=== PATIENT | female | born 1965 | race Caucasian/White ===

== ENCOUNTER 2020-03-22 13:58 | Outpatient (REF) | payer MEDICARE, MEDICAID, SELFPAY ==
--- NOTE | 2020-03-22 14:05 | XR_ITS ---
EXAMINATION: XR KNEE, LEFT CLINICAL INFORMATION: Pain COMPARISON: Left knee x-rays 10/12/2014 TECHNIQUE: Four views of the left knee. FINDINGS: No fracture or dislocation. No suprapatellar joint effusion. Mild to moderately decreased medial joint space height. Prominent patellar osteophytes. Small osteophytes of the medial and lateral compartments. IMPRESSION: Moderate degenerative changes of the knee, particularly in the medial compartment.
== END 2020-03-22 13:59 | disposition home or self-care (01) ==
LOC: HO.HMGCX 13:58
PROVIDERS: PCP Internal Medicine; Visit Provider Nurse Practitioner Family
DX: M25.562 Pain in left knee (principal)
CPT/HCPCS: 73564

== ENCOUNTER 2020-04-03 13:45 | Outpatient (REF) | payer MEDICARE, MEDICAID, SELFPAY | END 2020-04-03 13:46 | disposition home or self-care (01) | LOC: HO.LAB 13:45 | PROVIDERS: PCP Internal Medicine; Referring Provider Internal Medicine; Visit Provider Obstetrics & Gynecology | DX: R30.0 Dysuria (principal); M25.469 Effusion, unspecified knee; M25.562 Pain in left knee | CPT/HCPCS: 87086; 99213 ==

== ENCOUNTER 2020-04-14 09:06 | Outpatient (REF) | payer MEDICARE, MEDICAID, SELFPAY ==
[2020-04-14 16:29] LABS: CT PCR NOT DETECTED (Not Detect.); NG PCR NOT DETECTED (Not Detect.)
[2020-04-17 09:40] LABS: BV Int Neg Control Negative (Negative); BV Int Pos Control Positive (Positive)
== END 2020-04-14 09:07 | disposition home or self-care (01) ==
LOC: HO.LAB 09:06
PROVIDERS: PCP Internal Medicine; Referring Provider Internal Medicine; Visit Provider Obstetrics & Gynecology
DX: Z11.3 Encounter for screening for infections with a predominantly sexual mode of transmission (principal); N89.8 Other specified noninflammatory disorders of vagina
CPT/HCPCS: 87480; 87491; 87510; 87591; 87660; 99212

== ENCOUNTER 2020-04-27 08:30 | Outpatient (REF) | payer MEDICARE, MEDICAID, SELFPAY ==
[2020-04-27 12:45] LABS: Anion Gap 14 (12-20); Blood Urea Nitrogen 14 mg/dL (9-16); Calcium 9.3 mg/dL (8.4-10.2); Carbon Dioxide 28 mmol/L (22-29); Chloride 104 mmol/L (96-108); Cholesterol 174 mg/dL; Estimated Glomerular Filt Rate > 60; Glucose Fasting 97 mg/dL (60-99); HDL Cholesterol 54 mg/dL; LDL Cholesterol Calculated 91 mg/dl; Potassium 4.8 mmol/l (3.3-5.1); Sodium 141 mmol/L (135-145); Triglycerides 147 mg/dL
== END 2020-04-27 08:31 | disposition home or self-care (01) ==
LOC: HO.HMGCLDS 08:30
PROVIDERS: Internal Medicine; Visit Provider Obstetrics & Gynecology
DX: Z20.828 Contact with and (suspected) exposure to other viral communicable diseases (principal); E78.9 Disorder of lipoprotein metabolism, unspecified; F41.1 Generalized anxiety disorder; B00.9 Herpesviral infection, unspecified; M25.562 Pain in left knee; Z91.09 Other allergy status, other than to drugs and biological substances
CPT/HCPCS: 80048; 80061; C9803; U0003

== ENCOUNTER → 2020-08-04 09:04 | Outpatient (BNVA) | payer MEDICARE, MEDICAID, SELFPAY | PROVIDERS: PCP Internal Medicine; Referring Provider Internal Medicine; Visit Provider Nurse Practitioner | DX: Z13.89 Encounter for screening for other disorder (principal) | CPT/HCPCS: Q3014 ==

== ENCOUNTER 2020-10-17 13:17 | Outpatient (REF) | payer MEDICARE, MEDICAID, SELFPAY | END 2020-10-17 13:18 | disposition home or self-care (01) | LOC: HO.LAB 13:17 | PROVIDERS: Visit Provider Nurse Practitioner Family | DX: N39.0 Urinary tract infection, site not specified (principal) | CPT/HCPCS: 87086 ==

== ENCOUNTER 2020-10-25 07:47 | Outpatient (REF) | payer MEDICARE, MEDICAID, SELFPAY ==
--- NOTE | ~2020-10-25 | XR_ITS ---
EXAMINATION: XR CHEST CLINICAL INFORMATION: Shortness of breath COMPARISON: Previous chest x-ray most recent June 2017 TECHNIQUE: 2 views of the chest were obtained. FINDINGS: The cardiac and mediastinal contours are normal. The lungs are clear. There is no pleural effusion or pneumothorax. There are degenerative changes of the spine. XR/XR chest 2V IMPRESSION: No evidence for acute disease in the chest.
[2020-10-25 11:13] LABS: MANUAL DIFF FLAG NO
[2020-10-25 11:46] LABS: Basophils Percent Auto 0.7 % (0-2); Eosinophils Absolute Auto 0.1 X10*3/uL (0.0-0.4); Eosinophils Percent Auto 1.1 % (0-4); Hematocrit 40.8 % (37-47); Hemoglobin 12.8 g/dl (12.0-16.0); Imm Gran Abs Auto 0.01 X10*3/uL (0.00-0.03); Imm Gran Pct Auto 0.2 % (0.0-0.4); Lymphocytes Absolute Auto 2.2 X10*3/uL (1.2-4.9); Lymphocytes Percent Auto 39.2 % (20-40); Mean Corpuscular HGB Conc 31.4 g/dl (31.0-35.0); Mean Corpuscular Hemoglobin 28.5 pg (27.0-33.0); Mean Corpuscular Volume 90.9 fL (80-98); Mean Platelet Volume 10.2 fL (9.4-12.3); Monocytes Absolute Auto 0.5 X10*3/uL (0.1-1.2); Monocytes Percent Auto 8.5 % (2-11); Neutrophils Absolute Auto 2.8 X10*3/uL (2.0-8.3); Neutrophils Percent Auto 50.3 % (45-73); Platelet Count 278 X10*3/uL (160-400); Red Blood Count 4.49 X10*6/uL (4.20-5.50); Red Cell Distribution Width 13.4 % (11.0-16.0); White Blood Count 5.5 X10*3/uL (4.8-10.8)
[2020-10-25 12:28] LABS: Alanine Aminotransferase 19 U/L (0-31); Alkaline Phosphatase 81 U/L (39-117); Anion Gap 12 (12-20); Aspartate Amino Transferase 19 U/L (5-31); Bilirubin Total 0.6 mg/dL (0.0-1.0); Blood Urea Nitrogen 12 mg/dL (9-16); Calcium 9.2 mg/dL (8.4-10.2); Carbon Dioxide 25 mmol/L (22-29); Chloride 107 mmol/L (96-108); Cholesterol 219 mg/dL; Estimated Glomerular Filt Rate > 60; Glucose Fasting 91 mg/dL (60-99); HDL Cholesterol 46 mg/dL; LDL Cholesterol Calculated 134 mg/dl; Potassium 4.3 mmol/L (3.3-5.1); Sodium 140 mmol/L (135-145); Total Protein 6.7 g/dL (6.5-8.0); Triglycerides 198 mg/dL
== END 2020-10-25 07:48 | disposition home or self-care (01) ==
LOC: HO.HMGCLDS 07:47
PROVIDERS: PCP Internal Medicine; Visit Provider Internal Medicine
DX: R06.02 Shortness of breath (principal); E78.9 Disorder of lipoprotein metabolism, unspecified; F41.1 Generalized anxiety disorder; R53.83 Other fatigue; Z91.09 Other allergy status, other than to drugs and biological substances
CPT/HCPCS: 36415; 71046; 80053; 80061; 85025

== ENCOUNTER 2020-11-29 10:02 | Outpatient (REF) | payer MEDICARE, MEDICAID, SELFPAY | END 2020-11-29 10:03 | disposition home or self-care (01) | LOC: HO.LAB 10:02 | PROVIDERS: Visit Provider Nurse Practitioner Family | DX: Z13.89 Encounter for screening for other disorder (principal) ==

== ENCOUNTER 2020-11-29 10:19 | Outpatient (REF) | payer MEDICARE, MEDICAID, SELFPAY ==
[2020-11-29 11:24] LABS: MANUAL DIFF FLAG NO
[2020-11-29 11:40] LABS: Basophils Absolute Auto 0.1 X10*3/uL (0.0-0.2); Basophils Percent Auto 0.6 % (0-2); Eosinophils Absolute Auto 0.1 X10*3/uL (0.0-0.4); Eosinophils Percent Auto 0.9 % (0-4); Hematocrit 43.1 % (37-47); Hemoglobin 13.7 g/dl (12.0-16.0); Imm Gran Abs Auto 0.03 X10*3/uL (0.00-0.03); Imm Gran Pct Auto 0.3 % (0.0-0.4); Lymphocytes Absolute Auto 2.2 X10*3/uL (1.2-4.9); Lymphocytes Percent Auto 24.3 % (20-40); Mean Corpuscular HGB Conc 31.8 g/dl (31.0-35.0); Mean Corpuscular Hemoglobin 28.8 pg (27.0-33.0); Mean Corpuscular Volume 90.7 fL (80-98); Mean Platelet Volume 10.4 fL (9.4-12.3); Monocytes Absolute Auto 0.8 X10*3/uL (0.1-1.2); Monocytes Percent Auto 8.6 % (2-11); Neutrophils Absolute Auto 5.8 X10*3/uL (2.0-8.3); Neutrophils Percent Auto 65.3 % (45-73); Platelet Count 294 X10*3/uL (160-400); Red Blood Count 4.75 X10*6/uL (4.20-5.50); Red Cell Distribution Width 13.7 % (11.0-16.0); White Blood Count 8.9 X10*3/uL (4.8-10.8)
[2020-11-29 11:59] LABS: Alanine Aminotransferase 13 U/L (0-31); Albumin Level 4.3 g/dL (3.5-5.0); Alkaline Phosphatase 73 U/L (39-117); Anion Gap 16 (12-20); Aspartate Amino Transferase 17 U/L (5-31); Bilirubin Total 0.7 mg/dL (0.0-1.0); Blood Urea Nitrogen 14 mg/dL (9-16); Calcium 9.5 mg/dL (8.4-10.2); Carbon Dioxide 23 mmol/L (22-29); Chloride 107 mmol/L (96-108); Estimated Glomerular Filt Rate > 60; Glucose Random 95 mg/dL (60-115); Potassium 4.7 mmol/L (3.3-5.1); Sodium 141 mmol/L (135-145)
[2020-11-29 12:04] LABS: TSH reflex Free T4 1.01 uIU/mL (0.32-4.0)
[2020-11-30 10:01] LABS: BV Int Neg Control Negative (Negative); BV Int Pos Control Positive (Positive)
== END 2020-11-29 10:20 | disposition home or self-care (01) ==
LOC: HO.HMGCLDS 10:19
PROVIDERS: Nurse Practitioner Family; PCP Internal Medicine; Visit Provider Internal Medicine
DX: R14.0 Abdominal distension (gaseous) (principal); J39.2 Other diseases of pharynx
CPT/HCPCS: 36415; 80053; 84443; 85025; 87086; 87480; 87510; 87660

== ENCOUNTER → 2020-12-22 14:05 | Outpatient (BNVA) | payer MEDICARE, MEDICAID, SELFPAY | PROVIDERS: PCP Internal Medicine; Visit Provider Nurse Practitioner | DX: K31.84 Gastroparesis (principal); K59.01 Slow transit constipation | CPT/HCPCS: Q3014 ==

== ENCOUNTER → 2021-01-23 09:29 | Outpatient (BNVA) | payer MEDICARE, MEDICAID, SELFPAY | PROVIDERS: PCP Internal Medicine; Visit Provider Nurse Practitioner | DX: Z13.89 Encounter for screening for other disorder (principal) | CPT/HCPCS: Q3014 ==

== ENCOUNTER 2021-01-24 10:40 | Outpatient (REF) | payer MEDICARE, MEDICAID, SELFPAY ==
--- NOTE | ~2021-01-24 | XR_ITS ---
EXAMINATION: XR SHOULDER, RIGHT CLINICAL INFORMATION: Pain. COMPARISON: Right shoulder radiographs dated 12/26/2014; chest radiograph dated 10/26/2013. TECHNIQUE: AP external rotation, Grashey, scapular Y, and axillary views of the right shoulder. FINDINGS: Bony alignment and mineralization are normal. The glenohumeral joint is intact. There is mild peripheral osteophyte formation of the glenoid, most pronounced inferior. The acromioclavicular and coracoclavicular intervals are normal. There is mild osteoarthritic change of the acromioclavicular joint. There is a small distal acromial undersurface osteophyte. There is coarse calcifications of the rotator cuff insertion. No fracture or dislocation is seen. No foreign body or soft tissue gas is seen. A tiny benign, calcified right upper lobe granuloma is stable from chest radiographs dated 11/03/2013. XR/XR shoulder RT min 2V IMPRESSION: 1. There is mild to moderate osteoarthritic change of the right glenohumeral joint, and mild osteoarthritic change is seen of the right acromioclavicular joint. 2. No fracture or dislocation is seen. 3. There is coarse calcific tendinitis of the right rotator cuff insertion.
== END 2021-01-24 10:41 | disposition home or self-care (01) ==
LOC: HO.HMGCX 10:40
PROVIDERS: PCP Internal Medicine; Visit Provider Internal Medicine Rheumatology
DX: M25.511 Pain in right shoulder (principal)
CPT/HCPCS: 73030

== ENCOUNTER → 2021-02-07 11:36 | Outpatient (BNVA) | payer MEDICARE, MEDICAID, SELFPAY | PROVIDERS: PCP Internal Medicine; Visit Provider Advanced Practice Midwife | DX: Z13.89 Encounter for screening for other disorder (principal) | CPT/HCPCS: Q3014 ==

== ENCOUNTER 2021-02-18 06:47 | Emergency (ER) | payer MEDICARE, MEDICAID, SELFPAY ==
[2021-02-18 06:59] VITALS: BP 151/84; PULSE 78; RESP 16; TEMP 36.8; O2SAT 98; BMI 42.5
--- NOTE | 2021-02-18 07:14 | ED.GENADULT ---
HPI - General Adult General Chief complaint: Abdominal Pain Stated complaint: UTI Time Seen by Provider: 02/18/21 07:04 Source: patient Mode of arrival: ambulatory Limitations: no limitations History of Present Illness HPI narrative: Patient comes emergency room complaining of bilateral flank pain and nausea. Patient states that she also has dysuria, hematuria. Prior to arrival she took 1 dose of azo for discomfort relief but it is not helping. Patient states she has history of pyelonephritis, recurrent UTIs, patient known to have cystocele with prolapse and is in the scheduling process for surgery. Patient denies fever chills. Patient states her symptoms starting this morning approximately 3-4 hours ago. Related Data Home Medications Medication Instructions Recorded Confirmed metoclopramide HCl 5 mg tablet 5 mg PO QIDACHS 01/23/21 valacyclovir 500 mg tablet 500 mg PO DAILY 02/07/21 Previous Rx's Medication Instructions Recorded miscellaneous medical supply 1 ea MISCELLANEOUS DAILY #1 ea 03/23/20 linaclotide 145 mcg capsule 145 mcg PO QAM #30 cap 11/13/20 (Linzess) pantoprazole 40 mg tablet,delayed 40 mg PO DAILY 90 Days #90 tab 11/22/20 release alprazolam 0.25 mg tablet 0.25 mg PO BID PRN 30 Days #60 tab 12/12/20 rosuvastatin 10 mg tablet 10 mg PO DAILY #90 tab 12/12/20 simethicone 180 mg capsule 180 mg PO QID 30 Days #120 cap 12/22/20 levofloxacin 500 mg tablet 500 mg PO DAILY #9 tab 02/18/21 phenazopyridine 100 mg tablet 100 mg PO TID #6 tab 02/18/21 Allergies Allergy/AdvReac Type Severity Reaction Status Date / Time gabapentin [GABAPENTIN] Allergy Severe SEVERE GI Verified 02/07/21 11:38 ISSUES Iodinated Contrast Media Allergy Severe SWELLING Verified 02/07/21 11:38 [IV DYE, IODINE CONTAINING] Sulfa (Sulfonamide Allergy Severe ANAPHYLAXIS, Verified 02/07/21 11:38 Antibiotics) swelling [SULFA (SULFONAMIDE ANTIBIOTICS)] nabumetone Allergy Unknown Abdominal Verified 02/07/21 11:38 Pain pregabalin Allergy Unknown unknown Verified 02/07/21 11:38 venlafaxine Allergy Unknown unknown Verified 02/07/21 11:38 meloxicam AdvReac Unknown abdominal Verified 02/07/21 11:38 pain all meat Allergy Unknown unknown Uncoded 01/23/21 09:30 Environmental Allergy Unknown unknown Uncoded 01/23/21 09:30 Review of Systems Review of Systems: Constitutional : No Weight loss, No Fever, No Chills, No Night Sweats, No Fatigue, No Malaise ENT/Mouth : No Hearing loss, No Ear Pain, No Nasal Congestion, No Sinus Pain, No Hoarseness, No sore throat, No Rhinorrhea, No Swallowing Difficulty Eyes: No Eye Pain, No Swelling, No Redness, No Foreign Body, No Discharge, No Vision Changes Cardiovascular : No Chest Pain, No SOB, No Dyspnea on Exertion, No Orthopnea, No Edema, No Palpitations Respiratory : No Cough, No Sputum, No Wheezing, No Smoke Exposure, No Dyspnea Gastrointestinal : No Nausea, No Vomiting, No Diarrhea, No Constipation, No abdominal Pain, No Hematochezia, No Melena Genitourinary : Complaining of dysuria, urinary frequency and hematuria, Known to have cystocele with prolapse causing frequent urination and urgency, being of bilateral Flank Pain Musculoskeletal : No joint pain, No Myalgias, No Joint Swelling Skin : No Skin Lesions, No rash Neuro : No Weakness, No Numbness, No Paresthesias, No Loss of Consciousness, No Dizziness, No Headache Psych : No Anxiety/Panic, No Depression, No SI/HI/AH/VH, No Social Issues, Heme/Lymph: No Bruising, No Bleeding,No Lymphadenopathy Endocrine : No Polyuria, No Polydipsia, No Temperature Intolerance PMFSH Past Medical History Medical History Acute arthritis Anxiety, generalized Constipation by delayed colonic transit Environmental allergies Fibromyalgia Herpes Lipid disorder Tendonitis Umbilical hernia Surgical History H/O hand surgery History of cholecystectomy History of esophagogastroduodenoscopy (EGD) History of meniscectomy of left knee (~01/12/14) Hx of colonoscopy Family History Family History Mother Cervical cancer Bladder cancer Father Cancer Sister No problems noted. Social History Social History (Reviewed 02/07/21 @ 14:49 by DAHIANA Alvarenga Alcohol intake: never Patient Tobacco Use Status: Never used Tobacco Use of substances other than those prescribed or required for medical reasons: No Advance Directives: No Sexual orientation: Straight/Heterosexual Gender identity: Female Physical Exam Vital Signs: Vital Signs: Last Vital Signs Temp 98.2 F 02/18/21 06:59 Pulse 76 02/18/21 09:31 Resp 16 02/18/21 09:31 BP 132/76 02/18/21 09:31 Pulse Ox 100 02/18/21 09:31 Body Mass Index 42.5 Const: Other: Appearance: Alert. Oriented X3. No acute distress. Eyes: Pupils equal, round and reactive to light. ENT: Pharynx normal. Neck: Normal inspection. Neck supple. No lymph nodes noted. No crepitus CVS: Normal heart rate and rhythm. Pulses normal. Normal S1 and S2 Respiratory: No respiratory distress. Breath sounds normal. No Wheezing. No rales Abdomen: Soft and nontender. No rigidity. No distention. Skin: Skin warm and dry. Normal skin color. Normal skin turgor. Extremities: No lower extremity edema. No lower extremity edema. No Lacerations. No Rash Neuro: Oriented X 3. No motor deficit. No sensory deficit. Moving all extermities. No slurred speech. Course Course Course Narrative: I discussed the labs with the patient, white blood cell count and lactic acid within normal limits, sepsis is not suspected. However, due to patient's clinical picture, she does have pyelonephritis. Patient was given 1 dose of levofloxacin here in the emergency room. Reviewing the patient's allergies, she is allergic to sulfas Medical Decision Making Lab Data Result diagrams: 02/18/21 07:32 02/18/21 07:26 Labs: Lab Results 02/18/21 02/18/21 02/18/21 Range/Units 07:26 07:27 07:27 WBC (4.8-10.8) X10*3/uL RBC (4.20-5.50) X10*6/uL Hgb (12.0-16.0) g/dl Hct (37-47) % MCV (80-98) fL MCH (27.0-33.0) pg MCHC (31.0-35.0) g/dl RDW (11.0-16.0) % Plt Count (160-400) X10*3/uL MPV (9.4-12.3) fL Immature Gran % (Auto) (0.0-0.4) % Neut % (Auto) (45-73) % Lymph % (Auto) (20-40) % [place] % (Auto) (2-11) % Eos % (Auto) (0-4) % Baso % (Auto) (0-2) % Lymph # (Auto) (1.2-4.9) X10*3/uL [place] # (Auto) (0.1-1.2) X10*3/uL Eos # (Auto) (0.0-0.4) X10*3/uL Baso # (Auto) (0.0-0.2) X10*3/uL Abs Immat Gran (auto) (0.00-0.03) X10*3/uL Absolute Neuts (auto) (2.0-8.3) X10*3/uL Absolute Nucleated RBC (0.0-0.012) X10*3/uL Nucleated RBC % (auto) (0.0-0.2) /100WBC Sodium 138 (135-145) mmol/L Potassium 4.2 (3.3-5.1) mmol/L Chloride 106 (96-108) mmol/L Carbon Dioxide 25 (22-29) mmol/L Anion Gap 11 L (12-20) BUN 15 (9-16) mg/dL Creatinine 0.79 (0.5-1.4) mg/dL Estim Creat Clear Calc 86.2 Estimated GFR > 60 Random Glucose 107 (60-115) mg/dL Lactic Acid (0.5-2.0) mmol/L Calcium 9.8 (8.4-10.2) mg/dL Total Bilirubin 0.9 (0.0-1.0) mg/dL Direct Bilirubin 0.3 (0.0-0.5) mg/dL AST 17 (5-31) U/L ALT 19 (0-31) U/L Alkaline Phosphatase 83 (39-117) U/L Total Protein 7.0 (6.5-8.0) g/dL Albumin 4.3 (3.5-5.0) g/dL Urine Color ORANGE Urine Appearance CLEAR Urine pH 6.0 (5.0-8.0) Ur Specific [place] <= 1.005 (1.005-1.025) Urine Protein 1+ H (NEG-TRACE) MG/DL Urine Glucose (UA) 100 H (NEG) MG/DL Urine Ketones NEG (NEG) MG/DL Urine Blood 2+ H (NEG) Urine Nitrite POS H (NEG) Ur Leukocyte Esterase 3+ H (NEG) Urine RBC 0-2 (0) /HPF Urine WBC 15-29 H (0-4) /HPF Ur Squamous Epith Cells 1+ /LPF Ur Renal Epithelial Cell 1+ /LPF Urine Bacteria 1+ /LPF Urine Test NEGATIVE (NEGATIVE) 02/18/21 02/18/21 Range/Units 07:32 07:32 WBC 8.0 (4.8-10.8) X10*3/uL RBC 4.48 (4.20-5.50) X10*6/uL Hgb 13.5 (12.0-16.0) g/dl Hct 40.6 (37-47) % MCV 90.6 (80-98) fL MCH 30.1 (27.0-33.0) pg MCHC 33.3 (31.0-35.0) g/dl RDW 13.2 (11.0-16.0) % Plt Count 262 (160-400) X10*3/uL MPV 9.5 (9.4-12.3) fL Immature Gran % (Auto) 0.3 (0.0-0.4) % Neut % (Auto) 63.2 (45-73) % Lymph % (Auto) 26.6 (20-40) % [place] % (Auto) 8.7 (2-11) % Eos % (Auto) 0.6 (0-4) % Baso % (Auto) 0.6 (0-2) % Lymph # (Auto) 2.1 (1.2-4.9) X10*3/uL [place] # (Auto) 0.7 (0.1-1.2) X10*3/uL Eos # (Auto) 0.1 (0.0-0.4) X10*3/uL Baso # (Auto) 0.1 (0.0-0.2) X10*3/uL Abs Immat Gran (auto) 0.02 (0.00-0.03) X10*3/uL Absolute Neuts (auto) 5.0 (2.0-8.3) X10*3/uL Absolute Nucleated RBC 0.000 (0.0-0.012) X10*3/uL Nucleated RBC % (auto) 0.0 (0.0-0.2) /100WBC Sodium (135-145) mmol/L Potassium (3.3-5.1) mmol/L Chloride (96-108) mmol/L Carbon Dioxide (22-29) mmol/L Anion Gap (12-20) BUN (9-16) mg/dL Creatinine (0.5-1.4) mg/dL Estim Creat Clear Calc Estimated GFR Random Glucose (60-115) mg/dL Lactic Acid 0.8 (0.5-2.0) mmol/L Calcium (8.4-10.2) mg/dL Total Bilirubin (0.0-1.0) mg/dL Direct Bilirubin (0.0-0.5) mg/dL AST (5-31) U/L ALT (0-31) U/L Alkaline Phosphatase (39-117) U/L Total Protein (6.5-8.0) g/dL Albumin (3.5-5.0) g/dL Urine Color Urine Appearance Urine pH (5.0-8.0) Ur Specific [place] (1.005-1.025) Urine Protein (NEG-TRACE) MG/DL Urine Glucose (UA) (NEG) MG/DL Urine Ketones (NEG) MG/DL Urine Blood (NEG) Urine Nitrite (NEG) Ur Leukocyte Esterase (NEG) Urine RBC (0) /HPF Urine WBC (0-4) /HPF Ur Squamous Epith Cells /LPF Ur Renal Epithelial Cell /LPF Urine Bacteria /LPF Urine Test (NEGATIVE) Discharge Plan Discharge Clinical Impression: Pyelonephritis Patient Disposition: Home, Self-Care Instructions: Kidney Infection (ED) Additional Instructions: Please follow-up with your primary care physician tomorrow. If you have any worsening or new symptoms, please return to the emergency room or call 911 Prescriptions: New levofloxacin 500 mg tablet 500 mg PO DAILY Qty: 9 RF: 0 phenazopyridine 100 mg tablet 100 mg PO TID Qty: 6 RF: 0 No Action linaclotide [Linzess] 145 mcg capsule 145 mcg PO QAM Qty: 30 RF: 6 pantoprazole 40 mg tablet,delayed release (DR/EC) 40 mg PO DAILY 90 Days Qty: 90 RF: 1 alprazolam 0.25 mg tablet 0.25 mg PO BID PRN (Reason: anxiety) 30 Days Qty: 60 RF: 2 rosuvastatin 10 mg tablet 10 mg PO DAILY Qty: 90 RF: 0 miscellaneous medical supply Misc 1 ea miscellaneous DAILY Qty: 1 RF: 0 simethicone 180 mg capsule 180 mg PO QID 30 Days Qty: 120 RF: 3 metoclopramide HCl 5 mg tablet 5 mg PO QIDACHS RF: 0 valacyclovir 500 mg tablet 500 mg PO DAILY RF: 0
[2021-02-18] MEDS: ondansetron HCL 4 MG/2 ML VIAL IVPUSH (07:36)
[2021-02-18] MEDS: 0.9 % Sodium Chloride 1,000 ML 999 ML IVCONT (07:36)
[2021-02-18 07:38] LABS: MANUAL DIFF FLAG NO
[2021-02-18 07:40] LABS: Basophils Absolute Auto 0.1 X10*3/uL (0.0-0.2); Basophils Percent Auto 0.6 % (0-2); Eosinophils Absolute Auto 0.1 X10*3/uL (0.0-0.4); Eosinophils Percent Auto 0.6 % (0-4); Hematocrit 40.6 % (37-47); Hemoglobin 13.5 g/dl (12.0-16.0); Imm Gran Abs Auto 0.02 X10*3/uL (0.00-0.03); Imm Gran Pct Auto 0.3 % (0.0-0.4); Lymphocytes Absolute Auto 2.1 X10*3/uL (1.2-4.9); Lymphocytes Percent Auto 26.6 % (20-40); Mean Corpuscular HGB Conc 33.3 g/dl (31.0-35.0); Mean Corpuscular Hemoglobin 30.1 pg (27.0-33.0); Mean Corpuscular Volume 90.6 fL (80-98); Mean Platelet Volume 9.5 fL (9.4-12.3); Monocytes Absolute Auto 0.7 X10*3/uL (0.1-1.2); Monocytes Percent Auto 8.7 % (2-11); Neutrophils Percent Auto 63.2 % (45-73); Platelet Count 262 X10*3/uL (160-400); Red Blood Count 4.48 X10*6/uL (4.20-5.50); Red Cell Distribution Width 13.2 % (11.0-16.0)
[2021-02-18 07:40] LABS: Appearance Urine CLEAR; Glucose Urine UA 100 MG/DL (NEG); Leukocyte Esterase Urine 3+ (NEG); Nitrite Urine POS (NEG); Specific Gravity - Urine <= 1.005 (1.005-1.025); UACC Culture Trigger YES; Urine Blood 2+ (NEG); Urine Ketones NEG (NEG); Urine Protein 1+ MG/DL (NEG-TRACE)
[2021-02-18 07:42] LABS: Urine Pregnancy NEGATIVE (NEGATIVE)
[2021-02-18 07:43] LABS: UPreg QC Valid YES
[2021-02-18 07:46] LABS: Color Urine ORANGE
[2021-02-18 07:49] LABS: Lactic Acid 0.8 mmol/L (0.5-2.0)
[2021-02-18 07:50] LABS: Alanine Aminotransferase 19 U/L (0-31); Albumin Level 4.3 g/dL (3.5-5.0); Alkaline Phosphatase 83 U/L (39-117); Anion Gap 11 (12-20); Aspartate Amino Transferase 17 U/L (5-31); Bilirubin Direct 0.3 mg/dL (0.0-0.5); Bilirubin Total 0.9 mg/dL (0.0-1.0); Blood Urea Nitrogen 15 mg/dL (9-16); Calcium 9.8 mg/dL (8.4-10.2); Carbon Dioxide 25 mmol/L (22-29); Chloride 106 mmol/L (96-108); Creatinine Clr Calc Pharmacy 86.2; Estimated Glomerular Filt Rate > 60; Glucose Random 107 mg/dL (60-115); Potassium 4.2 mmol/L (3.3-5.1); Sodium 138 mmol/L (135-145)
[2021-02-18] MEDS: Ketorolac Tromethamine 15 MG/ML VIAL 30 MG IVPUSH (07:55)
[2021-02-18 08:14] LABS: Bacteria Urine 1+ /LPF; RBC Urine 0-2 /HPF (0); Renal Epithelial Cells Urine 1+ /LPF; Squamous Epithelial Cell Urine 1+ /LPF
[2021-02-18 09:31] VITALS: BP 132/76; PULSE 76; RESP 16; O2SAT 100
--- NOTE | 2021-02-18 09:31 | PC.NURSE ---
Pt states pain 9/10, but noted resting with eyes closed. vitals stable. awaiting dispo
[2021-02-18] MEDS: levoFLOXacin 500 MG TABLET PO (10:31)
== END 2021-02-18 10:36 | disposition home or self-care (01) ==
PROVIDERS: Emergency Provider Emergency Medicine; PCP Internal Medicine
DX: N12 Tubulo-interstitial nephritis, not specified as acute or chronic (principal); R10.9 Unspecified abdominal pain; Z79.899 Other long term (current) drug therapy
CPT/HCPCS: 36415; 80048; 80076; 81001; 81025; 83605; 85025; 87040; 87086; 87088; 87186; 96365; 96375; 99284; J1885; J2405

== ENCOUNTER → 2021-03-16 09:02 | Outpatient (BNVA) | payer MEDICARE, MEDICAID, SELFPAY | PROVIDERS: PCP Internal Medicine; Visit Provider Nurse Practitioner | DX: K21.9 Gastro-esophageal reflux disease without esophagitis (principal); K31.84 Gastroparesis; K59.04 Chronic idiopathic constipation; R10.13 Epigastric pain | CPT/HCPCS: Q3014 ==

== ENCOUNTER 2021-07-19 11:16 | Day surgery (SDC) | payer MEDICARE, MEDICAID, SELFPAY ==
--- NOTE | 2021-07-19 11:41 | MHC.SHP ---
Pre-Procedural Eval Section A Date of Service: 07/19/21 Section B Chief Complaint: reflux Relevant Family History (Specify if Yes): No Relevant Social History: None Present Medications: see Short Stay Collaborative assessment Medical History: Significant History (Acute arthritis Anxiety, generalized Environmental allergies Fibromyalgia Herpes Lipid disorder Tendonitis Umbilical hernia) History of Previous Operations: Relevant previous surgery/procedure and date(s) (H/O hand surgery History of cholecystectomy History of esophagogastroduodenoscopy (EGD) History of meniscectomy of left knee (~01/12/14) Hx of colonoscopy) Allergies: Allergies Allergy/AdvReac Type Severity Reaction Status Date / Time gabapentin [GABAPENTIN] Allergy Severe SEVERE GI Verified 03/16/21 09:03 ISSUES Iodinated Contrast Media Allergy Severe SWELLING Verified 03/16/21 09:03 [IV DYE, IODINE CONTAINING] Sulfa (Sulfonamide Allergy Severe ANAPHYLAXIS, Verified 03/16/21 09:03 Antibiotics) swelling [SULFA (SULFONAMIDE ANTIBIOTICS)] lidocaine Allergy Mild Welts Verified 03/16/21 09:03 nabumetone Allergy Unknown Abdominal Verified 03/16/21 09:03 Pain pregabalin Allergy Unknown unknown Verified 03/16/21 09:03 venlafaxine Allergy Unknown unknown Verified 03/16/21 09:03 meloxicam AdvReac Unknown abdominal Verified 03/16/21 09:03 pain all meat Allergy Unknown unknown Uncoded 03/16/21 09:03 Environmental Allergy Unknown unknown Uncoded 03/16/21 09:03 Review of Systems Sugical H&P ROS: Negative: Constitution, Cardiovascular, Respiratory, Neurological, Psychiatric, Hem-Onc, Allergic/Immunologic, Gastrointestinal, Genitourinary, Musculoskeletal, Integumentary, Endocrine and Eyes/Ears/Nose/Throat Exam Surgical H&P Exam: Normal: HEENT, Normal: Heart, Normal: Lungs, Normal: Extremities, Normal: Abdomen, Normal: Skin and Normal: Neurological Plan Diagnosis/Plan: Unchanged I have reviewed the history and physical and performed a pertinent physical examination on my patient. No changes have occurred unless specified.
[2021-07-19 11:57] VITALS: BMI 42.9
[2021-07-19 12:12] VITALS: BP 141/83; PULSE 75; RESP 17; TEMP 36.3; O2SAT 96
--- NOTE | 2021-07-19 13:36 | P.BOP_ITS ---
Brief Operative Note Date of Service: 07/19/21 Pre-op diagnosis: GERD Post-op diagnosis: same Procedure: see op note Surgeon: Shahana Blunt MD Anesthesia: MAC Was an Security And Compliance Project Manager used for this Procedure?: No Estimated blood loss (mL): 0 Condition: stable Disposition: PACU
--- NOTE | 2021-07-19 13:36 | W.PM.OPN ---
Operative Note Operative Note Date of Service: 07/19/21 Narrative: Procedure Description: EGD FLEXIBLE TRANSORAL UPPER GASTROINTESTINAL ENDOSCOPY UPPER ENDOSCOPY Consent: Indications for the procedure and potential complications of bleeding, perforation, reaction to medications and missed diagnosis were discussed with the patient and informed consent was obtained. Instrument: Olympus GIF H 190 J mid size upper endoscope Monitoring: Vital signs and clinical assessment, continuous EKG monitoring, Pulse oximetry, Carbon Dioxide monitoring and blood pressure monitoring were done throughout the procedure. Procedure: The patient was placed in the left lateral decubitis position and pre-procedure medications were administered and a bite block was placed. The endoscope was inserted into the mouth and advanced under direct vision to the third part of duodenum. A careful inspection was made as the upper endoscope was withdrawn including a retroflexed examination of the proximal stomach; Findings and interventions are described below. Findings: Larynx:normal Esophagus: GE junction at 38 cm, diaphragm hiatus at 40 cm, 2 cm sliding hiatal hernia, with possible short segment barretts esophagus Stomach: streaky gastric erythema with few erosions in antrum. Biopsies were obtained. Grade 2 flap valve on retroflexed examination of the cardia. Duodenum: Normal bulb and descending duodenum, bx taken Intervention: Biopsies as noted above Impression/Findings: erosive gastritis hiatal hernia possible barretts PLAN: Reflux precautions review timing of PPI, consider changing formulation if ongoing sx or increase the dose if sx still persist then gastric emptying study
[2021-07-19 13:40] VITALS: BP 120/76; PULSE 73; RESP 16; TEMP 36.6; O2SAT 98
[2021-07-19 13:55] VITALS: BP 118/76; PULSE 73; RESP 18; O2SAT 97
[2021-07-19 14:10] VITALS: BP 136/85; PULSE 75; RESP 18; O2SAT 98
== END 2021-07-19 14:51 | disposition home or self-care (01) ==
PROVIDERS: PCP Internal Medicine; Visit Provider Internal Medicine Gastroenterology
PROC: 0DJ08ZZ Inspection of Upper Intestinal Tract, Via Natural or Artificial Opening Endoscopic (ICD-10-PCS; CPT 43235; principal; 2021-07-19 12:40)
DX: K21.9 Gastro-esophageal reflux disease without esophagitis (principal); K29.50 Unspecified chronic gastritis without bleeding; K44.9 Diaphragmatic hernia without obstruction or gangrene; M79.7 Fibromyalgia; E75.6 Lipid storage disorder, unspecified; Z79.899 Other long term (current) drug therapy; Z88.2 Allergy status to sulfonamides; Z88.8 Allergy status to other drugs, medicaments and biological substances; Z91.041 Radiographic dye allergy status
CPT/HCPCS: 43239; 88305; 88342

== ENCOUNTER 2021-09-19 09:13 | Outpatient (REF) | payer MEDICARE, MEDICAID, SELFPAY ==
[2021-09-19 11:11] LABS: MANUAL DIFF FLAG NO
[2021-09-19 11:34] LABS: Basophils Absolute Auto 0.1 X10*3/uL (0.0-0.2); Eosinophils Absolute Auto 0.1 X10*3/uL (0.0-0.4); Eosinophils Percent Auto 1.4 % (0-4); Hematocrit 41.1 % (37.0-47.0); Hemoglobin 13.4 g/dl (12.0-16.0); Imm Gran Abs Auto 0.01 X10*3/uL (0.00-0.03); Imm Gran Pct Auto 0.2 % (0.0-0.4); Lymphocytes Absolute Auto 1.9 X10*3/uL (1.2-4.9); Mean Corpuscular HGB Conc 32.6 g/dl (31.0-35.0); Mean Corpuscular Hemoglobin 29.6 pg (27.0-33.0); Mean Corpuscular Volume 90.7 fL (80.0-98.0); Mean Platelet Volume 10.6 fL (9.4-12.3); Monocytes Absolute Auto 0.6 X10*3/uL (0.1-1.2); Monocytes Percent Auto 10.3 % (2-11); Neutrophils Absolute Auto 3.1 x10*3/uL (2.0-8.3); Neutrophils Percent Auto 54.1 % (45-73); Platelet Count 301 X10*3/uL (160-400); Red Blood Count 4.53 X10*6/uL (4.20-5.50); Red Cell Distribution Width 12.8 % (11.0-16.0); White Blood Count 5.7 X10*3/uL (4.8-10.8)
[2021-09-19 11:45] LABS: Alanine Aminotransferase 27 U/L (0-31); Albumin Level 4.2 g/dL (3.5-5.0); Alkaline Phosphatase 84 U/L (39-117); Anion Gap 14 (12-20); Aspartate Amino Transferase 27 U/L (5-31); Bilirubin Total 0.7 mg/dL (0.0-1.0); Blood Urea Nitrogen 8 mg/dL (9-16); Calcium 9.8 mg/dL (8.4-10.2); Carbon Dioxide 24 mmol/L (22-29); Chloride 107 mmol/L (96-108); Cholesterol 199 mg/dL; Estimated Glomerular Filt Rate > 60; Glucose Fasting 116 mg/dL (60-99); HDL Cholesterol 39 mg/dL; LDL Cholesterol Calculated 114 mg/dl; Potassium 4.3 mmol/L (3.3-5.1); Sodium 141 mmol/L (135-145); Triglycerides 231 mg/dL
[2021-09-19 11:55] LABS: TSH reflex Free T4 1.29 uIU/mL (0.32-4.0)
[2021-09-19 12:09] LABS: Vitamin B12 < 146 pg/mL (200-900)
[2021-09-24 05:46] LABS: Vitamin D 25-OH, D2 <4 ng/mL; Vitamin D 25-OH, D3 30 ng/mL; Vitamin D 25-OH, Total 30 ng/mL (30-100)
== END 2021-09-19 09:14 | disposition home or self-care (01) ==
LOC: HO.HMGCLDS 09:13
PROVIDERS: PCP Internal Medicine; Visit Provider Internal Medicine
DX: E66.01 Morbid (severe) obesity due to excess calories (principal); E78.9 Disorder of lipoprotein metabolism, unspecified; F41.1 Generalized anxiety disorder; M19.90 Unspecified osteoarthritis, unspecified site; R03.0 Elevated blood-pressure reading, without diagnosis of hypertension; R53.83 Other fatigue; Z91.09 Other allergy status, other than to drugs and biological substances
CPT/HCPCS: 36415; 80053; 80061; 82306; 82607; 84443; 85025

== ENCOUNTER → 2021-10-12 07:57 | Outpatient (REF) | payer MEDICARE, MEDICAID, SELFPAY ==
--- NOTE | ~2021-10-12 | NM_ITS ---
EXAMINATION: RADIONUCLIDE SOLID FOOD GASTRIC EMPTYING 4-HOUR STUDY CLINICAL INFORMATION: Epigastric pain, history of chronic GERD. COMPARISON: The previous gastric emptying study dated 05/18/2013 is available for comparison. TECHNIQUE: A standard meal consisting of 4 oz of Egg Beaters brand tagged with 1 mCi Tc-99m Sulfur Colloid, 8 oz water and 2 slices of toast with jelly was administered orally to the patient. Images were obtained using a dual head gamma camera in the anterior and posterior projections over of the stomach immediately post ingestion and at hourly intervals up to 3 hours post ingestion. Images were not obtained at 4 hours due to the minimal retention at 3 hours. The anterior and posterior counts at each time interval were averaged using the geometric mean and expressed as percentage of the immediate post ingestion counts. FINDINGS: There is good visualization of activity in the stomach immediately post ingestion. As the study progresses, there is good clearance of activity from the stomach and visualization of progressively increasing small bowel activity. By the end of the study, there is almost no retention noted in the stomach. Retention in the stomach at each time interval was: 1 hour 99% (normal 37%-90%) 2 hours 38% (normal 30%-60%) 3 hours 7% 4 hours (Not Obtained) (normal 0%-10%) Compared to the previous study dated 05/18/2013, gastric emptying is more complete at 4 hours on the current study than previously. On the previous study retention in the stomach were: 1 hour 54%, 2 hours, 25%, 3 hours 15%, 4 hours 12%. NM/NM gastric emptying study IMPRESSION: Normal solid food gastric emptying study.
== END ==
LOC: HO.NUCMED 07:57
PROVIDERS: PCP Internal Medicine; Visit Provider Internal Medicine Gastroenterology
DX: R10.13 Epigastric pain (principal); R14.0 Abdominal distension (gaseous); K21.9 Gastro-esophageal reflux disease without esophagitis
CPT/HCPCS: 78264; A9541

== ENCOUNTER → 2022-01-15 10:42 | Outpatient (BNVA) | payer MEDICARE, MEDICAID, SELFPAY | PROVIDERS: PCP Internal Medicine; Visit Provider Nurse Practitioner | DX: K59.04 Chronic idiopathic constipation (principal); K31.84 Gastroparesis; R10.13 Epigastric pain; Z98.890 Other specified postprocedural states | CPT/HCPCS: 99212 ==

== ENCOUNTER 2022-04-22 08:32 | Outpatient (REF) | payer MEDICARE, MEDICAID, SELFPAY | END 2022-04-22 08:33 | disposition home or self-care (01) | LOC: HO.HOSX 08:32 | PROVIDERS: Visit Provider Physician Assistant | DX: Z13.89 Encounter for screening for other disorder (principal) ==

== ENCOUNTER 2022-04-24 12:19 | Outpatient (REF) | payer MEDICARE, MEDICAID, SELFPAY ==
[2022-04-24 14:10] LABS: MANUAL DIFF FLAG NO
[2022-04-24 14:14] LABS: Basophils Absolute Auto 0.1 X10*3/uL (0.0-0.2); Eosinophils Absolute Auto 0.1 X10*3/uL (0.0-0.4); Eosinophils Percent Auto 1.2 % (0-4); Hematocrit 38.6 % (37.0-47.0); Hemoglobin 12.6 g/dl (12.0-16.0); Imm Gran Abs Auto 0.02 X10*3/uL (0.00-0.03); Imm Gran Pct Auto 0.3 % (0.0-0.4); Lymphocytes Absolute Auto 2.6 X10*3/uL (1.2-4.9); Lymphocytes Percent Auto 32.9 % (20-40); Mean Corpuscular HGB Conc 32.6 g/dl (31.0-35.0); Mean Corpuscular Hemoglobin 29.9 pg (27.0-33.0); Mean Corpuscular Volume 91.5 fL (80.0-98.0); Mean Platelet Volume 10.6 fL (9.4-12.3); Monocytes Absolute Auto 0.7 X10*3/uL (0.1-1.2); Monocytes Percent Auto 9.1 % (2-11); Neutrophils Absolute Auto 4.3 x10*3/uL (2.0-8.3); Neutrophils Percent Auto 55.5 % (45-73); Platelet Count 322 X10*3/uL (160-400); Red Blood Count 4.22 X10*6/uL (4.20-5.50); Red Cell Distribution Width 12.6 % (11.0-16.0); White Blood Count 7.8 X10*3/uL (4.8-10.8)
[2022-04-24 14:40] LABS: Alanine Aminotransferase 16 U/L (0-31); Albumin Level 4.5 g/dL (3.5-5.0); Alkaline Phosphatase 99 U/L (39-117); Anion Gap 15 (12-20); Aspartate Amino Transferase 20 U/L (5-31); Bilirubin Total 0.3 mg/dL (0.0-1.0); Blood Urea Nitrogen 11 mg/dL (9-16); Calcium 9.6 mg/dL (8.4-10.2); Carbon Dioxide 24 mmol/L (22-29); Chloride 105 mmol/L (96-108); Estimated Glomerular Filt Rate > 60; Glucose Random 91 mg/dL (60-115); Potassium 4.3 mmol/L (3.3-5.1); Sodium 140 mmol/L (135-145); Total Protein 7.3 g/dL (6.5-8.0)
[2022-04-24 14:46] LABS: TSH reflex Free T4 2.69 uIU/mL (0.32-4.0)
[2022-04-24 14:53] LABS: Vitamin B12 437 pg/mL (200-900)
[2022-04-26 01:26] LABS: LDL Cholesterol Direct 133 mg/dL (<100)
[2022-04-29 16:27] LABS: Vitamin D 25-OH, D2 <4 ng/mL; Vitamin D 25-OH, D3 49 ng/mL; Vitamin D 25-OH, Total 49 ng/mL (30-100)
== END 2022-04-24 12:20 | disposition home or self-care (01) ==
LOC: HO.HMGCLDS 12:19
PROVIDERS: PCP Internal Medicine; Visit Provider Internal Medicine
DX: Z01.818 Encounter for other preprocedural examination (principal); E53.8 Deficiency of other specified B group vitamins; E66.01 Morbid (severe) obesity due to excess calories; E78.9 Disorder of lipoprotein metabolism, unspecified; F41.1 Generalized anxiety disorder; H26.9 Unspecified cataract; I10 Essential (primary) hypertension; R73.01 Impaired fasting glucose
CPT/HCPCS: 36415; 80053; 82306; 82607; 83721; 84443; 85025

== ENCOUNTER 2022-09-11 10:26 | Outpatient (REF) | payer OTHER, MEDICAID, SELFPAY ==
[2022-09-11 11:20] LABS: MANUAL DIFF FLAG NO
[2022-09-11 11:41] LABS: Basophils Absolute Auto 0.1 X10*3/uL (0.0-0.2); Basophils Percent Auto 0.9 % (0-2); Eosinophils Absolute Auto 0.1 X10*3/uL (0.0-0.4); Eosinophils Percent Auto 1.4 % (0-4); Hematocrit 39.1 % (37.0-47.0); Hemoglobin 12.5 g/dl (12.0-16.0); Imm Gran Abs Auto 0.03 X10*3/uL (0.00-0.03); Imm Gran Pct Auto 0.5 % (0.0-0.4); Lymphocytes Percent Auto 29.9 % (20-40); Mean Corpuscular Hemoglobin 28.8 pg (27.0-33.0); Mean Corpuscular Volume 90.1 fL (80.0-98.0); Mean Platelet Volume 10.7 fL (9.4-12.3); Monocytes Absolute Auto 0.6 X10*3/uL (0.1-1.2); Monocytes Percent Auto 9.3 % (2-11); Neutrophils Absolute Auto 3.8 x10*3/uL (2.0-8.3); Platelet Count 301 X10*3/uL (160-400); Red Blood Count 4.34 X10*6/uL (4.20-5.50); Red Cell Distribution Width 13.1 % (11.0-16.0); White Blood Count 6.6 X10*3/uL (4.8-10.8)
[2022-09-11 12:39] LABS: Alanine Aminotransferase 22 U/L (0-31); Albumin Level 4.1 g/dL (3.5-5.0); Alkaline Phosphatase 94 U/L (39-117); Anion Gap 14 (12-20); Aspartate Amino Transferase 27 U/L (5-31); Blood Urea Nitrogen 9 mg/dL (9-16); Calcium 9.6 mg/dL (8.4-10.2); Carbon Dioxide 26 mmol/L (22-29); Chloride 107 mmol/L (96-108); Cholesterol 179 mg/dL; Estimated Glomerular Filt Rate > 60; Glucose Fasting 132 mg/dL (60-99); HDL Cholesterol 37 mg/dL; LDL Cholesterol Calculated 105 mg/dl; Sodium 142 mmol/L (135-145); TSH reflex Free T4 0.76 uIU/mL (0.32-4.0); Total Protein 6.7 g/dL (6.5-8.0); Triglycerides 189 mg/dL
== END 2022-09-11 10:27 | disposition home or self-care (01) ==
LOC: HO.HMGCLDS 10:26
PROVIDERS: PCP Internal Medicine; Visit Provider Internal Medicine
DX: F41.1 Generalized anxiety disorder (principal); I10 Essential (primary) hypertension; Z91.09 Other allergy status, other than to drugs and biological substances
CPT/HCPCS: 36415; 80053; 80061; 84443; 85025

== ENCOUNTER 2022-09-12 11:01 | Emergency (ER) | payer OTHER, MEDICAID, SELFPAY ==
[2022-09-12 11:16] VITALS: BP 156/85; PULSE 90; RESP 20; TEMP 36.7; O2SAT 97; BMI 37.2
--- NOTE | 2022-09-12 11:17 | ED_ITS ---
HPI - Female Genitourinary General Stated complaint: uti Related Data Home Medications Medication Instructions Recorded Confirmed albuterol sulfate 90 mcg/actuation 0 mcg inhalation 01/15/22 07/05/22 aerosol inhaler estradiol 0.01% (0.1 mg/gram) g vaginal 02/28/22 07/05/22 vaginal cream fluorometholone 0.1 % eye 1 drp ophthalmic (eye) TID 02/28/22 07/05/22 drops,suspension Previous Rx's Medication Instructions Recorded miscellaneous medical supply 1 ea miscellaneous DAILY knee pain 03/23/20 #1 ea pantoprazole 40 mg tablet,delayed 40 mg PO DAILY #90 tabs 03/12/22 release cyanocobalamin (vitamin B-12) 1,000 mcg PO DAILY 90 days #90 tabs 05/17/22 1,000 mcg tablet linaclotide 72 mcg capsule 72 mcg PO QAM 30 days #30 caps 07/01/22 (Linzess) alprazolam 0.25 mg tablet 0.25 mg PO BID anxiety 30 days #60 07/05/22 tabs rosuvastatin 10 mg tablet 10 mg PO DAILY #90 tabs 07/22/22 valacyclovir 500 mg tablet 500 mg PO DAILY 90 days #90 tabs 07/29/22 Allergies Allergy/AdvReac Type Severity Reaction Status Date / Time gabapentin [GABAPENTIN] Allergy Severe SEVERE GI Verified 07/05/22 11:55 ISSUES Iodinated Contrast Media Allergy Severe SWELLING Verified 07/05/22 11:55 [IV DYE, IODINE CONTAINING] Sulfa (Sulfonamide Allergy Severe ANAPHYLAXIS, Verified 07/05/22 11:55 Antibiotics) swelling [SULFA (SULFONAMIDE ANTIBIOTICS)] lidocaine Allergy Mild Welts Verified 07/05/22 11:55 nabumetone Allergy Unknown Abdominal Verified 07/05/22 11:55 Pain pregabalin Allergy Unknown unknown Verified 07/05/22 11:55 venlafaxine Allergy Unknown unknown Verified 07/05/22 11:55 meloxicam AdvReac Unknown abdominal Verified 07/05/22 11:55 pain all meat Allergy Unknown unknown Uncoded 02/28/22 09:52 Environmental Allergy Unknown unknown Uncoded 02/28/22 09:52 [facility] Past Medical History Medical History Acute arthritis Anxiety, generalized Environmental allergies Fibromyalgia Herpes Lipid disorder Tendonitis Umbilical hernia Surgical History H/O hand surgery History of cholecystectomy History of esophagogastroduodenoscopy (EGD) History of meniscectomy of left knee (~01/12/14) Hx of colonoscopy Hx of hernia repair Family History Family History Mother Cervical cancer Bladder cancer Father Cancer Sister No problems noted. Other Mental health disorder Substance use disorder Social History Social History Housing: Apartment Alcohol intake: never Patient Tobacco Use Status: Never used Tobacco e-Cigarette/Vaping Use: Never Used service: No Current occupational status: unemployed and disabled Sexual orientation: Straight/Heterosexual Gender identity: Female Cognitive needs: No Hearing needs: No Vision needs: No Course Course Course Narrative: RME - 57 yo female with history of UTIs & pyelo in the past presenting with worsening UTI symptoms for the last 5 days. Taking Azo with no relief. Nauseated with chills but no vomiting or abdominal pain. +dysuria, urgency and frequency. Had normal labs done yesterday. VSS in triage. Plan: UA and abx Discharge Plan Discharge Prescriptions: No Action pantoprazole 40 mg tablet,delayed release (DR/EC) 40 mg PO DAILY Qty: 90 1RF cyanocobalamin (vitamin B-12) 1,000 mcg tablet 1,000 mcg PO DAILY 90 Days Qty: 90 0RF Linzess 72 mcg capsule 72 mcg PO QAM 30 Days Qty: 30 3RF rosuvastatin 10 mg tablet 10 mg PO DAILY Qty: 90 0RF valacyclovir 500 mg tablet 500 mg PO DAILY 90 Days Qty: 90 0RF estradiol 0.01 % (0.1 mg/gram) cream vaginal fluorometholone 0.1 % drops,suspension 1 drp ophthalmic (eye) TID miscellaneous medical supply Misc 1 ea miscellaneous DAILY Qty: 1 0RF alprazolam 0.25 mg tablet 0.25 mg PO BID 30 Days Qty: 60 3RF albuterol sulfate 90 mcg/actuation HFA aerosol inhaler 0 mcg inhalation
--- OUTSIDE RECORDS SUMMARY | 2022-09-12 12:06 | XMS_ITS | Continuity of Care Document ---
Author Name Unknown Organization [facility] Address Unknown Care Team Providers Care Mini Baccarat Dealer Name Role Phone Rylan LEVY, Asma Primary Care Physician Encounter [facility] Date(s): 04/07/21 - 08/05/21 [facility] Attending Physician: Not on Staff, Attending MD Referring Physician: Lauren Jiménez Allergies, Adverse Reactions, Alerts Substance Reaction Severity Status sulfonamides Swelling of throat Active Contrast Dye Swelling of body structure A ctive Medications Alprazolam By Mouth, Refills 0, Maintenance, 11/16/18 8:33:13 EDT Start Date: 11/16/18 Status: Ordered antibioc antibioc, Refills 0, Maintenance, 02/28/21 13:34:00 EDT, Supply Start Date: 02/28/21 Status: Ordered Estrace Vaginal Cream 0.1 mg/g See Instructions, 1 gram Vaginally 2x per week at bedtime, # 42.5 Gm, 3 Refills, Maintenance, 03/01/21 11:12:00 EDT, [facility]/pharmacy #[id number], Partial fill upon patient request if the prescription is for aschedule II opioid drug., 156, cm, 02/28/21 13:31:0... Start Date: 03/01/21 Status: Ordered Linzess By Mouth, Daily, 0 Refills, Maintenance, 11/16/18 8:33:02 EDT Start Date: 11/16/18 Status: Ordered Montelukast By Mouth, Daily, 0 Refills, Maintenance, 11/16/18 8:46:33 EDT Start Date: 11/16/18 Status: Ordered Naproxen By Mouth, 0 Refills, Maintenance, 11/16/18 8:33:23 EDT Start Date: 11/16/18 Status: Ordered oxybutynin 10 mg/24 hr oral tablet, extended release 1 tablet = 10 mg, By Mouth, Daily, # 30 tablet, 5 Refills, Maintenance, 11/16/18 8:49:22 EDT, ER Tablet Start Date: 11/16/18 Status: Ordered pantoprazole 40 mg oral delayed release tablet 1 tablet = 40 mg, By Mouth, Daily, 0 Refills, Maintenance, 11/16/18 8:32:53 EDT Start Date: 11/16/18 Status: Ordered prednisoLONE (OP) By Mouth, Daily, 0 Refills, Maintenance, 2 Start Date: 11/16/18 Status: Ordered Sumatriptan Once, 0 Refills, Maintenance, 11/16/18 8:33:47 EDT Start Date: 11/16/18 Status: Ordered valacyclovir 1 gm oral tablet 1 tablet = 1 Gm, By Mouth, 2 times a day, 0 Refills, Maintenance, 11/16/18 8:32:40 EDT Start Date: 11/16/18 Status: Ordered Problem List Condition Effective Dates Status Health Status Inform ant Anxiety with depression(Confirmed) Active Asthma(Confirmed) Active Former smoker(Confirmed) Active Fibromyalgia(Confirmed) Active GERD (gastroesophageal reflu x disease)(Confirmed) Active Asymptomatic microscopic hematuria(Confirmed) Active Mixed incontinence(Confirmed) Active Oral herpes(Confirmed) Active Urinary urgency(Confirmed) Active Social History Social History Type Response Smoking Status Former smoker; Other : quit in 80s; entered on: 01/30/15 Sex
--- OUTSIDE RECORDS SUMMARY | 2022-09-12 12:06 | XMS_ITS | Continuity of Care Document ---
Author Name Unknown Organization [facility] Address Unknown Care Team Providers Care Senior Software Development Engineer Name Role Phone Rylan LEVY, Asma Primary Care Physician Encounter [facility] R [id number] Date(s): 07/06/21 - 08/05/21 [facility] Attending Physician: Chris Diaz Admitting Physician: Chris Diaz Referring Physician: Chris Diaz Allergies, Adverse Reactions, Alerts Substance Reaction Severity [...] Gm, 3 Refills, Maintenance, 03/01/21 11:12:00 EDT, [facility]/pharmacy #[id number], Partial fill upon patient [...]
--- OUTSIDE RECORDS SUMMARY | 2022-09-12 12:06 | XMS_ITS | Continuity of Care Document ---
Author Name [facility] Address [address], [address] [place] [address]- Care Team Providers Care Fish Seiner Name Role Phone Rylan LEVY, Asma Primary Care Physician [phone] Encounter [facility] Date(s): 04/27/20 - 05/27/20 [facility] [address] [place] [address]- Attending Physician: Chris Diaz Admitting Physician: Chris Diaz Referring Physician: Chris Diaz Allergies, Adverse Reactions, Alerts Substance Reaction Severity Status sulfonamides Swelling of throat Active Contrast Dye Swelling of body structure A ctive Medications Alprazolam By Mouth, Refills 0, Maintenance, 11/16/18 8:33:13 EDT Start Date: 11/16/18 Status: Ordered Linzess By Mouth, Daily, 0 [...]
--- OUTSIDE RECORDS SUMMARY | 2022-09-12 12:06 | XMS_ITS | Continuity of Care Document ---
Author Name Unknown Organization [facility] Address [address], [address] [place] [address]- Care Team Providers Care Directional Driller Name Role Phone Rylan LEVY, Lyndon Primary Care Physician Encounter [facility] Date(s): 02/28/21 - 05/10/21 [facility] [address], [address] [place] [address]- Attending Physician: Tresa Eason MD Admitting Physician: Tresa Eason MD Referring Physician: Lyndon Fagan MD Allergies, Adverse Reactions, Alerts Substance Reaction Severity [...] Gm, 3 Refills, Maintenance, 03/01/21 11:12:00 EDT, [facility]/pharmacy #[id number], Partial fill upon patient request if the [...]
--- OUTSIDE RECORDS SUMMARY | 2022-09-12 12:06 | XMS_ITS | Continuity of Care Document ---
Author Name Unknown Organization [facility] Address [address], [address] [place] [address]- Care Team Providers Care Globe Changer Name Role Phone Rylan LEVY, Lyndon Primary Care Physician Encounter [facility] [place] Date(s): 04/14/20 - 05/27/20 [facility] [address] [place] [address]- Attending Physician: Tresa Eason MD Admitting Physician: [...]
--- OUTSIDE RECORDS SUMMARY | 2022-09-12 12:06 | XMS_ITS | Continuity of Care Document ---
Author Name Unknown Organization [facility] Address [address], [address] [place] [address]- Care Team Providers Care Fast Food Team Member Name Role Phone Rylan LEVY, Asma Primary Care Physician [phone] Encounter [facility] [place] [facility] Date(s): 04/10/21 - 05/10/21 [facility] [address] [place] [address]- Attending Physician: Chris Diaz Admitting Physician: Chris Diaz Referring Physician: AdmtrChris Allergies, Adverse Reactions, Alerts Substance Reaction Severity [...] Gm, 3 Refills, Maintenance, 03/01/21 11:12:00 EDT, [facility]/pharmacy #[id number], Partial fill upon patient request if the [...]
[2022-09-12 12:42] LABS: Appearance Urine Clear; Color Urine Dark Yellow; Glucose Urine UA Negative (Negative); Leukocyte Esterase Urine Large (3+) (Negative); Nitrite Urine Positive (Negative); Specific Gravity - Urine <= 1.005 (1.005-1.025); UMIC TRIGGER UACC YES; Urine Blood Small (1+) (Negative); Urine Ketones Negative (Negative); Urine Protein Negative (Neg-Trace)
--- NOTE | 2022-09-12 12:43 | ED_ITS ---
HPI - General Adult General Chief complaint: Urogenital-Female Stated complaint: uti Time Seen by Provider: 09/12/22 12:38 Source: patient Limitations: no limitations History of Present Illness HPI narrative: 57-year-old female who presents with concerns for UTI at this time symptoms have been ongoing for about 3 days. Patient has had similar episodes in the past and at 1 time she was admitted to the hospital for pyelonephritis. Patient was recently in [place] when the symptoms started. Patient tried some setr-ixo-gshxozi medication with minimal to no relief. Symptoms are wkot-fo-zwduefsk some slight nausea and vomiting. Patient states nausea vomiting a better at this time. Patient had some slight back discomfort but that is also improved. No fever chills or shortness of breath at this time Related Data Home Medications Medication Instructions Recorded Confirmed albuterol sulfate 90 mcg/actuation 0 mcg inhalation 01/15/22 07/05/22 aerosol inhaler estradiol 0.01% (0.1 mg/gram) g vaginal 02/28/22 07/05/22 vaginal cream fluorometholone 0.1 % eye 1 drp ophthalmic (eye) TID 02/28/22 07/05/22 drops,suspension Previous Rx's Medication Instructions Recorded miscellaneous medical supply 1 ea miscellaneous DAILY knee pain 03/23/20 #1 ea pantoprazole 40 mg tablet,delayed 40 mg PO DAILY #90 tabs 03/12/22 release cyanocobalamin (vitamin B-12) 1,000 mcg PO DAILY 90 days #90 tabs 05/17/22 1,000 mcg tablet linaclotide 72 mcg capsule 72 mcg PO QAM 30 days #30 caps 07/01/22 (Linzess) alprazolam 0.25 mg tablet 0.25 mg PO BID anxiety 30 days #60 07/05/22 tabs rosuvastatin 10 mg tablet 10 mg PO DAILY #90 tabs 07/22/22 valacyclovir 500 mg tablet 500 mg PO DAILY 90 days #90 tabs 07/29/22 cephalexin 500 mg capsule 500 mg PO Q6H #28 caps 09/12/22 ondansetron HCl 4 mg tablet 4 mg PO TID PRN nausea and 09/12/22 vomiting #10 tabs phenazopyridine 100 mg tablet 100 mg PO TID PRN pain #9 tabs 09/12/22 (Pyridium) Allergies Allergy/AdvReac Type Severity Reaction Status Date / Time gabapentin [GABAPENTIN] Allergy Severe SEVERE GI Verified 07/05/22 11:55 ISSUES Iodinated Contrast Media Allergy Severe SWELLING Verified 07/05/22 11:55 [IV DYE, IODINE CONTAINING] Sulfa (Sulfonamide Allergy Severe ANAPHYLAXIS, Verified 07/05/22 11:55 Antibiotics) swelling [SULFA (SULFONAMIDE ANTIBIOTICS)] lidocaine Allergy Mild Welts Verified 07/05/22 11:55 nabumetone Allergy Unknown Abdominal Verified 07/05/22 11:55 Pain pregabalin Allergy Unknown unknown Verified 07/05/22 11:55 venlafaxine Allergy Unknown unknown Verified 07/05/22 11:55 meloxicam AdvReac Unknown abdominal Verified 07/05/22 11:55 pain all meat Allergy Unknown unknown Uncoded 02/28/22 09:52 Environmental Allergy Unknown unknown Uncoded 02/28/22 09:52 Review of Systems Constitutional: Constitutional: Denies body ache(s), Denies chills, Reports fatigue, Denies fever(s) and Reports malaise ENT: Denies sore throat Cardiovascular: Cardiovascular: Denies chest pain and Denies dyspnea Respiratory: Respiratory: Denies dyspnea Gastrointestinal: Gastrointestinal: Reports nausea and Reports vomiting Genitourinary: Genitourinary: Reports flank pain and Reports urinary urgency Comments: painful urination Musculoskeletal: Musculoskeletal: Reports back pain and Reports myalgias Endocrine: Endocrine: Reports fatigue PMFSH Past Medical History Medical History Acute arthritis Anxiety, generalized Environmental allergies Fibromyalgia Herpes Lipid disorder Tendonitis Umbilical hernia Surgical History H/O hand surgery History of cholecystectomy History of esophagogastroduodenoscopy (EGD) History of meniscectomy of left knee (~01/12/14) Hx of colonoscopy Hx of hernia repair Family History Family History Mother Cervical cancer Bladder cancer Father Cancer Sister No problems noted. Other Mental health disorder Substance use disorder Social History Social History Housing: Apartment Alcohol intake: never Patient Tobacco Use Status: Never used Tobacco e-Cigarette/Vaping Use: Never Used Advance Directives: No service: No Current occupational status: unemployed and disabled Sexual orientation: Straight/Heterosexual Gender identity: Female Cognitive needs: No Hearing needs: No Vision needs: No Physical Exam ED Vital Signs: Vital Signs - 24 hr 09/12/22 11:16 Temperature 98.1 F Pulse Rate 90 Respiratory Rate 20 Blood Pressure 156/85 H Pulse Oximetry 97 Oxygen Delivery Method Room Air BMI result Body Mass Index 37.2 vital signs have been reviewed as normal and appeared to be correct. Blood pressure normal. Heart rate normal. Respiration rate normal. Temperature normal. Oxygen saturation normal. Appearance: Alert. Oriented X3. No acute distress. Head: Normal external exam. Normocephalic. Atraumatic. No Danielle signs noted. No raccoon eyes noted Eyes: PERRLA. EOMI. Conjunctiva and sclera normal. Eyelids normal. ENT: oropharynx is clear mucosa is moist Neck: Soft full range of motion, no JVD CVS: Heart regular rate and rhythm no murmurs and rubs Respiratory: Breath sounds are clear to auscultation bilaterally. No accessory muscle use noted. Abdomen: Soft nontender no rebound or guarding positive bowel sounds Back: minimal CVA tenderness full range of motion of the back Skin: Skin warm and dry. Normal skin color. Normal skin turgor. No rashes/lesions/lacerations noted. Extremities: No lower extremity edema. Extremities exhibit normal range of motion. Extremities nontender. Neuro: Oriented X 3. No motor deficit. No sensory deficit. Course Course Course Narrative: UTI Early pyelonephritis Cystitis UA is pending at this time patient is a otherwise well-nourished 57-year-old female with history UTIs in the past. Patient is nontoxic in appearance and af ebrile not tachycardic. Will plan to treat UTI pending UA results. 13:19 UA is consistent with a UTI question early pyelonephritis will discharge patient home on Keflex Zofran and peridium. Last culture was sensitive to a penicillin patient is allergic to Bactrim Medical Decision Making Lab Data Labs: Lab Results 09/12/22 Range/Units 12:12 Urine Color Dark Yellow Urine Appearance Clear Urine pH 6.0 (5.0-9.0) Ur Specific [place] <= 1.005 (1.005-1.025) Urine Protein Negative (Neg-Trace) mg/dL Urine Glucose (UA) Negative (Negative) mg/dL Urine Ketones Negative (Negative) mg/dL Urine Blood Small (1+) H (Negative) Urine Nitrite Positive H (Negative) Ur Leukocyte Esterase Large (3+) H (Negative) Urine RBC 0-2 (0-2) /HPF Urine WBC 21-50 H (0-5) /HPF Ur Squamous Epith Cells 0-2 (0-2) /HPF Urine Bacteria None Seen (None Seen) Hyaline Casts 0-2 (0-2) /LPF Discharge Plan Discharge Clinical Impression: UTI (urinary tract infection) Patient Disposition: Home, Self-Care Instructions: Urinary Tract Infection in Women (DC) Additional Instructions: Increase fluids rest she UA is consistent with a urinary tract infection at the antibiotics we put you on sensitive they will call you to change his antibiotics. Zofran for nausea peridium for discomfort Prescriptions: New cephalexin 500 mg capsule 500 mg PO Q6H Qty: 28 0RF ondansetron HCl 4 mg tablet 4 mg PO TID PRN (Reason: nausea and vomiting) Qty: 10 0RF phenazopyridine [Pyridium] 100 mg tablet 100 mg PO TID PRN (Reason: pain) Qty: 9 0RF No Action pantoprazole 40 mg tablet,delayed release (DR/EC) 40 mg PO DAILY Qty: 90 1RF cyanocobalamin (vitamin B-12) 1,000 mcg tablet 1,000 mcg PO DAILY 90 Days Qty: 90 0RF Linzess 72 mcg capsule 72 mcg PO QAM 30 Days Qty: 30 3RF rosuvastatin 10 mg tablet 10 mg PO DAILY Qty: 90 0RF valacyclovir 500 mg tablet 500 mg PO DAILY 90 Days Qty: 90 0RF estradiol 0.01 % (0.1 mg/gram) cream vaginal fluorometholone 0.1 % drops,suspension 1 drp ophthalmic (eye) TID miscellaneous medical supply Misc 1 ea miscellaneous DAILY Qty: 1 0RF alprazolam 0.25 mg tablet 0.25 mg PO BID 30 Days Qty: 60 3RF albuterol sulfate 90 mcg/actuation HFA aerosol inhaler 0 mcg inhalation
[2022-09-12 13:03] LABS: Bacteria Urine None Seen (None Seen); Hyaline Casts Urine 0-2 /LPF (0-2); Squamous Epithelial Cell Urine 0-2 /HPF (0-2); UACC Culture Trigger YES; WBC Urine 21-50 /HPF (0-5)
[2022-09-12 13:05] LABS: RBC Urine 0-2 /HPF (0-2)
[2022-09-12 14:10] VITALS: RESP 18
== END 2022-09-12 14:15 | disposition home or self-care (01) ==
PROVIDERS: Physician Assistant; Emergency Provider Emergency Medicine; PCP Internal Medicine
DX: N39.0 Urinary tract infection, site not specified (principal); Z79.899 Other long term (current) drug therapy
CPT/HCPCS: 81001; 87086; 99283; 99284

== ENCOUNTER 2022-10-07 08:09 | Outpatient (REF) | payer OTHER, SELFPAY ==
[2022-10-07 12:46] LABS: Estimated Average Glucose 126 mg/dL
[2022-10-07 13:02] LABS: Anion Gap 13 (12-20); Blood Urea Nitrogen 10 mg/dL (9-16); Calcium 9.6 mg/dL (8.4-10.2); Carbon Dioxide 27 mmol/L (22-29); Chloride 108 mmol/L (96-108); Estimated Glomerular Filt Rate > 60; Glucose Random 114 mg/dL (60-115); Potassium 4.3 mmol/L (3.3-5.1); Sodium 144 mmol/L (135-145)
== END 2022-10-07 08:10 | disposition home or self-care (01) ==
LOC: HO.HMGCLDS 08:09
PROVIDERS: PCP Internal Medicine; Visit Provider Internal Medicine
DX: R73.01 Impaired fasting glucose (principal)
CPT/HCPCS: 36415; 80048; 83036

== ENCOUNTER 2022-11-05 12:28 | Outpatient (REF) | payer OTHER, SELFPAY | END 2022-11-05 12:29 | disposition home or self-care (01) | LOC: HO.LAB 12:28 | PROVIDERS: Visit Provider Nurse Practitioner Family | DX: N39.0 Urinary tract infection, site not specified (principal) | CPT/HCPCS: 87086 ==

== ENCOUNTER 2022-12-31 09:36 | Outpatient (AMB) | payer MEDICARE, MEDICAID, SELFPAY ==
--- NOTE | 2022-12-31 09:38 | MHC.PC.OV ---
Vital Signs 12/31/22 09:39 Height 5 ft 3 in Weight 228 lb 2 oz BMI 40.4 BP 142/98 H Blood Pressure Location Lt brachial Position Sitting Pulse 91 Pulse Source Pulse Oximeter Pulse Oximetry (%) 96 Oxygen Delivery Method Room Air Intake Visit Reasons: 3m follow up Allergies gabapentin [GABAPENTIN] Allergy (Severe, Verified 12/31/22 09:39) SEVERE GI ISSUES Iodinated Contrast Media [IV DYE, IODINE CONTAINING] Allergy (Severe, Verified 12/31/22 09:39) SWELLING Sulfa (Sulfonamide Antibiotics) [SULFA (SULFONAMIDE ANTIBIOTICS)] Allergy (Severe, Verified 12/31/22 09:39) ANAPHYLAXIS, swelling lidocaine Allergy (Mild, Verified 12/31/22 09:39) Welts nabumetone Allergy (Unknown, Verified 12/31/22 09:39) Abdominal Pain pregabalin Allergy (Unknown, Verified 12/31/22 09:39) unknown venlafaxine Allergy (Unknown, Verified 12/31/22 09:39) unknown meloxicam Adverse Reaction (Unknown, Verified 12/31/22 09:39) abdominal pain all meat Allergy (Unknown, Uncoded 02/28/22 09:52) unknown Environmental Allergy (Unknown, Uncoded 02/28/22 09:52) unknown Medication List - Last Reconciled 12/31/22 by Lyndon Fagan MD albuterol sulfate 90 mcg/actuation 0 mcg inhalation alprazolam 0.25 mg (1/2 x 0.5 mg) PO BID 30 days cyanocobalamin (vitamin B-12) 1,000 mcg PO DAILY 90 days fluorometholone 0.1% 1 drp ophthalmic (eye) TID linaclotide (Linzess) 72 mcg PO QAM 30 days ondansetron HCl 4 mg PO TID PRN pantoprazole 40 mg PO DAILY rosuvastatin 10 mg PO DAILY valacyclovir 500 mg PO DAILY 90 days Tobacco use date assessed: 12/31/22 Dental Screening Dental Screen Date: 12/31/22 Did you have a dental visit in the last 12 months?: No Did you have a dental problem in the last 6 months where you did not have access to dental care?: No Was dental information given to patient?: No HPI 3m follow up HPI Details Patient is a 57-year-old female this is her regular follow-up appointment Continued to complain of shortness of breath I did place referral for her to see web operations specialist December of last year but I do not see any consultations I did order pulmonary function test September of this year that was not done either I have updated the pulmonary consultation referral and also given a number to patient to call in book her own appointment Sleep apnea: she use Cpap machine but has not seen any sleep specialist in a while Patient is diabetic with controlled hemoglobin A1c on diet last time check was October this year it was 6.0 Anxiety patient is on alprazolam 0.25 mg b.i.d., patient is complying with the treatment plan no signs of abuse.? Medication filled for next 3 months.? Hypertension : she is now taking atenolol 25 mg? and is tolerating it, she had labs done recently Allergies are stable patient is taking her allergy medicines Patient was on pantoprazole for chronic GERD , no longer taking as it was causing anxiety Lipid disorder:? Continue rosuvastatin 10 mg daily.? And diet-controlled BMI is 40.4 patient is morbidly obese need to lose weight, for now I think she should observe 1800 calories which she is not She says that because of her knees she is not able to exercise and get short of breath with is activity. Herpes: Valacyclovir 500 mg as needed. B12 deficiency I have ordered intrinsic factor for the patient as her sister is getting B12 injections Follow-up 3 months ? Labs to be done before next visit in 3 months PFSH Medical History Acute arthritis Anxiety, generalized Environmental allergies Fibromyalgia Herpes Lipid disorder Tendonitis Umbilical hernia Surgical History H/O hand surgery History of cholecystectomy History of esophagogastroduodenoscopy (EGD) History of meniscectomy of left knee (~01/12/14) Hx of colonoscopy Hx of hernia repair Family History Mother Cervical cancer Bladder cancer Father Cancer Sister No problems noted. Other Mental health disorder Substance use disorder Social History Housing: Apartment Alcohol intake: never Patient Tobacco Use Status: Never used Tobacco e-Cigarette/Vaping Use: Never Used service: No Current occupational status: unemployed and disabled Sexual orientation: Straight/Heterosexual Gender identity: Female Cognitive needs: No Hearing needs: No Vision needs: No Questionnaire AUDIT C Alcohol Use Questionnaire (AUDIT-C) 1. How often do you have a drink containing alcohol?: Never 3. How often do you have six or more drinks on one occasion?: Never Total Score: 0 Score Reviewed/Action Taken: Yes ARIANNA-7 AMB Questionnaire ARIANNA-7 Date ARIANNA - 7 assessed: 01/04/22 Source: Developed by Drs. Kenneth Preston, Aruna Alcantar, Babak Rebolledo and colleagues, with an educational morris from [employer]. Review of Systems Const Denies chills and Denies fever(s) ENT Denies epistaxis and Denies nasal discharge Card Denies chest pain Resp Denies chest congestion, Denies cough and Denies hemoptysis GI Denies diarrhea and Denies nausea Skin/Breast Denies rash Neuro Reports no additional complaints Psych Reports no additional complaints Endo Reports no additional complaints Physical exam (Primary Care) Vital Signs: Last Vital Signs Pulse 91 12/31/22 09:39 BP 142/98 H 12/31/22 09:39 Pulse Ox 96 12/31/22 09:39 Oxygen Delivery Method Room Air 12/31/22 09:39 BMI result Body Mass Index 40.4 Tobacco/Smoking Status: Tobacco use Status Tobacco use date assessed 12/31/22 12/31/22 09:41 Patient Tobacco Use Status Never used Tobacco 12/31/22 09:41 e-Cigarette/Vaping Use Never Used 12/31/22 09:41 Const General: cooperative, comfortable and no acute distress Orientation/consciousness: patient oriented x3 HENMT Head: Yes normocephalic Eyes General: appearance normal, both eyes and all related structures Neck Neck: Yes supple Resp Effort & Inspection: normal respiratory effort, no cough and no stridor Cardio Rhythm: regular rhythm Heart sounds: S1 normal heart sound present and S2 normal heart sound present Skin General skin exam: turgor normal Neuro General: patient oriented x3, tone normal and moves all extremities Assessment and Plan Assessment & Plan (1) Anxiety, generalized: Code(s): F41.1 - Generalized anxiety disorder (2) Lipid disorder: Code(s): E78.9 - Disorder of lipoprotein metabolism, unspecified (3) Environmental allergies: Code(s): Z91.09 - Other allergy status, other than to drugs and biological substances (4) Hypertension, essential: Code(s): I10 - Essential (primary) hypertension (5) B12 deficiency: Code(s): E53.8 - Deficiency of other specified B group vitamins (6) Morbid obesity due to excess calories: Code(s): E66.01 - Morbid (severe) obesity due to excess calories (7) Pain syndrome, chronic: Code(s): G89.4 - Chronic pain syndrome (8) Diet-controlled diabetes mellitus: Code(s): E11.9 - Type 2 diabetes mellitus without complications (9) Fatigue: Code(s): R53.83 - Other fatigue (10) Cramps of left lower extremity: Code(s): R25.2 - Cramp and spasm (11) Arthrosis: Code(s): M19.90 - Unspecified osteoarthritis, unspecified site Plan Patient is a 57-year-old female this is her regular follow-up appointment Continued to complain of shortness of breath I did place referral for her to see web operations specialist December of last year but I do not see any consultations I did order pulmonary function test September of this year that was not done either I have updated the pulmonary consultation referral and also given a number to patient to call in book her own appointment Sleep apnea: she use Cpap machine but has not seen any sleep specialist in a while Patient is diabetic with controlled hemoglobin A1c on diet last time check was October of this year it was 6.0 Anxiety patient is on alprazolam 0.25 mg b.i.d., patient is complying with the treatment plan no signs of abuse.? Medication filled for next 3 months.? Hypertension : she is now taking atenolol 25 mg? and is tolerating it, she had labs done recently Allergies are stable patient is taking her allergy medicines Patient was on pantoprazole for chronic GERD , no longer taking as it was causing anxiety Lipid disorder:? Continue rosuvastatin 10 mg daily.? And diet-controlled BMI is 40.4 patient is morbidly obese need to lose weight, for now I think she should observe 1800 calories which she is not She says that because of her knees she is not able to exercise and get short of breath with is activity. Herpes: Valacyclovir 500 mg as needed. B12 deficiency I have ordered intrinsic factor for the patient as her sister is getting B12 injections Follow-up 3 months ? Labs to be done before next visit in 3 months Orders: Orders Vitamin B12 Today E11.9 - Type 2 diabetes mellitus without complications, E53.8 - Deficiency of other specified B group vitamins, E66.01 - Morbid (severe) obesity due to excess calories, E78.9 - Disorder of lipoprotein metabolism, unspecified, F41.1 - Generalized anxiety disorder, G89.4 - Chronic pain syndrome, I10 - Essential (primary) hypertension, Z91.09 - Other allergy status, other than to drugs and biological substances Comprehensive [place]. Panel Fast Today E11.9 - Type 2 diabetes mellitus without complications, E53.8 - Deficiency of other specified B group vitamins, E66.01 - Morbid (severe) obesity due to excess calories, E78.9 - Disorder of lipoprotein metabolism, unspecified, F41.1 - Generalized anxiety disorder, G89.4 - Chronic pain syndrome, I10 - Essential (primary) hypertension, Z91.09 - Other allergy status, other than to drugs and biological substances Hemoglobin A1c Today E11.9 - Type 2 diabetes mellitus without complications, E53.8 - Deficiency of other specified B group vitamins, E66.01 - Morbid (severe) obesity due to excess calories, E78.9 - Disorder of lipoprotein metabolism, unspecified, F41.1 - Generalized anxiety disorder, G89.4 - Chronic pain syndrome, I10 - Essential (primary) hypertension, Z91.09 - Other allergy status, other than to drugs and biological substances Lipid Panel Today E11.9 - Type 2 diabetes mellitus without complications, E53.8 - Deficiency of other specified B group vitamins, E66.01 - Morbid (severe) obesity due to excess calories, E78.9 - Disorder of lipoprotein metabolism, unspecified, F41.1 - Generalized anxiety disorder, G89.4 - Chronic pain syndrome, I10 - Essential (primary) hypertension, Z91.09 - Other allergy status, other than to drugs and biological substances TSH reflex Free T4 Today E11.9 - Type 2 diabetes mellitus without complications, E53.8 - Deficiency of other specified B group vitamins, E66.01 - Morbid (severe) obesity due to excess calories, E78.9 - Disorder of lipoprotein metabolism, unspecified, F41.1 - Generalized anxiety disorder, G89.4 - Chronic pain syndrome, I10 - Essential (primary) hypertension, Z91.09 - Other allergy status, other than to drugs and biological substances Vitamin D 25-OH (D2 and D3) Today E11.9 - Type 2 diabetes mellitus without complications, E53.8 - Deficiency of other specified B group vitamins, E66.01 - Morbid (severe) obesity due to excess calories, E78.9 - Disorder of lipoprotein metabolism, unspecified, F41.1 - Generalized anxiety disorder, G89.4 - Chronic pain syndrome, I10 - Essential (primary) hypertension, Z91.09 - Other allergy status, other than to drugs and biological substances Complete Blood Count Auto Diff Today E11.9 - Type 2 diabetes mellitus without complications, E53.8 - Deficiency of other specified B group vitamins, E66.01 - Morbid (severe) obesity due to excess calories, E78.9 - Disorder of lipoprotein metabolism, unspecified, F41.1 - Generalized anxiety disorder, G89.4 - Chronic pain syndrome, I10 - Essential (primary) hypertension, Z91.09 - Other allergy status, other than to drugs and biological substances Magnesium Today R25.2 - Cramp and spasm, R53.83 - Other fatigue CRP High Sensitivity Today M19.90 - Unspecified osteoarthritis, unspecified site, R25.2 - Cramp and spasm, R53.83 - Other fatigue Intrinsic Factor Antibodies Today E53.8 - Deficiency of other specified B group vitamins Medications: Refilled alprazolam 0.25 mg (1/2 x 0.5 mg) PO BID 30 tabs 2RF 30 days Discontinued cephalexin Discontinued Reason: Doctor's Order 500 mg PO Q6H 28 caps 0RF phenazopyridine (Pyridium) Discontinued Reason: Doctor's Order 100 mg PO TID PRN 9 tabs 0RF pain ciprofloxacin HCl Discontinued Reason: Doctor's Order 250 mg PO BID 5 days 10 tabs 0RF N39.0 - Urinary tract infection, site not specified fluconazole may repeat second dose 72 hrs after first dose if symptoms persist Discontinued Reason: Doctor's Order 150 mg PO Q3D 2 tabs 0RF N39.0 - Urinary tract infection, site not specified Coding Level of Care Code Est Pt Level 4 (12077) Diagnoses Anxiety, generalized F41.1 Lipid disorder E78.9 Environmental allergies Z91.09 Hypertension, essential I10 B12 deficiency E53.8 Morbid obesity due to excess calories E66.01 Pain syndrome, chronic G89.4 Diet-controlled diabetes mellitus E11.9 Fatigue R53.83 Cramps of left lower extremity R25.2 Arthrosis M19.90
[2022-12-31 09:39] VITALS: BP 142/98; PULSE 91; O2SAT 96; BMI 40.4
== END 2022-12-31 10:46 | disposition home or self-care (01) ==
PROVIDERS: Visit Provider Internal Medicine
DX: I10 Essential (primary) hypertension (principal); E66.01 Morbid (severe) obesity due to excess calories; E11.9 Type 2 diabetes mellitus without complications; Z68.41 Body mass index [BMI] 40.0-44.9, adult; Z91.09 Other allergy status, other than to drugs and biological substances; F41.1 Generalized anxiety disorder; E78.9 Disorder of lipoprotein metabolism, unspecified; E53.8 Deficiency of other specified B group vitamins; G89.4 Chronic pain syndrome; R53.83 Other fatigue; R25.2 Cramp and spasm; M19.90 Unspecified osteoarthritis, unspecified site
CPT/HCPCS: 99214

== ENCOUNTER 2023-01-15 07:12 | Emergency (ER) | payer MEDICARE, MEDICAID, SELFPAY ==
[2023-01-15 07:20] VITALS: BP 138/83; PULSE 93; RESP 18; TEMP 36.7; O2SAT 95; BMI 39.0
--- NOTE | 2023-01-15 08:32 | ED.GENADULT ---
HPI - General Adult General Chief complaint: General Medical Stated complaint: Back pain Time Seen by Provider: 01/15/23 07:43 Source: patient Mode of arrival: ambulatory History of Present Illness HPI narrative: 57-year-old female who reports frequent UTIs and 1 month of back discomfort that is bilateral paraspinal not associated with bowel or bladder discomfort as she does intermittently have issues with burning sensation on urination. Patient denies fevers, chills, nausea, vomiting, abdominal discomfort or decrease in appetite. She does report a history of kidney infections and denies any cough or sore throat. Related Data Home Medications Medication Instructions Recorded Confirmed albuterol sulfate 90 mcg/actuation 0 mcg inhalation 01/15/22 12/31/22 aerosol inhaler fluorometholone 0.1 % eye 1 drp ophthalmic (eye) TID 02/28/22 12/31/22 drops,suspension Previous Rx's Medication Instructions Recorded linaclotide 72 mcg capsule 72 mcg PO QAM 30 days #30 caps 07/01/22 (Linzess) ondansetron HCl 4 mg tablet 4 mg PO TID PRN nausea and 09/12/22 vomiting #10 tabs pantoprazole 40 mg tablet,delayed 40 mg PO DAILY #90 tabs 09/12/22 release cyanocobalamin (vitamin B-12) 1,000 mcg PO DAILY 90 days #90 tabs 10/02/22 1,000 mcg tablet rosuvastatin 10 mg tablet 10 mg PO DAILY #90 tabs 10/16/22 valacyclovir 500 mg tablet 500 mg PO DAILY 90 days #90 tabs 10/16/22 alprazolam 0.5 mg tablet 0.25 mg PO BID 30 days #30 tabs 12/31/22 cyclobenzaprine 5 mg tablet 5 mg PO BEDTIME PRN muscle spasm 01/15/23 #4 tabs Allergies Allergy/AdvReac Type Severity Reaction Status Date / Time gabapentin [GABAPENTIN] Allergy Severe SEVERE GI Verified 12/31/22 09:39 ISSUES Iodinated Contrast Media Allergy Severe SWELLING Verified 12/31/22 09:39 [IV DYE, IODINE CONTAINING] Sulfa (Sulfonamide Allergy Severe ANAPHYLAXIS, Verified 12/31/22 09:39 Antibiotics) swelling [SULFA (SULFONAMIDE ANTIBIOTICS)] lidocaine Allergy Mild Welts Verified 12/31/22 09:39 nabumetone Allergy Unknown Abdominal Verified 12/31/22 09:39 Pain pregabalin Allergy Unknown unknown Verified 12/31/22 09:39 venlafaxine Allergy Unknown unknown Verified 12/31/22 09:39 meloxicam AdvReac Unknown abdominal Verified 12/31/22 09:39 pain all meat Allergy Unknown unknown Uncoded 02/28/22 09:52 Environmental Allergy Unknown unknown Uncoded 02/28/22 09:52 Review of Systems Review of Systems: Pertinent positives and negatives as stated in HPI PMFSH Past Medical History Source: nursing notes reviewed Medical History Acute arthritis Anxiety, generalized Environmental allergies Fibromyalgia Herpes Lipid disorder Tendonitis Umbilical hernia Surgical History H/O hand surgery History of cholecystectomy History of esophagogastroduodenoscopy (EGD) History of meniscectomy of left knee (~01/12/14) Hx of colonoscopy Hx of hernia repair Family History Family History Mother Cervical cancer Bladder cancer Father Cancer Sister No problems noted. Other Mental health disorder Substance use disorder Social History Social History Housing: Apartment Alcohol intake: never Patient Tobacco Use Status: Never used Tobacco Smoked in Last 30 Days: No e-Cigarette/Vaping Use: Never Used Advance Directives: Yes Advance Directives Information Provided: No Advance Directives on File: No service: No Current occupational status: unemployed and disabled Sexual orientation: Straight/Heterosexual Gender identity: Female Cognitive needs: No Hearing needs: No Vision needs: No Physical Exam ED Vital Signs: Vital Signs - 24 hr 01/15/23 07:20 Temperature 98.1 F Pulse Rate 93 Respiratory Rate 18 Blood Pressure 138/83 Pulse Oximetry 95 Oxygen Delivery Method Room Air BMI result Body Mass Index 39.0 VITAL SIGNS: Reviewed. GENERAL: Well developed, well nourished, in no acute distress. HEAD: Normocephalic/atraumatic EYES: PERRLA, EOMI EARS: Ext canals without abnormality NOSE: Nares patent bilateral OROPHARYNX: no oral lesions noted, posterior pharynx clear NECK: Supple, no adenopathy LUNGS: Normal breath sounds. No adventitious sounds or accessory muscle use. SpO2<95> CARDIOVASCULAR: Regular rate and rhythm without noted murmurs ABDOMEN: Soft, non-tender, non-distended with bowel sounds. BACK: Bilateral paraspinal muscle discomfort on palpation without midline vertebral tenderness or step-offs. MUSCULOSKELETAL: No tenderness, deformities, or effusions noted on gross inspection. EXTREMITIES: No cyanosis, clubbing or edema. SKIN: Inspection of the skin reveals no rashes NEUROLOGIC: Alert and oriented x 4. Strength and sensation to light touch were grossly intact x 4. Medical Decision Making Medical Decision Making [facility] Narrative: 0835: 57-year-old female with history and clinical presentation most consistent with musculoskeletal, possible mild pyelonephritis, UTI, no concern for cauda equina or acute bony abnormalities. At no clinical suspicion for pneumonia or ACS. I reviewed all investigations and urinalysis is negative for acute infection or hematuria. Patient reports allergy to lidocaine as well as NSAID based products in so will receive 975 mg of Tylenol in a prescription for a short course of muscle relaxants as I feel strongly that this is musculoskeletal in nature she was also instructed to follow-up with her OBGYN as well as her primary care doctor for refills on other home medications. Differential Diagnosis Differential Diagnoses: The differential diagnosis associated with the presentation includes Please see the discussion above Admission/Observation Consideration of admission/observation: Escalation of care including admission/observation considered Please see the discussion above Lab Data [facility] Lab Attestation statement: I reviewed the patient's lab results. Please see the discussion above Labs: Lab Results 01/15/23 01/15/23 Range/Units 08:24 08:24 Urine Color Yellow Urine Appearance Clear Urine pH 5.5 (5.0-9.0) Ur Specific [place] 1.020 (1.005-1.025) Urine Protein Negative (Neg-Trace) mg/dL Urine Glucose (UA) Negative (Negative) mg/dL Urine Ketones Negative (Negative) mg/dL Urine Blood Negative (Negative) Urine Nitrite Negative (Negative) Ur Leukocyte Esterase Negative (Negative) Urine Test NEGATIVE (NEGATIVE) External Record Review External record reviewed: Outpatient record and Prior outpatient labs Discharge Plan Discharge Clinical Impression: Acute exacerbation of chronic low back pain, Muscle spasm, Musculoskeletal pain Patient Disposition: Home, Self-Care Instructions: Musculoskeletal Pain (ED), Muscle Spasm (ED), Back Pain (ED) Additional Instructions: Your workup today did not demonstrate any concerns for UTI, evidence to suggest pyelonephritis or blood in the urine. I highly suspect that this is musculoskeletal in nature, you are allergic to many forms of anti-inflammatories and instead are receiving Tylenol and I will send a short course of muscle relaxant to your pharmacy. 1. Resume all home medications as prescribed. 2. Recommend follow-up with your primary care doctor in the next 1-2 days. Also, recommend follow-up with your OBGYN. Return to the ER for any worsening symptoms. Prescriptions: New cyclobenzaprine 5 mg tablet 5 mg PO BEDTIME PRN (Reason: muscle spasm) Qty: 4 0RF No Action Linzess 72 mcg capsule 72 mcg PO QAM 30 Days Qty: 30 3RF pantoprazole 40 mg tablet,delayed release (DR/EC) 40 mg PO DAILY Qty: 90 1RF valacyclovir 500 mg tablet 500 mg PO DAILY 90 Days Qty: 90 0RF rosuvastatin 10 mg tablet 10 mg PO DAILY Qty: 90 0RF ondansetron HCl 4 mg tablet 4 mg PO TID PRN (Reason: nausea and vomiting) Qty: 10 0RF fluorometholone 0.1 % drops,suspension 1 drp ophthalmic (eye) TID cyanocobalamin (vitamin B-12) 1,000 mcg tablet 1,000 mcg PO DAILY 90 Days Qty: 90 0RF alprazolam 0.5 mg tablet 0.25 mg PO BID 30 Days Qty: 30 2RF albuterol sulfate 90 mcg/actuation HFA aerosol inhaler 0 mcg inhalation Referrals: Lyndon Fagan MD [Primary Care Provider] -
[2023-01-15 08:33] LABS: Appearance Urine Clear; Color Urine Yellow; Glucose Urine UA Negative (Negative); Leukocyte Esterase Urine Negative (Negative); Nitrite Urine Negative (Negative); PH 5.5 (5.0-9.0); Urine Blood Negative (Negative); Urine Ketones Negative (Negative); Urine Protein Negative (Neg-Trace)
[2023-01-15 08:36] LABS: UPreg QC Valid YES; Urine Pregnancy NEGATIVE (NEGATIVE)
== END 2023-01-15 09:06 | disposition home or self-care (01) ==
PROVIDERS: Emergency Provider Student in an Organized Health Care Education/Training Program; PCP Internal Medicine
DX: M54.50 Low back pain, unspecified (principal); M79.10 Myalgia, unspecified site; Z79.899 Other long term (current) drug therapy
CPT/HCPCS: 81003; 81025; 99283; 99284

== ENCOUNTER 2023-02-11 10:27 | Outpatient (AMB) | payer MEDICARE, MEDICAID, SELFPAY ==
[2023-02-11 10:32] VITALS: BP 127/82; PULSE 88; O2SAT 95; BMI 38.6
--- NOTE | 2023-02-11 10:32 | MHC.OFFVIS ---
Intake Vital Signs 02/11/23 10:32 Height 5 ft 4 in Weight 224 lb 13.944 oz BMI 38.6 BP 127/82 Blood Pressure Location Lt brachial Position Sitting Pulse 88 Pulse Source Doppler Pulse Oximetry (%) 95 Oxygen Delivery Method Room Air Intake Visit Reasons: Shortness of breath, Hx of Asthma Allergies gabapentin [GABAPENTIN] Allergy (Severe, Verified 12/31/22 09:39) SEVERE GI ISSUES Iodinated Contrast Media [IV DYE, IODINE CONTAINING] Allergy (Severe, Verified 12/31/22 09:39) SWELLING Sulfa (Sulfonamide Antibiotics) [SULFA (SULFONAMIDE ANTIBIOTICS)] Allergy (Severe, Verified 12/31/22 09:39) ANAPHYLAXIS, swelling lidocaine Allergy (Mild, Verified 12/31/22 09:39) Welts nabumetone Allergy (Unknown, Verified 12/31/22 09:39) Abdominal Pain pregabalin Allergy (Unknown, Verified 12/31/22 09:39) unknown venlafaxine Allergy (Unknown, Verified 12/31/22 09:39) unknown meloxicam Adverse Reaction (Unknown, Verified 12/31/22 09:39) abdominal pain all meat Allergy (Unknown, Uncoded 02/28/22 09:52) unknown Environmental Allergy (Unknown, Uncoded 02/28/22 09:52) unknown HPI Shortness of breath, Hx of Asthma HPI Details 57-year-old lady, remote minimal smoker in her 20s, with prior history of asthma in childhood, that abated in her teenager years and she only required to use albuterol MDI rarely in recent years referred for evaluation of dyspnea on exertion. Patient states that she gets significant dyspnea on exertion walking from 1 room of her house to another. She also complains of lower extremity edema and orthopnea. She denies wheezing on Flovent, or sputum production. Patient does have underlying environmental allergies. She has no pets. 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 She is not shoe above family history of lung disease. Patient is using CPAP machine that is managed by her primary care provider. [facility] Medical History Acute arthritis Anxiety, generalized Environmental allergies Fibromyalgia Herpes Lipid disorder Tendonitis Umbilical hernia Surgical History H/O hand surgery History of cholecystectomy History of esophagogastroduodenoscopy (EGD) History of meniscectomy of left knee (~01/12/14) Hx of colonoscopy Hx of hernia repair Family History Mother Cervical cancer Bladder cancer Father Cancer Sister No problems noted. Other Mental health disorder Substance use disorder Social History Housing: Apartment Alcohol intake: never Patient Tobacco Use Status: Never used Tobacco e-Cigarette/Vaping Use: Never Used service: No Current occupational status: unemployed and disabled Sexual orientation: Straight/Heterosexual Gender identity: Female Cognitive needs: No Hearing needs: No Vision needs: No Review of Systems Const Denies daytime sleepiness, Denies excessive sweating, Denies fatigue, Denies fever(s), Denies lethargy, Denies malaise, Denies night sweats, Denies snoring and Denies weight loss Eyes Denies blurry vision and Denies itchy eyes ENT Denies nasal congestion, Denies post nasal drip, Denies sinus pain, Denies sinus pressure and Denies other ( Thrush) Card Denies chest pain, Reports pedal edema, Denies dyspnea, Reports dyspnea on exertion, Reports orthopnea and Denies paroxysmal nocturnal dyspnea Resp Denies cough, Denies hemoptysis, Denies excessive phlegm production, Denies dyspnea, Reports dyspnea on exertion, Denies snoring and Denies wheezing GI Denies abdominal pain and Denies heartburn Musc Denies myalgias, Denies arthralgias and Denies joint swelling Skin/Breast Denies rash Neuro Denies memory loss and Denies seizure-like activity Psych Denies abnormal sleep pattern, Denies anxiety and Denies memory loss Endo Denies excessive sweating, Denies fatigue and Denies heat intolerance Jass/Lymph Denies easy bruising Aller/Immun Denies itchy eyes, Denies seasonal rhinorrhea and Denies wheezing Physical Exam Vital Signs: Last Vital Signs Pulse 88 02/11/23 10:32 BP 127/82 02/11/23 10:32 Pulse Ox 95 02/11/23 10:32 Oxygen Delivery Method Room Air 02/11/23 10:32 BMI result Body Mass Index 38.6 Const General: no acute distress and alert Nutritional Appearance: obese Orientation/consciousness: Other orientation findings ( oriented) HEENT Head: Yes atraumatic Eyes General: appearance normal, both eyes and all related structures Sclerae: sclerae normal EOM: EOMs intact bilaterally Neck Neck: Yes supple Lymphatic: no lymphadenopathy noted Resp Effort & Inspection: normal respiratory effort and no use of accessory muscles Auscultation: clear to auscultation bilaterally Cardio Rate: regular rate Rhythm: regular rhythm Heart sounds: no gallops, no murmurs and no rubs Skin General skin exam: other ( warm) Extrem General: No clubbing, No cyanosis and Yes edema (2+ bilateral) Assessment & Plan Assessment & Plan (1) Asthma: Code(s): J45.909 - Unspecified asthma, uncomplicated Plan: Underlying asthma of unclear severity. Will obtain full PFT. Will continue albuterol MDI. (2) Dyspnea on exertion: Code(s): R06.09 - Other forms of dyspnea Plan: Appears to have significant orthopnea and lower extremity edema component, likely secondary to underlying cardiac etiology. Will obtain 2D echocardiogram for further evaluation. Will start on empiric diuretic. Orders: Orders CA echo transthoracic complete Today R06.09 - Other forms of dyspnea PFT pulmonary function test Today J45.909 - Unspecified asthma, uncomplicated Medications: New furosemide 40 mg PO QAM 30 tabs 6RF 30 days R06.09 - Other forms of dyspnea Coding Level of Care Code New Pt Level 4 (53099) Diagnoses Asthma J45.909 Dyspnea on exertion R06.09
== END 2023-02-11 10:55 | disposition home or self-care (01) ==
PROVIDERS: PCP Internal Medicine; Visit Provider Internal Medicine Pulmonary Disease
DX: J45.909 Unspecified asthma, uncomplicated (principal); R06.09 Other forms of dyspnea
CPT/HCPCS: 99204

== ENCOUNTER → 2023-02-11 10:27 | Outpatient (BNVA) | payer MEDICARE, MEDICAID, SELFPAY | PROVIDERS: PCP Internal Medicine; Visit Provider Internal Medicine Pulmonary Disease | DX: J45.909 Unspecified asthma, uncomplicated (principal); R06.09 Other forms of dyspnea | CPT/HCPCS: 99202 ==

== ENCOUNTER 2023-02-21 08:08 | Outpatient (AMB) | payer MEDICARE, MEDICAID, SELFPAY ==
--- NOTE | 2023-02-21 08:34 | MHC.OFFWIV ---
Intake Vital Signs 02/21/23 08:35 Weight 224 lb BP 122/82 Blood Pressure Location Lt brachial Position Sitting Pulse 90 Pulse Source Pulse Oximeter Temp 98.2 F Temp Source Oral Pulse Oximetry (%) 97 Oxygen Delivery Method Room Air Intake Visit Reasons: EP Congestion, Headache (masked) Intake Note: Patient here for chest cold that has been present for about 9 days now. She states her chest sams when she coughs, headaches, ear pain. Patient Tobacco Use Status: Never used Tobacco Allergies gabapentin [GABAPENTIN] Allergy (Severe, Verified 02/21/23 08:36) SEVERE GI ISSUES Iodinated Contrast Media [IV DYE, IODINE CONTAINING] Allergy (Severe, Verified 02/21/23 08:36) SWELLING Sulfa (Sulfonamide Antibiotics) [SULFA (SULFONAMIDE ANTIBIOTICS)] Allergy (Severe, Verified 02/21/23 08:36) ANAPHYLAXIS, swelling lidocaine Allergy (Mild, Verified 02/21/23 08:36) Welts nabumetone Allergy (Unknown, Verified 02/21/23 08:36) Abdominal Pain pregabalin Allergy (Unknown, Verified 02/21/23 08:36) unknown venlafaxine Allergy (Unknown, Verified 02/21/23 08:36) unknown meloxicam Adverse Reaction (Unknown, Verified 02/21/23 08:36) abdominal pain all meat Allergy (Unknown, Uncoded 02/21/23 08:36) unknown Environmental Allergy (Unknown, Uncoded 02/21/23 08:36) unknown Do you need a note to return to daycare/school/sports/work: No HPI HPI Comments History of Present Illness Details This is a 57-year-old female with past medical history significant for asthma who presents to the office today for sick visit. Patient complaining of chest congestion, dry cough, myalgias, bilateral otalgia, and sinus pain/pressure x 9 days. She denies any fevers or chills. She denies any chest pain or shortness of breath. She has not had to utilize her albuterol inhaler. Patient reports positive sick contacts with her grandson and gloria. [facility] Medical History Acute arthritis Anxiety, generalized Environmental allergies Fibromyalgia Herpes Lipid disorder Tendonitis Umbilical hernia Surgical History H/O hand surgery History of cholecystectomy History of esophagogastroduodenoscopy (EGD) History of meniscectomy of left knee (~01/12/14) Hx of colonoscopy Hx of hernia repair Family History Mother Cervical cancer Bladder cancer Father Cancer Sister No problems noted. Other Mental health disorder Substance use disorder Social History Housing: Apartment Alcohol intake: never Patient Tobacco Use Status: Never used Tobacco e-Cigarette/Vaping Use: Never Used service: No Current occupational status: unemployed and disabled Sexual orientation: Straight/Heterosexual Gender identity: Female Cognitive needs: No Hearing needs: No Vision needs: No Review of Systems Const All systems reviewed & are unremarkable except as noted in HPI and below Reports no additional complaints Eyes Reports no additional complaints ENT Reports no additional complaints Card Reports no additional complaints Resp Reports no additional complaints GI Reports no additional complaints Reports no additional complaints Musc Reports no additional complaints Skin/Breast Reports system reviewed and no additional complaints, except as documented Neuro Reports no additional complaints Psych Reports no additional complaints Endo Reports no additional complaints Jass/Lymph Reports no additional complaints Aller/Immun Reports no additional complaints Physical Exam Vital Signs: Last Vital Signs Temp 98.2 F 02/21/23 08:35 Pulse 90 02/21/23 08:35 BP 122/82 02/21/23 08:35 Pulse Ox 97 02/21/23 08:35 Oxygen Delivery Method Room Air 02/21/23 08:35 Const General: cooperative, healthy appearing, no acute distress and well developed Orientation/consciousness: patient oriented x3 HEENT Head: Yes normal to inspection Ears: hearing grossly normal bilaterally General nose exam: Normal external nose present Face and sinus: Yes normal facial exam Mouth: Normal oral and palatal mucosa present Eyes General: appearance normal, both eyes and all related structures Pupils: Equal, round and reactive pupils present EOM: EOMs intact bilaterally Resp Effort & Inspection: normal respiratory effort and no respiratory distress Auscultation: clear to auscultation bilaterally Cardio Rate: regular rate Rhythm: regular rhythm Heart sounds: no gallops, no murmurs and no rubs Peripheral pulses: Peripheral pulses 2+ throughout GI Inspection: No distended Palpation (GI): Soft to palpation and nontender Auscultation: normal bowel sounds Skin General skin exam: no rashes or lesions noted Neuro General: patient oriented x3 Cranial nerves: Yes CN's II-XII intact bilaterally and Yes Equal, round and reactive pupils present Gait exam (Neuro): Normal gait present Motor exam (neuro): 5/5 motor strength present throughout Extrem General: Yes normal to inspection, Yes full ROM and Yes no clubbing, cyanosis or edema Psych Appearance: grossly normal Mental Status: mental status grossly normal Assessment & Plan Assessment & Plan (1) Asthmatic bronchitis: Code(s): J45.909 - Unspecified asthma, uncomplicated (2) URI (upper respiratory infection): Code(s): J06.9 - Acute upper respiratory infection, unspecified Plan This is a 57-year-old female with past medical history significant for asthma who presented to the office today complaining of chest congestion, dry cough, bilateral otalgia, and sinus pain/pressure. Patient presenting with signs and symptoms most consistent with acute respiratory tract infection causing asthmatic bronchitis. Patient was sent home on p.o. azithromycin 500 mg today followed by 250 mg daily x4 days as well as p.o. prednisone 40 mg daily x5 days. Recommended symptomatic management including rest, increased fluids, advil/tylenol for pain/fever, and over the counter throat lozenges/decongestants. I offered the patient a chest x-ray as well as testing for COVID/flu/RSV but patient declined at this time. Patient advised to follow up here or go to the emergency room for worsening/persistent symptoms. Patient verbalized understanding and is agreeable with the plan. Medications: New azithromycin For 250 mg dose pack: take 500 mg today (day 1), then 250 mg for 4 days (days 2-5) PO 6 tabs 0RF prednisone 40 mg (2 x 20 mg) PO DAILY 10 tabs 0RF Coding Level of Care Code Est Pt Level 3 (22425) Diagnoses Asthmatic bronchitis J45.909 URI (upper respiratory infection) J06.9
[2023-02-21 08:35] VITALS: BP 122/82; PULSE 90; TEMP 36.8; O2SAT 97
== END 2023-02-21 09:18 | disposition home or self-care (01) ==
PROVIDERS: PCP Internal Medicine; Visit Provider Physician Assistant Medical
DX: J45.909 Unspecified asthma, uncomplicated (principal); J06.9 Acute upper respiratory infection, unspecified
CPT/HCPCS: 99213

== ENCOUNTER 2023-03-05 09:46 | Outpatient (AMB) | payer MEDICARE, MEDICAID, SELFPAY ==
--- NOTE | 2023-03-05 10:19 | AM.OFFWIN_ITS ---
Intake Vital Signs 03/05/23 10:20 Height 5 ft 4 in Weight 227 lb 2 oz BMI 39.0 BP 130/78 Blood Pressure Location Rt brachial Position Sitting Pulse 95 Pulse Source Pulse Oximeter Temp 96.4 F L Temp Source Temporal Artery Scan Pulse Oximetry (%) 96 Oxygen Delivery Method Room Air Intake Visit Reasons: EST/upper resp issues ongoing 1 month Intake Note: Pt is here c/o upper respiratory problems for the past month. Patient Tobacco Use Status: Never used Tobacco Allergies gabapentin [GABAPENTIN] Allergy (Severe, Verified 02/21/23 08:36) SEVERE GI ISSUES Iodinated Contrast Media [IV DYE, IODINE CONTAINING] Allergy (Severe, Verified 02/21/23 08:36) SWELLING Sulfa (Sulfonamide Antibiotics) [SULFA (SULFONAMIDE ANTIBIOTICS)] Allergy (Severe, Verified 02/21/23 08:36) ANAPHYLAXIS, swelling lidocaine Allergy (Mild, Verified 02/21/23 08:36) Welts nabumetone Allergy (Unknown, Verified 02/21/23 08:36) Abdominal Pain pregabalin Allergy (Unknown, Verified 02/21/23 08:36) unknown venlafaxine Allergy (Unknown, Verified 02/21/23 08:36) unknown meloxicam Adverse Reaction (Unknown, Verified 02/21/23 08:36) abdominal pain all meat Allergy (Unknown, Uncoded 02/21/23 08:36) unknown Environmental Allergy (Unknown, Uncoded 02/21/23 08:36) unknown HPI HPI Comments History of Present Illness Details The patient presents to Urgent Care for evaluation ongoing cough and shortness of breath. She reports that she recently had a cold and this exacerbated her asthma. She was seen here last week and prescribed azithromycin and albuterol prednisone. She reported some mild improvement after initiation of the treatment but now feels ongoing shortness of breath and chest tightness with breathing. No fever chills. Dry cough. [facility] Medical History Acute arthritis Anxiety, generalized Environmental allergies Fibromyalgia Herpes Lipid disorder Tendonitis Umbilical hernia Surgical History H/O hand surgery History of cholecystectomy History of esophagogastroduodenoscopy (EGD) History of meniscectomy of left knee (~01/12/14) Hx of colonoscopy Hx of hernia repair Family History Mother Cervical cancer Bladder cancer Father Cancer Sister No problems noted. Other Mental health disorder Substance use disorder Social History Housing: Apartment Alcohol intake: never Patient Tobacco Use Status: Never used Tobacco e-Cigarette/Vaping Use: Never Used service: No Current occupational status: unemployed and disabled Sexual orientation: Straight/Heterosexual Gender identity: Female Cognitive needs: No Hearing needs: No Vision needs: No Review of Systems Card Denies rapid heart rate and Denies dyspnea on exertion Resp Denies dyspnea on exertion GI Denies dyspepsia and Denies heartburn Musc Denies arthralgias and Denies muscle cramps Neuro Denies focal weakness and Denies Other visual disturbances Physical Exam Vital Signs: Last Vital Signs Temp 96.4 F L 03/05/23 10:20 Pulse 95 03/05/23 10:20 BP 130/78 03/05/23 10:20 Pulse Ox 96 03/05/23 10:20 Oxygen Delivery Method Room Air 03/05/23 10:20 BMI result Body Mass Index 39.0 Const General: healthy appearing and no acute distress HEENT Mouth: Normal oral and palatal mucosa present Resp Effort & Inspection: normal respiratory effort and able to speak in complete sentences Auscultation: clear to auscultation bilaterally Cardio Rate: regular rate Rhythm: regular rhythm Assessment & Plan Assessment & Plan (1) Asthma: Code(s): J45.909 - Unspecified asthma, uncomplicated Plan Symptoms consistent with ongoing asthma exacerbation. She was treated with a course of prednisone and Zithromax last week and reports that she had some mild improvement but still has some tightness in her chest and shortness of breath. Will give another course of prednisone at this time. Recommend albuterol 2 puffs every 4-6 hours. She has enough this at home. Medications: New prednisone 40 mg (2 x 20 mg) PO DAILY 8 tabs 0RF Coding Level of Care Code Est Pt Level 3 (90517) Diagnoses Asthma J45.909
[2023-03-05 10:20] VITALS: BP 130/78; PULSE 95; TEMP 35.8; O2SAT 96; BMI 39.0
== END 2023-03-05 11:02 | disposition home or self-care (01) ==
PROVIDERS: PCP Internal Medicine; Visit Provider Emergency Medicine
DX: J45.909 Unspecified asthma, uncomplicated (principal)
CPT/HCPCS: 99213

== ENCOUNTER 2023-03-13 08:09 | Outpatient (AMB) | payer MEDICARE, MEDICAID, SELFPAY ==
--- NOTE | 2023-03-13 08:46 | MHC.PC.OV ---
Vital Signs 03/13/23 09:57 Height 5 ft 4 in Weight 227 lb BMI 39.0 Intake Visit Reasons: Medication Concerns~ Allergies gabapentin [GABAPENTIN] Allergy (Severe, Verified 03/13/23 08:46) SEVERE GI ISSUES Iodinated Contrast Media [IV DYE, IODINE CONTAINING] Allergy (Severe, Verified 03/13/23 08:46) SWELLING Sulfa (Sulfonamide Antibiotics) [SULFA (SULFONAMIDE ANTIBIOTICS)] Allergy (Severe, Verified 03/13/23 08:46) ANAPHYLAXIS, swelling lidocaine Allergy (Mild, Verified 03/13/23 08:46) Welts nabumetone Allergy (Unknown, Verified 03/13/23 08:46) Abdominal Pain pregabalin Allergy (Unknown, Verified 03/13/23 08:46) unknown venlafaxine Allergy (Unknown, Verified 03/13/23 08:46) unknown meloxicam Adverse Reaction (Unknown, Verified 03/13/23 08:46) abdominal pain all meat Allergy (Unknown, Uncoded 02/21/23 08:36) unknown Environmental Allergy (Unknown, Uncoded 02/21/23 08:36) unknown Medication List - Last Reconciled 03/13/23 by Lyndon Fagan MD albuterol sulfate 90 mcg/actuation 0 mcg inhalation alprazolam 0.25 mg (1/2 x 0.5 mg) PO BID 30 days cyanocobalamin (vitamin B-12) 1,000 mcg PO DAILY 90 days fluorometholone 0.1% 1 drp ophthalmic (eye) TID furosemide 40 mg PO QAM 30 days linaclotide (Linzess) 72 mcg PO QAM 30 days ondansetron HCl 4 mg PO TID PRN pantoprazole 40 mg PO DAILY rosuvastatin 10 mg PO DAILY valacyclovir 500 mg PO DAILY 90 days Tobacco use date assessed: 03/13/23 Dental Screening Dental Screen Date: 03/13/23 Did you have a dental visit in the last 12 months?: Yes Did you have a dental problem in the last 6 months where you did not have access to dental care?: No Was dental information given to patient?: Patient has dentist HPI Medication Concerns~ HPI Details Patient is 67-year-old female this is a telemedicine video conference Patient wanted to discuss her weight problem Her BMI is 39.0 patient has been struggling to lose weight but has not been able to succeed . Patient says that her brother is also obese and has been using Semaglutide, and he has been able to lose about 40 lb. Patient is aware of side effect of the medication, I reviewed the side effects again including thyroid complications and hypoglycemia Patient says that she is willing to take the risk I have sent the injections for the patient, once she picker feeder the injection she will book a nursing visit so we can teach her how to administer the injection to herself. Patient is aware that once she will start medication it is important that we see her periodically and monitor weight to see if the medication is working. [facility] Medical History Herpes Environmental allergies Anxiety, generalized Lipid disorder Umbilical hernia Fibromyalgia Acute arthritis Tendonitis Surgical History Hx of hernia repair History of esophagogastroduodenoscopy (EGD) Hx of colonoscopy History of meniscectomy of left knee (~01/12/14) History of cholecystectomy H/O hand surgery Family History Mother Cervical cancer Bladder cancer Father Cancer Sister No problems noted. Other Mental health disorder Substance use disorder Social History Housing: Apartment Alcohol intake: never Patient Tobacco Use Status: Never used Tobacco e-Cigarette/Vaping Use: Never Used service: No Current occupational status: unemployed and disabled Sexual orientation: Straight/Heterosexual Gender identity: Female Cognitive needs: No Hearing needs: No Vision needs: No Questionnaire AUDIT C Alcohol Use Questionnaire (AUDIT-C) 1. How often do you have a drink containing alcohol?: Never 3. How often do you have six or more drinks on one occasion?: Never Total Score: 0 Score Reviewed/Action Taken: Yes ARIANNA-7 AMB Questionnaire ARIANNA-7 Date ARIANNA - 7 assessed: 01/04/22 Source: Developed by Drs. Kenneth Preston, Aruna Alcantar, Babak Rebolledo and colleagues, with an educational morris from [employer]. Review of Systems Const Denies chills and Denies fever(s) ENT Denies epistaxis and Denies nasal discharge Card Denies chest pain Resp Denies hemoptysis GI Denies diarrhea and Denies nausea Skin/Breast Denies rash Neuro Reports no additional complaints Psych Reports no additional complaints Endo Reports no additional complaints Physical exam (Primary Care) Tobacco/Smoking Status: Tobacco use Status Tobacco use date assessed 03/13/23 03/13/23 08:49 Patient Tobacco Use Status Never used Tobacco 03/13/23 08:49 e-Cigarette/Vaping Use Never Used 03/13/23 08:49 Telehealth Telehealth Location of provider rendering services: practice address Location of patient: address on file Patient Identification confirmed using: Name, : Yes Telehealth method: video Patient verbally consented to treatment: Yes Patient verbally consented to billing insurance company: Yes Patient informed of any privacy concerns related to visit: Yes Minutes spent on Phone/Video with Pt.: 16 Assessment and Plan Assessment & Plan (1) Morbid obesity due to excess calories: Code(s): E66.01 - Morbid (severe) obesity due to excess calories Plan Patient is 67-year-old female this is a telemedicine video conference Patient wanted to discuss her weight problem Her BMI is 39.0 patient has been struggling to lose weight but has not been able to succeed . Patient says that her brother is also obese and has been using Semaglutide, and he has been able to lose about 40 lb. Patient is aware of side effect of the medication, I reviewed the side effects again including thyroid complications and hypoglycemia Patient says that she is willing to take the risk I have sent the injections for the patient, once she picker feeder the injection she will book a nursing visit so we can teach her how to administer the injection to herself. Patient is aware that once she will start medication it is important that we see her periodically and monitor weight to see if the medication is working. Medications: New semaglutide for 4 weeks 0.25 mg (0.368 mL) subcut QWEEK 30 days 2 mL 0RF Coding Level of Care Code Tele Est Pt Level 3 (74679) Diagnoses Morbid obesity due to excess calories E66.01
[2023-03-13 09:57] VITALS: BMI 39.0
== END 2023-03-13 12:30 | disposition home or self-care (01) ==
LOC: HO.HMGC 08:09
PROVIDERS: PCP Internal Medicine; Visit Provider Internal Medicine
DX: E66.01 Morbid (severe) obesity due to excess calories (principal); Z68.39 Body mass index [BMI] 39.0-39.9, adult
CPT/HCPCS: 99213

== ENCOUNTER 2023-03-21 09:16 | Outpatient (AMB) | payer MEDICARE, MEDICAID, SELFPAY ==
--- NOTE | 2023-03-21 09:13 | MHC.PC.OV ---
Intake Visit Reasons: Congestion & nasal drip / Dry Cough [phone] Allergies gabapentin [GABAPENTIN] Allergy (Severe, Verified 03/21/23 09:13) SEVERE GI ISSUES Iodinated Contrast Media [IV DYE, IODINE CONTAINING] Allergy (Severe, Verified 03/21/23 09:13) SWELLING Sulfa (Sulfonamide Antibiotics) [SULFA (SULFONAMIDE ANTIBIOTICS)] Allergy (Severe, Verified 03/21/23 09:13) ANAPHYLAXIS, swelling lidocaine Allergy (Mild, Verified 03/21/23 09:13) Welts nabumetone Allergy (Unknown, Verified 03/21/23 09:13) Abdominal Pain pregabalin Allergy (Unknown, Verified 03/21/23 09:13) unknown venlafaxine Allergy (Unknown, Verified 03/21/23 09:13) unknown meloxicam Adverse Reaction (Unknown, Verified 03/21/23 09:13) abdominal pain all meat Allergy (Unknown, Uncoded 02/21/23 08:36) unknown Environmental Allergy (Unknown, Uncoded 02/21/23 08:36) unknown Medication List - Last Reconciled 03/21/23 by Lyndon Fagan MD albuterol sulfate 90 mcg/actuation 0 mcg inhalation alprazolam 0.25 mg (1/2 x 0.5 mg) PO BID 30 days cyanocobalamin (vitamin B-12) 1,000 mcg PO DAILY 90 days fluorometholone 0.1% 1 drp ophthalmic (eye) TID furosemide 40 mg PO QAM 30 days linaclotide (Linzess) 72 mcg PO QAM 30 days ondansetron HCl 4 mg PO TID PRN pantoprazole 40 mg PO DAILY rosuvastatin 10 mg PO DAILY semaglutide 0.25 mg (0.368 mL) subcut QWEEK 30 days valacyclovir 500 mg PO DAILY 90 days Tobacco use date assessed: 03/21/23 Dental Screening Dental Screen Date: 03/21/23 Did you have a dental visit in the last 12 months?: Yes Did you have a dental problem in the last 6 months where you did not have access to dental care?: No Was dental information given to patient?: Patient has dentist HPI Congestion & nasal drip / Dry Cough [phone] HPI Details This is a telemedicine video conference Patient has been having postnasal drip radiated cough and not feeling well for the past 2 days She has started taking [id number] cold and cough medication every 4 hour which is helping. Patient says that she woke up in the morning and was feeling slight shortness of breath. She has albuterol inhaler but she is allergic to sulfa and reading that it is albuterol sulfate patient has stop taking it I have sent Pulmicort inhaler for the patient it does not have any albuterol in it but it will help her with inflammation in the airways I have also sent prednisone 10 mg she may start taking that 1 daily for 5 days if her shortness of breath got worse. Patient is already seeing software applications specialist Dr Parikh and have appointment coming up next month. There is no fever chills nausea vomiting diarrhea. She has not tested herself for COVID [facility] Medical History (Updated 03/21/23 @ 09:55 by Lyndon Fagan MD) Shortness of breath Herpes Environmental allergies Anxiety, generalized Lipid disorder Umbilical hernia Fibromyalgia Acute arthritis Tendonitis Surgical History Hx of hernia repair History of esophagogastroduodenoscopy (EGD) Hx of colonoscopy History of meniscectomy of left knee (~01/12/14) History of cholecystectomy H/O hand surgery Family History Mother Cervical cancer Bladder cancer Father Cancer Sister No problems noted. Other Mental health disorder Substance use disorder Social History Housing: Apartment Alcohol intake: never Patient Tobacco Use Status: Never used Tobacco e-Cigarette/Vaping Use: Never Used service: No Current occupational status: unemployed and disabled Sexual orientation: Straight/Heterosexual Gender identity: Female Cognitive needs: No Hearing needs: No Vision needs: No Questionnaire AUDIT C Alcohol Use Questionnaire (AUDIT-C) 1. How often do you have a drink containing alcohol?: Never 3. How often do you have six or more drinks on one occasion?: Never Total Score: 0 Score Reviewed/Action Taken: Yes ARIANNA-7 AMB Questionnaire ARIANNA-7 Date ARIANNA - 7 assessed: 01/04/22 Source: Developed by Drs. Kenneth Preston, Aruna Alcantar, Babak Rebolledo and colleagues, with an educational morris from [employer] Review of Systems Const Denies chills and Denies fever(s) ENT Denies epistaxis and Denies nasal discharge Card Denies chest pain Resp Denies hemoptysis GI Denies diarrhea and Denies nausea Skin/Breast Denies rash Neuro Reports no additional complaints Psych Reports no additional complaints Endo Reports no additional complaints Physical exam (Primary Care) Tobacco/Smoking Status: Tobacco use Status Tobacco use date assessed 03/21/23 03/21/23 09:15 Patient Tobacco Use Status Never used Tobacco 03/21/23 09:15 e-Cigarette/Vaping Use Never Used 03/21/23 09:15 Telehealth Telehealth Location of provider rendering services: practice address Location of patient: address on file Patient Identification confirmed using: Name, : Yes Telehealth method: video Patient verbally consented to treatment: Yes Patient verbally consented to billing insurance company: Yes Patient informed of any privacy concerns related to visit: Yes Minutes spent on Phone/Video with Pt.: 14 Assessment and Plan Assessment & Plan (1) Shortness of breath: Code(s): R06.02 - Shortness of breath (2) Cough: Code(s): R05.9 - Cough, unspecified Qualifiers: Cough type: acute Qualified Code(s): R05.1 - Acute cough (3) Postnasal drip: Code(s): R09.82 - Postnasal drip (4) Feeling sick: Code(s): R68.89 - Other general symptoms and signs Plan This is a telemedicine video conference Patient has been having postnasal drip radiated cough and not feeling well for the past 2 days She has started taking [id number] cold and cough medication every 4 hour which is helping. Patient says that she woke up in the morning and was feeling slight shortness of breath. She has albuterol inhaler but she is allergic to sulfa and reading that it is albuterol sulfate patient has stop taking it I have sent Pulmicort inhaler for the patient it does not have any albuterol in it but it will help her with inflammation in the airways I have also sent prednisone 10 mg she may start taking that 1 daily for 5 days if her shortness of breath got worse. Patient is already seeing software applications specialist Dr Parikh and have appointment coming up next month. There is no fever chills nausea vomiting diarrhea. She has not tested herself for COVID Medications: New prednisone 10 mg PO DAILY 5 tabs 0RF 5 days Pulmicort Flexhaler 180 mcg/actuation (budesonide) 2 inhalations inhalation QAM 1 ea 0RF NS Coding Level of Care Code Tele Est Pt Level 4 (85278) Diagnoses Shortness of breath R06.02 Acute cough R05.1 Cough type: acute Postnasal drip R09.82 Feeling sick R68.89
== END 2023-03-21 10:09 | disposition home or self-care (01) ==
LOC: HO.HMGC 09:16
PROVIDERS: PCP Internal Medicine; Visit Provider Internal Medicine
DX: R06.02 Shortness of breath (principal); R05.1 Acute cough; R09.82 Postnasal drip; R68.89 Other general symptoms and signs
CPT/HCPCS: 99442

== ENCOUNTER → 2023-03-31 09:27 | Outpatient (REF) | payer MEDICARE, MEDICAID, SELFPAY ==
--- NOTE | 2023-03-31 09:29 | CA_ITS ---
Transthoracic Echocardiogram Patient (Last, First, Middle): Evelina Edwards, Gender: Female Date of : 1965 Age: 57 Procedure Date: 03/31/2023 Procedure Type: Transthoracic Echocardiogram Location: OP Height: 154.94 cm Weight: 100.7 kg BSA: 1.97 m2 Heart Rate: bpm BP: 120 / 80 mmHg Truck Service Manager: ELIJAH Referring MD: Sagar Parikh MD Sole Leveler Machine: Koffi Stone MD Symptoms: R06.09 - Other forms of dyspnea Study Quality: Adequate w Contrast ECG Rhythm: Sinus Conclusions: - 1. Normal LV ejection fraction 55-60% with grade 1 diastolic dysfunction 2. Normal cardiac valvular Dopplers next 3. Normal RV systolic pressure Findings Procedure Information Contrast agent, definity, is being given per protocol without apparent complications. Left Ventricle Normal left ventricular size, thickness, and systolic function. The visually estimated ejection fraction is between 55-60%. Spectral Doppler is indicative of an impaired relaxation filling pattern. E/E prime ratio is <8, consistent with normal filling pressures. Evidence suggests grade I (mild) diastolic dysfunction. Right Ventricle Normal right ventricular cavity size and systolic function. Atria The left atrium is normal in size. Interatrial shunt cannot be excluded. The right atrium was not well visualized. Aortic Valve Normal aortic valve structure and function. There is no aortic valve stenosis. There is no aortic valve regurgitation. Mitral Valve Normal mitral valve structure and function. There is trace mitral valve regurgitation. There is no mitral valve stenosis. Pulmonic Valve The pulmonic valve was not well visualized. Tricuspid Valve Normal tricuspid valve structure. There is trace tricuspid valve regurgitation. The right ventricular systolic pressure is normal. The right ventricular systolic pressure is 24 mmHg. Normal right atrial pressure. There is no evidence of pulmonary hypertension. Great Vessels All visible segments of the aorta are normal in size. The pulmonary artery was not well visualized. Venous The inferior vena cava is normal in size and collapses greater than 50% with inspiration. Pericardium/Pleural There is no evidence of pericardial effusion. Prior Study Comparison no previous study in the last 5 years for comparison Measurements 2D Linear Measurements IVSd: 1.02 0.6-0.9/0.6-1.0 cm LVIDd: 4.04 3.9-5.3/4.2-5.9 cm LVIDd Index: 2.05 2.4-3.2/2.2-3.1 cm/m2 LVIDs: 2.39 2.0-3.6 cm LVPWd: 0.82 0.7-1.1 cm Ao Root: 3.10 2.1-3.5 cm LA Diam: 3.90 2.7-3.8/3.0-4.0 cm LAIDs Index: 1.98 1.5-2.3 cm/m2 LV Mass: 142.96 67-162/88-224 g LV Mass Index: 72.57 43-95/49-115 g/m2 LVOT Diam: 2.00 3.0+(-)1.3 cm 2D Systolic Function EF 4C: 59.00 >55% EF 2C: 53.60 >55% EF BiP: 56.90 >55% Mitral Valve MV Pk E: 0.52 MV PK A: 0.75 MV Decel Time: 276.00 E/A: 0.70 E'Lateral: 6.42 E'Medial: 4.35 E/E' Med: 11.90 E/E' Lat: 8.10 PHT: 81.00 MVA PHT: 2.72 Decel Placer: 1.88 Aortic Valve AoV Pk Dalton: 1.33 AoV Mn Dalton: 0.85 AoV VTI: 0.31 AoV Pk Grad: 7.00 Aov Mn Grad: 4.00 WILMA Cont.VTI: 1.75 LVOT LVOT Pk Dalton: 0.84 LVOT Mn Dalton: 0.50 LVOT VTI: 0.17 LVOT Pk Grad: 3.00 LVOT Mn Grad: 1.00 LVOT Diam: 2.00 LVOT Area: 3.14 Diastolic Function MV Pk E: 0.52 MV Pk A: 0.75 E/A: 0.70 E'Medial: 4.35 E/E' Med: 11.90 E' Laterial: 6.42 E/E' Lat: 8.10 Right Ventricle TAPSE (mm): 21.00 TVS' Dalton: 10.00 Tricuspid Valve TR Pk Dalton: 2.27 TR Pk Grad: 21.00 RA Press: 3.00 RVSP: 24.00 Great Vessels Aorta Ao Root-2D: 3.10 2.0-3.7 cm Ao Asc: 3.20 2.1-3.4 cm Pulmonary Valve PV Pk Dalton: 0.90 Peak PV Grad: 3.00 Updated in Other Vendor System with Status of Final Koffi Stone MD electronically signed on 04/01/2023 12:19:05 PM with status of Final
== END ==
LOC: HO.CARD 09:27
PROVIDERS: PCP Internal Medicine; Visit Provider Internal Medicine Pulmonary Disease
DX: R06.09 Other forms of dyspnea (principal)
CPT/HCPCS: 93306; Q9957

== ENCOUNTER → 2023-03-31 09:29 | Outpatient (BNV) | payer MEDICARE, MEDICAID, SELFPAY | PROVIDERS: PCP Internal Medicine; Visit Provider Internal Medicine Cardiovascular Disease | DX: R06.09 Other forms of dyspnea (principal) | CPT/HCPCS: 93306 ==

== ENCOUNTER 2023-04-04 07:35 | Outpatient (AMB) | payer MEDICARE, MEDICAID, SELFPAY ==
--- NOTE | 2023-04-04 07:49 | A.OFFPC_ITS ---
Intake Visit Reasons: 3 Month follow up Allergies gabapentin [GABAPENTIN] Allergy (Severe, Verified 03/21/23 09:13) SEVERE GI ISSUES Iodinated Contrast Media [IV DYE, IODINE CONTAINING] Allergy (Severe, Verified 03/21/23 09:13) SWELLING Sulfa (Sulfonamide Antibiotics) [SULFA (SULFONAMIDE ANTIBIOTICS)] Allergy (Severe, Verified 03/21/23 09:13) ANAPHYLAXIS, swelling lidocaine Allergy (Mild, Verified 03/21/23 09:13) Welts nabumetone Allergy (Unknown, Verified 03/21/23 09:13) Abdominal Pain pregabalin Allergy (Unknown, Verified 03/21/23 09:13) unknown venlafaxine Allergy (Unknown, Verified 03/21/23 09:13) unknown meloxicam Adverse Reaction (Unknown, Verified 03/21/23 09:13) abdominal pain all meat Allergy (Unknown, Uncoded 02/21/23 08:36) unknown Environmental Allergy (Unknown, Uncoded 02/21/23 08:36) unknown Medication List - Last Reconciled 04/04/23 by Lyndon Fagan MD albuterol sulfate 90 mcg/actuation 0 mcg inhalation alprazolam 0.25 mg (1/2 x 0.5 mg) PO BID 30 days cyanocobalamin (vitamin B-12) 1,000 mcg PO DAILY 90 days fluorometholone 0.1% 1 drp ophthalmic (eye) TID furosemide 40 mg PO QAM 30 days linaclotide (Linzess) 72 mcg PO QAM 30 days ondansetron HCl 4 mg PO TID PRN pantoprazole 40 mg PO DAILY prednisone 10 mg PO DAILY 5 days Pulmicort Flexhaler 180 mcg/actuation (budesonide) 2 inhalations inhalation QAM NS rosuvastatin 10 mg PO DAILY semaglutide 0.25 mg (0.368 mL) subcut QWEEK 30 days valacyclovir 500 mg PO DAILY 90 days Tobacco use date assessed: 03/21/23 HPI 3 Month follow up HPI Details Patient is a 57-year-old female this is a telemedicine video conference Patient is also due for her alprazolam that she takes for anxiety Patient is complying with the treatment plan no signs of abuse Refill sent for next 3 months Patient was started on Semaglutide for obesity, she is tolerating the injections It has been 3 weeks, patient started with 225 lb and she is not 219 lb. She is also requesting refill on valacyclovir that she takes for herpes p revention Her cough has improved with prednisone but still lingers on She had echocardiogram recently , I reviewed that with the patient Her ejection fraction is 60% and there is no valve abnormality. She has an appointment with Pulmonary Dr Parikh next month. As she continued to feel short of breath GERD: Patient is on pantoprazole 40 mg Follow-up 3 month in house to check weight [facility] Medical History (Updated 04/04/23 @ 08:00 by Lyndon Fagan MD) Shortness of breath Herpes Environmental allergies Anxiety, generalized Lipid disorder Umbilical hernia Fibromyalgia Acute arthritis Tendonitis Surgical History Hx of hernia repair History of esophagogastroduodenoscopy (EGD) Hx of colonoscopy History of meniscectomy of left knee (~01/12/14) History of cholecystectomy H/O hand surgery Family History Mother Cervical cancer Bladder cancer Father Cancer Sister No problems noted. Other Mental health disorder Substance use disorder Social History Housing: Apartment Alcohol intake: never Patient Tobacco Use Status: Never used Tobacco e-Cigarette/Vaping Use: Never Used service: No Current occupational status: unemployed and disabled Sexual orientation: Straight/Heterosexual Gender identity: Female Cognitive needs: No Hearing needs: No Vision needs: No Questionnaire ARIANNA-7 AMB Questionnaire ARIANNA-7 Date ARIANNA - 7 assessed: 01/04/22 Source: Developed by Drs. Kenneth Preston, Aruna Alcantar, Babak Rebolledo and colleagues, with an educational morris from [employer]. Review of Systems Const Denies chills and Denies fever(s) ENT Denies epistaxis and Denies nasal discharge Card Denies chest pain Resp Denies chest congestion and Denies hemoptysis GI Denies diarrhea and Denies nausea Skin/Breast Denies rash Neuro Reports no additional complaints Psych Reports no additional complaints Endo Reports no additional complaints Physical exam (Primary Care) Tobacco/Smoking Status: Tobacco use Status Tobacco use date assessed 03/21/23 04/04/23 07:49 Patient Tobacco Use Status Never used Tobacco 04/04/23 07:49 e-Cigarette/Vaping Use Never Used 04/04/23 07:49 Telehealth Telehealth Location of provider rendering services: practice address Location of patient: address on file Patient Identification confirmed using: Name, : Yes Telehealth method: video Patient verbally consented to treatment: Yes Patient verbally consented to billing insurance company: Yes Patient informed of any privacy concerns related to visit: Yes Assessment and Plan Assessment & Plan (1) Shortness of breath: Code(s): R06.02 - Shortness of breath (2) Cough: Code(s): R05.9 - Cough, unspecified Qualifiers: Cough type: acute Qualified Code(s): R05.1 - Acute cough (3) Diet-controlled diabetes mellitus: Code(s): E11.9 - Type 2 diabetes mellitus without complications (4) Morbid obesity due to excess calories: Code(s): E66.01 - Morbid (severe) obesity due to excess calories (5) Anxiety, generalized: Code(s): F41.1 - Generalized anxiety disorder (6) Environmental allergies: Code(s): Z91.09 - Other allergy status, other than to drugs and biological substances (7) GERD (gastroesophageal reflux disease): Code(s): K21.9 - Gastro-esophageal reflux disease without esophagitis Qualifiers: Esophagitis presence: without esophagitis Qualified Code(s): K21.9 - Gastro-esophageal reflux disease without esophagitis (8) Herpes: Code(s): B00.9 - Herpesviral infection, unspecified (9) Fibromyalgia: Code(s): M79.7 - Fibromyalgia Plan Patient is a 57-year-old female this is a telemedicine video conference Patient is also due for her alprazolam that she takes for anxiety Patient is complying with the treatment plan no signs of abuse Refill sent for next 3 months Patient was started on Semaglutide for obesity, she is tolerating the injections It has been 3 weeks, patient started with 225 lb and she is not 219 lb. She is also requesting refill on valacyclovir that she takes for herpes prevention Her cough has improved with prednisone but still lingers on She had echocardiogram recently , I reviewed that with the patient Her ejection fraction is 60% and there is no valve abnormality. She has an appointment with Pulmonary Dr Parikh next month. As she continued to feel short of breath GERD: Patient is on pantoprazole 40 mg Patient also is diabetic diet control She suffers from fibromyalgia as well and continued to have whole body aches and pains Follow-up 3 month in house to check weight Medications: Refilled valacyclovir 500 mg PO DAILY 90 tabs 0RF 90 days semaglutide for 4 weeks 0.25 mg (0.368 mL) subcut QWEEK 2 mL 3RF 30 days alprazolam 0.25 mg (1/2 x 0.5 mg) PO BID 30 tabs 2RF 30 days Coding Level of Care Code Tele Est Pt Level 4 (73921) Diagnoses Shortness of breath R06.02 Acute cough R05.1 Cough type: acute Diet-controlled diabetes mellitus E11.9 Morbid obesity due to excess calories E66.01 Anxiety, generalized F41.1 Environmental allergies Z91.09 Gastroesophageal reflux disease without esophagitis K21.9 Esophagitis presence: without esophagitis Herpes B00.9 Fibromyalgia M79.7 Comment 3 minute prep, 20 minute with patient, 7 minute charting coordination of care
== END 2023-04-04 09:17 | disposition home or self-care (01) ==
LOC: HO.HMGC 07:35
PROVIDERS: PCP Internal Medicine; Visit Provider Internal Medicine
DX: R06.02 Shortness of breath (principal); R05.1 Acute cough; E11.9 Type 2 diabetes mellitus without complications; E66.01 Morbid (severe) obesity due to excess calories; F41.1 Generalized anxiety disorder; Z91.09 Other allergy status, other than to drugs and biological substances; K21.9 Gastro-esophageal reflux disease without esophagitis; B00.9 Herpesviral infection, unspecified; M79.7 Fibromyalgia
CPT/HCPCS: 99214

== ENCOUNTER 2023-04-21 08:35 | Outpatient (REF) | payer MEDICARE, MEDICAID, SELFPAY ==
[2023-04-21 11:16] LABS: MANUAL DIFF FLAG NO
[2023-04-21 11:27] LABS: Basophils Absolute Auto 0.1 X10*3/uL (0.0-0.2); Basophils Percent Auto 1.1 % (0-2); Eosinophils Absolute Auto 0.1 X10*3/uL (0.0-0.4); Eosinophils Percent Auto 1.2 % (0-4); Hematocrit 43.2 % (37.0-47.0); Imm Gran Abs Auto 0.02 X10*3/uL (0.00-0.03); Imm Gran Pct Auto 0.3 % (0.0-0.4); Lymphocytes Absolute Auto 2.2 X10*3/uL (1.2-4.9); Lymphocytes Percent Auto 34.6 % (20-40); Mean Corpuscular HGB Conc 32.4 g/dl (31.0-35.0); Mean Corpuscular Hemoglobin 29.7 pg (27.0-33.0); Mean Corpuscular Volume 91.5 fL (80.0-98.0); Mean Platelet Volume 10.8 fL (9.4-12.3); Monocytes Absolute Auto 0.5 X10*3/uL (0.1-1.2); Monocytes Percent Auto 8.2 % (2-11); Neutrophils Absolute Auto 3.5 x10*3/uL (2.0-8.3); Neutrophils Percent Auto 54.6 % (45-73); Platelet Count 324 X10*3/uL (160-400); Red Blood Count 4.72 X10*6/uL (4.20-5.50); Red Cell Distribution Width 13.1 % (11.0-16.0); White Blood Count 6.5 X10*3/uL (4.8-10.8)
[2023-04-21 11:35] LABS: Estimated Average Glucose 126 mg/dL; Hemoglobin A1C 150.7509 umol/L
[2023-04-21 11:42] LABS: Alanine Aminotransferase 28 U/L (0-31); Albumin Level 4.3 g/dL (3.5-5.0); Alkaline Phosphatase 97 U/L (39-117); Anion Gap 14 (12-20); Aspartate Amino Transferase 30 U/L (5-31); Bilirubin Total 0.8 mg/dL (0.0-1.0); Blood Urea Nitrogen 8 mg/dL (9-16); Calcium 9.7 mg/dL (8.4-10.2); Carbon Dioxide 26 mmol/L (22-29); Chloride 106 mmol/L (96-108); Cholesterol 242 mg/dL (<200); Estimated Glomerular Filt Rate > 60; Glucose Fasting 94 mg/dL (60-99); HDL Cholesterol 35 mg/dL (>40); LDL Cholesterol Calculated 155 mg/dL (<100); Magnesium 2.1 mg/dL (1.6-2.6); Potassium 4.2 mmol/L (3.3-5.1); Sodium 142 mmol/L (135-145); Total Protein 7.6 g/dL (6.5-8.0); Triglycerides 264 mg/dL (<150)
[2023-04-21 11:58] LABS: Vitamin B12 308 pg/mL (200-900)
[2023-04-21 12:02] LABS: TSH reflex Free T4 0.98 uIU/mL (0.32-4.0)
[2023-04-22 16:37] LABS: CRP High Sensitivity >10.0 mg/L
[2023-04-24 15:24] LABS: Vitamin D 25-OH, D2 <4 ng/mL; Vitamin D 25-OH, D3 29 ng/mL; Vitamin D 25-OH, Total 29 ng/mL (30-100)
[2023-04-24 22:03] LABS: Intrinsic Factor Antibodies Negative (Negative)
== END 2023-04-21 08:36 | disposition home or self-care (01) ==
LOC: HO.HMGCLDS 08:35
PROVIDERS: PCP Internal Medicine; Visit Provider Internal Medicine
DX: R53.83 Other fatigue (principal); R25.2 Cramp and spasm; M19.90 Unspecified osteoarthritis, unspecified site; I10 Essential (primary) hypertension; E53.8 Deficiency of other specified B group vitamins; E66.01 Morbid (severe) obesity due to excess calories; G89.4 Chronic pain syndrome; E78.9 Disorder of lipoprotein metabolism, unspecified; F41.1 Generalized anxiety disorder; E11.9 Type 2 diabetes mellitus without complications; Z91.09 Other allergy status, other than to drugs and biological substances
CPT/HCPCS: 36415; 80053; 80061; 82306; 82607; 83036; 83735; 84443; 85025; 86141; 86340

== ENCOUNTER 2023-04-29 12:44 | Outpatient (AMB) | payer MEDICARE, MEDICAID, SELFPAY ==
--- NOTE | 2023-04-29 12:47 | A.OFFPC_ITS ---
Vital Signs 04/29/23 12:47 Height 5 ft 4 in Intake Visit Reasons: Discuss Ozempic side effects Allergies gabapentin [GABAPENTIN] Allergy (Severe, Verified 04/29/23 12:47) SEVERE GI ISSUES Iodinated Contrast Media [IV DYE, IODINE CONTAINING] Allergy (Severe, Verified 04/29/23 12:47) SWELLING Sulfa (Sulfonamide Antibiotics) [SULFA (SULFONAMIDE ANTIBIOTICS)] Allergy (Severe, Verified 04/29/23 12:47) ANAPHYLAXIS, swelling lidocaine Allergy (Mild, Verified 04/29/23 12:47) Welts nabumetone Allergy (Unknown, Verified 04/29/23 12:47) Abdominal Pain pregabalin Allergy (Unknown, Verified 04/29/23 12:47) unknown venlafaxine Allergy (Unknown, Verified 04/29/23 12:47) unknown meloxicam Adverse Reaction (Unknown, Verified 04/29/23 12:47) abdominal pain all meat Allergy (Unknown, Uncoded 02/21/23 08:36) unknown Environmental Allergy (Unknown, Uncoded 02/21/23 08:36) unknown Medication List - Last Reconciled 04/29/23 by Lyndon Fagan MD albuterol sulfate 90 mcg/actuation 0 mcg inhalation alprazolam 0.25 mg (1/2 x 0.5 mg) PO BID 30 days cyanocobalamin (vitamin B-12) 1,000 mcg PO DAILY 90 days fluorometholone 0.1% 1 drp ophthalmic (eye) TID furosemide 40 mg PO QAM 30 days linaclotide (Linzess) 72 mcg PO QAM ondansetron HCl 4 mg PO TID PRN pantoprazole 40 mg PO DAILY Pulmicort Flexhaler 180 mcg/actuation (budesonide) 2 inhalations inhalation QAM NS rosuvastatin 10 mg PO DAILY valacyclovir 500 mg PO DAILY 90 days Tobacco use date assessed: 04/29/23 Dental Screening Dental Screen Date: 04/29/23 Did you have a dental visit in the last 12 months?: Yes Did you have a dental problem in the last 6 months where you did not have access to dental care?: No Was dental information given to patient?: Patient has dentist HPI Discuss Ozempic side effects HPI Details Patient is 58-year-old female this is a telemedicine video conference Patient wanted to try Ozempic for weight loss but patient developed sever allergic reaction so stopped she complained of feeling tired we did labs that showed elevated CRP levels report explained to patient i ll be repeating labs again in 2 wks [facility] Medical History Shortness of breath Herpes Environmental allergies Anxiety, generalized Lipid disorder Umbilical hernia Fibromyalgia Acute arthritis Tendonitis Surgical History Hx of hernia repair History of esophagogastroduodenoscopy (EGD) Hx of colonoscopy History of meniscectomy of left knee (~01/12/14) History of cholecystectomy H/O hand surgery Family History Mother Cervical cancer Bladder cancer Father Cancer Sister No problems noted. Other Mental health disorder Substance use disorder Housing: Apartment Alcohol intake: never Patient Tobacco Use Status: Never used Tobacco e-Cigarette/Vaping Use: Never Used service: No Current occupational status: unemployed and disabled Sexual orientation: Straight/Heterosexual Gender identity: Female Cognitive needs: No Hearing needs: No Vision needs: No Questionnaire AUDIT C Alcohol Use Questionnaire (AUDIT-C) 1. How often do you have a drink containing alcohol?: Never 3. How often do you have six or more drinks on one occasion?: Never Total Score: 0 Score Reviewed/Action Taken: Yes ARIANNA-7 AMB Questionnaire ARIANNA-7 Date ARIANNA - 7 assessed: 01/04/22 Source: Developed by Drs. Kenneth Preston, Aruna Alcantar, Babak Rebolledo and colleagues, with an educational morris from [employer]. Review of Systems Const Denies chills and Denies fever(s) ENT Denies epistaxis and Denies nasal discharge Card Denies chest pain Resp Denies chest congestion, Denies cough and Denies hemoptysis GI Denies diarrhea and Denies nausea Skin/Breast Denies rash Neuro Reports no additional complaints Psych Reports no additional complaints Endo Reports no additional complaints Physical exam (Primary Care) Tobacco/Smoking Status: Tobacco use Status Tobacco use date assessed 04/29/23 04/29/23 12:49 Patient Tobacco Use Status Never used Tobacco 04/29/23 12:49 e-Cigarette/Vaping Use Never Used 04/29/23 12:49 Telehealth Telehealth Location of provider rendering services: practice address Location of patient: address on file Patient Identification confirmed using: Name, : Yes Telehealth method: video Patient verbally consented to treatment: Yes Patient verbally consented to billing insurance company: Yes Patient informed of any privacy concerns related to visit: Yes Minutes spent on Phone/Video with Pt.: 13 Results Reviewed Results Reviewed: Laboratory Tests 10/25/20 09/11/22 09/11/22 07:56 10:33 10:33 WBC 5.5 RBC 4.49 Hgb 12.8 Hct 40.8 Sodium 140 Potassium 4.3 Chloride 107 Carbon Dioxide 25 BUN 12 Creatinine 0.74 AST 19 ALT 19 Alkaline Phosphatase 81 Total Protein 6.7 C-React Prot High Sens Triglycerides Cholesterol 179 LDL Cholesterol, Calc 105 25-OH Vitamin D Total 09/11/22 04/21/23 04/21/23 10:33 08:40 08:40 WBC RBC Hgb Hct Sodium Potassium Chloride Carbon Dioxide BUN Creatinine AST ALT Alkaline Phosphatase Total Protein C-React Prot High Sens Triglycerides 189 Cholesterol 242 H LDL Cholesterol, Calc 155 H 25-OH Vitamin D Total 29 L 04/21/23 08:40 WBC RBC Hgb Hct Sodium Potassium Chloride Carbon Dioxide BUN Creatinine AST ALT Alkaline Phosphatase Total Protein C-React Prot High Sens >10.0 H Triglycerides 264 H Cholesterol LDL Cholesterol, Calc 25-OH Vitamin D Total Assessment and Plan Assessment & Plan (1) Elevated C-reactive protein (CRP): Code(s): R79.82 - Elevated C-reactive protein (CRP) Plan Patient is 58-year-old female this is a telemedicine video conference Patient wanted to try Ozempic for weight loss but patient developed sever allergic reaction so stopped she complained of feeling tired we did labs that showed elevated CRP levels report explained to patient i ll be repeating labs again in 2 wks Orders: Orders CRP High Sensitivity Today R79.82 - Elevated C-reactive protein (CRP) Erythrocyte Sedimentation Rate Today R79.82 - Elevated C-reactive protein (CRP) Coding Level of Care Code Tele Est Pt Level 3 (31429) Diagnoses Elevated C-reactive protein (CRP) R79.82
== END 2023-04-29 15:25 | disposition home or self-care (01) ==
LOC: HO.HMGC 12:45
PROVIDERS: PCP Internal Medicine; Visit Provider Internal Medicine
DX: R79.82 Elevated C-reactive protein (CRP) (principal)
CPT/HCPCS: 99213

== ENCOUNTER 2023-05-05 08:30 | Outpatient (AMB) | payer MEDICARE, MEDICAID, SELFPAY ==
[2023-05-05 09:33] VITALS: BP 132/76; PULSE 90; TEMP 36.6; O2SAT 96; BMI 39.0
--- NOTE | 2023-05-05 09:33 | MHC.OFFWIV ---
Intake Vital Signs 05/05/23 09:33 Height 5 ft 4 in Weight 227 lb BMI 39.0 BP 132/76 Blood Pressure Location Rt brachial Position Sitting Pulse 90 Pulse Source Pulse Oximeter Temp 97.8 F Temp Source Temporal Artery Scan Pulse Oximetry (%) 96 Intake Visit Reasons: EP ?UTI Intake Note: pt is here for c/o possible uti Patient Tobacco Use Status: Never used Tobacco Allergies gabapentin [GABAPENTIN] Allergy (Severe, Verified 05/05/23 09:58) SEVERE GI ISSUES Iodinated Contrast Media [IV DYE, IODINE CONTAINING] Allergy (Severe, Verified 05/05/23 09:58) SWELLING Sulfa (Sulfonamide Antibiotics) [SULFA (SULFONAMIDE ANTIBIOTICS)] Allergy (Severe, Verified 05/05/23 09:58) ANAPHYLAXIS, swelling lidocaine Allergy (Mild, Verified 05/05/23 09:58) Welts nabumetone Allergy (Unknown, Verified 05/05/23 09:58) Abdominal Pain pregabalin Allergy (Unknown, Verified 05/05/23 09:58) unknown venlafaxine Allergy (Unknown, Verified 05/05/23 09:58) unknown meloxicam Adverse Reaction (Unknown, Verified 05/05/23 09:58) abdominal pain all meat Allergy (Unknown, Uncoded 05/05/23 09:58) unknown Environmental Allergy (Unknown, Uncoded 05/05/23 09:58) unknown Do you need a note to return to daycare/school/sports/work: Yes HPI EP ?UTI HPI Details Patient presents for a sick visit. Reports symptoms of increased frequency of urination, burning on urination and discomfort in the suprapubic area. Symptoms started in the past few days. No fevers or chills. No nausea or vomiting. [facility] Medical History Shortness of breath Herpes Environmental allergies Anxiety, generalized Lipid disorder Umbilical hernia Fibromyalgia Acute arthritis Tendonitis Surgical History Hx of hernia repair History of esophagogastroduodenoscopy (EGD) Hx of colonoscopy History of meniscectomy of left knee (~01/12/14) History of cholecystectomy H/O hand surgery Family History Mother Cervical cancer Bladder cancer Father Cancer Sister No problems noted. Other Mental health disorder Substance use disorder Housing: Apartment Alcohol intake: never Patient Tobacco Use Status: Never used Tobacco e-Cigarette/Vaping Use: Never Used service: No Current occupational status: unemployed and disabled Sexual orientation: Straight/Heterosexual Gender identity: Female Cognitive needs: No Hearing needs: No Vision needs: No Physical Exam Vital Signs: Last Vital Signs Temp 97.8 F 05/05/23 09:33 Pulse 90 05/05/23 09:33 BP 132/76 05/05/23 09:33 Pulse Ox 96 05/05/23 09:33 BMI result Body Mass Index 39.0 Other: No CVA tenderness. No suprapubic tenderness. Assessment & Plan Assessment & Plan (1) UTI (urinary tract infection): Code(s): N39.0 - Urinary tract infection, site not specified Qualifiers: Urinary tract infection type: acute cystitis Hematuria presence: with hematuria Qualified Code(s): N30.01 - Acute cystitis with hematuria Plan: Take antibiotics and Pyridium as directed. Increase fluid intake. If symptoms of burning persist, new onset of fever or lower back pain, to follow-up at the clinic. Orders: Orders AMB Urinalysis Automated Today Z13.9 - Encounter for screening, unspecified Coding Level of Care Code Est Pt Level 3 (82790) Diagnoses Acute cystitis with hematuria N30.01 Urinary tract infection type: acute cystitis Hematuria presence: with hematuria
== END 2023-05-05 09:58 | disposition home or self-care (01) ==
PROVIDERS: PCP Internal Medicine; Visit Provider Internal Medicine
DX: N30.01 Acute cystitis with hematuria (principal)
CPT/HCPCS: 99213

== ENCOUNTER 2023-05-09 10:12 | Outpatient (AMB) | payer MEDICARE, MEDICAID, SELFPAY ==
[2023-05-09 10:14] VITALS: BP 148/82; PULSE 86; O2SAT 97; BMI 38.2
--- NOTE | 2023-05-09 10:14 | A.OFFVIS_ITS ---
Intake Vital Signs 05/09/23 10:14 Height 5 ft 4 in Weight 222 lb 10.67 oz BMI 38.2 BP 148/82 H Blood Pressure Location Lt brachial Position Sitting Pulse 86 Pulse Source Doppler Pulse Oximetry (%) 97 Oxygen Delivery Method Room Air Intake Visit Reasons: dyspnea Allergies gabapentin [GABAPENTIN] Allergy (Severe, Verified 05/09/23 10:20) SEVERE GI ISSUES Iodinated Contrast Media [IV DYE, IODINE CONTAINING] Allergy (Severe, Verified 05/09/23 10:20) SWELLING Sulfa (Sulfonamide Antibiotics) [SULFA (SULFONAMIDE ANTIBIOTICS)] Allergy (Severe, Verified 05/09/23 10:20) ANAPHYLAXIS, swelling lidocaine Allergy (Mild, Verified 05/09/23 10:20) Welts nabumetone Allergy (Unknown, Verified 05/09/23 10:20) Abdominal Pain pregabalin Allergy (Unknown, Verified 05/09/23 10:20) unknown venlafaxine Allergy (Unknown, Verified 05/09/23 10:20) unknown meloxicam Adverse Reaction (Unknown, Verified 05/09/23 10:20) abdominal pain all meat Allergy (Unknown, Uncoded 05/05/23 09:58) unknown Environmental Allergy (Unknown, Uncoded 05/05/23 09:58) unknown HPI dyspnea HPI Details 58-year-old lady, remote minimal smoker in her 20s, with prior history of asthma in childhood, that abated in her teenager years and she only required to use albuterol MDI rarely now followed for pulmonary component dyspnea and asthma. Patient states she recently been switched from albuterol MDI to Pulmicort by her primary care secondary to allergies sulfa moiety. She does not see any symptomatic improvement on Pulmicort. She did complete her 2D echocardiogram that shows underlying diastolic dysfunction. She is not interested in taking diuretic secondary to concern for possible side effects. She denies an acute exacerbation. [facility] Medical History Shortness of breath Herpes Environmental allergies Anxiety, generalized Lipid disorder Umbilical hernia Fibromyalgia Acute arthritis Tendonitis Surgical History Hx of hernia repair History of esophagogastroduodenoscopy (EGD) Hx of colonoscopy History of meniscectomy of left knee (~08/06/14) History of cholecystectomy H/O hand surgery Family History Mother Cervical cancer Bladder cancer Father Cancer Sister No problems noted. Other Mental health disorder Substance use disorder Social History Housing: Apartment Alcohol intake: never Patient Tobacco Use Status: Never used Tobacco e-Cigarette/Vaping Use: Never Used service: No Current occupational status: unemployed and disabled Sexual orientation: Straight/Heterosexual Gender identity: Female Cognitive needs: No Hearing needs: No Vision needs: No Review of Systems Const Denies daytime sleepiness, Denies excessive sweating, Denies fatigue, Denies fever(s), Denies lethargy, Denies malaise, Denies night sweats, Denies snoring and Denies weight loss Eyes Denies blurry vision and Denies itchy eyes ENT Denies nasal congestion, Denies post nasal drip, Denies sinus pain, Denies sinus pressure and Denies other ( Thrush) Card Denies chest pain, Reports pedal edema, Denies dyspnea, Reports dyspnea on exertion, Reports orthopnea and Denies paroxysmal nocturnal dyspnea Resp Denies cough, Denies hemoptysis, Denies excessive phlegm production, Denies dyspnea, Reports dyspnea on exertion, Denies snoring and Denies wheezing GI Denies abdominal pain and Denies heartburn Musc Denies myalgias, Denies arthralgias and Denies joint swelling Skin/Breast Denies rash Neuro Denies memory loss and Denies seizure-like activity Psych Denies abnormal sleep pattern, Denies anxiety and Denies memory loss Endo Denies excessive sweating, Denies fatigue and Denies heat intolerance Jass/Lymph Denies easy bruising Aller/Immun Denies itchy eyes, Denies seasonal rhinorrhea and Denies wheezing Physical Exam Vital Signs: Last Vital Signs Pulse 86 05/09/23 10:14 BP 148/82 H 05/09/23 10:14 Pulse Ox 97 05/09/23 10:14 Oxygen Delivery Method Room Air 05/09/23 10:14 BMI result Body Mass Index 38.2 Const General: no acute distress and alert Nutritional Appearance: obese Orientation/consciousness: Other orientation findings ( oriented) HEENT Head: Yes atraumatic Eyes General: appearance normal, both eyes and all related structures Sclerae: sclerae normal EOM: EOMs intact bilaterally Neck Neck: Yes supple Lymphatic: no lymphadenopathy noted Resp Effort & Inspection: normal respiratory effort and no use of accessory muscles Auscultation: clear to auscultation bilaterally Cardio Rate: regular rate Rhythm: regular rhythm Heart sounds: no gallops, no murmurs and no rubs Skin General skin exam: other ( warm) Extrem General: No clubbing, No cyanosis and Yes edema (2+ bilateral) Assessment & Plan Assessment & Plan (1) Dyspnea on exertion: Code(s): R06.09 - Other forms of dyspnea Plan: Appears to have significant cardiac component. 2D echo reviewed demonstrates diastolic dysfunction. Patient is not interested in diuretic therapy at this time. Continue to monitor clinically. (2) Asthma: Code(s): J45.909 - Unspecified asthma, uncomplicated Plan: Suboptimally controlled on Pulmicort. Will change to Breo. PFT is pending. Medications: New Breo Ellipta 200-25 mcg/dose (fluticasone furoate-vilanterol) 1 inh inhalation DAILY 30 days 1 ea 6RF NS Discontinued Pulmicort Flexhaler 180 mcg/actuation (budesonide) Discontinued Reason: Doctor's Order 2 inhalations inhalation QAM 1 ea 0RF NS Coding Level of Care Code Est Pt Level 4 (39546) Diagnoses Dyspnea on exertion R06.09 Asthma J45.909
== END 2023-05-09 11:31 | disposition home or self-care (01) ==
PROVIDERS: PCP Internal Medicine; Visit Provider Internal Medicine Pulmonary Disease
DX: R06.09 Other forms of dyspnea (principal); J45.909 Unspecified asthma, uncomplicated
CPT/HCPCS: 99214

== ENCOUNTER → 2023-05-09 10:12 | Outpatient (BNVA) | payer MEDICARE, MEDICAID, SELFPAY | PROVIDERS: PCP Internal Medicine; Visit Provider Internal Medicine Pulmonary Disease ==

== ENCOUNTER 2023-05-09 10:47 | Outpatient (REF) | payer MEDICARE, MEDICAID, SELFPAY ==
--- NOTE | 2023-05-09 11:46 | PFT_ITS ---
Indication: Dyspnea Spirometry [FEV1 to FVC 83%; FEV1 2.33 L which is 102% predicted; FVC 2.81 L which is 92% predicted; maximal voluntary ventilation 95% predicted] Lung Volumes [Total lung capacity 82% predicted; expiratory reserve volume 42% predicted] Diffusion Capacity [DLCO 80% predicted] Comparisons [None] Interpretation [No obstructive nor restrictive ventilatory defects identified based on her pre bronchodilator numbers. Bronchodilators were not used. Lung volumes are low normal with a decrease in the expiratory reserve volume likely from an elevated BMI. Diffusing capacity is within normal limits. If asthma is in the differential, a methacholine challenge may be helpful in assessing for hyperreactive airways. Clinical correlation warranted.] MTDD
== END 2023-05-09 10:48 | disposition home or self-care (01) ==
LOC: HO.RESP 10:47
PROVIDERS: PCP Internal Medicine; Visit Provider Internal Medicine Pulmonary Disease
DX: J45.909 Unspecified asthma, uncomplicated (principal); R06.02 Shortness of breath
CPT/HCPCS: 94010; 94727; 94729; 99212

== ENCOUNTER 2023-05-20 08:53 | Outpatient (REF) | payer MEDICARE, MEDICAID, SELFPAY ==
[2023-05-20 12:06] LABS: Erythrocyte Sedimentation Rate 33 MM/HR (0-20)
[2023-05-22 18:33] LABS: CRP High Sensitivity >10.0 mg/L
== END 2023-05-20 08:54 | disposition home or self-care (01) ==
LOC: HO.HMGCLDS 08:53
PROVIDERS: PCP Internal Medicine; Visit Provider Internal Medicine
DX: R79.82 Elevated C-reactive protein (CRP) (principal)
CPT/HCPCS: 36415; 85652; 86141

== ENCOUNTER 2023-05-29 08:36 | Outpatient (AMB) | payer MEDICARE, MEDICAID, SELFPAY ==
--- NOTE | 2023-05-29 09:07 | MHC.PC.OV ---
Vital Signs 05/29/23 09:08 Height 5 ft 4 in Intake Visit Reasons: Rash/ Results ~[phone] Allergies gabapentin [GABAPENTIN] Allergy (Severe, Verified 05/29/23 09:08) SEVERE GI ISSUES Iodinated Contrast Media [IV DYE, IODINE CONTAINING] Allergy (Severe, Verified 05/29/23 09:08) SWELLING Sulfa (Sulfonamide Antibiotics) [SULFA (SULFONAMIDE ANTIBIOTICS)] Allergy (Severe, Verified 05/29/23 09:08) ANAPHYLAXIS, swelling lidocaine Allergy (Mild, Verified 05/29/23 09:08) Welts nabumetone Allergy (Unknown, Verified 05/29/23 09:08) Abdominal Pain pregabalin Allergy (Unknown, Verified 05/29/23 09:08) unknown venlafaxine Allergy (Unknown, Verified 05/29/23 09:08) unknown meloxicam Adverse Reaction (Unknown, Verified 05/29/23 09:08) abdominal pain all meat Allergy (Unknown, Uncoded 05/05/23 09:58) unknown Environmental Allergy (Unknown, Uncoded 05/05/23 09:58) unknown Medication List - Last Reconciled 05/29/23 by Lyndon Fagan MD alprazolam 0.25 mg (1/2 x 0.5 mg) PO BID 30 days Breo Ellipta 200-25 mcg/dose (fluticasone furoate-vilanterol) 1 inh inhalation DAILY 30 days NS cyanocobalamin (vitamin B-12) 1,000 mcg PO DAILY 90 days fluconazole 150 mg PO Q3D 2 doses fluorometholone 0.1% 1 drp ophthalmic (eye) TID Grab bar grab bar for shower linaclotide (Linzess) 72 mcg PO QAM pantoprazole 40 mg PO DAILY rosuvastatin 10 mg PO DAILY Shower Chair shower chair with backrest valacyclovir 500 mg PO DAILY 90 days Tobacco use date assessed: 05/29/23 HPI Rash/ Results ~[phone] HPI Details Its a telemedicine visit Patient had labs done her CRP level is very high also sed rate is very high Patient continued to complain of pain in her body specially her joints she has seen molecular biology [facility], patient has gotten numerous cortisone injections in her knee as well as gel injection nothing has helped her. She is currently seeing personnel specialist at [facility] as well for shortness of breath and was prescribed Breo inhaler recently echocardiogram was ordered which showed normal heart function However due to elevated CRP level I have placed a referral for her to see a benefits officer for further evaluation. She also have a dermatology appointment coming up for the rash which is persisting however she tells me that it has improved. [facility] Medical History Shortness of breath Herpes Environmental allergies Anxiety, generalized Lipid disorder Umbilical hernia Fibromyalgia Acute arthritis Tendonitis Surgical History Hx of hernia repair History of esophagogastroduodenoscopy (EGD) Hx of colonoscopy History of meniscectomy of left knee (~01/12/14) History of cholecystectomy H/O hand surgery Family History Mother Cervical cancer Bladder cancer Father Cancer Sister No problems noted. Other Mental health disorder Substance use disorder Social History Housing: Apartment Alcohol intake: never Patient Tobacco Use Status: Never used Tobacco e-Cigarette/Vaping Use: Never Used service: No Current occupational status: unemployed and disabled Sexual orientation: Straight/Heterosexual Gender identity: Female Cognitive needs: No Hearing needs: No Vision needs: No Questionnaire ARIANNA-7 AMB Questionnaire ARIANNA-7 Date ARIANNA - 7 assessed: 01/04/22 Source: Developed by Drs. Kenneth Preston, Aruna Alcantar, Babak Rebolledo and colleagues, with an educational morris from [employer]. Review of Systems Const Denies chills and Denies fever(s) ENT Denies epistaxis and Denies nasal discharge Card Denies chest pain Resp Denies chest congestion and Denies hemoptysis GI Denies diarrhea and Denies nausea Neuro Reports no additional complaints Psych Reports no additional complaints Endo Reports no additional complaints Physical exam (Primary Care) Tobacco/Smoking Status: Tobacco use Status Tobacco use date assessed 05/29/23 05/29/23 09:09 Patient Tobacco Use Status Never used Tobacco 05/29/23 09:09 e-Cigarette/Vaping Use Never Used 05/29/23 09:09 Telehealth Telehealth Location of provider rendering services: practice address Location of patient: address on file Patient Identification confirmed using: Name, : Yes Telehealth method: voice only Patient verbally consented to treatment: Yes Patient verbally consented to billing insurance company: Yes Patient informed of any privacy concerns related to visit: Yes Assessment and Plan Assessment & Plan (1) Elevated C-reactive protein (CRP): Code(s): R79.82 - Elevated C-reactive protein (CRP) (2) Shortness of breath: Code(s): R06.02 - Shortness of breath (3) Arthrosis: Code(s): M19.90 - Unspecified osteoarthritis, unspecified site (4) Joint pain: Code(s): M25.50 - Pain in unspecified joint Qualifiers: Joint pain location: other joint Qualified Code(s): M25.59 - Pain in other specified joint (5) Pain syndrome, chronic: Code(s): G89.4 - Chronic pain syndrome (6) Difficulty walking up hill: Code(s): R26.2 - Difficulty in walking, not elsewhere classified Plan Its a telemedicine visit Patient had labs done her CRP level is very high also sed rate is very high Patient continued to complain of pain in her body specially her joints she has seen molecular biology professor [facility], patient has gotten numerous cortisone injections in her knee as well as gel injection nothing has helped her. She is currently seeing personnel specialist at [facility] as well for shortness of breath and was prescribed Breo inhaler recently echocardiogram was ordered which showed normal heart function However due to elevated CRP level I have placed a referral for her to see a benefits officer for further evaluation. She also have a dermatology appointment coming up for the rash which is persisting however she tells me that it has improved. Coding Level of Care Code Tele Est Pt Level 4 (42047) Diagnoses Elevated C-reactive protein (CRP) R79.82 Shortness of breath R06.02 Arthrosis M19.90 Pain in other joint M25.59 Joint pain location: other joint Pain syndrome, chronic G89.4 Difficulty walking up hill R26.2 Comment 5 prep, 18 with patient, 7 charting
== END 2023-05-29 11:28 | disposition home or self-care (01) ==
PROVIDERS: PCP Internal Medicine; Visit Provider Internal Medicine
DX: R79.82 Elevated C-reactive protein (CRP) (principal); R06.02 Shortness of breath; M19.90 Unspecified osteoarthritis, unspecified site; M25.59 Pain in other specified joint; G89.4 Chronic pain syndrome; R26.2 Difficulty in walking, not elsewhere classified
CPT/HCPCS: 99443

== ENCOUNTER 2023-06-20 09:36 | Outpatient (AMB) | payer MEDICARE, MEDICAID, SELFPAY ==
[2023-06-20 09:38] VITALS: BP 126/77; PULSE 92; O2SAT 96; BMI 37.6
--- NOTE | 2023-06-20 09:38 | MHC.OFFVIS ---
Intake Vital Signs 06/20/23 09:38 Height 5 ft 4 in Weight 219 lb 5.759 oz BMI 37.6 BP 126/77 Blood Pressure Location Rt brachial Position Sitting Pulse 92 Pulse Source Doppler Pulse Oximetry (%) 96 Oxygen Delivery Method Room Air Intake Visit Reasons: dyspnea Allergies gabapentin [GABAPENTIN] Allergy (Severe, Verified 06/20/23 09:42) SEVERE GI ISSUES Iodinated Contrast Media [IV DYE, IODINE CONTAINING] Allergy (Severe, Verified 06/20/23 09:42) SWELLING Sulfa (Sulfonamide Antibiotics) [SULFA (SULFONAMIDE ANTIBIOTICS)] Allergy (Severe, Verified 06/20/23 09:42) ANAPHYLAXIS, swelling lidocaine Allergy (Mild, Verified 06/20/23 09:42) Welts nabumetone Allergy (Unknown, Verified 06/20/23 09:42) Abdominal Pain pregabalin Allergy (Unknown, Verified 06/20/23 09:42) unknown venlafaxine Allergy (Unknown, Verified 06/20/23 09:42) unknown meloxicam Adverse Reaction (Unknown, Verified 06/20/23 09:42) abdominal pain all meat Allergy (Unknown, Uncoded 05/05/23 09:58) unknown Environmental Allergy (Unknown, Uncoded 05/05/23 09:58) unknown HPI dyspnea HPI Details 58-year-old lady, remote minimal smoker in her 20s, with prior history of asthma in childhood, that abated in her teenager years and she only required to use albuterol MDI rarely now followed for pulmonary component dyspnea and asthma. Patient states she recently been switched from albuterol MDI to Pulmicort by her primary care secondary to allergies sulfa moiety. She did complete her 2D echocardiogram that shows underlying diastolic dysfunction. She is not interested in taking diuretic secondary to concern for possible side effects. She denies an acute exacerbation. After the last office visit patient has been using Breo with good control of her symptoms. [facility] Medical History Shortness of breath Herpes Environmental allergies Anxiety, generalized Lipid disorder Umbilical hernia Fibromyalgia Acute arthritis Tendonitis Surgical History Hx of hernia repair History of esophagogastroduodenoscopy (EGD) Hx of colonoscopy History of meniscectomy of left knee (~01/12/14) History of cholecystectomy H/O hand surgery Family History Mother Cervical cancer Bladder cancer Father Cancer Sister No problems noted. Other Mental health disorder Substance use disorder Social History Housing: Apartment Alcohol intake: never Patient Tobacco Use Status: Never used Tobacco e-Cigarette/Vaping Use: Never Used service: No Current occupational status: unemployed and disabled Sexual orientation: Straight/Heterosexual Gender identity: Female Cognitive needs: No Hearing needs: No Vision needs: No Review of Systems Const Denies daytime sleepiness, Denies excessive sweating, Denies fatigue, Denies fever(s), Denies lethargy, Denies malaise, Denies night sweats, Denies snoring and Denies weight loss Eyes Denies blurry vision and Denies itchy eyes ENT Denies nasal congestion, Denies post nasal drip, Denies sinus pain, Denies sinus pressure and Denies other ( Thrush) Card Denies chest pain, Denies pedal edema, Denies dyspnea, Denies orthopnea and Denies paroxysmal nocturnal dyspnea Resp Denies cough, Denies hemoptysis, Denies excessive phlegm production, Denies dyspnea, Denies snoring and Denies wheezing GI Denies abdominal pain and Denies heartburn Musc Denies myalgias, Denies arthralgias and Denies joint swelling Skin/Breast Denies rash Neuro Denies memory loss and Denies seizure-like activity Psych Denies abnormal sleep pattern, Denies anxiety and Denies memory loss Endo Denies excessive sweating, Denies fatigue and Denies heat intolerance Jass/Lymph Denies easy bruising Aller/Immun Denies itchy eyes, Denies seasonal rhinorrhea and Denies wheezing Physical Exam Vital Signs: Last Vital Signs Pulse 92 06/20/23 09:38 BP 126/77 06/20/23 09:38 Pulse Ox 96 06/20/23 09:38 Oxygen Delivery Method Room Air 06/20/23 09:38 BMI result Body Mass Index 37.6 Const General: no acute distress and alert Nutritional Appearance: not obese Orientation/consciousness: Other orientation findings ( oriented) HEENT Head: Yes atraumatic Eyes General: appearance normal, both eyes and all related structures Sclerae: sclerae normal EOM: EOMs intact bilaterally Neck Neck: Yes supple Lymphatic: no lymphadenopathy noted Resp Effort & Inspection: normal respiratory effort and no use of accessory muscles Auscultation: clear to auscultation bilaterally Cardio Rate: regular rate Rhythm: regular rhythm Heart sounds: no gallops, no murmurs and no rubs Skin General skin exam: other ( warm) Extrem General: No clubbing, No cyanosis and No edema Assessment & Plan Assessment & Plan (1) Asthma: Code(s): J45.909 - Unspecified asthma, uncomplicated Plan: Well controlled on Breo. Continue current regimen. (2) Dyspnea on exertion: Code(s): R06.09 - Other forms of dyspnea Plan: Appears to have multifactorial etiology including underlying diastolic dysfunction and asthma. Asthma component is well controlled at this time. Patient is not interested in diuretic therapy for diastolic component. Coding Level of Care Code Est Pt Level 4 (63070) Diagnoses Asthma J45.909 Dyspnea on exertion R06.09
== END 2023-06-20 09:51 | disposition home or self-care (01) ==
PROVIDERS: PCP Internal Medicine; Visit Provider Internal Medicine Pulmonary Disease
DX: J45.909 Unspecified asthma, uncomplicated (principal); R06.09 Other forms of dyspnea
CPT/HCPCS: 99214

== ENCOUNTER → 2023-06-20 09:36 | Outpatient (BNVA) | payer MEDICARE, MEDICAID, SELFPAY | PROVIDERS: PCP Internal Medicine; Visit Provider Internal Medicine Pulmonary Disease | DX: J45.909 Unspecified asthma, uncomplicated (principal); R06.09 Other forms of dyspnea; Z79.899 Other long term (current) drug therapy | CPT/HCPCS: 99212 ==

== ENCOUNTER 2023-07-02 09:19 | Outpatient (AMB) | payer MEDICARE, MEDICAID, SELFPAY ==
[2023-07-02 09:25] VITALS: BP 156/100; PULSE 110; O2SAT 96; BMI 38.2
--- NOTE | 2023-07-02 09:25 | MHC.PC.OV ---
Vital Signs 07/02/23 09:25 07/02/23 11:47 Height 5 ft 4 in Weight 222 lb 6 oz BMI 38.2 BP 156/100 H 138/90 H Blood Pressure Location Rt brachial Position Sitting Pulse 110 H Pulse Source Pulse Oximeter Pulse Oximetry (%) 96 Oxygen Delivery Method Room Air Intake Visit Reasons: Annual PE Allergies gabapentin [GABAPENTIN] Allergy (Severe, Verified 07/02/23 09:27) SEVERE GI ISSUES Iodinated Contrast Media [IV DYE, IODINE CONTAINING] Allergy (Severe, Verified 07/02/23 09:27) SWELLING Sulfa (Sulfonamide Antibiotics) [SULFA (SULFONAMIDE ANTIBIOTICS)] Allergy (Severe, Verified 07/02/23 09:27) ANAPHYLAXIS, swelling lidocaine Allergy (Mild, Verified 07/02/23 09:27) Welts nabumetone Allergy (Unknown, Verified 07/02/23 09:27) Abdominal Pain pregabalin Allergy (Unknown, Verified 07/02/23 09:27) unknown venlafaxine Allergy (Unknown, Verified 07/02/23 09:27) unknown meloxicam Adverse Reaction (Unknown, Verified 07/02/23 09:27) abdominal pain all meat Allergy (Unknown, Uncoded 05/05/23 09:58) unknown Environmental Allergy (Unknown, Uncoded 05/05/23 09:58) unknown Medication List - Last Reconciled 07/02/23 by Lyndon Fagan MD Breo Ellipta 200-25 mcg/dose (fluticasone furoate-vilanterol) 1 inh inhalation DAILY 30 days NS Grab bar grab bar for shower linaclotide (Linzess) 72 mcg PO QAM pantoprazole 40 mg PO DAILY rosuvastatin 10 mg PO DAILY valacyclovir 500 mg PO DAILY 90 days Tobacco use date assessed: 07/02/23 Dental Screening Dental Screen Date: 07/02/23 Did you have a dental visit in the last 12 months?: Yes Did you have a dental problem in the last 6 months where you did not have access to dental care?: No Was dental information given to patient?: Patient has dentist HPI Annual PE HPI Details Patient is 58-year-old female came today for physical exam Patient has been having dysuria but it UA which shows signs of infection I will be sending antibiotic for her And we will send urine for culture Patient is due for mammogram She had colonoscopy [place] [address] Blunt Patient is also in need of OBGYN appointment Her LDL is elevated at 155, she is supposed to be on rosuvastatin 10 mg regularly which she is not taking regularly Patient says that the medication caused swelling in her body so she is taking it randomly She still do not have appointment with the Cardiology I have given her a number so she can call in book the appointment The reason for consultation is elevated CRP level above 10, palpitations and shortness of breath Her blood pressure was elevated when she came in, we checked it again after 15 minutes and it went down to 138 systolic and 90 diastolic Need refill on alprazolam which I have sent Follow-up 3 months [facility] Medical History Shortness of breath Herpes Environmental allergies Anxiety, generalized Lipid disorder Umbilical hernia Fibromyalgia Acute arthritis Tendonitis Surgical History Hx of hernia repair History of esophagogastroduodenoscopy (EGD) Hx of colonoscopy History of meniscectomy of left knee (~01/12/14) History of cholecystectomy H/O hand surgery Family History Mother Cervical cancer Bladder cancer Father Cancer Sister No problems noted. Other Mental health disorder Substance use disorder Social History Housing: Apartment Alcohol intake: never Patient Tobacco Use Status: Never used Tobacco e-Cigarette/Vaping Use: Never Used service: No Current occupational status: unemployed and disabled Sexual orientation: Straight/Heterosexual Gender identity: Female Cognitive needs: No Hearing needs: No Vision needs: No Questionnaire PHQ-9 Over the last 2 weeks, how often have you been bothered by any of the following problems? 1. Little interest or pleasure in doing things: not at all 2. Feeling down, depressed, or hopeless: not at all 3. Trouble falling or staying asleep, or sleeping too much: not at all 4. Feeling tired or having little energy: not at all 5. Poor appetite or overeating: not at all 6. Feeling bad about yourself - or that you are a failure or have let yourself or your family down: not at all 7. Trouble concentrating on things, such as reading the newspaper or watching television: not at all 8. Moving or speaking so slowly that other people could have noticed. Or the opposite - being so fidgety or restless that you have been moving around a lot more than usual: not at all 9. Thoughts that you would be better off or of hurting yourself in some way: not at all Total score: 0 Depression Screening Interpretation: Negative Depression Screening Done: Yes 60389 - PHQ-9 Billing: Yes Source: Developed by Drs. Kenneth Preston, Aruna Alcantar, Babak Rebolledo and colleagues, with an educational morris from [employer]. Thrive Questionnaire Date Thrive assessed: 07/02/23 I am a: Patient What is your living situation today?: I have a steady place to live Within the past 12 months, did the food you bought not last and you didn't have the money to get more?: Sometimes True Within the past 12 months, did you worry whether your food would run out before you got money to buy more?: Sometimes True Do you have trouble paying for medicines?: No Do you have trouble getting transportation to medical appointments?: No Do you have trouble paying your heating and electricity bill?: Yes Do you have trouble taking care of your child, family member or friend?: No Do you have trouble with day-to-day activities such as bathing, preparing meals, shopping, managing finances, etc.?: Yes Are you currently unemployed and looking for a job?: No Are you interested in more education?: No Please select the resources that you would like help with: None Currently or been in a relationship where the following occur: no concerns reported THRIVE Score: 3 AUDIT C Alcohol Use Questionnaire (AUDIT-C) 1. How often do you have a drink containing alcohol?: Never 3. How often do you have six or more drinks on one occasion?: Never Total Score: 0 Score Reviewed/Action Taken: Yes ARIANNA-7 AMB Questionnaire ARIANNA-7 Date ARIANNA - 7 assessed: 07/02/23 Feeling nervous, anxious, or on edge: 0 = Not at all Not being able to stop or control worryin = Not at all Worrying too much about different things: 1 = Several days Trouble relaxin = Not at all Being so restless that it is hard to sit still: 0 = Not at all Becoming easily annoyed or irritable: 0 = Not at all Feeling afraid as if something awful might happen: 0 = Not at all Total ARIANNA-7 score (0-4 normal; 5-9 mild; 10-14 moderate; 15-21 severe): 1 Source: Developed by Drs. Kenneth Preston, Aruna Alcantar, Babak Rebolledo and colleagues, with an educational morris from [employer]. ARIANNA-7 Assessment Billing ARIANNA-7 Assessment Tool: ARIANNA-7 Assessment 23470 Review of Systems Const Denies chills, Denies fever(s) and Denies headache(s) Eyes Denies blurry vision ENT Denies headache(s), Denies nasal discharge, Denies nasal obstruction, Denies odynophagia and Denies sinus pain Card Denies chest pain at rest and Denies chest pain with activity Resp Denies cough and Denies hemoptysis GI Denies odynophagia, Denies vomiting and Denies hematemesis Reports as per HPI Musc Denies abnormal gait Skin/Breast Reports as per HPI Neuro Denies Neuro-related abnormal movements, Denies Abnormal speech present, Denies abnormal gait and Denies headache(s) Psych Denies mood swings and Denies paranoia Endo Reports as per HPI Jass/Lymph Reports as per HPI Aller/Immun Reports as per HPI Physical exam (Primary Care) Vital Signs: Last Vital Signs Pulse 110 H 07/02/23 09:25 BP 156/100 H 07/02/23 09:25 Pulse Ox 96 07/02/23 09:25 Oxygen Delivery Method Room Air 07/02/23 09:25 BMI result Body Mass Index 38.2 Tobacco/Smoking Status: Tobacco use Status Tobacco use date assessed 07/02/23 07/02/23 09:36 Patient Tobacco Use Status Never used Tobacco 07/02/23 09:36 e-Cigarette/Vaping Use Never Used 07/02/23 09:36 PHQ-9: PHQ-9 Score PHQ-9: Total score 0 07/02/23 10:49 Depression Screening Interpretation: Negative Thrive Assessment: Date of Thrive Assessment Date Thrive assessed 07/02/23 07/02/23 10:49 Currently or been in a relationship where the following occur: no concerns reported Const General: cooperative, comfortable and no acute distress Orientation/consciousness: patient oriented x3 HENMT Head: Yes normocephalic and Yes atraumatic Eyes General: appearance normal, both eyes and all related structures Pupils: Equal, round and reactive pupils present EOM: EOMs intact bilaterally Neck Neck: Yes supple and No lymphadenopathy Thyroid: Thyroid normal Lymphatic: no lymphadenopathy noted Resp Effort & Inspection: normal respiratory effort and able to speak in complete sentences Auscultation: clear to auscultation bilaterally Cardio Heart sounds: S1 normal heart sound present and S2 normal heart sound present GI Palpation (GI): Soft to palpation and nontender Auscultation: normal bowel sounds General: Yes no CVA tenderness Back/Spine/Pelvis Back: no CVA tenderness Skin General skin exam: elasticity normal and turgor normal Neuro General: patient oriented x3 and gait normal Cranial nerves: Yes Equal, round and reactive pupils present Speech: No Abnormal speech present Coordination: tandem gait normal and Romberg test negative Extrem General: Yes normal exam except as noted and No edema Results AMB Urinalysis, Automated UA Leukoctes 15 Zac/uL Last Edit by Milad Dee CMA on 07/02/23 09:38 UA Nitrite Negative Last Edit by Milad Dee CMA on 07/02/23 09:38 UA Urobilinogen 0.2 mg/dL Last Edit by Milad Dee CMA on 07/02/23 09:38 UA Protein 30 mg/dL Last Edit by Milad Dee CMA on 07/02/23 09:38 UA pH 6.0 Last Edit by Milad Dee CMA on 07/02/23 09:38 UA Blood 10 Nikunj/uL Last Edit by Milad Dee CMA on 07/02/23 09:38 UA Specific [place] 1.025 Last Edit by Milad Dee CMA on 07/02/23 09:38 UA Ketone Positive Last Edit by Milad Dee CMA on 07/02/23 09:38 UA Bilirubin 2 mg/dL Last Edit by Milad Dee CMA on 07/02/23 09:38 UA Glucose 0 mg/dL Last Edit by Milad Dee CMA on 07/02/23 09:38 Results Reviewed Results Reviewed: Laboratory Last Values Urine pH (Auto) 6.0 07/02/23 09:37 Specific [place] (Auto) 1.025 07/02/23 09:37 Urine Protein (Auto) 30 mg/dL 07/02/23 09:37 Glucose (UA)(Auto) 0 mg/dL 07/02/23 09:37 Urine Ketones (Auto) Positive 07/02/23 09:37 Urine Blood (Auto) 10 Nikunj/uL 07/02/23 09:37 Urine Nitrite (Auto) Negative 07/02/23 09:37 Urine Bilirubin (Auto) 2 mg/dL 07/02/23 09:37 Urine Urobilinogen (Auto) 0.2 mg/dL 07/02/23 09:37 Leukocyte Esterase (Auto) 15 Zac/uL 07/02/23 09:37 Assessment and Plan Assessment & Plan (1) Encounter for general adult medical examination with abnormal findings: Code(s): Z00.01 - Encounter for general adult medical examination with abnormal findings (2) Dysuria: Code(s): R30.0 - Dysuria (3) Elevated C-reactive protein (CRP): Code(s): R79.82 - Elevated C-reactive protein (CRP) (4) Difficulty walking up hill: Code(s): R26.2 - Difficulty in walking, not elsewhere classified (5) Fibromyalgia: Code(s): M79.7 - Fibromyalgia (6) Herpes: Code(s): B00.9 - Herpesviral infection, unspecified (7) Dyspnea on exertion: Code(s): R06.09 - Other forms of dyspnea (8) Diet-controlled diabetes mellitus: Code(s): E11.9 - Type 2 diabetes mellitus without complications (9) Frequent UTI: Code(s): N39.0 - Urinary tract infection, site not specified (10) Osteoarthritis of knees, bilateral: Code(s): M17.0 - Bilateral primary osteoarthritis of knee Qualifiers: Osteoarthritis type: primary Qualified Code(s): M17.0 - Bilateral primary osteoarthritis of knee (11) Hypertension, essential: Code(s): I10 - Essential (primary) hypertension (12) Morbid obesity due to excess calories: Code(s): E66.01 - Morbid (severe) obesity due to excess calories (13) Chronic idiopathic constipation: Code(s): K59.04 - Chronic idiopathic constipation (14) Abdominal bloating: Code(s): R14.0 - Abdominal distension (gaseous) (15) GERD (gastroesophageal reflux disease): Code(s): K21.9 - Gastro-esophageal reflux disease without esophagitis Qualifiers: Esophagitis presence: without esophagitis Qualified Code(s): K21.9 - Gastro-esophageal reflux disease without esophagitis (16) Gastroparesis: Comment: GASTRIC EMPTYING STUDY Exam Date: 05/18/2013 IMPRESSION: Abnormal study. Mild retention of solid food is present in the stomach at 4 hours. Exam Date: 05/18/2013 Code(s): K31.84 - Gastroparesis (17) Environmental allergies: Code(s): Z91.09 - Other allergy status, other than to drugs and biological substances (18) Anxiety, generalized: Code(s): F41.1 - Generalized anxiety disorder (19) Lipid disorder: Code(s): E78.9 - Disorder of lipoprotein metabolism, unspecified Plan Patient is 58-year-old female came today for physical exam Patient has been having dysuria but it UA which shows signs of infection I will be sending antibiotic for her And we will send urine for culture Patient is due for mammogram She had colonoscopy in [address] Blunt Patient is also in need of OBGYN appointment Her LDL is elevated at 155, she is supposed to be on rosuvastatin 10 mg regularly which she is not taking regularly Patient says that the medication caused swelling in her body so she is taking it randomly She still do not have appointment with the Cardiology I have given her a number so she can call in book the appointment The reason for consultation is elevated CRP level above 10, palpitations and shortness of breath Her blood pressure was elevated when she came in, we checked it again after 15 minutes and it went down to 138 systolic and 90 diastolic Need refill on alprazolam which I have sent Follow-up 3 months Orders: Orders AMB Urinalysis Automated Today Z13.9 - Encounter for screening, unspecified MM tomosynthesis screening BI Today Z12.31 - Encounter for screening mammogram for malignant neoplasm of breast Hemoglobin A1c Today R73.01 - Impaired fasting glucose Urine Culture Today R30.0 - Dysuria Referrals [employer] Referral Z01.419 - Encounter for gynecological examination (general) (routine) without abnormal findings Medications: Changed From cephalexin 500 mg PO Q6H 28 caps 0RF To cephalexin 500 mg PO Q6H 12 caps 0RF 3 days Refilled alprazolam 0.25 mg (1/2 x 0.5 mg) PO BID 30 tabs 2RF 30 days Coding Level of Care Code Est Pt Prev Care 40-64y(67022) Diagnoses Encounter for general adult medical examination with abnormal findings Z00.01 Dysuria R30.0 Elevated C-reactive protein (CRP) R79.82 Difficulty walking up hill R26.2 Fibromyalgia M79.7 Herpes B00.9 Dyspnea on exertion R06.09 Diet-controlled diabetes mellitus E11.9 Frequent UTI N39.0 Primary osteoarthritis of both knees M17.0 Osteoarthritis type: primary Hypertension, essential I10 Morbid obesity due to excess calories E66.01 Chronic idiopathic constipation K59.04 Abdominal bloating R14.0 Gastroesophageal reflux disease without esophagitis K21.9 Esophagitis presence: without esophagitis Gastroparesis K31.84 Environmental allergies Z91.09 Anxiety, generalized F41.1 Lipid disorder E78.9 Additional Codes ARIANNA-7 Assessment Billing - ARIANNA-7 Assessment Tool: ARIANNA-7 Assessment [id number] ([id number])
[2023-07-02 11:47] VITALS: BP 138/90
== END 2023-07-02 16:14 | disposition home or self-care (01) ==
PROVIDERS: PCP Internal Medicine; Visit Provider Internal Medicine
DX: Z00.01 Encounter for general adult medical examination with abnormal findings (principal); E11.9 Type 2 diabetes mellitus without complications; E66.01 Morbid (severe) obesity due to excess calories; Z68.38 Body mass index [BMI] 38.0-38.9, adult; R30.0 Dysuria; R79.82 Elevated C-reactive protein (CRP); R26.2 Difficulty in walking, not elsewhere classified; M79.7 Fibromyalgia; B00.9 Herpesviral infection, unspecified; R06.09 Other forms of dyspnea; N39.0 Urinary tract infection, site not specified; M17.0 Bilateral primary osteoarthritis of knee
CPT/HCPCS: 81003; 99213; 99396

== ENCOUNTER 2023-07-02 16:35 | Outpatient (REF) | payer MEDICARE, MEDICAID, SELFPAY | END 2023-07-02 16:36 | disposition home or self-care (01) | LOC: HO.HMGCLNP 16:35 | PROVIDERS: Visit Provider Internal Medicine | DX: R30.0 Dysuria (principal); R73.01 Impaired fasting glucose | CPT/HCPCS: 87086 ==

== ENCOUNTER 2023-07-23 11:38 | Outpatient (AMB) | payer MEDICARE, MEDICAID, SELFPAY ==
[2023-07-23 12:36] VITALS: BP 142/88; PULSE 88; BMI 37.8
--- NOTE | 2023-07-23 12:36 | A.OFFVIS_ITS ---
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 Intake Note: NPV w/ EKG Field Health Officer Required: No Accompanied by: Self / Same As Patient Allergies gabapentin [GABAPENTIN] Allergy (Severe, Verified 07/23/23 12:37) SEVERE GI ISSUES Iodinated Contrast Media [IV DYE, IODINE CONTAINING] Allergy (Severe, Verified 07/23/23 12:37) SWELLING Sulfa (Sulfonamide Antibiotics) [SULFA (SULFONAMIDE ANTIBIOTICS)] Allergy (Severe, Verified 07/23/23 12:37) ANAPHYLAXIS, swelling lidocaine Allergy (Mild, Verified 07/23/23 12:37) Welts nabumetone Allergy (Unknown, Verified 07/23/23 12:37) Abdominal Pain pregabalin Allergy (Unknown, Verified 07/23/23 12:37) unknown venlafaxine Allergy (Unknown, Verified 07/23/23 12:37) unknown semaglutide [From Ozempic] Adverse Reaction (Intermediate, Verified 07/23/23 12:38) Rash meloxicam Adverse Reaction (Unknown, Verified 07/23/23 12:37) abdominal pain all meat Allergy (Unknown, Uncoded 07/23/23 12:37) unknown Environmental Allergy (Unknown, Uncoded 07/23/23 12:37) unknown Medication List - Last Reconciled 07/23/23 by Gilbert Salgado MD alprazolam 0.25 mg (1/2 x 0.5 mg) PO BID 30 days Breo Ellipta 200-25 mcg/dose (fluticasone furoate-vilanterol) 1 inh inhalation DAILY 30 days NS Grab bar grab bar for shower linaclotide (Linzess) 72 mcg PO QAM pantoprazole 40 mg PO DAILY rosuvastatin 10 mg PO DAILY valacyclovir 500 mg PO DAILY 90 days HPI HPI Comments History of Present Illness Details Evelina has been referred for evaluation high CRP. There is concern if this is cardiac or not. Patient herself does not have any known cardiac issues including coronary artery disease or myocardial infarction or cardiomyopathy or anything of cardiac nature. She states that few months back she started Ozempic and after that, developed a rash as well as generalized swelling and then it was stopped. Since then, those symptoms have improved significantly. Within limits of her activity, she does not have any anginal-type symptoms. Otherwise, because of the CRP she has been referred here. She does have numerous aches and pains all over the body. Unclear if she truly has a rheumatological illness or not. Otherwise, she states she had some shortness of breath in the past but then started inhalers and then those symptoms resolved completely. [facility] Medical History Shortness of breath Herpes Environmental allergies Anxiety, generalized Lipid disorder Umbilical hernia Fibromyalgia Acute arthritis Tendonitis Surgical History Hx of hernia repair History of esophagogastroduodenoscopy (EGD) Hx of colonoscopy History of meniscectomy of left knee (~01/12/14) History of cholecystectomy H/O hand surgery Family History Mother Cervical cancer Bladder cancer Father Cancer Sister No problems noted. Other Mental health disorder Substance use disorder Social History Housing: Apartment Alcohol intake: never Patient Tobacco Use Status: Never used Tobacco e-Cigarette/Vaping Use: Never Used service: No Current occupational status: unemployed and disabled Sexual orientation: Straight/Heterosexual Gender identity: Female Cognitive needs: No Hearing needs: No Vision needs: No Review of Systems Const Denies chills, Denies daytime sleepiness, Denies fatigue, Denies fever(s), Denies frequent falls, Denies night sweats, Denies snoring, Denies weakness, Denies weight gain and Denies weight loss Eyes Denies loss of vision ENT Denies dizziness and Denies hearing loss Card Reports chest pain, Denies chest pain with activity, Denies syncope, Reports rapid heart rate, Denies edema, Denies claudication, Denies leg edema, Denies lightheadedness, Reports dyspnea on exertion and Denies orthopnea Resp Denies cough, Denies excessive phlegm production, Reports dyspnea on exertion, Denies snoring and Denies wheezing GI Denies abdominal pain, Denies hematochezia, Denies change in bowel habits, Denies change in stool character, Denies heartburn, Denies nausea and Denies vomiting Denies hematuria, Denies urinary frequency and Denies dysuria Musc Denies arthralgias, Denies muscle weakness, Denies numbness and Denies tingling Skin/Breast Denies nail changes and Denies rash Neuro Denies Abnormal speech present, Denies dizziness, Denies syncope, Denies frequent falls, Denies loss of vision, Denies memory loss, Denies numbness, Denies tingling and Denies weakness Psych Denies depression and Denies memory loss Endo Denies fatigue Aller/Immun Denies wheezing Physical Exam Vital Signs: Last Vital Signs Pulse 88 07/23/23 12:36 BP 142/88 H 07/23/23 12:36 BMI result Body Mass Index 37.8 Const General: comfortable and no acute distress Orientation/consciousness: patient oriented x3 HEENT Other: Unremarkable Head: Yes normal to inspection Neck Neck: Yes normal visual inspection Chest Chest palpation & inspection: normal inspection of the chest Resp Auscultation: clear to auscultation bilaterally Cardio Palpation: normal PMI Heart sounds: S1 normal heart sound present, S2 normal heart sound present, no gallops, no murmurs and no rubs GI Palpation (GI): Soft to palpation Back/Spine/Pelvis Other: unremarkable Skin General skin exam: no rashes or lesions noted Neuro General: patient oriented x3 Speech: No Abnormal speech present Extrem General: Yes normal to inspection Psych Mental Status: mental status grossly normal Office Procedures EKG Details: EKG with sinus rhythm at 88/Min; no significant ST-T changes and otherwise unremarkable. [id number], Complete Assessment & Plan Assessment & Plan (1) Elevated C-reactive protein (CRP): Code(s): R79.82 - Elevated C-reactive protein (CRP) Plan: Her CRP is more than 10. ESR is also high. She has absolutely no cardiac symptoms like angina, but has numerous musculoskeletal pains. Hence suspect this is more likely rheumatological. We will refer her for the same. From the cardiac standpoint, may check calcium scoring CT scan. She agrees. In the recent echocardiogram, LVEF 55-60%. Mild diastolic dysfunction but otherwise unremarkable. (2) Morbid obesity due to excess calories: Code(s): E66.01 - Morbid (severe) obesity due to excess calories Plan: She is requesting bariatric referral. Orders: Referrals Rheumatology Referral M19.90 - Unspecified osteoarthritis, unspecified site Bariatric Surgery Referral E66.01 - Morbid (severe) obesity due to excess calories Coding Level of Care Code New Pt Level 3 (34801) Diagnoses Elevated C-reactive protein (CRP) R79.82 Morbid obesity due to excess calories E66.01 CPT Codes EKG - CPT: 68342-[id number], Complete ([id number])
== END 2023-07-23 13:01 | disposition home or self-care (01) ==
PROVIDERS: PCP Internal Medicine; Visit Provider Internal Medicine
DX: R79.82 Elevated C-reactive protein (CRP) (principal); E66.01 Morbid (severe) obesity due to excess calories
CPT/HCPCS: 93010; 99203

== ENCOUNTER → 2023-07-23 11:38 | Outpatient (BNVA) | payer MEDICARE, MEDICAID, SELFPAY | PROVIDERS: PCP Internal Medicine; Visit Provider Internal Medicine | DX: R79.82 Elevated C-reactive protein (CRP) (principal); E66.01 Morbid (severe) obesity due to excess calories; Z68.37 Body mass index [BMI] 37.0-37.9, adult | CPT/HCPCS: 93005; 99202 ==

== ENCOUNTER 2023-08-13 08:52 | Outpatient (AMB) | payer MEDICARE, MEDICAID, SELFPAY ==
--- NOTE | 2023-08-13 08:55 | MHC.OFFVIS ---
Intake Vital Signs 08/13/23 09:03 Height 5 ft 4 in Weight 218 lb 4.122 oz BMI 37.5 BP 149/97 H Blood Pressure Location Lt brachial Position Sitting Pulse 86 Intake Visit Reasons: Epigastric pain Intake Note: Patient in office today in follow up of epigastric pain. CC: Patient states she has a hard time going to the bathroom and a lot of gas, especially after eating. She also states feeling some lumps from her left flank. She states noticing the lumps about 3 years ago and they hurt, she also has noticed that she has more now. Furnace Combustion Tester Required: No Accompanied by: Self / Same As Patient Allergies gabapentin [GABAPENTIN] Allergy (Severe, Verified 08/13/23 09:04) SEVERE GI ISSUES Iodinated Contrast Media [IV DYE, IODINE CONTAINING] Allergy (Severe, Verified 08/13/23 09:04) SWELLING Sulfa (Sulfonamide Antibiotics) [SULFA (SULFONAMIDE ANTIBIOTICS)] Allergy (Severe, Verified 08/13/23 09:04) ANAPHYLAXIS, swelling Milk Containing Products (Dairy) Allergy (Intermediate, Verified 08/13/23 09:14) Rash lidocaine Allergy (Mild, Verified 08/13/23 09:04) Welts nabumetone Allergy (Unknown, Verified 08/13/23 09:04) Abdominal Pain pregabalin Allergy (Unknown, Verified 08/13/23 09:04) unknown venlafaxine Allergy (Unknown, Verified 08/13/23 09:04) unknown semaglutide [From Ozempic] Adverse Reaction (Intermediate, Verified 08/13/23 09:04) Rash meloxicam Adverse Reaction (Unknown, Verified 08/13/23 09:04) abdominal pain all meat Allergy (Unknown, Uncoded 07/23/23 12:37) unknown Environmental Allergy (Unknown, Uncoded 07/23/23 12:37) unknown HPI Epigastric pain HPI Details Assessment & Plan (1) Chronic idiopathic constipation: ?Code(s): K59.04 - Chronic idiopathic constipation ?Plan: She tolerated the procedure well. She is asking about having the HH taken out. I educate her why this is not done regularly. She says her sister had this.? I explained that this is only performed as a last resort because it only has about a 50% success rate.? Obviously, her epigastric pain is caused by acid splashing about of the esophagus as evidence by irritation visualized which thankfully did not show Savage's metaplasia on biopsy. I advise her that the biopsies are relatively benign; so this points more towards her gastroparesis. Will start a trial of reglan - educated on all of this and that her pain is r/t acid splashing and not the HH. The reglan will likely help her CIC as well. ROV 2 weeks. (had bad rxn to a blue and white capsule rx by ? radiologist - she will see if she can get the name. ) (2) Gastroparesis: ?Comment: GASTRIC EMPTYING STUDY? Exam Date: 05/18/2013 IMPRESSION: ? Abnormal study. Mild retention of solid food is present in the stomach at 4 hours. ? Exam Date: 05/18/2013 ?Code(s): K31.84 - Gastroparesis (3) Epigastric pain: ?Code(s): R10.13 - Epigastric pain ? ? ? Medications: New metoclopramide HCl (Reglan) 5 mg? PO QIDACHS 120 tabs 3RF K31.84 - Gastropar esis ? TODAY'S VISIT Patient has been lost to follow-up since 01/2022 Apparently she tried the Reglan but it made her head shaky. She stopped the medication. In the past she was on pantoprazole 40 mg once a day and Linzess 72 micro g. She is using OTC chewable with only moderate success, but mobilization is still an issue. When she was using the metoclopramide she found it worked wonderfully for mobilizing her gas! She was quite disappointed that she had to stop it. She is willing to try the Creon and we also discussed using IBD guard since she has had some success with peppermint in terms of mobilizing her gas. She also is complaining of painful lumps in her left flank. I feel that it feels like it is in the adipose tissues in may be painful lipomas so will get ultrasound and consider referring her to surgery depending on these results. She is also having trouble with chronic sinusitis that has been worse and we discuss utilizing Judi and an inhaled nasal steroid such as Flonase. Return office visit in 6 weeks to evaluate her response. [facility] Medical History Shortness of breath Herpes Environmental allergies Anxiety, generalized Lipid disorder Umbilical hernia Fibromyalgia Acute arthritis Tendonitis Surgical History Hx of hernia repair History of esophagogastroduodenoscopy (EGD) Hx of colonoscopy History of meniscectomy of left knee (~01/12/14) History of cholecystectomy H/O hand surgery Family History Mother Cervical cancer Bladder cancer Father Cancer Sister No problems noted. Other Mental health disorder Substance use disorder Social History Housing: Apartment Alcohol intake: never Patient Tobacco Use Status: Never used Tobacco e-Cigarette/Vaping Use: Never Used service: No Current occupational status: unemployed and disabled Sexual orientation: Straight/Heterosexual Gender identity: Female Cognitive needs: No Hearing needs: No Vision needs: No Review of Systems Const Denies fatigue, Denies fever(s), Denies night sweats, Denies poor appetite and Denies weight loss ENT Reports Normal hearing present, Denies dental pain, Denies dysphagia, Denies hearing loss, Denies mouth pain, Denies odynophagia, Denies throat swelling, Denies tongue swelling and Reports other (Dentition adequate) Card Reports no additional complaints Resp Reports no additional complaints GI Details: Denies abdominal pain, Denies melena, Reports bloating, Denies hematochezia, Reports constipation, Denies GI cramping, Denies dysphagia, Denies excessive flatus, Denies early satiety, Reports heartburn, Denies diarrhea, Denies nausea, Denies odynophagia, Denies vomiting and Denies hematemesis Skin/Breast Denies pruritus, Denies lesions, Denies rash and Denies jaundice Neuro Reports Normal hearing present and Denies Abnormal speech present Endo Denies fatigue Aller/Immun Denies throat swelling and Denies tongue swelling Physical Exam Vital Signs: Last Vital Signs Pulse 86 08/13/23 09:03 BP 149/97 H 08/13/23 09:03 BMI result Body Mass Index 37.5 Const General: cooperative, no acute distress, well developed and well groomed Nutritional Appearance: well nourished and obese Orientation/consciousness: oriented to person, oriented to place and oriented to time Limitations: No language barrier HEENT Head: Yes normocephalic and Yes atraumatic Eyes General: appearance normal, both eyes and all related structures Pupils: Equal, round and reactive pupils present Neck Neck: Yes normal visual inspection and Yes no lymphadenopathy Thyroid: Thyroid normal Resp Effort & Inspection: normal respiratory effort and able to speak in complete sentences Auscultation: clear to auscultation bilaterally Cardio Rate: regular rate Rhythm: regular rhythm Heart sounds: Normal, physiologic split S2 sound present Peripheral pulses: radial pulses present and posterior tibial pulses present GI Inspection: No distended, Yes Abdominal panniculus present and Yes obesity Palpation (GI): Soft to palpation, nontender, no guarding, not rigid and No hepatosplenomegaly present Percussion: Yes normal to percussion Auscultation: normal bowel sounds Rectal Exam - Female: deferred Skin General skin exam: no rashes or lesions noted, turgor normal, skin not dry, no jaundice, No spider nevi and no striae Rashes: no rashes Nails: normal Neuro General: oriented to person, oriented to place and oriented to time Cranial nerves: Yes Equal, round and reactive pupils present and Yes Normal hearing present Speech: No Abnormal speech present Extrem General: Yes normal to inspection, No clubbing, No cyanosis and No edema Psych Appearance: grossly normal and well kempt Mental Status: mental status grossly normal Speech and movement: Normal speech and movement present Affect: normal affect Attitude: cooperative Thought process: Normal thought process present and not confabulating Thought content: Normal thought content present Insight: Limited insight present (Psych) Judgement: Limited judgement present (Psych) Assessment & Plan Assessment & Plan (1) Chronic idiopathic constipation: Code(s): K59.04 - Chronic idiopathic constipation (2) Epigastric pain: Code(s): R10.13 - Epigastric pain (3) GERD (gastroesophageal reflux disease): Code(s): K21.9 - Gastro-esophageal reflux disease without esophagitis Qualifiers: Esophagitis presence: without esophagitis Qualified Code(s): K21.9 - Gastro-esophageal reflux disease without esophagitis (4) Gastroparesis: Comment: GASTRIC EMPTYING STUDY Exam Date: 05/18/2013 IMPRESSION: Abnormal study. Mild retention of solid food is present in the stomach at 4 hours. Exam Date: 05/18/2013 Code(s): K31.84 - Gastroparesis (5) Left flank mass: Comment: ? painful lipoma Code(s): R19.00 - Intra-abdominal and pelvic swelling, mass and lump, unspecified site (6) Abdominal bloating: Code(s): R14.0 - Abdominal distension (gaseous) Plan Patient has been lost to follow-up since 01/2022 Apparently she tried the Reglan but it made her head shaky. She stopped the medication. In the past she was on pantoprazole 40 mg once a day and Linzess 72 micro g. She is using OTC chewable with only moderate success, but mobilization is still an issue. When she was using the metoclopramide she found it worked wonderfully for mobilizing her gas! She was quite disappointed that she had to stop it. She is willing to try the Creon and we also discussed using IBD guard since she has had some success with peppermint in terms of mobilizing her gas. She also is complaining of painful lumps in her left flank. I feel that it feels like it is in the adipose tissues in may be painful lipomas so will get ultrasound and consider referring her to surgery depending on these results. She is also having trouble with chronic sinusitis that has been worse and we discuss utilizing Judi and an inhaled nasal steroid such as Flonase. Return office visit in 6 weeks to evaluate her response. Orders: Orders US abdomen limited Today R19.00 - Intra-abdominal and pelvic swelling, mass and lump, unspecified site Medications: New [id number] 36,000-114,000- 180,000 unit (Creon) administer with meals and/or snacks 1 cap PO QID 120 caps 6RF R14.0 - Abdominal distension (gaseous) simethicone (Gas Relief (simethicone)) 125 mg PO TID-QID 120 tabs 6RF abdominal distention R14.0 - Abdominal distension (gaseous) Refilled pantoprazole 40 mg PO DAILY 90 tabs 1RF linaclotide (Linzess) 72 mcg PO QAM 30 caps 6RF K59.04 - Chronic idiopathic constipation Coding Level of Care Code Est Pt Level 3 (73608) Diagnoses Chronic idiopathic constipation K59.04 Epigastric pain R10.13 Gastroesophageal reflux disease without esophagitis K21.9 Esophagitis presence: without esophagitis Gastroparesis K31.84 Left flank mass R19.00 Abdominal bloating R14.0
[2023-08-13 09:03] VITALS: BP 149/97; PULSE 86; BMI 37.5
== END 2023-08-13 09:58 | disposition home or self-care (01) ==
PROVIDERS: PCP Internal Medicine; Visit Provider Nurse Practitioner
DX: K59.04 Chronic idiopathic constipation (principal); K21.9 Gastro-esophageal reflux disease without esophagitis; K31.84 Gastroparesis; R19.00 Intra-abdominal and pelvic swelling, mass and lump, unspecified site
CPT/HCPCS: 99213

== ENCOUNTER → 2023-08-13 08:52 | Outpatient (BNVA) | payer MEDICARE, MEDICAID, SELFPAY | PROVIDERS: PCP Internal Medicine; Visit Provider Nurse Practitioner | DX: K59.04 Chronic idiopathic constipation (principal); K21.9 Gastro-esophageal reflux disease without esophagitis; K31.84 Gastroparesis; R10.13 Epigastric pain; R19.00 Intra-abdominal and pelvic swelling, mass and lump, unspecified site; R14.0 Abdominal distension (gaseous) | CPT/HCPCS: 99212 ==

== ENCOUNTER 2023-08-18 09:46 | Outpatient (AMB) | payer MEDICARE, MEDICAID, SELFPAY ==
--- NOTE | 2023-08-18 10:12 | MHC.OFFWIV ---
Intake Vital Signs 08/18/23 10:13 Weight 214 lb BP 130/80 Blood Pressure Location Rt brachial Position Sitting Pulse 89 Pulse Source Pulse Oximeter Pulse Oximetry (%) 96 Oxygen Delivery Method Room Air Intake Visit Reasons: EP ?Respiratory Infection (masked) Intake Note: Patient here for sinus pressure, coughing up thick green mucus, chest congestion and SOB that has been present for about 4 weeks. She also thinks she has a UTI. Patient Tobacco Use Status: Never used Tobacco Accompanied by: Self / Same As Patient Allergies gabapentin [GABAPENTIN] Allergy (Severe, Verified 08/18/23 10:47) SEVERE GI ISSUES Iodinated Contrast Media [IV DYE, IODINE CONTAINING] Allergy (Severe, Verified 08/18/23 10:47) SWELLING Sulfa (Sulfonamide Antibiotics) [SULFA (SULFONAMIDE ANTIBIOTICS)] Allergy (Severe, Verified 08/18/23 10:47) ANAPHYLAXIS, swelling Milk Containing Products (Dairy) Allergy (Intermediate, Verified 08/18/23 10:47) Rash lidocaine Allergy (Mild, Verified 08/18/23 10:47) Welts nabumetone Allergy (Unknown, Verified 08/18/23 10:47) Abdominal Pain pregabalin Allergy (Unknown, Verified 08/18/23 10:47) unknown venlafaxine Allergy (Unknown, Verified 08/18/23 10:47) unknown semaglutide [From Ozempic] Adverse Reaction (Intermediate, Verified 08/18/23 10:47) Rash meloxicam Adverse Reaction (Unknown, Verified 08/18/23 10:47) abdominal pain all meat Allergy (Unknown, Uncoded 08/18/23 10:47) unknown Environmental Allergy (Unknown, Uncoded 08/18/23 10:47) unknown Medication List - Last Reconciled 08/18/23 by Abdulkadir Hernandes MD alprazolam 0.25 mg (1/2 x 0.5 mg) PO BID 30 days Breo Ellipta 200-25 mcg/dose (fluticasone furoate-vilanterol) 1 inh inhalation DAILY 30 days NS Grab bar grab bar for shower linaclotide (Linzess) 72 mcg PO QAM [id number]-zuhvbgh 36,000-114,000- 180,000 unit (Creon) 1 cap PO QID pantoprazole 40 mg PO DAILY rosuvastatin 10 mg PO DAILY simethicone (Gas Relief (simethicone)) 125 mg PO TID-QID valacyclovir 500 mg PO DAILY 90 days Do you need a note to return to daycare/school/sports/work: No HPI EP ?Respiratory Infection (masked) HPI Details 58-year-old female presents to the office for a sick visit. Patient is reporting symptoms of cough and congestion for the past 1 month. Cough is now productive and green in color. Low-grade fever. Nonsmoker. [facility] Medical History Shortness of breath Herpes Environmental allergies Anxiety, generalized Lipid disorder Umbilical hernia Fibromyalgia Acute arthritis Tendonitis Surgical History Hx of hernia repair History of esophagogastroduodenoscopy (EGD) Hx of colonoscopy History of meniscectomy of left knee (~01/12/14) History of cholecystectomy H/O hand surgery Family History Mother Cervical cancer Bladder cancer Father Cancer Sister No problems noted. Other Mental health disorder Substance use disorder Social History Housing: Apartment Alcohol intake: never Patient Tobacco Use Status: Never used Tobacco e-Cigarette/Vaping Use: Never Used service: No Current occupational status: unemployed and disabled Sexual orientation: Straight/Heterosexual Gender identity: Female Cognitive needs: No Hearing needs: No Vision needs: No Physical Exam Vital Signs: Last Vital Signs Pulse 89 08/18/23 10:13 BP 130/80 08/18/23 10:13 Pulse Ox 96 08/18/23 10:13 Oxygen Delivery Method Room Air 08/18/23 10:13 Const General: cooperative and healthy appearing Nutritional Appearance: well nourished Orientation/consciousness: patient oriented x3 Limitations: no limitations HEENT Head: Yes normal to inspection Eyes General: appearance normal, both eyes and all related structures Neck Neck: Yes normal visual inspection Chest Chest palpation & inspection: normal palpation of entire chest wall Resp Effort & Inspection: normal respiratory effort Neuro General: patient oriented x3 Results AMB Urinalysis, Automated UA Leukoctes 0 Zac/uL Last Edit by Allen Jolley [facility] on 08/18/23 10:22 UA Nitrite Negative Last Edit by Allen Jolley [facility] on 08/18/23 10:22 UA Urobilinogen 0.2 mg/dL Last Edit by Allen Jolley, [facility] on 08/18/23 10:22 UA Protein 15 mg/dL Last Edit by Allen Jolley [facility] on 08/18/23 10:22 UA pH 6.0 Last Edit by Allen Jolley [facility] on 08/18/23 10:22 UA Blood 10 Nikunj/uL Last Edit by KadiMirtha Jolley [facility] on 08/18/23 10:22 UA Specific Ravenel 1.025 Last Edit by Allen Jolley [facility] on 08/18/23 10:22 UA Ketone Negative Last Edit by Allen Jolley [facility] on 08/18/23 10:22 UA Bilirubin 1 mg/dL Last Edit by Allen Jolley [facility] on 08/18/23 10:22 UA Glucose 0 mg/dL Last Edit by KadiMirtha Jolley [facility] on 08/18/23 10:22 Results Reviewed Results Reviewed: Laboratory Last Values Urine pH (Auto) 6.0 08/18/23 10:21 Specific Ravenel (Auto) 1.025 08/18/23 10:21 Urine Protein (Auto) 15 mg/dL 08/18/23 10:21 Glucose (UA)(Auto) 0 mg/dL 08/18/23 10:21 Urine Ketones (Auto) Negative 08/18/23 10:21 Urine Blood (Auto) 10 Nikunj/uL 08/18/23 10:21 Urine Nitrite (Auto) Negative 08/18/23 10:21 Urine Bilirubin (Auto) 1 mg/dL 08/18/23 10:21 Urine Urobilinogen (Auto) 0.2 mg/dL 08/18/23 10:21 Leukocyte Esterase (Auto) 0 Zac/uL 08/18/23 10:21 Assessment & Plan Assessment & Plan (1) Acute bronchitis: Code(s): J20.9 - Acute bronchitis, unspecified Plan: Chest x-ray images reviewed by me. Possible nodule on the right lobe. Will await official x-ray reading before informing the patient. Antibiotic, prednisone called in. If symptoms do not improve to follow-up here. Orders: Orders AMB Urinalysis Automated Today Z13.9 - Encounter for screening, unspecified XR chest 2V Today R05.9 - Cough, unspecified Coding Level of Care Code Est Pt Level 4 (21713) Diagnoses Acute bronchitis J20.9
[2023-08-18 10:13] VITALS: BP 130/80; PULSE 89; O2SAT 96
== END 2023-08-18 11:24 | disposition home or self-care (01) ==
PROVIDERS: PCP Internal Medicine; Visit Provider Internal Medicine
DX: J20.9 Acute bronchitis, unspecified (principal); Z13.9 Encounter for screening, unspecified
CPT/HCPCS: 81003; 99214

== ENCOUNTER 2023-08-18 10:48 | Outpatient (REF) | payer MEDICARE, MEDICAID, SELFPAY ==
--- NOTE | ~2023-08-18 | XR_ITS ---
EXAMINATION: XR CHEST CLINICAL INFORMATION: Cough COMPARISON: 10/25/2020 TECHNIQUE: 2 views of the chest were obtained. FINDINGS: Lungs are well-inflated and clear. Trachea is midline in position. No interstitial disease, consolidation or mass. No pleural effusion or pneumothorax. Cardiac silhouette and pulmonary vessels are normal in size. The mediastinum and lance have normal contour. Mild spondylosis of the thoracic spine. Cholecystectomy clips in the right upper quadrant. XR/XR chest 2V IMPRESSION: Lungs have a normal appearance. No acute cardiopulmonary abnormality.
== END 2023-08-18 10:49 | disposition home or self-care (01) ==
LOC: HO.HMGCX 10:48
PROVIDERS: PCP Internal Medicine; Visit Provider Internal Medicine
DX: R05.9 Cough, unspecified (principal)
CPT/HCPCS: 71046

== ENCOUNTER 2023-08-28 08:55 | Outpatient (REF) | payer MEDICARE, MEDICAID, SELFPAY ==
--- NOTE | ~2023-08-28 | US_ITS ---
EXAMINATION: US ABDOMEN LIMITED CLINICAL INFORMATION: Left flank lump, painful, question lipoma. COMPARISON: CT abdomen and pelvis 08/02/2019. TECHNIQUE: Real-time imaging of the left flank/lateral area of abdominal lumps. FINDINGS: Multiple nodules in the superficial soft tissues of the left flank corresponding to the palpable abnormalities demonstrating similar echogenicity compared to the adjacent fat and no discrete vascularity. Largest measures 2.2 x 0.7 x 3.4 cm. US/US abdomen limited IMPRESSION: Multiple soft tissue masses suggestive of lipomatous lesions, likely lipomas; although other lipomatous soft tissue tumors cannot be entirely excluded. Recommend continued follow-up according to clinical criteria with special attention if there is growth or persistent/increasing pain.
== END 2023-08-28 08:56 | disposition home or self-care (01) ==
LOC: HO.US 08:55
PROVIDERS: PCP Internal Medicine; Visit Provider Nurse Practitioner
DX: R19.00 Intra-abdominal and pelvic swelling, mass and lump, unspecified site (principal)
CPT/HCPCS: 76705

== ENCOUNTER 2023-09-18 10:06 | Outpatient (REF) | payer MEDICARE, MEDICAID, SELFPAY ==
[2023-09-18 16:05] LABS: MANUAL DIFF FLAG NO
[2023-09-18 16:07] LABS: Appearance Urine Cloudy; Color Urine Dark Yellow; Glucose Urine UA Negative (Negative); Leukocyte Esterase Urine Negative (Negative); Nitrite Urine Negative (Negative); PH 5.5 (5.0-9.0); Specific Gravity - Urine >= 1.030 (1.005-1.025); Urine Blood Negative (Negative); Urine Ketones Trace mg/dL (Negative); Urine Protein Negative (Neg-Trace)
[2023-09-18 16:17] LABS: Basophils Absolute Auto 0.1 X10*3/uL (0.0-0.2); Basophils Percent Auto 0.8 % (0-2); Eosinophils Absolute Auto 0.1 X10*3/uL (0.0-0.4); Hematocrit 38.7 % (37.0-47.0); Hemoglobin 12.7 g/dl (12.0-16.0); Imm Gran Abs Auto 0.03 X10*3/uL (0.00-0.03); Imm Gran Pct Auto 0.3 % (0.0-0.4); Lymphocytes Absolute Auto 2.9 X10*3/uL (1.2-4.9); Lymphocytes Percent Auto 30.7 % (20-40); Mean Corpuscular HGB Conc 32.8 g/dl (31.0-35.0); Mean Corpuscular Hemoglobin 29.3 pg (27.0-33.0); Mean Corpuscular Volume 89.4 fL (80.0-98.0); Mean Platelet Volume 10.8 fL (9.4-12.3); Monocytes Absolute Auto 0.7 X10*3/uL (0.1-1.2); Monocytes Percent Auto 7.2 % (2-11); Neutrophils Absolute Auto 5.7 x10*3/uL (2.0-8.3); Platelet Count 342 X10*3/uL (160-400); Red Blood Count 4.33 X10*6/uL (4.20-5.50); Red Cell Distribution Width 13.6 % (11.0-16.0); White Blood Count 9.6 X10*3/uL (4.8-10.8)
[2023-09-18 16:18] LABS: Bacteria Urine 2+ (None Seen); Calcium Oxalate Crystals Urine Present; Hyaline Casts Urine 0-2 /LPF (0-2); RBC Urine 0-2 /HPF (0-2); WBC Urine 0-5 /HPF (0-5)
[2023-09-18 16:24] LABS: Estimated Average Glucose 126 mg/dL
[2023-09-18 16:28] LABS: Rheumatoid Factor < 13.0 IU/mL (<15.0)
[2023-09-18 16:34] LABS: Alanine Aminotransferase 16 U/L (0-31); Alkaline Phosphatase 94 U/L (39-117); Anion Gap 13 (12-20); Aspartate Amino Transferase 21 U/L (5-31); Bilirubin Total 0.3 mg/dL (0.0-1.0); Blood Urea Nitrogen 13 mg/dL (9-16); C Reactive Protein 1.34 mg/dL (< or = 0.50); Calcium 9.4 mg/dL (8.4-10.2); Carbon Dioxide 22 mmol/L (22-29); Chloride 109 mmol/L (96-108); Estimated Glomerular Filt Rate > 60; Glucose Random 115 mg/dL (60-115); Potassium 3.7 mmol/L (3.3-5.1); Sodium 140 mmol/L (135-145); Total Protein 7.3 g/dL (6.5-8.0); Uric Acid 5.7 mg/dL (2.4-5.7)
[2023-09-18 16:54] LABS: Erythrocyte Sedimentation Rate 29 MM/HR (0-20)
[2023-09-19 03:58] LABS: HBc Num1 5.71 S/CO (0.00-0.79); HBsAGNum1 0.44 S/CO (0.00-0.99); Hepatitis A Antibody IgM 0.26 Index (0-0.79); Hepatitis B Surface Antigen Negative (Negative); ~HepC Num1 0.14 S/CO (0.00-0.79); ~Hepatitis A Antibody IgM Nonreactive (Nonreactive); ~Hepatitis C Antibody Nonreactive (Nonreactive)
[2023-09-19 04:40] LABS: HBS Num2 10.36 mIU/mL (0-7.99); HBS Num3 10.34 mIU/mL (0-7.99); HBc Num2 5.87 S/CO; HBc Num3 5.98 S/CO; Hepatitis B Core Antibody Reactive (Nonreactive); ~Hepatitis B Surface Antibody GRAYZONE (Nonreactive)
[2023-09-19 13:38] LABS: Complement C3 132 mg/dL (83-193)
[2023-09-19 14:43] LABS: Cyclic Citrullinated Peptide <16 UNITS
[2023-09-19 14:49] LABS: IgA 145 mg/dL (47-310); IgG 1016 mg/dL (600-1640); IgM 101 mg/dL (50-300)
[2023-09-19 21:05] LABS: Anti DNA DS Antibody 1 IU/mL; SM/Ribonucleoprotein Ab <1.0 NEG AI (<1.0 NEG); Smith Protein <1.0 NEG AI (<1.0 NEG)
[2023-09-19 22:03] LABS: Prot Elec - Albumin 3.8 g/dL (3.8-4.8); Prot Elec - Alpha1 0.3 g/dL (0.2-0.3); Prot Elec - Alpha2 0.8 g/dL (0.5-0.9); Prot Elec - Beta 1 0.5 g/dL (0.4-0.6); Prot Elec - Beta 2 0.4 g/dL (0.2-0.5); Prot Elec - Gamma 0.9 g/dL (0.8-1.7); Prot Elec - Total Protein 6.6 g/dL (6.1-8.1)
[2023-09-20 09:43] LABS: Hepatitis B Core Antibody IgM NON-REACTIVE (NON-REACTIVE)
[2023-09-20 21:43] LABS: TS Negative Control Passed; TS Panel A 0; TS Panel B 0; TS Positive Control Passed; TSpotTB Negative (Negative)
[2023-09-21 10:54] LABS: Anti Nuclear Antibody Screen NEGATIVE (NEGATIVE)
[2023-09-22 15:28] LABS: Vitamin D 25-OH, D2 <4 ng/mL; Vitamin D 25-OH, D3 31 ng/mL; Vitamin D 25-OH, Total 31 ng/mL (30-100)
[2023-09-23 11:18] LABS: HLA B27 Negative (Negative)
== END 2023-09-18 10:07 | disposition home or self-care (01) ==
LOC: CF 10:06
PROVIDERS: PCP Internal Medicine; Visit Provider Nurse Practitioner Family
DX: M25.50 Pain in unspecified joint (principal); R73.01 Impaired fasting glucose; M19.90 Unspecified osteoarthritis, unspecified site; R79.82 Elevated C-reactive protein (CRP); Z11.9 Encounter for screening for infectious and parasitic diseases, unspecified
CPT/HCPCS: 36415; 80053; 81001; 82306; 82550; 82784; 83036; 84165; 84550; 85025; 85652; 86038; 86140; 86160; 86200; 86225; 86235; 86334; 86431; 86481; 86704; 86705; 86706; 86709; 86803; 86812; 87340; 99202

== ENCOUNTER 2023-09-18 10:06 | Outpatient (AMB) | payer MEDICARE, MEDICAID, SELFPAY ==
--- NOTE | 2023-09-18 10:13 | A.OFFVIS_ITS ---
Vital Signs 09/18/23 10:14 Height 5 ft 4 in Weight 220 lb 10.923 oz BMI 37.9 BP 124/82 Blood Pressure Location Rt brachial Position Sitting Pulse 100 Pulse Source Pulse Oximeter Pulse Oximetry (%) 99 Oxygen Delivery Method Room Air Intake Visit Reasons: osteoarthritis Intake Note: New patient, internally referred, presents to office today for osteoarthritis. 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 Required: No Accompanied by: Self / Same As Patient Allergies gabapentin [GABAPENTIN] Allergy (Severe, Verified 09/18/23 10:13) SEVERE GI ISSUES Iodinated Contrast Media [IV DYE, IODINE CONTAINING] Allergy (Severe, Verified 09/18/23 10:13) SWELLING Sulfa (Sulfonamide Antibiotics) [SULFA (SULFONAMIDE ANTIBIOTICS)] Allergy (Severe, Verified 09/18/23 10:13) ANAPHYLAXIS, swelling Milk Containing Products (Dairy) Allergy (Intermediate, Verified 09/18/23 10:13) Rash lidocaine Allergy (Mild, Verified 09/18/23 10:13) Welts nabumetone Allergy (Unknown, Verified 09/18/23 10:13) Abdominal Pain pregabalin Allergy (Unknown, Verified 09/18/23 10:13) unknown venlafaxine Allergy (Unknown, Verified 09/18/23 10:13) unknown semaglutide [From Ozempic] Adverse Reaction (Intermediate, Verified 09/18/23 10:13) Rash meloxicam Adverse Reaction (Unknown, Verified 09/18/23 10:13) abdominal pain all meat Allergy (Unknown, Uncoded 09/18/23 10:13) unknown Environmental Allergy (Unknown, Uncoded 09/18/23 10:13) unknown HPI Comments Details: Ms. 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 This is a fairly active lady who does martial arts. She endorses joint pain for the last 10 years, she thinks most likely osteoarthritis in her knees for which she has received HLA and cortisone injections over the years most recent as 1 month ago. She denies all inflammatory symptoms of swelling redness and warmth to her joints. She does have a history of eczema that is managed with topical treatment. --mom has RA, Sister with psoriasis, Brother psoriatic arthritis and psoriasis and takes Enbrel Cardiac 07/23/2023: Evelina has been referred for evaluation high CRP. There is concern if this is cardiac or not. Patient herself does not have any known cardiac issues including coronary artery disease or myocardial infarction or cardiomyopathy or anything of cardiac nature. She states that few months back she started Ozempic and after that, developed a rash as well as generalized swelling and then it was stopped. Since then, those symptoms have improved significantly. Within limits of her activity, she does not have any anginal-type symptoms. Otherwise, because of the CRP she has been referred here. She does have numerous aches and pains all over the body. Unclear if she truly has a rheumatological illness or not. Otherwise, she states she had some shortness of breath in the past but then started inhalers and then those symptoms resolved completely. [facility] Medical History (Updated 09/24/23 @ 11:56 by HARVNIDER Fry) Pre-op evaluation Shortness of breath Encounter for routine gynecological examination Feeling sick UTI (urinary tract infection) Respiratory infection Hospital discharge follow-up Medicare annual wellness visit, initial Urinary tract infection Medicare annual wellness visit, subsequent Screening examination for infectious disease Large joint arthralgia of multiple sites Herpes Environmental allergies Anxiety, generalized Lipid disorder Umbilical hernia Fibromyalgia Acute arthritis Tendonitis Surgical History Hx of hernia repair History of esophagogastroduodenoscopy (EGD) Hx of colonoscopy History of meniscectomy of left knee (~01/12/14) History of cholecystectomy H/O hand surgery Family History Mother Cervical cancer Bladder cancer Father Cancer Sister No problems noted. Other Mental health disorder Substance use disorder Social History Household Members: Significant Other Housing: Apartment Alcohol intake: former Year quit: 22yo Patient Tobacco Use Status: Former Tobacco user Quit Date: Age 22 e-Cigarette/Vaping Use: Never Used service: No Current occupational status: unemployed and disabled Sexual orientation: Straight/Heterosexual Gender identity: Female Cognitive needs: No Hearing needs: No Vision needs: No Female Reproductive History Menstrual Total pregnancies: 4 Review of Systems Const All systems reviewed & are unremarkable except as noted in HPI and below Physical Exam Vital Signs: Last Vital Signs Pulse 100 09/18/23 10:14 BP 124/82 09/18/23 10:14 Pulse Ox 99 09/18/23 10:14 Oxygen Delivery Method Room Air 09/18/23 10:14 BMI result Body Mass Index 37.9 APPEARANCE: Patient in no acute distress EYES no redness, normal EARS:? External ear normal. NOSE/SINUS:? Airflow through both nares, no nasal discharge, no bleeding THROAT:? Oral mucosa moist, no ulcerations NECK:? No thyromegaly or masses, no adenopathy, trachea midline. HEART:? Regular rhythm, S1-S2 heard, no murmurs, rubs or gallops. LUNG:? Clear to percussion and auscultation EXTREMITIES:? No edema, no calf tenderness, normal peripheral pulses. NEURO:? Oriented and alert x3.? No focal weakness.? Reflexes symmetric.? Gait normal. SKIN:? There are no skin lesions evident. No objective signs of Raynaud's phenomenon. JOINT EXAM: Cervical Spine:.? Full range of motion without pain; no tenderness. Thoracic Spine:.? No scoliosis.? No tenderness on palpation. Lumbar Spine:.? Alignment normal.? Full range of motion without pain, no tenderness. Chest Wall:.? No tenderness, swelling, increased warmth or erythema. Hands:.? Normal pain-free range of motion without tenderness, swelling, increased warmth or erythema. Able to make a full fist and has a good trade economist strength. Wrists:.? Normal pain-free range of motion without tenderness, swelling, increased warmth or erythema. Elbows:. Normal pain-free range of motion without tenderness, swelling, increased warmth or erythema. Shoulders:.?? Full range of motion without pain. No tenderness, weakness, swelling, increased warmth or erythema. Hips:.? Full range of motion without pain. Hip bursa:.? No tenderness. Knees:.?? Normal pain-free range of motion without tenderness, swelling, increased warmth or erythema.? There is no effusion or crepitation Ankles:.? Normal pain-free range of motion without tenderness, swelling, increased warmth or erythema. Feet:.? Normal pain-free range of motion without tenderness, swelling, increased warmth or erythema. Tender points:? No tenderness to digital palpation at the occiput, trapezius, second rib, lateral epicondyle, knees, greater trochanter and gluteal area bilaterally. ? Assessment & Plan Assessment & Plan (1) Large joint arthralgia of multiple sites: Code(s): M25.50 - Pain in unspecified joint Category: Medical (2) Elevated C-reactive protein (CRP): Code(s): R79.82 - Elevated C-reactive protein (CRP) Category: Medical Plan The patient is here to be evaluated for joint pain and elevated HS-CRP. These are findings get can be seen in the context of inflammatory arthritis. However her PE was unremarkable. The patient did not endorse any features for inflammatory or connective tissue disorder processes. The HS-CRP is not typical to rheumatology evaluation, this is because it the high sensitive CRP more reflects cardiac inflammation. I will check the appropriate CRP and obtain additional Rheum panel for further evaluation I spent 40 minutes reviewing history, evaluating patient and documenting Follow-up three-week Orders: Orders Complement C3 09/18/23 M25.50 - Pain in unspecified joint Complete Blood Count Auto Diff 09/18/23 M25.50 - Pain in unspecified joint C Reactive Protein 09/18/23 M25.50 - Pain in unspecified joint Creatine Kinase Total 09/18/23 M25.50 - Pain in unspecified joint Immunoglobulins,IgG IgA IgM 09/18/23 M25.50 - Pain in unspecified joint Protein Electrophoresis, Serum 09/18/23 M25.50 - Pain in unspecified joint T Spot TB 09/18/23 M25.50 - Pain in unspecified joint, Z11.9 - Encounter for screening for infectious and parasitic diseases, unspecified Uric Acid 09/18/23 M25.50 - Pain in unspecified joint UA w Microscopic 09/18/23 M25.50 - Pain in unspecified joint Vitamin D 25-OH (D2 and D3) 09/18/23 M25.50 - Pain in unspecified joint Rheumatoid Factor 09/18/23 M25.50 - Pain in unspecified joint Cyclic Citrullinated Peptide 09/18/23 M25.50 - Pain in unspecified joint HLA B27 09/18/23 M25.50 - Pain in unspecified joint Erythrocyte Sedimentation Rate 09/18/23 M25.50 - Pain in unspecified joint MARY GRACE Reflex Titer and Pattern 09/18/23 M25.50 - Pain in unspecified joint Anti DNA DS Antibody 09/18/23 M25.50 - Pain in unspecified joint Anti Extractable Nuclear Ag 09/18/23 M25.50 - Pain in unspecified joint Complement C4 09/18/23 M25.50 - Pain in unspecified joint Comprehensive Met. Panel 09/18/23 M25.50 - Pain in unspecified joint Hepatitis A,B,C Profile 09/18/23 M25.50 - Pain in unspecified joint, Z11.9 - Encounter for screening for infectious and parasitic diseases, unspecified Immunofixation Pnl, Serum 09/18/23 M25.50 - Pain in unspecified joint
[2023-09-18 10:14] VITALS: BP 124/82; PULSE 100; O2SAT 99; BMI 37.9
== END 2023-09-18 11:09 | disposition home or self-care (01) ==
PROVIDERS: PCP Internal Medicine; Visit Provider Nurse Practitioner Family
DX: M25.50 Pain in unspecified joint (principal); R79.82 Elevated C-reactive protein (CRP)
CPT/HCPCS: 99204; 99214

== ENCOUNTER 2023-09-24 10:19 | Outpatient (AMB) | payer MEDICARE, MEDICAID, SELFPAY ==
--- NOTE | 2023-09-24 10:43 | A.OFFVIS_ITS ---
Intake Vital Signs 09/24/23 10:44 Height 5 ft 4 in Weight 219 lb 2.232 oz BMI 37.6 BP 135/83 Blood Pressure Location Rt brachial Position Sitting Pulse 80 Pulse Source Monitor Intake Visit Reasons: 6 week follow up Intake Note: pt states thats she its feeling fine. Rod Puller Required: No Accompanied by: Self / Same As Patient Allergies gabapentin [GABAPENTIN] Allergy (Severe, Verified 09/18/23 10:13) SEVERE GI ISSUES Iodinated Contrast Media [IV DYE, IODINE CONTAINING] Allergy (Severe, Verified 09/18/23 10:13) SWELLING Sulfa (Sulfonamide Antibiotics) [SULFA (SULFONAMIDE ANTIBIOTICS)] Allergy (Severe, Verified 09/18/23 10:13) ANAPHYLAXIS, swelling Milk Containing Products (Dairy) Allergy (Intermediate, Verified 09/18/23 10:13) Rash lidocaine Allergy (Mild, Verified 09/18/23 10:13) Welts nabumetone Allergy (Unknown, Verified 09/18/23 10:13) Abdominal Pain pregabalin Allergy (Unknown, Verified 09/18/23 10:13) unknown venlafaxine Allergy (Unknown, Verified 09/18/23 10:13) unknown semaglutide [From Ozempic] Adverse Reaction (Intermediate, Verified 09/18/23 10:13) Rash meloxicam Adverse Reaction (Unknown, Verified 09/18/23 10:13) abdominal pain all meat Allergy (Unknown, Uncoded 09/18/23 10:13) unknown Environmental Allergy (Unknown, Uncoded 09/18/23 10:13) unknown HPI 6 week follow up HPI Details Assessment & Plan (1) Chronic idiopathic constipation: Code(s): K59.04 - Chronic idiopathic constipation (2) Epigastric pain: Code(s): R10.13 - Epigastric pain (3) GERD (gastroesophageal reflux diseas e): Code(s): K21.9 - Gastro-esophageal reflux disease without esophagitis Qualifiers: Esophagitis presence: without esophagitis Qualified Code(s): K21.9 - Gastro-esophageal reflux disease without esophagitis (4) Gastroparesis: Comment: GASTRIC EMPTYING STUDY Exam Date: 05/18/2013 IMPRESSION: Abnormal study. Mild retention of solid food is present in the stomach at 4 hours. Exam Date: 05/18/2013 Code(s): K31.84 - Gastroparesis (5) Left flank mass: Comment: ? painful lipoma Code(s): R19.00 - Intra-abdominal and pelvic swelling, mass and lump, unspecified site (6) Abdominal bloating: Code(s): R14.0 - Abdominal distension (gaseous) Plan Patient has been lost to follow-up since 01/2022 Apparently she tried the Reglan but it made her head shaky. She stopped the medication. In the past she was on pantoprazole 40 mg once a day and Linzess 72 micro g. She is using OTC chewable with only moderate success, but mobilization is still an issue. When she was using the metoclopramide she found it worked wonderfully for mobilizing her gas! She was quite disappointed that she had to stop it. She is willing to try the Creon and we also discussed using IBD guard since she has had some success with peppermint in terms of mobilizing her gas. She also is complaining of painful lumps in her left flank. I feel that it feels like it is in the adipose tissues in may be painful lipomas so will get ultrasound and consider referring her to surgery depending on these results. She is also having trouble with chronic sinusitis that has been worse and we discuss utilizing Judi and an inhaled nasal steroid such as Flonase. Return office visit in 6 weeks to evaluate her response. Orders: Orders US abdomen limited Today R19.00 - Intra-abd ominal and pelvic swelling, mass and lump, unspecified site Medications: New rpmsix-khzkcxod-pb ylase 36,000-114,0 00- 180,000 unit ( Creon) administ er with meals and/ or snacks 1 cap PO QID 120 caps 6RF R14.0 - Abdominal distension (gaseou s) simethicone (Gas R elief (simethicone )) 125 mg PO TID-QID 120 tabs 6RF abdo liam distention R14.0 - Abdominal distension (gaseou s) Refilled pantoprazole 40 mg PO DAILY 90 tabs 1RF linaclotide (Linze ss) 72 mcg PO QAM 30 caps 6RF K59.04 - Chronic i diopathic constipa tion ULTRASOUND OF THE ABDOMEN 09/02/23 FINDINGS: Multiple nodules in the superficial soft tissues of the left flank corresponding to the palpable abnormalities demonstrating similar echogenicity compared to the adjacent fat and no discrete vascularity. Largest measures 2.2 x 0.7 x 3.4 cm. US/US abdomen limited IMPRESSION: Multiple soft tissue masses suggestive of lipomatous lesions, likely lipomas; although other lipomatous soft tissue tumors cannot be entirely excluded. Recommend continued follow-up according to clinical criteria with special attention if there is growth or persistent/increasing pain. CORRESPONDENCE On 09/09/23 @ 13:50 Cherise Marcial Wrote To [place] Patient called to say she had to stop meds given to her they made her feel like she was going to be sick and she got a rash. TODAY'S VISIT SHE MAY BE DUE FOR REPEAT COLONOSCOPY? The creon broke her out in a rash. At this point, we have run out of options except to consider FODMAP. She is definitely more prone to heartburn and bloating because of her gastroparesis but unfortunately she is unable to tolerate Reglan. With this she needs to eat smaller more frequent meals. Because she is also having worsening heartburn I will see if I can get her pantoprazole increased to twice a day dosing from once a day. I would hate to have to change this medication because she has many medications side effects and reactions. I give her the copy of the FODMAP diet. She continues on her Linzess 72 micro g and although she is tried [id number] Gas-X she finds that she has to ?eat a whole box? before it helps her with the bloating We reviewed the ultrasound it appears that she has multiple lipomas but it probably would be a good idea to get 1 biopsied to confirm the diagnosis just to make sure there is nothing more concerning going on. She agrees to have a referral to General surgery. She has some on multiple locations of her body on her abdomen both sides and of her upper arm. She probably does not want to have them removed unless they become very large as they are largely just a cosmetic concern at this point. Return office visit in 6 months [facility] Medical History (Updated 09/24/23 @ 11:56 by HARVINDER Fry) Pre-op evaluation Shortness of breath Encounter for routine gynecological examination Feeling sick UTI (urinary tract infection) Respiratory infection Hospital discharge follow-up Medicare annual wellness visit, initial Urinary tract infection Medicare annual wellness visit, subsequent Screening examination for infectious disease Large joint arthralgia of multiple sites Herpes Environmental allergies Anxiety, generalized Lipid disorder Umbilical hernia Fibromyalgia Acute arthritis Tendonitis Surgical History Hx of hernia repair History of esophagogastroduodenoscopy (EGD) Hx of colonoscopy History of meniscectomy of left knee (~01/12/14) History of cholecystectomy H/O hand surgery Family History Mother Cervical cancer Bladder cancer Father Cancer Sister No problems noted. Other Mental health disorder Substance use disorder Social History Household Members: Significant Other Housing: Apartment Alcohol intake: former Year quit: 22yo Patient Tobacco Use Status: Former Tobacco user Quit Date: Age 22 e-Cigarette/Vaping Use: Never Used service: No Current occupational status: unemployed and disabled Sexual orientation: Straight/Heterosexual Gender identity: Female Cognitive needs: No Hearing needs: No Vision needs: No Review of Systems Const Denies fatigue, Denies fever(s), Denies night sweats, Denies poor appetite and Denies weight loss ENT Reports Normal hearing present, Denies dental pain, Denies dysphagia, Denies hearing loss, Denies mouth pain, Denies odynophagia, Denies throat swelling, Denies tongue swelling and Reports other (Dentition adequate) Card Reports no additional complaints Resp Reports no additional complaints GI Details: Denies abdominal pain, Denies melena, Reports bloating, Denies hematochezia, Reports constipation, Denies GI cramping, Denies dysphagia, Denies excessive flatus, Denies early satiety, Reports heartburn, Denies diarrhea, Denies nausea, Denies odynophagia, Denies vomiting and Denies hematemesis Skin/Breast Details: Lumps that are likely lipomas Denies pruritus, Denies lesions, Denies rash and Denies jaundice Neuro Reports Normal hearing present and Denies Abnormal speech present Endo Denies fatigue Aller/Immun Denies throat swelling and Denies tongue swelling Physical Exam Vital Signs: Last Vital Signs Pulse 80 09/24/23 10:44 BP 135/83 09/24/23 10:44 BMI result Body Mass Index 37.6 Const General: cooperative, no acute distress, well developed and well groomed Nutritional Appearance: well nourished and obese Orientation/consciousness: oriented to person, oriented to place and oriented to time Limitations: No language barrier HEENT Head: Yes normocephalic and Yes atraumatic Eyes General: appearance normal, both eyes and all related structures Pupils: Equal, round and reactive pupils present Neck Neck: Yes normal visual inspection and Yes no lymphadenopathy Thyroid: Thyroid normal Resp Effort & Inspection: normal respiratory effort and able to speak in complete s entences Auscultation: clear to auscultation bilaterally Cardio Rate: regular rate Rhythm: regular rhythm Heart sounds: Normal, physiologic split S2 sound present Peripheral pulses: radial pulses present and posterior tibial pulses present GI Inspection: No distended, Yes Abdominal panniculus present and Yes obesity Palpation (GI): Soft to palpation, nontender, no guarding, not rigid and No hepatosplenomegaly present Percussion: Yes normal to percussion Auscultation: normal bowel sounds Rectal Exam - Female: deferred Skin General skin exam: no rashes or lesions noted, turgor normal, skin not dry, no jaundice, No spider nevi and no striae Rashes: no rashes Nails: normal Neuro General: oriented to person, oriented to place and oriented to time Cranial nerves: Yes Equal, round and reactive pupils present and Yes Normal hearing present Speech: No Abnormal speech present Extrem General: Yes normal to inspection, No clubbing, No cyanosis and No edema Psych Appearance: grossly normal and well kempt Mental Status: mental status grossly normal Speech and movement: Normal speech and movement present Affect: normal affect Attitude: cooperative Thought process: Normal thought process present and not confabulating Thought content: Normal thought content present Insight: Fair insight present (Psych) Judgement: Fair judgement present (Psych) Assessment & Plan Assessment & Plan (1) Chronic idiopathic constipation: Code(s): K59.04 - Chronic idiopathic constipation (2) Abdominal bloating: Code(s): R14.0 - Abdominal distension (gaseous) (3) Gastroparesis: Comment: GASTRIC EMPTYING STUDY Exam Date: 05/18/2013 IMPRESSION: Abnormal study. Mild retention of solid food is present in the stomach at 4 hours. Exam Date: 05/18/2013 Code(s): K31.84 - Gastroparesis (4) Lipoma: Comment: multiple locations on upper body Code(s): D17.9 - Benign lipomatous neoplasm, unspecified (5) GERD (gastroesophageal reflux disease): Code(s): K21.9 - Gastro-esophageal reflux disease without esophagitis Qualifiers: Esophagitis presence: without esophagitis Qualified Code(s): K21.9 - Gastro-esophageal reflux disease without esophagitis (6) Pre-op evaluation: Code(s): Z01.818 - Encounter for other preprocedural examination Plan SHE MAY BE DUE FOR REPEAT COLONOSCOPY? The creon broke her out in a rash. At this point, we have run out of options except to consider FODMAP. She is definitely more prone to heartburn and bloating because of her gastroparesis but unfortunately she is unable to tolerate Reglan. With this she needs to eat smaller more frequent meals. Because she is also having worsening heartburn I will see if I can get her pantoprazole increased to twice a day dosing from once a day. I would hate to have to change this medication because she has many medications side effects and reactions. I give her the copy of the FODMAP diet. She continues on her Linzess 72 micro g and although she is tried [id number] Gas-X she finds that she has to ?eat a whole box? before it helps her with the bloating We reviewed the ultrasound it appears that she has multiple lipomas but it probably would be a good idea to get 1 biopsied to confirm the diagnosis just to make sure there is nothing more concerning going on. She agrees to have a r eferral to General surgery. She has some on multiple locations of her body on her abdomen both sides and of her upper arm. She probably does not want to have them removed unless they become very large as they are largely just a cosmetic concern at this point. Return office visit in 6 months Orders: Orders Colonoscopy - GI Use Only Today Z01.818 - Encounter for other preprocedural examination Referrals General Surgery Referral D17.9 - Benign lipomatous neoplasm, unspecified Medications: New peg 3350-electrolytes 236-22.74-6.74 -5.86 gram (Golytely) until fecal effluent is clear; do not exceed a total volume of 2,000 mL 240 mL PO Q10M 1 day 4,000 mL 0RF Z12.11 - Encounter for screening for malignant neoplasm of colon Changed From pantoprazole 40 mg PO DAILY 90 tabs 1RF To pantoprazole 40 mg PO BID 180 tabs 1RF Refilled linaclotide (Linzess) 72 mcg PO QAM 30 caps 6RF K59.04 - Chronic idiopathic constipation simethicone (Gas Relief (simethicone)) 125 mg PO TID-QID 120 tabs 6RF abdominal distention R14.0 - Abdominal distension (gaseous) Coding Level of Care Code Est Pt Level 3 (93945) Diagnoses Chronic idiopathic constipation K59.04 Abdominal bloating R14.0 Gastroparesis K31.84 Lipoma D17.9 Gastroesophageal reflux disease without esophagitis K21.9 Esophagitis presence: without esophagitis Pre-op evaluation Z01.818
[2023-09-24 10:44] VITALS: BP 135/83; PULSE 80; BMI 37.6
== END 2023-09-24 11:20 | disposition home or self-care (01) ==
PROVIDERS: PCP Internal Medicine; Visit Provider Nurse Practitioner
DX: K59.04 Chronic idiopathic constipation (principal); R14.0 Abdominal distension (gaseous); K31.84 Gastroparesis; D17.9 Benign lipomatous neoplasm, unspecified; K21.9 Gastro-esophageal reflux disease without esophagitis; Z01.818 Encounter for other preprocedural examination
CPT/HCPCS: 99213

== ENCOUNTER → 2023-09-24 10:19 | Outpatient (BNVA) | payer MEDICARE, MEDICAID, SELFPAY | PROVIDERS: PCP Internal Medicine; Visit Provider Nurse Practitioner | DX: Z01.818 Encounter for other preprocedural examination (principal); K59.04 Chronic idiopathic constipation; K31.84 Gastroparesis; K21.9 Gastro-esophageal reflux disease without esophagitis; D17.9 Benign lipomatous neoplasm, unspecified; R14.0 Abdominal distension (gaseous) | CPT/HCPCS: 99212 ==

== ENCOUNTER 2023-09-30 12:51 | Outpatient (AMB) | payer MEDICARE, MEDICAID, SELFPAY ==
[2023-09-30 12:58] VITALS: BP 122/84; PULSE 90; O2SAT 96; BMI 38.1
--- NOTE | 2023-09-30 12:58 | MHC.PC.OV ---
Vital Signs 09/30/23 12:58 Height 5 ft 4 in Weight 222 lb 2 oz BMI 38.1 BP 122/84 Blood Pressure Location Rt brachial Position Sitting Pulse 90 Pulse Source Pulse Oximeter Pulse Oximetry (%) 96 Intake Visit Reasons: Mucus/Congestion/ 9M F/u Allergies gabapentin [GABAPENTIN] Allergy (Severe, Verified 09/30/23 12:59) SEVERE GI ISSUES Iodinated Contrast Media [IV DYE, IODINE CONTAINING] Allergy (Severe, Verified 09/30/23 12:59) SWELLING Sulfa (Sulfonamide Antibiotics) [SULFA (SULFONAMIDE ANTIBIOTICS)] Allergy (Severe, Verified 09/30/23 12:59) ANAPHYLAXIS, swelling Milk Containing Products (Dairy) Allergy (Intermediate, Verified 09/30/23 12:59) Rash lidocaine Allergy (Mild, Verified 09/30/23 12:59) Welts nabumetone Allergy (Unknown, Verified 09/30/23 12:59) Abdominal Pain pregabalin Allergy (Unknown, Verified 09/30/23 12:59) unknown venlafaxine Allergy (Unknown, Verified 09/30/23 12:59) unknown semaglutide [From Ozempic] Adverse Reaction (Intermediate, Verified 09/30/23 12:59) Rash meloxicam Adverse Reaction (Unknown, Verified 09/30/23 12:59) abdominal pain all meat Allergy (Unknown, Uncoded 09/18/23 10:13) unknown Environmental Allergy (Unknown, Uncoded 09/18/23 10:13) unknown Medication List - Last Reconciled 09/30/23 by Lyndon Fagan MD alprazolam 0.25 mg (1/2 x 0.5 mg) PO BID 30 days Breo Ellipta 200-25 mcg/dose (fluticasone furoate-vilanterol) 1 inh inhalation DAILY 30 days NS Grab bar grab bar for shower linaclotide (Linzess) 72 mcg PO QAM pantoprazole 40 mg PO BID rosuvastatin 10 mg PO DAILY valacyclovir 500 mg PO DAILY 90 days Tobacco use date assessed: 09/30/23 Dental Screening Dental Screen Date: 09/30/23 Did you have a dental visit in the last 12 months?: No Did you have a dental problem in the last 6 months where you did not have access to dental care?: No Was dental information given to patient?: Patient has dentist HPI Mucus/Congestion/ 9M F/u HPI Details Patient is 58-year-old female came in today to have anxiety medication refill Patient is taking alprazolam 0.5 mg b.i.d., refill sent for next 3 months Patient is complying with the treatment plan no signs of abuse Other medications patient is getting from this office is valacyclovir for chronic rash which is responding to medication However she does not have any formal diagnosis, I have placed a referral to [facility] D[facility]. As patient is seeing that 500 mg daily is not controlling the rash and it flares up every now and then, requiring 1 g b.i.d. dosage. Lipid disorder: Continue rosuvastatin 10 mg Patient is also on pantoprazole 40 mg b.i.d. and lenses She has seen Dr. Keane resource conservation specialist for asthma and was started on Breo which did help her initially but then she started having irritated cough again I have told her to book a follow-up appointment and discuss it further with them. Arthrosis: Currently patient is seeing Rheumatology for the management Follow-up 3 months [facility] Medical History Pre-op evaluation Shortness of breath Encounter for routine gynecological examination Feeling sick UTI (urinary tract infection) Respiratory infection Hospital discharge follow-up Medicare annual wellness visit, initial Urinary tract infection Medicare annual wellness visit, subsequent Screening examination for infectious disease Large joint arthralgia of multiple sites Herpes Environmental allergies Anxiety, generalized Lipid disorder Umbilical hernia Fibromyalgia Acute arthritis Tendonitis Surgical History Hx of hernia repair History of esophagogastroduodenoscopy (EGD) Hx of colonoscopy History of meniscectomy of left knee (~01/12/14) History of cholecystectomy H/O hand surgery Family History Mother Cervical cancer Bladder cancer Father Cancer Sister No problems noted. Other Mental health disorder Substance use disorder Social History Household Members: Significant Other Housing: Apartment Alcohol intake: former Year quit: 22yo Patient Tobacco Use Status: Former Tobacco user Quit Date: Age 22 e-Cigarette/Vaping Use: Never Used service: No Current occupational status: unemployed and disabled Sexual orientation: Straight/Heterosexual Gender identity: Female Cognitive needs: No Hearing needs: No Vision needs: No Questionnaire Thrive Questionnaire Date Thrive assessed: 07/02/23 AUDIT C Alcohol Use Questionnaire (AUDIT-C) 1. How often do you have a drink containing alcohol?: Never 3. How often do you have six or more drinks on one occasion?: Never Total Score: 0 Score Reviewed/Action Taken: Yes ARIANNA-7 AMB Questionnaire ARIANNA-7 Date ARIANNA - 7 assessed: 07/02/23 Source: Developed by Drs. Kenneth Preston, Aruna Alcantar, Babak Rebolledo and colleagues, with an educational morris from [employer]. Review of Systems Const Denies chills and Denies fever(s) ENT Denies epistaxis and Denies nasal discharge Card Denies chest pain Resp Denies chest congestion, Denies cough and Denies hemoptysis GI Denies diarrhea and Denies nausea Neuro Reports no additional complaints Psych Reports no additional complaints Endo Reports no additional complaints Physical exam (Primary Care) Vital Signs: Last Vital Signs Pulse 90 09/30/23 12:58 BP 122/84 09/30/23 12:58 Pulse Ox 96 09/30/23 12:58 BMI result Body Mass Index 38.1 Tobacco/Smoking Status: Tobacco use Status Tobacco use date assessed 09/30/23 09/30/23 13:04 Patient Tobacco Use Status Former Tobacco user 09/30/23 13:04 e-Cigarette/Vaping Use Never Used 09/30/23 13:04 Thrive Assessment: Date of Thrive Assessment Date Thrive assessed 07/02/23 09/30/23 13:04 Const General: cooperative, comfortable and no acute distress Orientation/consciousness: patient oriented x3 HENKS Head: Yes normocephalic Eyes General: appearance normal, both eyes and all related structures Neck Neck: Yes supple Resp Effort & Inspection: normal respiratory effort, no cough and no stridor Cardio Rhythm: regular rhythm Heart sounds: S1 normal heart sound present and S2 normal heart sound present Skin General skin exam: turgor normal Neuro General: patient oriented x3, tone normal and moves all extremities Extrem Right lower extremity: no edema Left lower extremity: no edema Assessment and Plan Assessment & Plan (1) Herpes: Code(s): B00.9 - Herpesviral infection, unspecified (2) Rash: Code(s): R21 - Rash and other nonspecific skin eruption (3) Fibromyalgia: Code(s): M79.7 - Fibromyalgia (4) Diet-controlled diabetes mellitus: Code(s): E11.9 - Type 2 diabetes mellitus without complications (5) Hypertension, essential: Code(s): I10 - Essential (primary) hypertension (6) Morbid obesity due to excess calories: Code(s): E66.01 - Morbid (severe) obesity due to excess calories (7) Chronic idiopathic constipation: Code(s): K59.04 - Chronic idiopathic constipation (8) GERD (gastroesophageal reflux disease): Code(s): K21.9 - Gastro-esophageal reflux disease without esophagitis Qualifiers: Esophagitis presence: without esophagitis Qualified Code(s): K21.9 - Gastro-esophageal reflux disease without esophagitis (9) Environmental allergies: Code(s): Z91.09 - Other allergy status, other than to drugs and biological substances (10) Anxiety, generalized: Code(s): F41.1 - Generalized anxiety disorder (11) Lipid disorder: Code(s): E78.9 - Disorder of lipoprotein metabolism, unspecified Plan Patient is 58-year-old female came in today to have anxiety medication refill Patient is taking alprazolam 0.5 mg b.i.d., refill sent for next 3 months Patient is complying with the treatment plan no signs of abuse Other medications patient is getting from this office is valacyclovir for chronic rash which is responding to medication However she does not have any formal diagnosis, I have placed a referral to [facility] D[facility]. As patient is seeing that 500 mg daily is not controlling the rash and it flares up every now and then, requiring 1 g b.i.d. dosage. Lipid disorder: Continue rosuvastatin 10 mg Patient is also on pantoprazole 40 mg b.i.d. and lenses Diabetes controlled with diet She has seen Dr. Keane resource conservation specialist for asthma and was started on Breo which did help her initially but then she started having irritated cough again I have told her to book a follow-up appointment and discuss it further with them. Arthrosis: Currently patient is seeing Rheumatology for the management Follow-up 3 months Orders: Orders Herpes Simplex Virus Ab IgG Today B00.9 - Herpesviral infection, unspecified Referrals Dermatology Referral R21 - Rash and other nonspecific skin eruption Medications: Changed From alprazolam 0.25 mg (1/2 x 0.5 mg) PO BID 30 days 30 tabs 2RF To alprazolam 0.5 mg PO BID 60 tabs 2RF 30 days Refilled alprazolam 0.25 mg (1/2 x 0.5 mg) PO BID 30 days 30 tabs 2RF Coding Level of Care Code Est Pt Level 4 (23966) Diagnoses Herpes B00.9 Rash R21 Fibromyalgia M79.7 Diet-controlled diabetes mellitus E11.9 Hypertension, essential I10 Morbid obesity due to excess calories E66.01 Chronic idiopathic constipation K59.04 Gastroesophageal reflux disease without esophagitis K21.9 Esophagitis presence: without esophagitis Environmental allergies Z91.09 Anxiety, generalized F41.1 Lipid disorder E78.9
== END 2023-09-30 16:16 | disposition home or self-care (01) ==
PROVIDERS: PCP Internal Medicine; Visit Provider Internal Medicine
DX: E11.9 Type 2 diabetes mellitus without complications (principal); E66.01 Morbid (severe) obesity due to excess calories; B00.9 Herpesviral infection, unspecified; Z68.38 Body mass index [BMI] 38.0-38.9, adult; R21 Rash and other nonspecific skin eruption; M79.7 Fibromyalgia; I10 Essential (primary) hypertension; K59.04 Chronic idiopathic constipation; K21.9 Gastro-esophageal reflux disease without esophagitis; Z91.09 Other allergy status, other than to drugs and biological substances; F41.1 Generalized anxiety disorder; E78.9 Disorder of lipoprotein metabolism, unspecified
CPT/HCPCS: 99214

== ENCOUNTER 2023-09-30 13:48 | Outpatient (AMB) | payer MEDICARE, MEDICAID, SELFPAY ==
--- NOTE | 2023-09-30 14:32 | MHC.OFFVIS ---
Vital Signs 09/30/23 14:39 Height 5 ft 4 in Weight 221 lb 5.506 oz BMI 38.0 BP 144/98 H Blood Pressure Location Rt brachial Position Sitting Pulse 81 Pulse Source Pulse Oximeter Pulse Oximetry (%) 98 Oxygen Delivery Method Room Air Intake Visit Reasons: bl shoulder pain/injection Intake Note: Patient presents today for alina shoulder pain and injection. 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 Required: No Accompanied by: Self / Same As Patient Allergies gabapentin [GABAPENTIN] Allergy (Severe, Verified 10/10/23 08:13) SEVERE GI ISSUES Iodinated Contrast Media [IV DYE, IODINE CONTAINING] Allergy (Severe, Verified 10/10/23 08:13) SWELLING Sulfa (Sulfonamide Antibiotics) [SULFA (SULFONAMIDE ANTIBIOTICS)] Allergy (Severe, Verified 10/10/23 08:13) ANAPHYLAXIS, swelling Milk Containing Products (Dairy) Allergy (Intermediate, Verified 10/10/23 08:13) Rash lidocaine Allergy (Mild, Verified 10/10/23 08:13) Welts nabumetone Allergy (Unknown, Verified 10/10/23 08:13) Abdominal Pain pregabalin Allergy (Unknown, Verified 10/10/23 08:13) unknown venlafaxine Allergy (Unknown, Verified 10/10/23 08:13) unknown semaglutide [From Ozempic] Adverse Reaction (Intermediate, Verified 10/10/23 08:13) Rash meloxicam Adverse Reaction (Unknown, Verified 10/10/23 08:13) abdominal pain all meat Allergy (Unknown, Uncoded 09/30/23 14:33) unknown Environmental Allergy (Unknown, Uncoded 09/30/23 14:33) unknown HPI Comments Details: Ms. Hoyt 58-year-old female here for follow-up to review results of jerome evaluation of elevated H-CRP. She also desires injections to her shoulders today Initial History: Ms. Hoyt 58-year-old female here for evaluation of elevated CRP-she was referred by her peanut picker. This is a fairly active lady who does martial arts. She endorses joint pain for the last 10 years, she thinks most likely osteoarthritis in her knees for which she has received HLA and cortisone injections over the years most recent as 1 month ago. She denies all inflammatory symptoms of swelling redness and warmth to her joints. She does have a history of eczema that is managed with topical treatment. --mom has RA, Sister with psoriasis, Brother psoriatic arthritis and psoriasis and takes Enbrel Cardiac 07/23/2023: Evelina has been referred for evaluation high CRP. There is concern if this is cardiac or not. Patient herself does not have any known cardiac issues including coronary artery disease or myocardial infarction or cardiomyopathy or anything of cardiac nature. She states that few months back she started Ozempic and after that, developed a rash as well as generalized swelling and then it was stopped. Since then, those symptoms have improved significantly. Within limits of her activity, she does not have any anginal-type symptoms. Otherwise, because of the CRP she has been referred here. She does have numerous aches and pains all over the body. Unclear if she truly has a rheumatological illness or not. Otherwise, she states she had some shortness of breath in the past but then started inhalers and then those symptoms resolved completely. [facility] Medical History (Updated 10/30/23 @ 23:57 by Patricia Rodriguez [facility]) Obesity (BMI 30-39.9) Osteoarthritis of left knee Localized osteoarthritis of shoulder regions, bilateral Bilateral shoulder pain Pre-op evaluation Shortness of breath Encounter for routine gynecological examination Feeling sick UTI (urinary tract infection) Respiratory infection Hospital discharge follow-up Medicare annual wellness visit, initial Urinary tract infection Medicare annual wellness visit, subsequent Screening examination for infectious disease Large joint arthralgia of multiple sites Herpes Environmental allergies Anxiety, generalized Lipid disorder Umbilical hernia Fibromyalgia Acute arthritis Tendonitis Surgical History Hx of hernia repair History of esophagogastroduodenoscopy (EGD) Hx of colonoscopy History of meniscectomy of left knee (~01/12/14) History of cholecystectomy H/O hand surgery Family History Mother Cervical cancer Bladder cancer Father Cancer Sister No problems noted. Other Mental health disorder Substance use disorder Social History Household Members: Significant Other Housing: Apartment Alcohol intake: former Year quit: 22yo Patient Tobacco Use Status: Former Tobacco user Quit Date: Age 22 e-Cigarette/Vaping Use: Never Used service: No Current occupational status: unemployed and disabled Sexual orientation: Straight/Heterosexual Gender identity: Female Cognitive needs: No Hearing needs: No Vision needs: No Review of Systems Const All systems reviewed & are unremarkable except as noted in HPI and below Physical Exam Vital Signs: Last Vital Signs Pulse 81 09/30/23 14:39 BP 144/98 H 09/30/23 14:39 Pulse Ox 98 09/30/23 14:39 Oxygen Delivery Method Room Air 09/30/23 14:39 BMI result Body Mass Index 38.0 APPEARANCE: Patient in no acute distress EYES no redness, normal HEART:? Regular rhythm, S1-S2 heard, no murmurs, rubs or gallops. LUNG:? Clear to percussion and auscultation EXTREMITIES:? No edema, no calf tenderness, normal peripheral pulses. NEURO:? Oriented and alert x3.? No focal weakness.? Reflexes symmetric.? Gait normal. SKIN:? There are no skin lesions evident. No objective signs of Raynaud's phenomenon. JOINT EXAM: Cervical Spine:.? Full range of motion without pain; no tenderness. Thoracic Spine:.? No scoliosis.? No tenderness on palpation. Lumbar Spine:.? Alignment normal.? Full range of motion without pain, no tenderness. Chest Wall:.? No tenderness, swelling, increased warmth or erythema. Hands:.? Normal pain-free range of motion without tenderness, swelling, increased warmth or erythema. Able to make a full fist and has a good oil analyst strength. Wrists:.? Normal pain-free range of motion without tenderness, swelling, increased warmth or erythema. Elbows:. Normal pain-free range of motion without tenderness, swelling, increased warmth or erythema. Shoulders:.?? Some decrease in range of motion with mild pain. There is tenderness at the GH and AC joints bilaterally but no weakness, swelling, increased warmth or erythema. Hips:.? Full range of motion without pain. Hip bursa:.? No tenderness. Knees:.?? Normal pain-free range of motion without tenderness, swelling, increased warmth or erythema.? There is no effusion or crepitation Ankles:.? Normal pain-free range of motion without tenderness, swelling, increased warmth or erythema. Feet:.? Normal pain-free range of motion without tenderness, swelling, increased warmth or erythema. Tender points:? No tenderness to digital palpation at the occiput, trapezius, second rib, lateral epicondyle, knees, greater trochanter and gluteal area bilaterally. ? Results Reviewed Results Reviewed: Laboratory Tests 09/18/23 13:02 ESR 29 H C-Reactive Protein 1.34 H EXAMINATION: XR SHOULDER, RIGHT CLINICAL INFORMATION: Pain. COMPARISON: Right shoulder radiographs dated 12/26/2014; chest radiograph dated 10/26/2013. TECHNIQUE: AP external rotation, Grashey, scapular Y, and axillary views of the right shoulder. FINDINGS: Bony alignment and mineralization are normal. The glenohumeral joint is intact. There is mild peripheral osteophyte formation of the glenoid, most pronounced inferior. The acromioclavicular and coracoclavicular intervals are normal. There is mild osteoarthritic change of the acromioclavicular joint. There is a small distal acromial undersurface osteophyte. There is coarse calcifications of the rotator cuff insertion. No fracture or dislocation is seen. No foreign body or soft tissue gas is seen. A tiny benign, calcified right upper lobe granuloma is stable from chest radiographs dated 11/03/2013. XR/XR shoulder RT min 2V IMPRESSION: 1. There is mild to moderate osteoarthritic change of the right glenohumeral joint, and mild osteoarthritic change is seen of the right acromioclavicular joint. 2. No fracture or dislocation is seen. 3. There is coarse calcific tendinitis of the right rotator cuff insertion. [facility] Adult Primary Care [facility] [place] [address] [place] [address] XRay Report Signed Patient: Evelina Edwards MR#: [id number] : 1965 Acct:[id number] Age/Sex: 54 / F ADM Date: 03/22/20 Loc: HO.HMGCX Attending Dr: Penny Paredes NP Ordering Physician: Penny Paredes NP Date of Service: 03/22/20 Procedure(s): XR knee LT 4V Accession Number(s): [id number] cc: Penny Paredes NP~ EXAMINATION: XR KNEE, LEFT CLINICAL INFORMATION: Pain COMPARISON: Left knee x-rays 10/12/2014 TECHNIQUE: Four views of the left knee. FINDINGS: No fracture or dislocation. No suprapatellar joint effusion. Mild to moderately decreased medial joint space height. Prominent patellar osteophytes. Small osteophytes of the medial and lateral compartments. IMPRESSION: Moderate degenerative changes of the knee, particularly in the medial compartment. Assessment & Plan Assessment & Plan (1) Large joint arthralgia of multiple sites: Code(s): M25.50 - Pain in unspecified joint Category: Medical (2) Elevated C-reactive protein (CRP): Code(s): R79.82 - Elevated C-reactive protein (CRP) Category: Medical (3) Bilateral shoulder pain: Code(s): M25.511 - Pain in right shoulder; M25.512 - Pain in left shoulder Category: Medical Qualifiers: Chronicity: chronic Qualified Code(s): M25.511 - Pain in right shoulder; M25.512 - Pain in left shoulder; G89.29 - Other chronic pain (4) Localized osteoarthritis of shoulder regions, bilateral: Code(s): M19.011 - Primary osteoarthritis, right shoulder; M19.012 - Primary osteoarthritis, left shoulder Category: Medical (5) Osteoarthritis of left knee: Code(s): M17.12 - Unilateral primary osteoarthritis, left knee Category: Medical Qualifiers: Osteoarthritis type: primary Qualified Code(s): M17.12 - Unilateral primary osteoarthritis, left knee (6) Obesity (BMI 30-39.9): Code(s): E66.9 - Obesity, unspecified Category: Medical Plan #Elevated ESR/CRP/Obesity vs Joint pains:The patient continues with mildly elevated ESR (29) and CRP (1.39). She still denies inflammatory joints presentation of swelling, redness and warmth and PE remains unremarkable. Rheum panel also negative. This CRP elevation may also be due to Obesity. She has a history of Asthma and has been on High dose steroids over the course of time but has not found that the joint pain is lessened or relieved during those times. We will continue to monitor. #Bilateral Shoulder Pain: She has received injections in the past and desire injection today. I have reviewed Imaging done 01/2021 which shows OA and calcific tendinitis in the RTC. It seems reasonable to give the injections and help with her shoulder pain today. Bilateral GH joints were cleansed anteriorly with Chlorohexidine and injection with Kenalog 40 mg and 1%Lidocaine 2ml to each shoulder. The patient tolerated the procedure well. She was advised to rest the shoulders for the next 2 days and refrain from strenuous activities over the next week. She was given a handout for follow-up care. #Knee OA: She also has Moderate OA in her knees per my personal review of 10/2021 imaging of Left knee The patient is working on losing weight. She continues to remain active and does her exercise routines. I spent 25 minutes reviewing chart, evaluating patient, discussing results and documenting Follow-up 3 months Coding Level of Care Code Est Pt Level 3 (59583) Diagnoses Large joint arthralgia of multiple sites M25.50 Elevated C-reactive protein (CRP) R79.82 Chronic pain of both shoulders M25.511; M25.512; G89.29 Chronicity: chronic Localized osteoarthritis of shoulder regions, bilateral M19.011; M19.012 Primary osteoarthritis of left knee M17.12 Osteoarthritis type: primary Obesity (BMI 30-39.9) E66.9 Time Spent (min) 20 Comment Large Joint injection x 2
[2023-09-30 14:39] VITALS: BP 144/98; PULSE 81; O2SAT 98; BMI 38.0
== END 2023-09-30 15:07 | disposition home or self-care (01) ==
PROVIDERS: PCP Internal Medicine; Visit Provider Nurse Practitioner Family
DX: M25.50 Pain in unspecified joint (principal); R79.82 Elevated C-reactive protein (CRP); M25.511 Pain in right shoulder; M25.512 Pain in left shoulder; G89.29 Other chronic pain; M19.011 Primary osteoarthritis, right shoulder; M19.012 Primary osteoarthritis, left shoulder; M17.12 Unilateral primary osteoarthritis, left knee; E66.9 Obesity, unspecified
CPT/HCPCS: 99213

== ENCOUNTER → 2023-09-30 13:48 | Outpatient (BNVA) | payer MEDICARE, MEDICAID, SELFPAY | PROVIDERS: PCP Internal Medicine; Visit Provider Nurse Practitioner Family | DX: M25.50 Pain in unspecified joint (principal); R79.82 Elevated C-reactive protein (CRP) | CPT/HCPCS: 99212 ==

== ENCOUNTER 2023-10-10 08:02 | Outpatient (AMB) | payer MEDICARE, MEDICAID, SELFPAY ==
[2023-10-10 08:13] VITALS: BP 130/88; PULSE 84; TEMP 36.6; O2SAT 98; BMI 37.9
--- NOTE | 2023-10-10 08:13 | AM.OFFWIN_ITS ---
Intake Vital Signs 10/10/23 08:13 Height 5 ft 4 in Weight 221 lb BMI 37.9 BP 130/88 Blood Pressure Location Lt brachial Position Sitting Pulse 84 Pulse Source Pulse Oximeter Temp 98 F Temp Source Oral Pulse Oximetry (%) 98 Oxygen Delivery Method Room Air Intake Visit Reasons: EP UTI Patient Tobacco Use Status: Former Tobacco user Quit Date: Age 22 Allergies gabapentin [GABAPENTIN] Allergy (Severe, Verified 10/10/23 08:13) SEVERE GI ISSUES Iodinated Contrast Media [IV DYE, IODINE CONTAINING] Allergy (Severe, Verified 10/10/23 08:13) SWELLING Sulfa (Sulfonamide Antibiotics) [SULFA (SULFONAMIDE ANTIBIOTICS)] Allergy (Severe, Verified 10/10/23 08:13) ANAPHYLAXIS, swelling Milk Containing Products (Dairy) Allergy (Intermediate, Verified 10/10/23 08:13) Rash lidocaine Allergy (Mild, Verified 10/10/23 08:13) Welts nabumetone Allergy (Unknown, Verified 10/10/23 08:13) Abdominal Pain pregabalin Allergy (Unknown, Verified 10/10/23 08:13) unknown venlafaxine Allergy (Unknown, Verified 10/10/23 08:13) unknown semaglutide [From Ozempic] Adverse Reaction (Intermediate, Verified 10/10/23 08:13) Rash meloxicam Adverse Reaction (Unknown, Verified 10/10/23 08:13) abdominal pain all meat Allergy (Unknown, Uncoded 09/30/23 14:33) unknown Environmental Allergy (Unknown, Uncoded 09/30/23 14:33) unknown Medication List - Last Reconciled 10/10/23 by Lyndon Fagan MD alprazolam 0.5 mg PO BID 30 days Breo Ellipta 200-25 mcg/dose (fluticasone furoate-vilanterol) 1 inh inhalation DAILY 30 days NS Grab bar grab bar for shower linaclotide (Linzess) 72 mcg PO QAM pantoprazole 40 mg PO BID rosuvastatin 10 mg PO DAILY valacyclovir 500 mg PO DAILY 90 days Do you need a note to return to daycare/school/sports/work: No HPI EP UTI HPI Details Patient is 58-year-old female with a history of severe osteoarthritis both knees, autoimmune disorder Came in today to be evaluated for possible UTI Patient says that it does not hurt to urinate but it feels sore off and on in pelvic area Patient does have a history of interstitial cystitis as well and microscopic hematuria off and on She has been evaluated by urologist and had a cystoscopy done UA done today shows very small amount of blood but no other signs of bladder infection Recommended to continue pushing fluids Patient is also requesting a handicap placard because of her bilateral severe knee osteoarthritis Form filled for 1 year. [facility] Medical History Pre-op evaluation Shortness of breath Encounter for routine gynecological examination Feeling sick UTI (urinary tract infection) Respiratory infection Hospital discharge follow-up Medicare annual wellness visit, initial Urinary tract infection Medicare annual wellness visit, subsequent Screening examination for infectious disease Large joint arthralgia of multiple sites Herpes Environmental allergies Anxiety, generalized Lipid disorder Umbilical hernia Fibromyalgia Acute arthritis Tendonitis Surgical History Hx of hernia repair History of esophagogastroduodenoscopy (EGD) Hx of colonoscopy History of meniscectomy of left knee (~01/12/14) History of cholecystectomy H/O hand surgery Family History Mother Cervical cancer Bladder cancer Father Cancer Sister No problems noted. Other Mental health disorder Substance use disorder Social History Household Members: Significant Other Housing: Apartment Alcohol intake: former Year quit: 22yo Patient Tobacco Use Status: Former Tobacco user Quit Date: Age 22 e-Cigarette/Vaping Use: Never Used service: No Current occupational status: unemployed and disabled Sexual orientation: Straight/Heterosexual Gender identity: Female Cognitive needs: No Hearing needs: No Vision needs: No Review of Systems Const All systems reviewed & are unremarkable except as noted in HPI and below Physical Exam Vital Signs: Last Vital Signs Temp 98 F 10/10/23 08:13 Pulse 84 10/10/23 08:13 BP 130/88 10/10/23 08:13 Pulse Ox 98 10/10/23 08:13 Oxygen Delivery Method Room Air 10/10/23 08:13 BMI result Body Mass Index 37.9 Const General: no acute distress Orientation/consciousness: patient oriented x3 Eyes General: appearance normal, both eyes and all related structures Resp Effort & Inspection: normal respiratory effort and able to speak in complete sentences Auscultation: clear to auscultation bilaterally GI Other: No pain with palpation Neuro General: patient oriented x3 Psych Mental Status: mental status grossly normal Results AMB Urinalysis, Automated UA Leukoctes 0 Zac/uL Last Edit by Janeth Otoole MA on 10/10/23 08:26 UA Nitrite Negative Last Edit by Janeth Otoole MA on 10/10/23 08:26 UA Urobilinogen 0.2 mg/dL Last Edit by Janeth Otoole MA on 10/10/23 08:26 UA Protein 0 mg/dL Last Edit by Janeth Otoole MA on 10/10/23 08:26 UA pH 6.0 Last Edit by Janeth Otoole MA on 10/10/23 08:26 UA Blood 10 Nikunj/uL Last Edit by Janeth Otoole MA on 10/10/23 08:26 UA Specific [place] 1.015 Last Edit by Janeth Otoole MA on 10/10/23 08:2 6 UA Ketone Negative Last Edit by Janeth Otoole MA on 10/10/23 08:26 UA Bilirubin 0 mg/dL Last Edit by Janeth Otoole MA on 10/10/23 08:26 UA Glucose 0 mg/dL Last Edit by Janeth Otoole MA on 10/10/23 08:26 Results Reviewed Results Reviewed: Laboratory Last Values Urine pH (Auto) 6.0 10/10/23 08:24 Specific [place] (Auto) 1.015 10/10/23 08:24 Urine Protein (Auto) 0 mg/dL 10/10/23 08:24 Glucose (UA)(Auto) 0 mg/dL 10/10/23 08:24 Urine Ketones (Auto) Negative 10/10/23 08:24 Urine Blood (Auto) 10 Nikunj/uL 10/10/23 08:24 Urine Nitrite (Auto) Negative 10/10/23 08:24 Urine Bilirubin (Auto) 0 mg/dL 10/10/23 08:24 Urine Urobilinogen (Auto) 0.2 mg/dL 10/10/23 08:24 Leukocyte Esterase (Auto) 0 Zac/uL 10/10/23 08:24 Assessment & Plan Assessment & Plan (1) Interstitial cystitis: Code(s): N30.10 - Interstitial cystitis (chronic) without hematuria (2) Microscopic hematuria: Code(s): R31.29 - Other microscopic hematuria (3) Osteoarthritis of knees, bilateral: Code(s): M17.0 - Bilateral primary osteoarthritis of knee Qualifiers: Osteoarthritis type: primary Qualified Code(s): M17.0 - Bilateral primary osteoarthritis of knee (4) Difficulty walking: Code(s): R26.2 - Difficulty in walking, not elsewhere classified Plan Patient is 58-year-old female with a history of severe osteoarthritis both knees, autoimmune disorder Came in today to be evaluated for possible UTI Patient says that it does not hurt to urinate but it feels sore off and on in pelvic area Patient does have a history of interstitial cystitis as well and microscopic hematuria off and on She has been evaluated by urologist and had a cystoscopy done UA done today shows very small amount of blood but no other signs of bladder infection Recommended to continue pushing fluids Patient is also requesting a handicap placard because of her bilateral severe knee osteoarthritis Form filled for 1 year. Coding Level of Care Code Est Pt Level 4 (00060) Diagnoses Interstitial cystitis N30.10 Microscopic hematuria R31.29 Primary osteoarthritis of both knees M17.0 Osteoarthritis type: primary Difficulty walking R26.2
== END 2023-10-10 09:01 | disposition home or self-care (01) ==
PROVIDERS: PCP Internal Medicine; Visit Provider Internal Medicine
DX: N30.10 Interstitial cystitis (chronic) without hematuria (principal); R31.29 Other microscopic hematuria; M17.0 Bilateral primary osteoarthritis of knee; R26.2 Difficulty in walking, not elsewhere classified
CPT/HCPCS: 99214

== ENCOUNTER 2023-10-21 09:01 | Outpatient (AMB) | payer MEDICARE, MEDICAID, SELFPAY ==
[2023-10-21 09:02] VITALS: BP 144/86; PULSE 86; O2SAT 98; BMI 37.9
--- NOTE | 2023-10-21 09:02 | A.OFFPC_ITS ---
Vital Signs 10/21/23 09:02 Height 5 ft 4 in Weight 221 lb BMI 37.9 BP 144/86 H Blood Pressure Location Rt brachial Position Sitting Pulse 86 Pulse Source Pulse Oximeter Pulse Oximetry (%) 98 Oxygen Delivery Method Room Air Intake Visit Reasons: UTI? Allergies gabapentin [GABAPENTIN] Allergy (Severe, Verified 10/10/23 08:13) SEVERE GI ISSUES Iodinated Contrast Media [IV DYE, IODINE CONTAINING] Allergy (Severe, Verified 10/10/23 08:13) SWELLING Sulfa (Sulfonamide Antibiotics) [SULFA (SULFONAMIDE ANTIBIOTICS)] Allergy (Severe, Verified 10/10/23 08:13) ANAPHYLAXIS, swelling Milk Containing Products (Dairy) Allergy (Intermediate, Verified 10/10/23 08:13) Rash lidocaine Allergy (Mild, Verified 10/10/23 08:13) Welts nabumetone Allergy (Unknown, Verified 10/10/23 08:13) Abdominal Pain pregabalin Allergy (Unknown, Verified 10/10/23 08:13) unknown venlafaxine Allergy (Unknown, Verified 10/10/23 08:13) unknown semaglutide [From Ozempic] Adverse Reaction (Intermediate, Verified 10/10/23 08:13) Rash meloxicam Adverse Reaction (Unknown, Verified 10/10/23 08:13) abdominal pain all meat Allergy (Unknown, Uncoded 09/30/23 14:33) unknown Environmental Allergy (Unknown, Uncoded 09/30/23 14:33) unknown Medication List - Last Reconciled 10/21/23 by Lyndon Fagan MD alprazolam 0.5 mg PO BID 30 days Breo Ellipta 200-25 mcg/dose (fluticasone furoate-vilanterol) 1 inh inhalation DAILY 30 days NS Grab bar grab bar for shower linaclotide (Linzess) 72 mcg PO QAM pantoprazole 40 mg PO BID rosuvastatin 10 mg PO DAILY valacyclovir 500 mg PO DAILY 90 days Tobacco use date assessed: 09/30/23 Dental Screening Dental Screen Date: 09/30/23 HPI UTI? HPI Details Patient is 58-year-old female came in today to be evaluated for possible bladder infection Patient was seen earlier this month for similar problem, at that time her UA only showed slight amount of blood She was instructed to push fluids and if symptoms get worse to come back Patient did not had any dysuria when she was seen earlier She still does not have any dysuria however the bleeding has increased Patient is not sure if it is coming from bladder or vagina But she is wearing a pad I have ordered ultrasound of pelvis and transvaginal Meanwhile I will be treating her for possible bladder infection with Levaquin 250 mg once a day 5 days Culture of urine sent as well She has no fever chills no new pains Patient also handicap placard paperwork filled, the paperwork to be filled last time was incomplete. Further management after the ultrasound report [facility] Medical History Pre-op evaluation Shortness of breath Encounter for routine gynecological examination Feeling sick UTI (urinary tract infection) Respiratory infection Hospital discharge follow-up Medicare annual wellness visit, initial Urinary tract infection Medicare annual wellness visit, subsequent Screening examination for infectious disease Large joint arthralgia of multiple sites Herpes Environmental allergies Anxiety, generalized Lipid disorder Umbilical hernia Fibromyalgia Acute arthritis Tendonitis Surgical History Hx of hernia repair History of esophagogastroduodenoscopy (EGD) Hx of colonoscopy History of meniscectomy of left knee (~01/12/14) History of cholecystectomy H/O hand surgery Family History Mother Cervical cancer Bladder cancer Father Cancer Sister No problems noted. Other Mental health disorder Substance use disorder Social History Household Members: Significant Other Housing: Apartment Alcohol intake: former Year quit: 22yo Patient Tobacco Use Status: Former Tobacco user Quit Date: Age 22 e-Cigarette/Vaping Use: Never Used service: No Current occupational status: unemployed and disabled Sexual orientation: Straight/Heterosexual Gender identity: Female Cognitive needs: No Hearing needs: No Vision needs: No Questionnaire Thrive Questionnaire Date Thrive assessed: 07/02/23 ARIANNA-7 AMB Questionnaire ARIANNA-7 Date ARIANNA - 7 assessed: 07/02/23 Source: Developed by Drs. Kenneth Preston, Aruna Alcantar, Babak Rebolledo and colleagues, with an educational morris from [employer]. Review of Systems Const Denies chills and Denies fever(s) ENT Denies epistaxis and Denies nasal discharge Card Denies chest pain Resp Denies chest congestion, Denies cough and Denies hemoptysis GI Denies diarrhea and Denies nausea Skin/Breast Denies rash Neuro Reports no additional complaints Psych Reports no additional complaints Endo Reports no additional complaints Physical exam (Primary Care) Vital Signs: Last Vital Signs Pulse 86 10/21/23 09:02 BP 144/86 H 10/21/23 09:02 Pulse Ox 98 10/21/23 09:02 Oxygen Delivery Method Room Air 10/21/23 09:02 BMI result Body Mass Index 37.9 Tobacco/Smoking Status: Tobacco use Status Tobacco use date assessed 09/30/23 10/21/23 09:02 Patient Tobacco Use Status Former Tobacco user 10/21/23 09:02 e-Cigarette/Vaping Use Never Used 10/21/23 09:02 Thrive Assessment: Date of Thrive Assessment Date Thrive assessed 07/02/23 10/21/23 09:02 Const General: cooperative, comfortable and no acute distress Orientation/consciousness: patient oriented x3 HENMT Head: Yes normocephalic Eyes General: appearance normal, both eyes and all related structures Neck Neck: Yes supple Resp Effort & Inspection: normal respiratory effort, no cough and no stridor Cardio Rhythm: regular rhythm Heart sounds: S1 normal heart sound present and S2 normal heart sound present GI Other: No suprapubic discomfort, but patient says it feels as if she is about to have her periods General: Yes no CVA tenderness Back/Spine/Pelvis Back: no CVA tenderness Skin General skin exam: turgor normal Neuro General: patient oriented x3, tone normal and moves all extremities Extrem Right lower extremity: no edema Left lower extremity: no edema Results AMB Urinalysis, Automated UA Leukoctes 15 Zac/uL Last Edit by Janeth Otoole MA on 10/21/23 09:13 UA Nitrite Negative Last Edit by Janeth Otoole MA on 10/21/23 09:13 UA Urobilinogen 0.2 mg/dL Last Edit by Janeth Otoole MA on 10/21/23 09:13 UA Protein 30 mg/dL Last Edit by Janeth Otoole MA on 10/21/23 09:13 UA pH 6.0 Last Edit by Janeth Otoole MA on 10/21/23 09:13 UA Blood 200 Nikunj/uL Last Edit by Janeth Otoole MA on 10/21/23 09:13 UA Specific [place] 1.029 Last Edit by Janeth Otoole MA on 10/21/23 09:1 3 UA Ketone Positive Last Edit by Janeth Otoole MA on 10/21/23 09:13 UA Bilirubin 2 mg/dL Last Edit by Janeth Otoole MA on 10/21/23 09:13 UA Glucose 0 mg/dL Last Edit by Janeth Otoole MA on 10/21/23 09:13 Results Reviewed Results Reviewed: Laboratory Last Values Urine pH (Auto) 6.0 10/21/23 09:10 Specific [place] (Auto) 1.029 10/21/23 09:10 Urine Protein (Auto) 30 mg/dL 10/21/23 09:10 Glucose (UA)(Auto) 0 mg/dL 10/21/23 09:10 Urine Ketones (Auto) Positive 10/21/23 09:10 Urine Blood (Auto) 200 Nikunj/uL 10/21/23 09:10 Urine Nitrite (Auto) Negative 10/21/23 09:10 Urine Bilirubin (Auto) 2 mg/dL 10/21/23 09:10 Urine Urobilinogen (Auto) 0.2 mg/dL 10/21/23 09:10 Leukocyte Esterase (Auto) 15 Zac/uL 10/21/23 09:10 Assessment and Plan Assessment & Plan (1) Menopausal bleeding: Code(s): N92.4 - Excessive bleeding in the premenopausal period (2) Microscopic hematuria: Code(s): R31.29 - Other microscopic hematuria Plan Patient is 58-year-old female came in today to be evaluated for possible bladder infection Patient was seen earlier this month for similar problem, at that time her UA only showed slight amount of blood She was instructed to push fluids and if symptoms get worse to come back Patient did not had any dysuria when she was seen earlier She still does not have any dysuria however the bleeding has increased Patient is not sure if it is coming from bladder or vagina But she is wearing a pad I have ordered ultrasound of pelvis and transvaginal Meanwhile I will be treating her for possible bladder infection with Levaquin 250 mg once a day 5 days Culture of urine sent as well She has no fever chills no new pains Patient also handicap placard paperwork filled, the paperwork to be filled last time was incomplete. Further management after the ultrasound report Orders: Orders US pelvic and transvaginal Today N92.4 - Excessive bleeding in the premeno pausal period, R31.29 - Other microscopic hematuria Urine Culture Today R31.29 - Other microscopic hematuria Medications: New fluconazole may repeat second dose 72 hrs after first dose if symptoms persist 150 mg PO Q3D 2 tabs 0RF 2 doses levofloxacin 250 mg PO DAILY 5 tabs 0RF 5 days Coding Level of Care Code Est Pt Level 4 (85238) Diagnoses Menopausal bleeding N92.4 Microscopic hematuria R31.29
== END 2023-10-21 11:25 | disposition home or self-care (01) ==
LOC: HO.HMGC 09:01
PROVIDERS: PCP Internal Medicine; Visit Provider Internal Medicine
DX: N92.4 Excessive bleeding in the premenopausal period (principal); R31.29 Other microscopic hematuria
CPT/HCPCS: 99214

== ENCOUNTER 2023-10-21 11:38 | Outpatient (REF) | payer MEDICARE, MEDICAID, SELFPAY | END 2023-10-21 11:39 | disposition home or self-care (01) | LOC: HO.LNP 11:38 | PROVIDERS: Visit Provider Internal Medicine | DX: R31.29 Other microscopic hematuria (principal) | CPT/HCPCS: 87086 ==

== ENCOUNTER 2023-10-23 15:05 | Outpatient (REF) | payer MEDICARE, MEDICAID, SELFPAY ==
--- NOTE | ~2023-10-23 | US_ITS ---
EXAMINATION: US PELVIS CLINICAL INFORMATION: Postmenopausal bleeding. Hematuria. COMPARISON: CT abdomen/pelvis 08/02/2019. TECHNIQUE: Ultrasound of the pelvis is performed using both transabdominal and transvaginal transducers along with Doppler. Transvaginal imaging is performed due to inadequate visualization transabdominally. FINDINGS: Uterus: The uterus is anteverted and measures 7.7 x 2.1 x 4.1 cm. The double wall endometrial thickness is 3 mm. The uterus is smooth in contour and has normal myometrial echogenicity. No visible fibroid. Nabothian cysts are seen in the cervix. Some cervical calcifications are seen as well. Adnexa: The right ovary could not be seen. Left ovary measures 1.1 x 0.5 x 0.9 cm and appears unremarkable. US/US pelvic and transvaginal IMPRESSION: No significant abnormality is seen. The endometrium is normal in thickness.
== END 2023-10-23 15:06 | disposition home or self-care (01) ==
LOC: HO.US 15:05
PROVIDERS: PCP Internal Medicine; Visit Provider Internal Medicine
DX: N92.4 Excessive bleeding in the premenopausal period (principal); R31.29 Other microscopic hematuria
CPT/HCPCS: 76830; 76856

== ENCOUNTER 2023-12-15 10:06 | Outpatient (AMB) | payer MEDICARE, MEDICAID, SELFPAY ==
[2023-12-15 10:17] VITALS: BP 130/76; PULSE 78; TEMP 37.2; O2SAT 97; BMI 38.0
--- NOTE | 2023-12-15 10:17 | AM.OFFWIN_ITS ---
Intake Vital Signs 12/15/23 10:17 Height 5 ft 4 in Weight 221 lb 6 oz BMI 38.0 BP 130/76 Blood Pressure Location Rt brachial Position Sitting Pulse 78 Pulse Source Pulse Oximeter Temp 98.9 F Temp Source Temporal Artery Scan Pulse Oximetry (%) 97 Oxygen Delivery Method Room Air Intake Visit Reasons: EP chest burning/congestion/back pain Intake Note: pt is here for chest burning, congestion, and back pain Patient Tobacco Use Status: Former Tobacco user Allergies gabapentin [GABAPENTIN] Allergy (Severe, Verified 12/15/23 10:18) SEVERE GI ISSUES Iodinated Contrast Media [IV DYE, IODINE CONTAINING] Allergy (Severe, Verified 12/15/23 10:18) SWELLING Sulfa (Sulfonamide Antibiotics) [SULFA (SULFONAMIDE ANTIBIOTICS)] Allergy (Severe, Verified 12/15/23 10:18) ANAPHYLAXIS, swelling Milk Containing Products (Dairy) Allergy (Intermediate, Verified 12/15/23 10:18) Rash lidocaine Allergy (Mild, Verified 12/15/23 10:18) Welts nabumetone Allergy (Unknown, Verified 12/15/23 10:18) Abdominal Pain pregabalin Allergy (Unknown, Verified 12/15/23 10:18) unknown venlafaxine Allergy (Unknown, Verified 12/15/23 10:18) unknown semaglutide [From Ozempic] Adverse Reaction (Intermediate, Verified 12/15/23 10:18) Rash meloxicam Adverse Reaction (Unknown, Verified 12/15/23 10:18) abdominal pain all meat Allergy (Unknown, Uncoded 09/30/23 14:33) unknown Environmental Allergy (Unknown, Uncoded 09/30/23 14:33) unknown Medication List - Last Reconciled 12/15/23 by Amie Enrique NP alprazolam 0.5 mg PO BID 30 days Breo Ellipta 200-25 mcg/dose (fluticasone furoate-vilanterol) 1 inh inhalation DAILY 30 days NS Grab bar grab bar for shower linaclotide (Linzess) 72 mcg PO QAM pantoprazole 40 mg PO BID rosuvastatin 10 mg PO DAILY valacyclovir 500 mg PO DAILY 90 days Do you need a note to return to daycare/school/sports/work: No HPI EP chest burning/congestion/back pain HPI Details This note is constructed using voice recognition software. While every effort has been made to ensure accuracy, spindle plumber errors may have been included. 58-year-old female presents with 3 week history of cough, without fever. She notes that she has a history of asthma, and her lungs feel tight. The cough has led to her having some back pain, that seems to be worse when she coughs or takes a breath. She does not use albuterol inhaler as she has allergy to components of the inhaler and does follow up digital marketing lead at baseline. She notes that she is compliant with her daily preventative controller inhaler. She has had no fevers, chills, does note that she has dyspnea with exertion, mainly with climbing up a flight of stairs or walking from her bedroom to the living room. She is sleeping on 1 additional pillow at night. Secretions are yellow to clear. She has had no known sick contacts. [facility] Medical History (Updated 10/30/23 @ 23:57 by Patricia Rodriguez [facility]) Obesity (BMI 30-39.9) Osteoarthritis of left knee Localized osteoarthritis of shoulder regions, bilateral Bilateral shoulder pain Pre-op evaluation Shortness of breath Encounter for routine gynecological examination Feeling sick UTI (urinary tract infection) Respiratory infection Hospital discharge follow-up Medicare annual wellness visit, initial Urinary tract infection Medicare annual wellness visit, subsequent Screening examination for infectious disease Large joint arthralgia of multiple sites Herpes Environmental allergies Anxiety, generalized Lipid disorder Umbilical hernia Fibromyalgia Acute arthritis Tendonitis Surgical History Hx of hernia repair History of esophagogastroduodenoscopy (EGD) Hx of colonoscopy History of meniscectomy of left knee (~01/12/14) History of cholecystectomy H/O hand surgery Family History Mother Cervical cancer Bladder cancer Father Cancer Sister No problems noted. Other Mental health disorder Substance use disorder Social History Household Members: Significant Other Housing: Apartment Alcohol intake: former Year quit: 22yo Patient Tobacco Use Status: Former Tobacco user e-Cigarette/Vaping Use: Never Used service: No Current occupational status: unemployed and disabled Sexual orientation: Straight/Heterosexual Gender identity: Female Cognitive needs: No Hearing needs: No Vision needs: No Review of Systems Const All systems reviewed & are unremarkable except as noted in HPI and below Physical Exam Vital Signs: Last Vital Signs Temp 98.9 F 12/15/23 10:17 Pulse 78 12/15/23 10:17 BP 130/76 12/15/23 10:17 Pulse Ox 97 12/15/23 10:17 Oxygen Delivery Method Room Air 12/15/23 10:17 BMI result Body Mass Index 38.0 Const General: cooperative, healthy appearing, comfortable and no acute distress Orientation/consciousness: patient oriented x3 Limitations: no limitations HEENT Head: Yes normal to inspection Ears: hearing grossly normal bilaterally, external ears normal and TM's normal bilaterally General nose exam: Normal external nose present, Normal nares present and No nasal discharge present Face and sinus: Yes normal facial exam and Yes sinuses nontender Mouth: Normal oral and palatal mucosa present and moist mucous membranes Throat: Yes posterior oropharynx normal, Yes tonsils normal and Yes uvula midline Eyes General: appearance normal, both eyes and all related structures Neck Neck: Yes normal visual inspection Resp Effort & Inspection: normal respiratory effort, able to speak in complete sentences, Actively coughing, no respiratory distress, not tachypneic, no tripod positioning and no use of accessory muscles Auscultation: clear to auscultation bilaterally Cardio Jugular venous distension: no JVD Rate: regular rate Rhythm: regular rhythm Heart sounds: S1 normal heart sound present, S2 normal heart sound present, no click, no gallops, no murmurs and no rubs General: Yes no CVA tenderness Back/Spine/Pelvis Other: costochondral tenderness bilaterally chest wall posterior. Back: no CVA tenderness Skin General skin exam: no rashes or lesions noted, elasticity normal and turgor normal Neuro General: patient oriented x3 Extrem General: Yes normal to inspection and Yes no clubbing, cyanosis or edema Assessment & Plan Assessment & Plan (1) Costochondritis: Code(s): M94.0 - Chondrocostal junction syndrome [Tietze] Plan: Advised use of NSAIDS for pain as well as topical muscle rubs. Advised use of sunscreen or covering of skin which muscle rubs have been applied to. (2) Asthma exacerbation: Code(s): J45.901 - Unspecified asthma with (acute) exacerbation Qualifiers: Asthma severity: mild Asthma persistence: intermittent Qualified Code(s): J45.21 - Mild intermittent asthma with (acute) exacerbation Plan: Prescription provided for prednisone. Advised work with digital marketing lead for appropriate albuterol equivalent given her allergy history and inability to tolerate albuterol. Reviewed recommended need for PERRY an asthmatic patients, patient declined prescription at this time. Plan See above for full details and plan. Medications: New prednisone Take 6 pills daily x 2 days, then 5 pills daily x 2 days, then 4 pills daily x 2 days, then 3 pills daily x 2 days, then 2 pills daily x 2 days, then 1 pill daily x 2 days. 10 mg PO DIRECTED 42 tabs 0RF Coding Level of Care Code Est Pt Level 4 (26446) Diagnoses Costochondritis M94.0 Mild intermittent asthma with exacerbation J45.21 Asthma severity: mild Asthma persistence: intermittent
== END 2023-12-15 11:04 | disposition home or self-care (01) ==
PROVIDERS: PCP Internal Medicine; Visit Provider Registered Nurse
DX: M94.0 Chondrocostal junction syndrome [Tietze] (principal); J45.21 Mild intermittent asthma with (acute) exacerbation
CPT/HCPCS: 99214

== ENCOUNTER 2023-12-16 09:50 | Emergency (ER) | payer MEDICARE, MEDICAID, SELFPAY ==
[2023-12-16 10:14] VITALS: BP 156/87; PULSE 87; RESP 16; TEMP 37.1; O2SAT 99; BMI 41.6
[2023-12-16 10:43] LABS: IDNOW Serial# 08D9AD1C; Strep A Nucleic Acid Negative (Negative)
[2023-12-16 11:03] LABS: Influenza A PCR NEGATIVE (Negative); Influenza B PCR NEGATIVE (Negative); Resp Syncy Virus RNA Qual PCR NEGATIVE (Negative); SARS COV2 PCR INHOUSE NEGATIVE (Negative)
--- NOTE | 2023-12-16 11:24 | ED_ITS ---
HPI - General Adult General Chief complaint: Upper Respiratory Symptoms Stated complaint: sore throat Time Seen by Provider: 12/16/23 11:24 Source: patient, RN notes reviewed and old records reviewed Mode of arrival: ambulatory Limitations: no limitations History of Present Illness ED Provider: Rasheeda HPI narrative: 58-year-old female presents for evaluation of a sore throat and congestion. Patient presents with her grandson and granddaughter. The patient's granddaughter tested positive for strep pharyngitis earlier this morning The patient is able to swallow and has no fevers No other complaints or concerns at this time Related Data Previous Rx's ?Medication ?Instructions ?Recorded rosuvastatin 10 mg tablet 10 mg PO DAILY #90 tabs 10/16/22 Breo Ellipta 200 mcg-25 mcg/dose 1 inh inhalation DAILY 30 days #1 05/09/23 powder for inhalation (fluticasone ea furoate-vilanterol) Grab bar #1 ea 05/13/23 linaclotide 72 mcg capsule 72 mcg PO QAM #30 caps 09/24/23 (Linzess) pantoprazole 40 mg tablet,delayed 40 mg PO BID #180 tabs 09/24/23 release valacyclovir 500 mg tablet 500 mg PO DAILY 90 days #90 tabs 09/29/23 alprazolam 0.5 mg tablet 0.5 mg PO BID 30 days #60 tabs 09/30/23 prednisone 10 mg tablet 10 mg PO DIRECTED #42 tabs 12/15/23 amoxicillin 500 mg capsule 500 mg PO TID #21 caps 12/16/23 Allergies Allergy/AdvReac Type Severity Reaction Status Date / Time gabapentin [GABAPENTIN] Allergy Severe SEVERE GI Verified 12/16/23 10:16 ISSUES Iodinated Contrast Media Allergy Severe SWELLING Verified 12/16/23 10:16 [IV DYE, IODINE CONTAINING] Sulfa (Sulfonamide Allergy Severe ANAPHYLAXIS, Verified 12/16/23 10:16 Antibiotics) swelling [SULFA (SULFONAMIDE ANTIBIOTICS)] Milk Containing Products Allergy Intermediate Rash Verified 12/16/23 10:16 (Dairy) lidocaine Allergy Mild Welts Verified 12/16/23 10:16 nabumetone Allergy Unknown Abdominal Verified 12/16/23 10:16 Pain pregabalin Allergy Unknown unknown Verified 12/16/23 10:16 venlafaxine Allergy Unknown unknown Verified 12/16/23 10:16 semaglutide [From Ozempic] AdvReac Intermediate Rash Verified 12/16/23 10:16 meloxicam AdvReac Unknown abdominal Verified 12/16/23 10:16 pain all meat Allergy Unknown unknown Uncoded 09/30/23 14:33 Environmental Allergy Unknown unknown Uncoded 09/30/23 14:33 Review of Systems Constitutional: Constitutional: Denies body ache(s), Denies chills and Denies fever(s) ENT: Denies vertigo and Reports sore throat Cardiovascular: Cardiovascular: Denies chest pain and Denies dyspnea Respiratory: Respiratory: Reports chest congestion, Denies cough and Denies dyspnea Gastrointestinal: Gastrointestinal: Denies abdominal pain Integumentary/Breasts: Skin/Breast: Denies rash Neurologic: Denies vertigo [facility] Past Medical History Medical History (Updated 12/16/23 @ 11:28 by Grant Vanessa) Obesity (BMI 30-39.9) Osteoarthritis of left knee Localized osteoarthritis of shoulder regions, bilateral Bilateral shoulder pain Pre-op evaluation Shortness of breath Encounter for routine gynecological examination Feeling sick UTI (urinary tract infection) Respiratory infection Hospital discharge follow-up Medicare annual wellness visit, initial Urinary tract infection Medicare annual wellness visit, subsequent Screening examination for infectious disease Large joint arthralgia of multiple sites Herpes Environmental allergies Anxiety, generalized Lipid disorder Umbilical hernia Fibromyalgia Acute arthritis Tendonitis Surgical History Hx of hernia repair History of esophagogastroduodenoscopy (EGD) Hx of colonoscopy History of meniscectomy of left knee (~01/12/14) History of cholecystectomy H/O hand surgery Family History Family History Mother Cervical cancer Bladder cancer Father Cancer Sister No problems noted. Other Mental health disorder Substance use disorder Social History Social History Household Members: Significant Other Housing: Apartment Alcohol intake: former Year quit: 22yo Patient Tobacco Use Status: Former Tobacco user e-Cigarette/Vaping Use: Never Used Advance Directives: No service: No Current occupational status: unemployed and disabled Sexual orientation: Straight/Heterosexual Gender identity: Female Cognitive needs: No Hearing needs: No Vision needs: No Physical Exam ED Vital Signs: Vital Signs - 24 hr 12/16/23 10:14 Temperature 98.7 F Pulse Rate 87 Respiratory Rate 16 Blood Pressure 156/87 H Pulse Oximetry 99 Oxygen Delivery Method Room Air BMI result Body Mass Index 41.6 Const General: healthy appearing, comfortable, no acute distress, alert and awake Nutritional Appearance: well nourished Orientation/consciousness: patient oriented x3 HENMT Other: Mildly erythematous oropharynx without exudates or tonsillar hypertrophy. Head: Yes normocephalic and Yes atraumatic Eyes Eyelids: Yes eyelids normal Conjunctivae: conjunctivae normal Sclerae: sclerae normal Corneas: corneas normal Pupils: Equal, round and reactive pupils present EOM: EOMs intact bilaterally Neck Neck: Yes full ROM Resp Effort & Inspection: normal respiratory effort, able to speak in complete sentences and not labored Skin General skin exam: elasticity normal Neuro General: patient oriented x3 Cranial nerves: Yes Equal, round and reactive pupils present and Yes Bilaterally intact EOM present Cognition (Neuro): normal cognition Extrem Other: Moving all extremities well without any obvious deformities Medical Decision Making Medical Decision Making MDM Narrative: [age] old female presents for evaluation of a sore throat. Given that her granddaughter who she lives with tested positive for strep we will treat the patient for strep despite a negative test. Will prescribe amoxicillin 3 times daily for 1 week Differential Diagnosis Differential Diagnoses: The differential diagnosis associated with the presentation includes Pharyngitis Exudative pharyngitis Upper respiratory infection Viral syndrome Lab Data Labs: Lab Results 12/16/23 12/16/23 Range/Units 10:08 10:09 Influenza Type A (PCR) NEGATIVE (Negative) Influenza Type B (PCR) NEGATIVE (Negative) RSV RNA Qual (PCR) NEGATIVE (Negative) SARS-CoV-2 RNA (RT-PCR) NEGATIVE (Negative) S. pyogenes GrpA DEANA Negative (Negative) Discharge Plan Discharge Clinical Impression: Pharyngitis Patient Disposition: Home, Self-Care Instructions: Pharyngitis (ED) Additional Instructions: You tested negative for COVID, influenza, RSV and strep throat. Given that your granddaughter tested positive for strep throat, I feel is appropriate to give you amoxicillin to treat strep throat Take this 3 times a day for 1 week Follow-up with your primary doctor Prescriptions: New amoxicillin 500 mg capsule 500 mg PO TID Qty: 21 0RF No Action rosuvastatin 10 mg tablet 10 mg PO DAILY Qty: 90 0RF (DME) Grab bar Misc See Rx Instructions .Route Qty: 1 0RF Rx Instructions: grab bar for shower valacyclovir 500 mg tablet 500 mg PO DAILY 90 Days Qty: 90 0RF prednisone 10 mg tablet 10 mg PO DIRECTED Qty: 42 0RF Rx Instructions: Take 6 pills daily x 2 days, then 5 pills daily x 2 days, then 4 pills daily x 2 days, then 3 pills daily x 2 days, then 2 pills daily x 2 days, then 1 pill daily x 2 days. alprazolam 0.5 mg tablet 0.5 mg PO BID 30 Days Qty: 60 2RF fluticasone furoate-vilanterol [Breo Ellipta] 200-25 mcg/dose blister with device 1 inh inhalation DAILY 30 Days Qty: 1 6RF pantoprazole 40 mg tablet,delayed release (DR/EC) 40 mg PO BID Qty: 180 1RF Linzess 72 mcg capsule 72 mcg PO QAM Qty: 30 6RF Print Language: Sudanese
== END 2023-12-16 11:38 | disposition home or self-care (01) ==
PROVIDERS: Emergency Provider Emergency Medicine; PCP Internal Medicine
DX: J02.9 Acute pharyngitis, unspecified (principal); Z03.818 Encounter for observation for suspected exposure to other biological agents ruled out
CPT/HCPCS: 0241U; 87651; 99281; 99283

== ENCOUNTER 2024-01-23 08:04 | Outpatient (AMB) | payer MEDICARE, MEDICAID, SELFPAY ==
[2024-01-23 08:05] VITALS: BP 126/84; PULSE 81; O2SAT 96; BMI 42.0
--- NOTE | 2024-01-23 08:05 | A.OFFPC_ITS ---
Vital Signs 01/23/24 08:05 Height 5 ft 1 in Weight 222 lb 8 oz BMI 42.0 BP 126/84 Blood Pressure Location Rt brachial Position Sitting Pulse 81 Pulse Source Pulse Oximeter Pulse Oximetry (%) 96 Oxygen Delivery Method Room Air Intake Visit Reasons: 3 months Allergies gabapentin [GABAPENTIN] Allergy (Severe, Verified 01/23/24 08:06) SEVERE GI ISSUES Iodinated Contrast Media [IV DYE, IODINE CONTAINING] Allergy (Severe, Verified 01/23/24 08:06) SWELLING Sulfa (Sulfonamide Antibiotics) [SULFA (SULFONAMIDE ANTIBIOTICS)] Allergy (Severe, Verified 01/23/24 08:06) ANAPHYLAXIS, swelling Milk Containing Products (Dairy) Allergy (Intermediate, Verified 01/23/24 08:06) Rash lidocaine Allergy (Mild, Verified 01/23/24 08:06) Welts nabumetone Allergy (Unknown, Verified 01/23/24 08:06) Abdominal Pain pregabalin Allergy (Unknown, Verified 01/23/24 08:06) unknown venlafaxine Allergy (Unknown, Verified 01/23/24 08:06) unknown semaglutide [From Ozempic] Adverse Reaction (Intermediate, Verified 01/23/24 08:06) Rash meloxicam Adverse Reaction (Unknown, Verified 01/23/24 08:06) abdominal pain all meat Allergy (Unknown, Uncoded 09/30/23 14:33) unknown Environmental Allergy (Unknown, Uncoded 09/30/23 14:33) unknown Medication List - Last Reconciled 01/23/24 by Lyndon Fagan MD alprazolam 0.5 mg PO BID 30 days linaclotide (Linzess) 72 mcg PO QAM pantoprazole 40 mg PO BID rosuvastatin 10 mg PO DAILY valacyclovir 500 mg PO DAILY 90 days Tobacco use date assessed: 01/23/24 Dental Screening Dental Screen Date: 01/23/24 Did you have a dental visit in the last 12 months?: Yes Did you have a dental problem in the last 6 months where you did not have access to dental care?: No Was dental information given to patient?: Patient has dentist HPI 3 months HPI Details patient is 58-year-old female came in today regular follow-up appointment and to have her medication refilled Patient have anxiety panic disorder and is on alprazolam prescription She come in every three-month for refill and evaluation, patient is complying with the treatment plan She is complaining of itchy scalp and has been using tea tree shampoo, patient says that when her hair is wet after shower she feels itchy She says that her sister has psoriasis so she is pretty sure she does have the same. We discussed possible sensitivity to the shampoo she is using, I would recommend to change the brand and see if it helps She is due for labs She continued to complain of feeling tired and fatigued all the time Patient have sleep apnea and she is using CPAP machine She was seeing Dr Parikh for the management Patient is also morbidly obese with BMI of 42.0 and is having difficulty losing weight However she has joint gym and has started swimming and is feeling better than before. She also have interstitial cystitis which is stable at this time Diet-controlled diabetes, we will check hemoglobin A1c. Gastric medications through [facility] Follow-up 3 months [facility] Medical History Obesity (BMI 30-39.9) Osteoarthritis of left knee Localized osteoarthritis of shoulder regions, bilateral Bilateral shoulder pain Pre-op evaluation Shortness of breath Encounter for routine gynecological examination Feeling sick UTI (urinary tract infection) Respiratory infection Hospital discharge follow-up Medicare annual wellness visit, initial Urinary tract infection Medicare annual wellness visit, subsequent Screening examination for infectious disease Large joint arthralgia of multiple sites Herpes Environmental allergies Anxiety, generalized Lipid disorder Umbilical hernia Fibromyalgia Acute arthritis Tendonitis Surgical History Hx of hernia repair History of esophagogastroduodenoscopy (EGD) Hx of colonoscopy History of meniscectomy of left knee (~01/12/14) History of cholecystectomy H/O hand surgery Family History Mother Cervical cancer Bladder cancer Father Cancer Sister No problems noted. Other Mental health disorder Substance use disorder Social History Household Members: Significant Other Housing: Apartment Alcohol intake: former Year quit: 22yo Patient Tobacco Use Status: Former Tobacco user e-Cigarette/Vaping Use: Never Used service: No Current occupational status: unemployed and disabled Sexual orientation: Straight/Heterosexual Gender identity: Female Cognitive needs: No Hearing needs: No Vision needs: No Questionnaire Thrive Questionnaire Date Thrive assessed: 07/02/23 AUDIT C Alcohol Use Questionnaire (AUDIT-C) 1. How often do you have a drink containing alcohol?: Never 3. How often do you have six or more drinks on one occasion?: Never Total Score: 0 Score Reviewed/Action Taken: Yes ARIANNA-7 AMB Questionnaire ARIANNA-7 Date ARIANNA - 7 assessed: 07/02/23 Source: Developed by Drs. Kenneth Preston, Aruna Alcantar, Babak Rebolledo and colleagues, with an educational morris from [employer]. Review of Systems Const Denies chills and Denies fever(s) ENT Denies epistaxis and Denies nasal discharge Card Denies chest pain Resp Denies chest congestion, Denies cough and Denies hemoptysis GI Denies diarrhea and Denies nausea Skin/Breast Denies rash Neuro Reports no additional complaints Psych Reports no additional complaints Endo Reports no additional complaints Physical exam (Primary Care) Vital Signs: Last Vital Signs Pulse 81 01/23/24 08:05 BP 126/84 01/23/24 08:05 Pulse Ox 96 01/23/24 08:05 Oxygen Delivery Method Room Air 01/23/24 08:05 BMI result Body Mass Index 42.0 Tobacco/Smoking Status: Tobacco use Status Tobacco use date assessed 01/23/24 01/23/24 08:09 Patient Tobacco Use Status Former Tobacco user 01/23/24 08:09 e-Cigarette/Vaping Use Never Used 01/23/24 08:09 Thrive Assessment: Date of Thrive Assessment Date Thrive assessed 07/02/23 01/23/24 08:09 Const General: cooperative, comfortable and no acute distress Orientation/consciousness: patient oriented x3 HENMT Head: Yes normocephalic Eyes General: appearance normal, both eyes and all related structures Neck Neck: Yes supple Resp Effort & Inspection: normal respiratory effort, no cough and no stridor Cardio Rhythm: regular rhythm Heart sounds: S1 normal heart sound present and S2 normal heart sound present Skin General skin exam: turgor normal Neuro General: patient oriented x3, tone normal and moves all extremities Extrem Right lower extremity: no edema Left lower extremity: no edema Assessment and Plan Assessment & Plan (1) Tired: Code(s): R53.83 - Other fatigue (2) Diet-controlled diabetes mellitus: Code(s): E11.9 - Type 2 diabetes mellitus without complications (3) Lipid disorder: Code(s): E78.9 - Disorder of lipoprotein metabolism, unspecified (4) Fibromyalgia: Code(s): M79.7 - Fibromyalgia (5) Anxiety, generalized: Code(s): F41.1 - Generalized anxiety disorder (6) Environmental allergies: Code(s): Z91.09 - Other allergy status, other than to drugs and biological substances (7) GERD (gastroesophageal reflux disease): Code(s): K21.9 - Gastro-esophageal reflux disease without esophagitis Qualifiers: Esophagitis presence: without esophagitis Qualified Code(s): K21.9 - Gastro-esophageal reflux disease without esophagitis (8) Morbid obesity due to excess calories: Code(s): E66.01 - Morbid (severe) obesity due to excess calories (9) B12 deficiency: Code(s): E53.8 - Deficiency of other specified B group vitamins Plan patient is 58-year-old female came in today regular follow-up appointment and to have her medication refilled Patient have anxiety panic disorder and is on alprazolam prescription She come in every three-month for refill and evaluation, patient is complying with the treatment plan She is complaining of itchy scalp and has been using tea tree shampoo, patient says that when her hair is wet after shower she feels itchy She says that her sister has psoriasis so she is pretty sure she does have the same. We discussed possible sensitivity to the shampoo she is using, I would recommend to change the brand and see if it helps She is due for labs She continued to complain of feeling tired and fatigued all the time Patient have sleep apnea and she is using CPAP machine She was seeing Dr Parikh for the management Patient is also morbidly obese with BMI of 42.0 and is having difficulty losing weight However she has joint gym and has started swimming and is feeling better than before. She also have interstitial cystitis which is stable at this time Diet-controlled diabetes, we will check hemoglobin A1c. Gastric medications through [facility] Follow-up 3 months Orders: Orders TSH reflex Free T4 Today E11.9 - Type 2 diabetes mellitus without complications, E53.8 - Deficiency of other specified B group vitamins, E66.01 - Morbid (severe) obesity due to excess calories, E78.9 - Disorder of lipoprotein metabolism, unspecified, F41.1 - Generalized anxiety disorder, K21.9 - Gastro- esophageal reflux disease without esophagitis, M79.7 - Fibromyalgia, R53.83 - Other fatigue, Z91.09 - Other allergy status, other than to drugs and biological substances Lipid Panel Today E11.9 - Type 2 diabetes mellitus without complications, E53.8 - Deficiency of other specified B group vitamins, E66.01 - Morbid (severe) obesity due to excess calories, E78.9 - Disorder of lipoprotein metabolism, unspecified, F41.1 - Generalized anxiety disorder, K21.9 - Gastro-esophageal reflux disease without esophagitis, M79.7 - Fibromyalgia, R53.83 - Other fatigue, Z91.09 - Other allergy status, other than to drugs and biological substances Vitamin D 25-OH (D2 and D3) Today E11.9 - Type 2 diabetes mellitus without complications, E53.8 - Deficiency of other specified B group vitamins, E66.01 - Morbid (severe) obesity due to excess calories, E78.9 - Disorder of lipoprotein metabolism, unspecified, F41.1 - Generalized anxiety disorder, K21.9 - Gastro- esophageal reflux disease without esophagitis, M79.7 - Fibromyalgia, R53.83 - Other fatigue, Z91.09 - Other allergy status, other than to drugs and biological substances Hemoglobin A1c Today E11.9 - Type 2 diabetes mellitus without complications, E53.8 - Deficiency of other specified B group vitamins, E66.01 - Morbid (severe) obesity due to excess calories, E78.9 - Disorder of lipoprotein metabolism, unspecified, F41.1 - Generalized anxiety disorder, K21.9 - Gastro-esophageal re flux disease without esophagitis, M79.7 - Fibromyalgia, R53.83 - Other fatigue, Z91.09 - Other allergy status, other than to drugs and biological substances Complete Blood Count Auto Diff Today E11.9 - Type 2 diabetes mellitus without complications, E53.8 - Deficiency of other specified B group vitamins, E66.01 - Morbid (severe) obesity due to excess calories, E78.9 - Disorder of lipoprotein metabolism, unspecified, F41.1 - Generalized anxiety disorder, K21.9 - Gastro- esophageal reflux disease without esophagitis, M79.7 - Fibromyalgia, R53.83 - Other fatigue, Z91.09 - Other allergy status, other than to drugs and biological substances Comprehensive [place]. Panel Fast Today E11.9 - Type 2 diabetes mellitus without complications, E53.8 - Deficiency of other specified B group vitamins, E66.01 - Morbid (severe) obesity due to excess calories, E78.9 - Disorder of lipoprotein metabolism, unspecified, F41.1 - Generalized anxiety disorder, K21.9 - Gastro- esophageal reflux disease without esophagitis, M79.7 - Fibromyalgia, R53.83 - Other fatigue, Z91.09 - Other allergy status, other than to drugs and biological substances Vitamin B12 Today E11.9 - Type 2 diabetes mellitus without complications, E53.8 - Deficiency of other specified B group vitamins, E66.01 - Morbid (severe) obesity due to excess calories, E78.9 - Disorder of lipoprotein metabolism, unspecified, F41.1 - Generalized anxiety disorder, K21.9 - Gastro-esophageal reflux disease without esophagitis, M79.7 - Fibromyalgia, R53.83 - Other fatigue, Z91.09 - Other allergy status, other than to drugs and biological substances Zinc Today E11.9 - Type 2 diabetes mellitus without complications, E53.8 - Deficiency of other specified B group vitamins, E66.01 - Morbid (severe) obesity due to excess calories, E78.9 - Disorder of lipoprotein metabolism, unspecified, F41.1 - Generalized anxiety disorder, K21.9 - Gastro-esophageal reflux disease without esophagitis, M79.7 - Fibromyalgia, R53.83 - Other fatigue, Z91.09 - Other allergy status, other than to drugs and biological substances Ferritin Today E11.9 - Type 2 diabetes mellitus without complications, E53.8 - Deficiency of other specified B group vitamins, E66.01 - Morbid (severe) obesity due to excess calories, E78.9 - Disorder of lipoprotein metabolism, unspecified, F41.1 - Generalized anxiety disorder, K21.9 - Gastro-esophageal reflux disease without esophagitis, M79.7 - Fibromyalgia, R53.83 - Other fatigue, Z91.09 - Other allergy status, other than to drugs and biological substances Medications: Refilled alprazolam 0.5 mg PO BID 60 tabs 2RF 30 days Coding Level of Care Code Est Pt Level 4 (68201) Complex EM visit Add On G2211 Diagnoses Tired R53.83 Diet-controlled diabetes mellitus E11.9 Lipid disorder E78.9 Fibromyalgia M79.7 Anxiety, generalized F41.1 Environmental allergies Z91.09 Gastroesophageal reflux disease without esophagitis K21.9 Esophagitis presence: without esophagitis Morbid obesity due to excess calories E66.01 B12 deficiency E53.8
== END 2024-01-23 08:29 | disposition home or self-care (01) ==
PROVIDERS: PCP Internal Medicine; Visit Provider Internal Medicine
DX: E11.9 Type 2 diabetes mellitus without complications (principal); E66.01 Morbid (severe) obesity due to excess calories; Z68.41 Body mass index [BMI] 40.0-44.9, adult; R53.83 Other fatigue; E78.9 Disorder of lipoprotein metabolism, unspecified; M79.7 Fibromyalgia; F41.1 Generalized anxiety disorder; Z91.09 Other allergy status, other than to drugs and biological substances; K21.9 Gastro-esophageal reflux disease without esophagitis; E53.8 Deficiency of other specified B group vitamins
CPT/HCPCS: 99214; G2211

== ENCOUNTER 2024-01-23 08:24 | Outpatient (REF) | payer MEDICARE, MEDICAID, SELFPAY ==
[2024-01-23 09:58] LABS: MANUAL DIFF FLAG NO
[2024-01-23 10:07] LABS: Basophils Absolute Auto 0.1 X10*3/uL (0.0-0.2); Basophils Percent Auto 0.8 % (0-2); Eosinophils Absolute Auto 0.1 X10*3/uL (0.0-0.4); Eosinophils Percent Auto 1.6 % (0-4); Hematocrit 39.2 % (37.0-47.0); Hemoglobin 12.8 g/dl (12.0-16.0); Imm Gran Abs Auto 0.03 X10*3/uL (0.00-0.03); Imm Gran Pct Auto 0.4 % (0.0-0.4); Lymphocytes Absolute Auto 2.2 X10*3/uL (1.2-4.9); Lymphocytes Percent Auto 30.6 % (20-40); Mean Corpuscular HGB Conc 32.7 g/dl (31.0-35.0); Mean Corpuscular Volume 88.7 fL (80.0-98.0); Mean Platelet Volume 10.6 fL (9.4-12.3); Monocytes Absolute Auto 0.6 X10*3/uL (0.1-1.2); Monocytes Percent Auto 8.1 % (2-11); Neutrophils Absolute Auto 4.1 x10*3/uL (2.0-8.3); Neutrophils Percent Auto 58.5 % (45-73); Platelet Count 301 X10*3/uL (160-400); Red Blood Count 4.42 X10*6/uL (4.20-5.50); Red Cell Distribution Width 12.9 % (11.0-16.0); White Blood Count 7.1 X10*3/uL (4.8-10.8)
[2024-01-23 10:46] LABS: Alanine Aminotransferase 21 U/L (0-31); Albumin Level 3.9 g/dL (3.5-5.0); Alkaline Phosphatase 76 U/L (39-117); Anion Gap 11 (12-20); Aspartate Amino Transferase 22 U/L (5-31); Bilirubin Total 0.6 mg/dL (0.0-1.0); Blood Urea Nitrogen 8 mg/dL (9-16); Calcium 9.5 mg/dL (8.4-10.2); Carbon Dioxide 25 mmol/L (22-29); Chloride 110 mmol/L (96-108); Cholesterol 194 mg/dL (<200); Estimated Glomerular Filt Rate > 60; Glucose Fasting 122 mg/dL (60-99); HDL Cholesterol 35 mg/dL (>40); LDL Cholesterol Calculated 117 mg/dL (<100); Potassium 3.8 mmol/L (3.3-5.1); Sodium 142 mmol/L (135-145); Total Protein 6.9 g/dL (6.5-8.0); Triglycerides 211 mg/dL (<150)
[2024-01-23 10:48] LABS: Estimated Average Glucose 123 mg/dL; Hemoglobin A1c % 5.9 % (<6.0)
[2024-01-23 10:51] LABS: Ferritin 30 ng/mL (10-250); TSH reflex Free T4 1.17 uIU/mL (0.32-4.0)
[2024-01-23 11:02] LABS: Vitamin B12 226 pg/mL (200-900)
[2024-01-28 00:58] LABS: Zinc 56 mcg/dL (60-130)
[2024-01-30 16:18] LABS: Vitamin D 25-OH, D2 <4 ng/mL; Vitamin D 25-OH, D3 43 ng/mL; Vitamin D 25-OH, Total 43 ng/mL (30-100)
== END 2024-01-23 08:25 | disposition home or self-care (01) ==
LOC: HO.HMGCLDS 08:24
PROVIDERS: PCP Internal Medicine; Visit Provider Internal Medicine
DX: R53.83 Other fatigue (principal); E78.9 Disorder of lipoprotein metabolism, unspecified; F41.1 Generalized anxiety disorder; Z91.09 Other allergy status, other than to drugs and biological substances; K21.9 Gastro-esophageal reflux disease without esophagitis; E66.01 Morbid (severe) obesity due to excess calories; E53.8 Deficiency of other specified B group vitamins; E11.9 Type 2 diabetes mellitus without complications; M79.7 Fibromyalgia
CPT/HCPCS: 36415; 80053; 80061; 82306; 82607; 82728; 83036; 84443; 84630; 85025

== ENCOUNTER 2024-02-13 08:39 | Outpatient (AMB) | payer MEDICARE, MEDICAID, SELFPAY ==
[2024-02-13 08:55] VITALS: BP 138/84; PULSE 82; O2SAT 97; BMI 41.9
--- NOTE | 2024-02-13 08:55 | MHC.OFFVIS ---
Vital Signs 02/13/24 08:55 Height 5 ft 1 in Weight 221 lb 9.033 oz BMI 41.9 BP 138/84 Blood Pressure Location Rt brachial Position Sitting Pulse 82 Pulse Source Doppler Pulse Oximetry (%) 97 Oxygen Delivery Method Room Air Intake Visit Reasons: dyspnea Allergies gabapentin [GABAPENTIN] Allergy (Severe, Verified 02/13/24 09:00) SEVERE GI ISSUES Iodinated Contrast Media [IV DYE, IODINE CONTAINING] Allergy (Severe, Verified 02/13/24 09:00) SWELLING Sulfa (Sulfonamide Antibiotics) [SULFA (SULFONAMIDE ANTIBIOTICS)] Allergy (Severe, Verified 02/13/24 09:00) ANAPHYLAXIS, swelling Milk Containing Products (Dairy) Allergy (Intermediate, Verified 02/13/24 09:00) Rash lidocaine Allergy (Mild, Verified 02/13/24 09:00) Welts nabumetone Allergy (Unknown, Verified 02/13/24 09:00) Abdominal Pain pregabalin Allergy (Unknown, Verified 02/13/24 09:00) unknown venlafaxine Allergy (Unknown, Verified 02/13/24 09:00) unknown semaglutide [From Ozempic] Adverse Reaction (Intermediate, Verified 02/13/24 09:00) Rash meloxicam Adverse Reaction (Unknown, Verified 02/13/24 09:00) abdominal pain all meat Allergy (Unknown, Uncoded 09/30/23 14:33) unknown Environmental Allergy (Unknown, Uncoded 09/30/23 14:33) unknown HPI HPI dyspnea: Details: 58-year-old lady, remote minimal smoker in her 20s, with prior history of asthma in childhood, that abated in her teenager years and she only required to use albuterol MDI rarely now followed for pulmonary component dyspnea and asthma. Patient states she recently been switched from albuterol MDI to Pulmicort by her primary care secondary to allergies sulfa moiety. She did complete her 2D echocardiogram that shows underlying diastolic dysfunction. She was tried on Breo with improvement in her symptoms, but poor tolerance of powder inhaler. [facility] Medical History Obesity (BMI 30-39.9) Osteoarthritis of left knee Localized osteoarthritis of shoulder regions, bilateral Bilateral shoulder pain Pre-op evaluation Shortness of breath Encounter for routine gynecological examination Feeling sick UTI (urinary tract infection) Respiratory infection Hospital discharge follow-up Medicare annual wellness visit, initial Urinary tract infection Medicare annual wellness visit, subsequent Screening examination for infectious disease Large joint arthralgia of multiple sites Herpes Environmental allergies Anxiety, generalized Lipid disorder Umbilical hernia Fibromyalgia Acute arthritis Tendonitis Surgical History Hx of hernia repair History of esophagogastroduodenoscopy (EGD) Hx of colonoscopy History of meniscectomy of left knee (~01/12/14) History of cholecystectomy H/O hand surgery Family History Mother Cervical cancer Bladder cancer Father Cancer Sister No problems noted. Other Mental health disorder Substance use disorder Social History Household Members: Significant Other Housing: Apartment Alcohol intake: former Year quit: 22yo Patient Tobacco Use Status: Former Tobacco user e-Cigarette/Vaping Use: Never Used service: No Current occupational status: unemployed and disabled Sexual orientation: Straight/Heterosexual Gender identity: Female Cognitive needs: No Hearing needs: No Vision needs: No Review of Systems Card Denies dyspnea on exertion Resp Denies cough, Denies excessive phlegm production, Denies dyspnea on exertion and Denies wheezing Aller/Immun Denies wheezing Physical Exam Vital Signs: Last Vital Signs Pulse 82 02/13/24 08:55 BP 138/84 02/13/24 08:55 Pulse Ox 97 02/13/24 08:55 Oxygen Delivery Method Room Air 02/13/24 08:55 BMI result Body Mass Index 41.9 Const General: no acute distress and alert Nutritional Appearance: obese Orientation/consciousness: Other orientation findings ( oriented) HEENT Head: Yes atraumatic Eyes General: appearance normal, both eyes and all related structures Sclerae: sclerae normal EOM: EOMs intact bilaterally Neck Neck: Yes supple Lymphatic: no lymphadenopathy noted Resp Effort & Inspection: normal respiratory effort and no use of accessory muscles Auscultation: clear to auscultation bilaterally Cardio Rate: regular rate Rhythm: regular rhythm Heart sounds: no gallops, no murmurs and no rubs Skin General skin exam: other ( warm) Extrem General: No clubbing, No cyanosis and No edema Assessment & Plan Assessment & Plan (1) Asthma: Code(s): J45.909 - Unspecified asthma, uncomplicated Category: Medical Plan: Improved control on Breo, unfortunately patient has cough with utilization of powder inhaler, will switch to Symbicort. Continue albuterol MDI. (2) Dyspnea on exertion: Code(s): R06.09 - Other forms of dyspnea Category: Medical Plan: Appears to multifactorial with contribution from underlying pulmonary, cardiac, and possible deconditioning etiologies. Patient is interested in continued follow-up with cardiology and rheumatology services, request for earlier follow-up sent. Coding Level of Care Code Est Pt Level 4 (70811) Diagnoses Asthma J45.909 Dyspnea on exertion R06.09
== END 2024-02-13 09:19 | disposition home or self-care (01) ==
PROVIDERS: PCP Internal Medicine; Visit Provider Internal Medicine Pulmonary Disease
DX: J45.909 Unspecified asthma, uncomplicated (principal); R06.09 Other forms of dyspnea
CPT/HCPCS: 99214

== ENCOUNTER → 2024-02-13 08:39 | Outpatient (BNVA) | payer MEDICARE, MEDICAID, SELFPAY | PROVIDERS: PCP Internal Medicine; Visit Provider Internal Medicine Pulmonary Disease | DX: J45.909 Unspecified asthma, uncomplicated (principal); R06.00 Dyspnea, unspecified; Z87.891 Personal history of nicotine dependence | CPT/HCPCS: 99212 ==

== ENCOUNTER 2024-02-16 07:49 | Outpatient (AMB) | payer MEDICARE, MEDICAID, SELFPAY ==
[2024-02-16 08:49] VITALS: BP 128/70; PULSE 86; BMI 41.5
--- NOTE | 2024-02-16 08:49 | MHC.OFFVIS ---
Vital Signs 02/16/24 08:49 Height 5 ft 1 in Weight 219 lb 9.286 oz BMI 41.5 BP 128/70 Blood Pressure Location Lt brachial Position Sitting Pulse 86 Pulse Source Pulse Oximeter Intake Visit Reasons: Follow up/Discuss dyspnea,chest pain,heart racing Contact Center Agent Required: No Accompanied by: Self / Same As Patient Allergies gabapentin [GABAPENTIN] Allergy (Severe, Verified 02/13/24 09:00) SEVERE GI ISSUES Iodinated Contrast Media [IV DYE, IODINE CONTAINING] Allergy (Severe, Verified 02/13/24 09:00) SWELLING Sulfa (Sulfonamide Antibiotics) [SULFA (SULFONAMIDE ANTIBIOTICS)] Allergy (Severe, Verified 02/13/24 09:00) ANAPHYLAXIS, swelling Milk Containing Products (Dairy) Allergy (Intermediate, Verified 02/13/24 09:00) Rash lidocaine Allergy (Mild, Verified 02/13/24 09:00) Welts nabumetone Allergy (Unknown, Verified 02/13/24 09:00) Abdominal Pain pregabalin Allergy (Unknown, Verified 02/13/24 09:00) unknown venlafaxine Allergy (Unknown, Verified 02/13/24 09:00) unknown semaglutide [From Ozempic] Adverse Reaction (Intermediate, Verified 02/13/24 09:00) Rash meloxicam Adverse Reaction (Unknown, Verified 02/13/24 09:00) abdominal pain all meat Allergy (Unknown, Uncoded 09/30/23 14:33) unknown Environmental Allergy (Unknown, Uncoded 09/30/23 14:33) unknown Medication List - Last Reconciled 02/16/24 by Gilbert Salgado MD alprazolam 0.5 mg PO BID 30 days budesonide-formoterol 160-4.5 mcg/actuation (Symbicort) 2 puffs inhalation BID linaclotide (Linzess) 72 mcg PO QAM pantoprazole 40 mg PO BID rosuvastatin 10 mg PO DAILY valacyclovir 500 mg PO DAILY 90 days HPI Comments Details: Evelina returns for follow-up. In the past, she was seen regarding a high CRP. There was a concern if it was cardiac or not. However, that time she did not have any complaints from a cardiac standpoint. There was no known coronary disease myocardial infarction or cardiomyopathy. She had numerous aches and pains all over the body and she still has the same. As she had both elevated CRP as well as ESR, it was felt to be rather rheumatological considering her generalized pain and she was actually referred to rheumatology. Currently, she has been sent back for re-evaluation. She states she does get short of breath with activity. She has had this in the past but it improved after inhalers but has come back again. Hence there is a concern. She also has some nonexertional chest pains but also has pain everywhere in the body and hence seems somewhat nonspecific. Otherwise, weight is just about the same as before. [facility] Medical History Obesity (BMI 30-39.9) Osteoarthritis of left knee Localized osteoarthritis of shoulder regions, bilateral Bilateral shoulder pain Pre-op evaluation Shortness of breath Encounter for routine gynecological examination Feeling sick UTI (urinary tract infection) Respiratory infection Hospital discharge follow-up Medicare annual wellness visit, initial Urinary tract infection Medicare annual wellness visit, subsequent Screening examination for infectious disease Large joint arthralgia of multiple sites Herpes Environmental allergies Anxiety, generalized Lipid disorder Umbilical hernia Fibromyalgia Acute arthritis Tendonitis Surgical History Hx of hernia repair History of esophagogastroduodenoscopy (EGD) Hx of colonoscopy History of meniscectomy of left knee (~01/12/14) History of cholecystectomy H/O hand surgery Family History Mother Cervical cancer Bladder cancer Father Cancer Sister No problems noted. Other Mental health disorder Substance use disorder Social History Household Members: Significant Other Housing: Apartment Alcohol intake: former Year quit: 22yo Patient Tobacco Use Status: Former Tobacco user e-Cigarette/Vaping Use: Never Used service: No Current occupational status: unemployed and disabled Sexual orientation: Straight/Heterosexual Gender identity: Female Cognitive needs: No Hearing needs: No Vision needs: No Review of Systems Const Denies chills, Denies fatigue, Denies fever(s), Denies weight gain and Denies weight loss ENT Denies dizziness Card Denies chest pain, Denies leg edema, Denies lightheadedness, Denies palpitations, Denies dyspnea on exertion, Denies orthopnea and Denies other Resp Denies cough and Denies dyspnea on exertion GI Denies hematochezia and Denies change in stool character Musc Denies abnormal gait, Denies muscle weakness, Denies numbness, Denies radiating pain into limb and Denies tingling Neuro Denies abnormal gait, Denies dizziness, Denies numbness and Denies tingling Endo Denies fatigue and Denies palpitations Physical Exam Vital Signs: Last Vital Signs Pulse 86 02/16/24 08:49 BP 128/70 02/16/24 08:49 BMI result Body Mass Index 41.5 Assessment & Plan Assessment & Plan (1) Precordial chest pain: Code(s): R07.2 - Precordial pain Category: Medical (2) Shortness of breath: Code(s): R06.02 - Shortness of breath Category: Medical (3) Elevated C-reactive protein (CRP): Code(s): R79.82 - Elevated C-reactive protein (CRP) Category: Medical Plan: Her CRP is more than 10. ESR is also high. She has absolutely no cardiac symptoms like angina, but has numerous musculoskeletal pains. Hence suspect this is more likely rheumatological. We will refer her for the same. From the cardiac standpoint, may check calcium scoring CT scan. She agrees. In the recent echocardiogram, LVEF 55-60%. Mild diastolic dysfunction but otherwise unremarkable. (4) Morbid obesity due to excess calories: Code(s): E66.01 - Morbid (severe) obesity due to excess calories Category: Medical Plan Atypical chest pains associated with generalized pains all over the body; shortness of breath; obesity; elevated CRP; elevated ESR. Baseline EKG is unremarkable. Echocardiogram with LVEF of 55-60%; mild diastolic dysfunction but normal filling pressures and otherwise unremarkable. Overall, cardiac etiology for symptoms seems less likely. We had initially suggested a coronary calcium scoring but she states she cannot afford the payment. Then we discussed about exercise stress testing, but she states she can not exercise due to knee discomfort. Due to obesity, we may have artifacts with pharmacological stress perfusion and hence reduced specificity. Then we discussed about coronary CTA, but she states she has had an allergic reaction to contrast when she was 14 years old. Then we decided that we will give her premedications and proceed with testing and she is agreeable with that plan. Will follow-up after that. Total time spent including review of data, counseling, documentation, coordination of care-32 minutes. Orders: Orders CT Cardiac Coronary Angio Today I25.10 - Atherosclerotic heart disease of [place] coronary artery without angina pectoris, R07.2 - Precordial pain Basic Metabolic Panel Today R07.2 - Precordial pain Coding Level of Care Code Est Pt Level 4 (91235) Diagnoses Precordial chest pain R07.2 Shortness of breath R06.02 Elevated C-reactive protein (CRP) R79.82 Morbid obesity due to excess calories E66.01
== END 2024-02-16 09:12 | disposition home or self-care (01) ==
PROVIDERS: PCP Internal Medicine; Visit Provider Internal Medicine
DX: R07.2 Precordial pain (principal); R06.02 Shortness of breath; R79.82 Elevated C-reactive protein (CRP); E66.01 Morbid (severe) obesity due to excess calories
CPT/HCPCS: 99214

== ENCOUNTER → 2024-02-16 07:49 | Outpatient (BNVA) | payer MEDICARE, MEDICAID, SELFPAY | PROVIDERS: PCP Internal Medicine; Visit Provider Internal Medicine | DX: R07.2 Precordial pain (principal); R06.02 Shortness of breath; R79.82 Elevated C-reactive protein (CRP); E66.01 Morbid (severe) obesity due to excess calories; Z68.41 Body mass index [BMI] 40.0-44.9, adult | CPT/HCPCS: 99212 ==

== ENCOUNTER 2024-03-04 08:25 | Outpatient (AMB) | payer MEDICARE, MEDICAID, SELFPAY ==
--- NOTE | 2024-03-04 08:36 | MHC.PC.OV ---
Intake Visit Reasons: med request. Allergies gabapentin [GABAPENTIN] Allergy (Severe, Verified 03/04/24 08:36) SEVERE GI ISSUES Iodinated Contrast Media [IV DYE, IODINE CONTAINING] Allergy (Severe, Verified 03/04/24 08:36) SWELLING Sulfa (Sulfonamide Antibiotics) [SULFA (SULFONAMIDE ANTIBIOTICS)] Allergy (Severe, Verified 03/04/24 08:36) ANAPHYLAXIS, swelling Milk Containing Products (Dairy) Allergy (Intermediate, Verified 03/04/24 08:36) Rash lidocaine Allergy (Mild, Verified 03/04/24 08:36) Welts nabumetone Allergy (Unknown, Verified 03/04/24 08:36) Abdominal Pain pregabalin Allergy (Unknown, Verified 03/04/24 08:36) unknown venlafaxine Allergy (Unknown, Verified 03/04/24 08:36) unknown semaglutide [From Ozempic] Adverse Reaction (Intermediate, Verified 03/04/24 08:36) Rash meloxicam Adverse Reaction (Unknown, Verified 03/04/24 08:36) abdominal pain all meat Allergy (Unknown, Uncoded 09/30/23 14:33) unknown Environmental Allergy (Unknown, Uncoded 09/30/23 14:33) unknown Medication List - Last Reconciled 03/04/24 by Lyndon Fagan MD alprazolam 0.5 mg PO BID 30 days budesonide-formoterol 160-4.5 mcg/actuation (Symbicort) 2 puffs inhalation BID diphenhydramine HCl (Allergy (diphenhydramine)) 25 mg orally Take the morning and evening of the day before procedure and then the morning of procedure.; famotidine 20 mg orally Take the morning and evening of the day before procedure and then the morning of procedure.; linaclotide (Linzess) 72 mcg PO QAM pantoprazole 40 mg PO BID prednisone 20 mg orally Take the morning and evening of the day before procedure and then the morning of procedure. rosuvastatin 10 mg PO DAILY valacyclovir 500 mg PO DAILY 90 days Tobacco use date assessed: 03/04/24 Dental Screening Dental Screen Date: 03/04/24 Did you have a dental visit in the last 12 months?: Yes Did you have a dental problem in the last 6 months where you did not have access to dental care?: No Was dental information given to patient?: Patient has dentist HPI med request. HPI Details Patient is 58 year old female with Hx fibromyalgia , arthrosis requesting small dose of prednisone for pain she is aware of side effects patient also have apt with Rhumatology Mar 09, for establish care i have sent 5 mg tabs for the patient [facility] Medical History Obesity (BMI 30-39.9) Osteoarthritis of left knee Localized osteoarthritis of shoulder regions, bilateral Bilateral shoulder pain Pre-op evaluation Shortness of breath Encounter for routine gynecological examination Feeling sick UTI (urinary tract infection) Respiratory infection Hospital discharge follow-up Medicare annual wellness visit, initial Urinary tract infection Medicare annual wellness visit, subsequent Screening examination for infectious disease Large joint arthralgia of multiple sites Herpes Environmental allergies Anxiety, generalized Lipid disorder Umbilical hernia Fibromyalgia Acute arthritis Tendonitis Surgical History Hx of hernia repair History of esophagogastroduodenoscopy (EGD) Hx of colonoscopy History of meniscectomy of left knee (~01/12/14) History of cholecystectomy H/O hand surgery Family History Mother Cervical cancer Bladder cancer Father Cancer Sister No problems noted. Other Mental health disorder Substance use disorder Social History Household Members: Significant Other Housing: Apartment Alcohol intake: former Year quit: 22yo Patient Tobacco Use Status: Former Tobacco user e-Cigarette/Vaping Use: Never Used service: No Current occupational status: unemployed and disabled Sexual orientation: Straight/Heterosexual Gender identity: Female Cognitive needs: No Hearing needs: No Vision needs: No Questionnaire Thrive Questionnaire Date Thrive assessed: 07/02/23 ARIANNA-7 AMB Questionnaire ARIANNA-7 Date ARIANNA - 7 assessed: 07/02/23 Source: Developed by Drs. Kenneth Preston, Aruna Alcantar, Babak Rebolledo and colleagues, with an educational morris from [employer] (previously [employer]). Review of Systems Const Denies chills and Denies fever(s) ENT Denies epistaxis and Denies nasal discharge Card Denies chest pain Resp Denies chest congestion, Denies cough and Denies hemoptysis GI Denies diarrhea and Denies nausea Skin/Breast Denies rash Neuro Reports no additional complaints Psych Reports no additional complaints Endo Reports no additional complaints Physical exam (Primary Care) Tobacco/Smoking Status: Tobacco use Status Tobacco use date assessed 03/04/24 03/04/24 08:37 Patient Tobacco Use Status Former Tobacco user 03/04/24 08:37 e-Cigarette/Vaping Use Never Used 03/04/24 08:37 Thrive Assessment: Date of Thrive Assessment Date Thrive assessed 07/02/23 03/04/24 08:37 Telehealth Telehealth Telehealth Platform: Virtual [employer] Location of provider rendering services: practice address Location of patient: address on file Patient Identification confirmed using: Name, : Yes Telehealth method: voice only Patient verbally consented to treatment: Yes Patient verbally consented to billing insurance company: Yes Patient informed of any privacy concerns related to visit: Yes Minutes spent on Phone/Video with Pt.: 13 Assessment and Plan Assessment & Plan (1) Fibromyalgia: Code(s): M79.7 - Fibromyalgia Plan Patient is 58 year old female with Hx fibromyalgia , arthrosis requesting small dose of prednisone for pain she is aware of side effects patient also have apt with Rhumatology Mar 09, for establish care i have sent 5 mg tabs for the patient Medications: New prednisone 5 mg PO DAILY 10 tabs 0RF Coding Level of Care Code Tele Est Pt Level 3 (76598) Diagnoses Fibromyalgia M79.7
== END 2024-03-04 13:05 | disposition home or self-care (01) ==
LOC: HO.HMCC 08:25
PROVIDERS: PCP Internal Medicine; Visit Provider Internal Medicine
DX: M79.7 Fibromyalgia (principal)

== ENCOUNTER → 2024-03-04 08:25 | Outpatient (BNVA) | payer MEDICARE, MEDICAID, SELFPAY | PROVIDERS: PCP Internal Medicine; Visit Provider Internal Medicine ==

== ENCOUNTER 2024-03-09 07:09 | Outpatient (AMB) | payer MEDICARE, MEDICAID, SELFPAY ==
--- NOTE | 2024-03-09 07:27 | A.OFFVIS_ITS ---
Vital Signs 03/09/24 07:32 Height 5 ft 1 in Weight 222 lb 3.615 oz BMI 42.0 BP 122/80 Blood Pressure Location Rt brachial Position Sitting Pulse 91 Pulse Source Pulse Oximeter Pulse Oximetry (%) 97 Oxygen Delivery Method Room Air Intake Visit Reasons: OA/CM Intake Note: Patient presents for OA. Allergies gabapentin [GABAPENTIN] Allergy (Severe, Verified 03/09/24 07:31) SEVERE GI ISSUES Iodinated Contrast Media [IV DYE, IODINE CONTAINING] Allergy (Severe, Verified 03/09/24 07:31) SWELLING Sulfa (Sulfonamide Antibiotics) [SULFA (SULFONAMIDE ANTIBIOTICS)] Allergy (Severe, Verified 03/09/24 07:31) ANAPHYLAXIS, swelling Milk Containing Products (Dairy) Allergy (Intermediate, Verified 03/09/24 07:31) Rash lidocaine Allergy (Mild, Verified 03/09/24 07:31) Welts nabumetone Allergy (Unknown, Verified 03/09/24 07:31) Abdominal Pain pregabalin Allergy (Unknown, Verified 03/09/24 07:31) unknown venlafaxine Allergy (Unknown, Verified 03/09/24 07:31) unknown semaglutide [From Ozempic] Adverse Reaction (Intermediate, Verified 03/09/24 07:31) Rash meloxicam Adverse Reaction (Unknown, Verified 03/09/24 07:31) abdominal pain all meat Allergy (Unknown, Uncoded 09/30/23 14:33) unknown Environmental Allergy (Unknown, Uncoded 09/30/23 14:33) unknown Medication List - Last Reconciled 03/09/24 by Ping Mohamud MD alprazolam 0.5 mg PO BID 30 days budesonide-formoterol 160-4.5 mcg/actuation (Symbicort) 2 puffs inhalation BID diphenhydramine HCl (Allergy (diphenhydramine)) 25 mg orally Take the morning and evening of the day before procedure and then the morning of procedure.; famotidine 20 mg orally Take the morning and evening of the day before procedure and then the morning of procedure.; hydroxychloroquine (Plaquenil) 200 mg PO BID 90 days linaclotide (Linzess) 72 mcg PO QAM pantoprazole 40 mg PO BID prednisone 5 mg PO DAILY rosuvastatin 10 mg PO DAILY valacyclovir 500 mg PO DAILY 90 days HPI Comments Details: Patient is a 58-year-old female with anxiety disorder, fibromyalgia, polyarticular osteoarthritis, and elevated ESR and CRP who presents for evaluation. Interval History: Patient last seen 09/30/2023 with Patricia Rodriguez. At that time she was complaining of shoulder pain and was given an intra-articular bilateral shoulder injection. Given the negative rheumatology panel at that time no medication was given. Today she reports that about 1 week ago she was in excruciating pain and went to her PCP who gave her 5 mg of prednisone. This improved her pain significantly. She states that she is trying to be active she is swimming, stretching, trying to lose weight, eating healthy. Does report morning stiffness x 10 minutes There are times that she wakes up in the morning when her hands are swollen and cannot be closed Denies photosensitivity, rash, Raynaud's, alopecia (but does endorse significant hair loss and hair thinning) Does endorse fatigue. Rheumatologic History: First established care with Rheumatology 09/18/2023. At that time she had a strong family history of autoimmune disease: grandmother and mother has RA, Sister with psoriasis, Brother psoriatic arthritis and psoriasis and takes Enbrel. At that time there was no examination findings consistent with RA. However her inflammatory markers ESR and CRP were elevated (ESR mildly). Her rheumatologic ROS was also unremarkable at that time. Additional rheum workup was unrevealing with negative RF, negative anti CCP, negative MARY GRACE, negative HLA B27. Does have a history of response to prednisone. In the past has been on doses up to 20 mg with almost complete resolution of pain. Medication History: Prednisone 5mg (prescribed by PCP) [facility] Medical History (Updated 03/09/24 @ 08:40 by Ping Mohamud MD) Polyarticular osteoarthritis Seronegative rheumatoid arthritis Long-term use of Plaquenil Obesity (BMI 30-39.9) Osteoarthritis of left knee Localized osteoarthritis of shoulder regions, bilateral Bilateral shoulder pain Pre-op evaluation Shortness of breath Encounter for routine gynecological examination Feeling sick UTI (urinary tract infection) Respiratory infection Hospital discharge follow-up Medicare annual wellness visit, initial Urinary tract infection Medicare annual wellness visit, subsequent Screening examination for infectious disease Large joint arthralgia of multiple sites Herpes Environmental allergies Anxiety, generalized Lipid disorder Umbilical hernia Fibromyalgia Acute arthritis Tendonitis Surgical History Hx of hernia repair History of esophagogastroduodenoscopy (EGD) Hx of colonoscopy History of meniscectomy of left knee (~01/12/14) History of cholecystectomy H/O hand surgery Family History Mother Cervical cancer Bladder cancer Father Cancer Sister No problems noted. Other Mental health disorder Substance use disorder Social History Household Members: Significant Other Housing: Apartment Alcohol intake: former Year quit: 22yo Patient Tobacco Use Status: Former Tobacco user e-Cigarette/Vaping Use: Never Used service: No Current occupational status: unemployed and disabled Sexual orientation: Straight/Heterosexual Gender identity: Female Cognitive needs: No Hearing needs: No Vision needs: No Review of Systems Const Details: Review of Systems Constitutional: Denies fever, chills, weight loss ENT: Denies vision changes, eye pain or eye redness, dental caries, dry mouth GI: Denies nausea, vomiting, diarrhea, abdominal pain, change in BM Pulm: Denies SOB, STEVENS, hemoptysis, wheezing Cards: Denies chest pain, palpitations Skin: Denies Raynaud's, rash, nail changes, photosensitivity, EXECUTIVE PASTRY CHEF: Denies headaches, weakness, paresthesias, recurrent falls MSK: Complains of joint pain and joint stiffness. Denies joint swelling, muscle weakness, bone pain All other systems reviewed and are unremarkable except noted above Review of Symptoms Physical Exam Vital Signs: Last Vital Signs Pulse 91 03/09/24 07:32 BP 122/80 03/09/24 07:32 Pulse Ox 97 03/09/24 07:32 Oxygen Delivery Method Room Air 03/09/24 07:32 BMI result Body Mass Index 42.0 Const Other: Physical Examination Patient well appearing and in no apparent painful distress. Obese Able to rise from chair without support. ?Gait normal. Constitutional: ?Mucous membranes pink and moist patient alert and cooperative HEENT: ?Conjunctiva and sclera clear. ?Pupils equal round and reactive to light. ?No lymphadenopathy. ?Normal dentition. Resp: ?Normal respiratory effort and able to speak in complete sentences. ?Clear to auscultation bilaterally. ?No crackles, rales, rhonchi, wheezes heard. Cards: ?Regular rate and rhythm. ?S1 and S2 heard no murmurs. ?Radial pulses intact bilaterally MSK: ?No deformity, swelling, abnormalities noted to bilateral hands. ?No evidence of synovitis. ?Some mild tenderness to palpation of the right 2nd PIP and 4th DIPs but no evidence of swelling or active synovitis. Left knee with trace edema but full range of motion. Results Reviewed Results Reviewed: All available in imaging and results reviewed. Laboratory Tests 05/20/23 09/18/23 08:57 13:02 ESR 33 H 29 H C-Reactive Protein 1.34 H Assessment & Plan Assessment & Plan (1) Seronegative rheumatoid arthritis: Code(s): M06.00 - Rheumatoid arthritis without rheumatoid factor, unspecified site Category: Medical Plan: #Seronegative Inflammatory Arthritis Given persistent elevated inflammatory markers as well response to prednisone will do a trial of Plaquenil. We will also continue 5 mg of prednisone while we were Plaquenil to start working. To see again in 3 months (2) Long-term use of Plaquenil: Code(s): Z79.899 - Other terminal makeup operator (current) drug therapy Category: Medical Plan: Discussed with patient the risks and benefits of hydroxychloroquine in managing the rheumatic condition Benefits include: - Reduced pain, reduce mortality, maintenance of remission and reduction of flares Risks include: - GI upset, skin hyperpigmentation, retinal toxicity (especially after more than 5 years of use), myopathy Advised yearly ophthalmology visits Referral placed (3) Polyarticular osteoarthritis: Code(s): M15.9 - Polyosteoarthritis, unspecified Category: Medical Plan: Patient with polyarticular osteoarthritis involving knees and shoulders. Recommended that she continue her swimming and other exercises. Also encouraged weight loss. (4) Fibromyalgia: Code(s): M79.7 - Fibromyalgia Category: Medical Plan: Likely has a component of fibromyalgia. We will see if the Plaquenil helps with the inflammatory aspect of her joint pain. Fibromyalgia is best managed with lifestyle changes which she is undertaking currently. Plan I spent 35 minutes reviewing the record and labs, seeing the patient, discussing the treatment plan and documenting in the medical record Orders: Orders Erythrocyte Sedimentation Rate Today M06.00 - Rheumatoid arthritis without rheumatoid factor, unspecified site C Reactive Protein Today M06.00 - Rheumatoid arthritis without rheumatoid factor, unspecified site Comprehensive Met. Panel Today M06.00 - Rheumatoid arthritis without rheumatoid factor, unspecified site Complete Blood Count Auto Diff Today M06.00 - Rheumatoid arthritis without rheumatoid factor, unspecified site Referrals Ophthalmology Referral Z79.899 - Other terminal makeup operator (current) drug therapy Medications: New hydroxychloroquine (Plaquenil) 200 mg PO BID 180 tabs 0RF 90 days Refilled prednisone 5 mg PO DAILY 90 tabs 0RF Discontinued prednisone Discontinued Reason: Doctor's Order 20 mg orally Take the morning and evening of the day before procedure and then the morning of procedure. 3 tabs 0RF Coding Level of Care Code Est Pt Level 3 (89291) Diagnoses Seronegative rheumatoid arthritis M06.00 Long-term use of Plaquenil Z79.899 Polyarticular osteoarthritis M15.9 Fibromyalgia M79.7
[2024-03-09 07:32] VITALS: BP 122/80; PULSE 91; O2SAT 97; BMI 42.0
== END 2024-03-09 08:38 | disposition home or self-care (01) ==
PROVIDERS: PCP Internal Medicine; Visit Provider Student in an Organized Health Care Education/Training Program
DX: M06.00 Rheumatoid arthritis without rheumatoid factor, unspecified site (principal); Z79.899 Other long term (current) drug therapy; M15.9 Polyosteoarthritis, unspecified; M79.7 Fibromyalgia
CPT/HCPCS: 99213

== ENCOUNTER → 2024-03-09 07:09 | Outpatient (BNVA) | payer MEDICARE, MEDICAID, SELFPAY | PROVIDERS: PCP Internal Medicine; Visit Provider Student in an Organized Health Care Education/Training Program | DX: M06.00 Rheumatoid arthritis without rheumatoid factor, unspecified site (principal); M79.7 Fibromyalgia; M15.9 Polyosteoarthritis, unspecified; R70.0 Elevated erythrocyte sedimentation rate; R79.82 Elevated C-reactive protein (CRP); Z79.899 Other long term (current) drug therapy | CPT/HCPCS: 99212 ==

== ENCOUNTER → 2024-03-25 09:53 | Outpatient (BNVA) | payer MEDICARE, MEDICAID, SELFPAY | PROVIDERS: PCP Internal Medicine ==

== ENCOUNTER 2024-03-26 08:43 | Outpatient (AMB) | payer MEDICARE, MEDICAID, SELFPAY ==
--- NOTE | 2024-03-26 09:18 | MHC.OFFWIV ---
Intake Vital Signs 03/26/24 09:22 Height 5 ft 1 in Weight 220 lb BMI 41.6 BP 122/80 Blood Pressure Location Rt brachial Position Sitting Pulse 88 Pulse Source Pulse Oximeter Temp 98.4 F Temp Source Oral Pulse Oximetry (%) 98 Oxygen Delivery Method Room Air Intake Visit Reasons: EP-upper respiratory Intake Note: Patient here for upper resp issues which has been present for about a month. she has tried several OTC meds which have not helped much. She would also like to talk about bladder pain and frequent urination. Patient Tobacco Use Status: Former Tobacco user Allergies gabapentin [GABAPENTIN] Allergy (Severe, Verified 03/26/24 09:22) SEVERE GI ISSUES Iodinated Contrast Media [IV DYE, IODINE CONTAINING] Allergy (Severe, Verified 03/26/24 09:22) SWELLING Sulfa (Sulfonamide Antibiotics) [SULFA (SULFONAMIDE ANTIBIOTICS)] Allergy (Severe, Verified 03/26/24 09:22) ANAPHYLAXIS, swelling Milk Containing Products (Dairy) Allergy (Intermediate, Verified 03/26/24 09:22) Rash lidocaine Allergy (Mild, Verified 03/26/24 09:22) Welts nabumetone Allergy (Unknown, Verified 03/26/24 09:22) Abdominal Pain pregabalin Allergy (Unknown, Verified 03/26/24 09:22) unknown venlafaxine Allergy (Unknown, Verified 03/26/24 09:22) unknown semaglutide [From Ozempic] Adverse Reaction (Intermediate, Verified 03/26/24 09:22) Rash meloxicam Adverse Reaction (Unknown, Verified 03/26/24 09:22) abdominal pain all meat Allergy (Unknown, Uncoded 03/26/24 09:22) unknown Environmental Allergy (Unknown, Uncoded 03/26/24 09:22) unknown Do you need a note to return to daycare/school/sports/work: No HPI HPI Comments History of Present Illness Details 58 y/o female patient who presents to the walk in clinic with c/o URI symptoms for 1 month. Reports cough, chest tightness, SOB and throat burning. H/o Asthma, but reports not using her inhaler. She also does c/o Urinary symptoms. [facility] Medical History (Updated 03/09/24 @ 08:40 by Ping Mohamud MD) Polyarticular osteoarthritis Seronegative rheumatoid arthritis Long-term use of Plaquenil Obesity (BMI 30-39.9) Osteoarthritis of left knee Localized osteoarthritis of shoulder regions, bilateral Bilateral shoulder pain Pre-op evaluation Shortness of breath Encounter for routine gynecological examination Feeling sick UTI (urinary tract infection) Respiratory infection Hospital discharge follow-up Medicare annual wellness visit, initial Urinary tract infection Medicare annual wellness visit, subsequent Screening examination for infectious disease Large joint arthralgia of multiple sites Herpes Environmental allergies Anxiety, generalized Lipid disorder Umbilical hernia Fibromyalgia Acute arthritis Tendonitis Surgical History Hx of hernia repair History of esophagogastroduodenoscopy (EGD) Hx of colonoscopy History of meniscectomy of left knee (~01/12/14) History of cholecystectomy H/O hand surgery Family History Mother Cervical cancer Bladder cancer Father Cancer Sister No problems noted. Other Mental health disorder Substance use disorder Social History Household Members: Significant Other Housing: Apartment Alcohol intake: former Year quit: 22yo Patient Tobacco Use Status: Former Tobacco user e-Cigarette/Vaping Use: Never Used service: No Current occupational status: unemployed and disabled Sexual orientation: Straight/Heterosexual Gender identity: Female Cognitive needs: No Hearing needs: No Vision needs: No Review of Systems Const All systems reviewed & are unremarkable except as noted in HPI and below Physical Exam Vital Signs: Last Vital Signs Temp 98.4 F 03/26/24 09:22 Pulse 88 03/26/24 09:22 BP 122/80 03/26/24 09:22 Pulse Ox 98 03/26/24 09:22 Oxygen Delivery Method Room Air 03/26/24 09:22 BMI result Body Mass Index 41.6 Const General: cooperative and no acute distress Nutritional Appearance: obese Orientation/consciousness: patient oriented x3 HEENT Head: Yes normocephalic Ears: external ears normal and TM's normal bilaterally Face and sinus: Yes sinuses nontender Mouth: moist mucous membranes Resp Effort & Inspection: normal respiratory effort, able to speak in complete sentences and Actively coughing Auscultation: clear to auscultation bilaterally, no crackles, no rales, no rhonchi and no wheezes Cardio Heart sounds: S1 normal heart sound present and S2 normal heart sound present Neuro General: patient oriented x3, gait normal and moves all extremities Psych Speech and movement: Normal speech and movement present Results AMB Urinalysis, Automated UA Leukoctes 0 Zac/uL Last Edit by PAULINA Noble on 03/26/24 10:28 UA Nitrite Negative Last Edit by Allen Jolley [facility] on 03/26/24 10:28 UA Urobilinogen 0.2 mg/dL Last Edit by Allen Jolley [facility] on 03/26/24 10:28 UA Protein 0 mg/dL Last Edit by Allen Jolley [facility] on 03/26/24 10:28 UA pH 6.0 Last Edit by Allen Jolley [facility] on 03/26/24 10:28 UA Blood 1 Nikunj/uL Last Edit by Allen Jolley [facility] on 03/26/24 10:28 UA Specific [place] 1.000 Last Edit by Allen Jolley [facility] on 03/26/24 10:28 UA Ketone Positive Last Edit by Allen Jolley [facility] on 03/26/24 10:28 UA Bilirubin 0 mg/dL Last Edit by Allen Jolley [facility] on 03/26/24 10:28 UA Glucose 0 mg/dL Last Edit by Allen Jolley [facility] on 03/26/24 10:28 Results Reviewed Results Reviewed: Laboratory Last Values Urine pH (Auto) 6.0 03/26/24 10: Specific [place] (Auto) 1.000 03/26/24 10:27 Urine Protein (Auto) 0 mg/dL 03/26/24 10:27 Glucose (UA)(Auto) 0 mg/dL 03/26/24 10:27 Urine Ketones (Auto) Positive 03/26/24 10: Urine Blood (Auto) 1 Nikunj/uL 03/26/24 10: Urine Nitrite (Auto) Negative 03/26/24 10: Urine Bilirubin (Auto) 0 mg/dL 03/26/24 10: Urine Urobilinogen (Auto) 0.2 mg/dL 03/26/24 10:27 Leukocyte Esterase (Auto) 0 Zac/uL 03/26/24 10:27 Assessment & Plan Assessment & Plan (1) Cough in adult: Code(s): R05.9 - Cough, unspecified Plan: Ordered chest Xray Ordered UA which was negative. F/U with Pulmonology and PCP Orders: Orders XR chest 2V Today R05.9 - Cough, unspecified AMB Urinalysis Automated Today Z13.9 - Encounter for screening, unspecified Medications: New benzonatate 100 mg PO TID 90 caps 0RF R05.9 - Cough, unspecified Coding Level of Care Code Est Pt Level 3 (21861) Diagnoses Cough in adult R05.9 Time Spent (min) 15
[2024-03-26 09:22] VITALS: BP 122/80; PULSE 88; TEMP 36.9; O2SAT 98; BMI 41.6
== END 2024-03-26 09:53 | disposition home or self-care (01) ==
PROVIDERS: PCP Internal Medicine; Visit Provider Nurse Practitioner Family
DX: R05.9 Cough, unspecified (principal); Z13.9 Encounter for screening, unspecified

== ENCOUNTER → 2024-03-26 08:43 | Outpatient (BNVA) | payer MEDICARE, MEDICAID, SELFPAY | PROVIDERS: PCP Internal Medicine; Visit Provider Nurse Practitioner Family ==

== ENCOUNTER 2024-03-26 09:39 | Outpatient (REF) | payer MEDICARE, MEDICAID, SELFPAY ==
--- NOTE | ~2024-03-26 | XR_ITS ---
EXAMINATION: XR CHEST CLINICAL INFORMATION: Cough COMPARISON: Chest radiograph 08/18/2023 TECHNIQUE: 2 views of the chest were obtained. FINDINGS: The lungs are adequately expanded. No focal consolidation. No pleural effusions or pneumothorax. Cardiac mediastinal silhouette is within normal limits. Degenerative changes of the thoracic spine. Cholecystectomy clips in the right upper quadrant. XR/XR chest 2V IMPRESSION: No acute pulmonary disease. Electronically signed by: Paolo Herbert MD 03/26/2024 10:54 AM EDT
== END 2024-03-26 09:40 | disposition home or self-care (01) ==
LOC: HO.HMGCX 09:39
PROVIDERS: PCP Internal Medicine; Visit Provider Nurse Practitioner Family
DX: R05.9 Cough, unspecified (principal)
CPT/HCPCS: 71046; 81003; 99212

== ENCOUNTER 2024-04-06 08:06 | Outpatient (AMB) | payer MEDICARE, MEDICAID, SELFPAY ==
--- NOTE | 2024-04-06 08:07 | A.OFFPC_ITS ---
Intake Visit Reasons: 3 month Allergies gabapentin [GABAPENTIN] Allergy (Severe, Verified 03/26/24 09:22) SEVERE GI ISSUES Iodinated Contrast Media [IV DYE, IODINE CONTAINING] Allergy (Severe, Verified 03/26/24 09:22) SWELLING Sulfa (Sulfonamide Antibiotics) [SULFA (SULFONAMIDE ANTIBIOTICS)] Allergy (Severe, Verified 03/26/24 09:22) ANAPHYLAXIS, swelling Milk Containing Products (Dairy) Allergy (Intermediate, Verified 03/26/24 09:22) Rash lidocaine Allergy (Mild, Verified 03/26/24 09:22) Welts nabumetone Allergy (Unknown, Verified 03/26/24 09:22) Abdominal Pain pregabalin Allergy (Unknown, Verified 03/26/24 09:22) unknown venlafaxine Allergy (Unknown, Verified 03/26/24 09:22) unknown semaglutide [From Ozempic] Adverse Reaction (Intermediate, Verified 03/26/24 09:22) Rash meloxicam Adverse Reaction (Unknown, Verified 03/26/24 09:22) abdominal pain all meat Allergy (Unknown, Uncoded 03/26/24 09:22) unknown Environmental Allergy (Unknown, Uncoded 03/26/24 09:22) unknown Medication List - Last Reconciled 04/06/24 by Lyndon Fagan MD alprazolam 0.5 mg PO BID 30 days bisacodyl (Dulcolax (bisacodyl)) 20 mg (4 x 5 mg) PO ONCE 1 day budesonide-formoterol 160-4.5 mcg/actuation (Symbicort) 2 puffs inhalation BID diphenhydramine HCl (Allergy (diphenhydramine)) 25 mg orally Take the morning and evening of the day before procedure and then the morning of procedure.; famotidine 20 mg orally Take the morning and evening of the day before procedure and then the morning of procedure.; hydroxychloroquine 200 mg PO BID 90 days linaclotide (Linzess) 72 mcg PO QAM pantoprazole 40 mg PO BID peg 3350-electrolytes 236-22.74-6.74 -5.86 gram 240 mL PO Q10M rosuvastatin 10 mg PO DAILY valacyclovir 500 mg PO DAILY 90 days Tobacco use date assessed: 04/06/24 Dental Screening Dental Screen Date: 03/04/24 HPI 3 month HPI Details Patient is 58-year-old female came in today regular follow-up appointment and to have her medication refilled Continued to have pain in her joints Patient has seen Rheumatology [facility], and hydroxychloroquine was prescribed But patient does not want to take it as she read side effects and she is afraid to take the medication She was also prescribed 5 mg of prednisone that she is still taking Few days ago this month patient was seen in walk-in clinic for respiratory infection Chest x-ray was clear, however patient continued to cough with chest congestion and spitting out yellow phlegm I have sent azithromycin for the patient Patient have anxiety panic disorder and is on alprazolam prescription She come in every three-month for refill and evaluation, patient is complying with the treatment plan Patient have sleep apnea and she is using CPAP machine She was seeing Dr Parikh for the management She also have interstitial cystitis which is stable at this time Diet-controlled diabetes, hemoglobin A1c stable Gastric medications through Gastroenterology [facility] Follow-up 3 months [facility] Medical History Polyarticular osteoarthritis Seronegative rheumatoid arthritis Long-term use of Plaquenil Obesity (BMI 30-39.9) Osteoarthritis of left knee Localized osteoarthritis of shoulder regions, bilateral Bilateral shoulder pain Pre-op evaluation Shortness of breath Encounter for routine gynecological examination Feeling sick UTI (urinary tract infection) Respiratory infection Hospital discharge follow-up Medicare annual wellness visit, initial Urinary tract infection Medicare annual wellness visit, subsequent Screening examination for infectious disease Large joint arthralgia of multiple sites Herpes Environmental allergies Anxiety, generalized Lipid disorder Umbilical hernia Fibromyalgia Acute arthritis Tendonitis Surgical History Hx of hernia repair History of esophagogastroduodenoscopy (EGD) Hx of colonoscopy History of meniscectomy of left knee (~01/12/14) History of cholecystectomy H/O hand surgery Family History Mother Cervical cancer Bladder cancer Father Cancer Sister No problems noted. Other Mental health disorder Substance use disorder Social History Household Members: Significant Other Housing: Apartment Alcohol intake: former Year quit: 22yo Patient Tobacco Use Status: Former Tobacco user e-Cigarette/Vaping Use: Never Used service: No Current occupational status: unemployed and disabled Sexual orientation: Straight/Heterosexual Gender identity: Female Cognitive needs: No Hearing needs: No Vision needs: No Questionnaire Thrive Questionnaire Date Thrive assessed: 07/02/23 ARIANNA-7 AMB Questionnaire ARINANA-7 Date ARIANNA - 7 assessed: 07/02/23 Source: Developed by Drs. Kenneth Preston, Aruna Alcantar, Babak Rebolledo and colleagues, with an educational morris from [employer]. Review of Systems Const Denies chills and Denies fever(s) ENT Denies epistaxis and Denies nasal discharge Card Denies chest pain Resp Denies hemoptysis GI Denies diarrhea and Denies nausea Skin/Breast Denies rash Neuro Reports no additional complaints Psych Reports no additional complaints Endo Reports no additional complaints Physical exam (Primary Care) Tobacco/Smoking Status: Tobacco use Status Tobacco use date assessed 04/06/24 04/06/24 08:31 Patient Tobacco Use Status Former Tobacco user 04/06/24 08:08 e-Cigarette/Vaping Use Never Used 04/06/24 08:08 Thrive Assessment: Date of Thrive Assessment Date Thrive assessed 07/02/23 04/06/24 08:08 Telehealth Telehealth Telehealth Platform: [facility] Location of provider rendering services: practice address Location of patient: address on file Patient Identification confirmed using: Name, : Yes Telehealth method: video Patient verbally consented to treatment: Yes Patient verbally consented to billing insurance company: Yes Patient informed of any privacy concerns related to visit: Yes Coding Level of Care Code Tele [facility] Pt Level 4 (02254) Diagnoses Diet-controlled diabetes mellitus E11.9 Fibromyalgia M79.7 Anxiety, generalized F41.1 Environmental allergies Z91.09 Gastroesophageal reflux disease without esophagitis K21.9 Esophagitis presence: without esophagitis Impaired fasting blood sugar R73.01 Morbid obesity due to excess calories E66.01 Seronegative rheumatoid arthritis M06.00 Polyarticular osteoarthritis M15.9 Assessment & Plan Assessment & Plan (1) Diet-controlled diabetes mellitus: Code(s): E11.9 - Type 2 diabetes mellitus without complications Category: Medical (2) Fibromyalgia: Code(s): M79.7 - Fibromyalgia Category: Medical (3) Anxiety, generalized: Code(s): F41.1 - Generalized anxiety disorder Category: Medical (4) Environmental allergies: Code(s): Z91.09 - Other allergy status, other than to drugs and biological substances Category: Medical (5) GERD (gastroesophageal reflux disease): Code(s): K21.9 - Gastro-esophageal reflux disease without esophagitis Category: Medical Qualifiers: Esophagitis presence: without esophagitis Qualified Code(s): K21.9 - Gastro-esophageal reflux disease without esophagitis (6) Impaired fasting blood sugar: Code(s): R73.01 - Impaired fasting glucose Category: Medical (7) Morbid obesity due to excess calories: Code(s): E66.01 - Morbid (severe) obesity due to excess calories Category: Medical (8) Seronegative rheumatoid arthritis: Code(s): M06.00 - Rheumatoid arthritis without rheumatoid factor, unspecified site Category: Medical (9) Polyarticular osteoarthritis: Code(s): M15.9 - Polyosteoarthritis, unspecified Category: Medical Plan Patient is 58-year-old female came in today regular follow-up appointment and to have her medication refilled Continued to have pain in her joints Patient has seen Rheumatology [facility], and hydroxychloroquine was prescribed But patient does not want to take it as she read side effects and she is afraid to take the medication She was also prescribed 5 mg of prednisone that she is still taking Few days ago this month patient was seen in walk-in clinic for respiratory infection Chest x-ray was clear, however patient continued to cough with chest congestion and spitting out yellow phlegm I have sent azithromycin for the patient Patient have anxiety panic disorder and is on alprazolam prescription She come in every three-month for refill and evaluation, patient is complying with the treatment plan Patient have sleep apnea and she is using CPAP machine She was seeing Dr Parikh for the management She also have interstitial cystitis which is stable at this time Diet-controlled diabetes, hemoglobin A1c stable Gastric medications through Gastroenterology [facility] Follow-up 3 months 30 minutes spent in care of this patient Medications: New azithromycin Take 2 tablets today then 1 daily 250 mg PO ONCE 5 days 6 tabs 0RF J06.9 - Acute upper respiratory infection, unspecified Refilled alprazolam 0.5 mg PO BID 30 days 60 tabs 2RF
== END 2024-04-06 08:57 | disposition home or self-care (01) ==
LOC: HO.HMCC 08:06
PROVIDERS: PCP Internal Medicine; Visit Provider Internal Medicine
DX: E11.9 Type 2 diabetes mellitus without complications (principal); M79.7 Fibromyalgia; E66.01 Morbid (severe) obesity due to excess calories; M06.00 Rheumatoid arthritis without rheumatoid factor, unspecified site; F41.1 Generalized anxiety disorder; Z91.09 Other allergy status, other than to drugs and biological substances; K21.9 Gastro-esophageal reflux disease without esophagitis; R73.01 Impaired fasting glucose; M15.9 Polyosteoarthritis, unspecified

== ENCOUNTER → 2024-04-06 08:06 | Outpatient (BNVA) | payer MEDICARE, MEDICAID, SELFPAY | PROVIDERS: PCP Internal Medicine; Visit Provider Internal Medicine ==

== ENCOUNTER 2024-05-15 10:07 | Emergency (ER) | payer MEDICARE, MEDICAID, SELFPAY ==
--- NOTE | ~2024-05-15 | XR_ITS ---
EXAMINATION: XR TIBIA/FIBULA RIGHT XR ANKLE, RIGHT XR FOOT, RIGHT CLINICAL INDICATION: Fall. TECHNIQUE: 3 views of the right foot 2 views of the ankle 2 views of the tibia/fibula. COMPARISON: None. FINDINGS: The patient demonstrates a minimally displaced avulsion fracture involving the distal end of the lateral malleolus, with associated soft tissue swelling. No other fracture or dislocation is appreciated. Bony mineralization appears preserved. No lytic or sclerotic bony lesion is seen. Plantar and Achilles calcaneal spurs. The joint spaces appear maintained. XR/XR ankle RT 2V IMPRESSION: Minimally displaced avulsion fracture involving the distal end of the right lateral malleolus, with associated soft tissue swelling. Electronically signed by: Jose Miguel Ventura MD 05/15/2024 02:18 PM [facility]
--- NOTE | ~2024-05-15 | XR_ITS ---
EXAMINATION: XR TIBIA/FIBULA RIGHT XR ANKLE, RIGHT XR FOOT, RIGHT CLINICAL INDICATION: Fall. TECHNIQUE: 3 views of the right foot 2 views of the ankle 2 views of the tibia/fibula. COMPARISON: None. FINDINGS: The patient demonstrates a minimally displaced avulsion fracture involving the distal end of the lateral malleolus, with associated soft tissue swelling. No other fracture or dislocation is appreciated. Bony mineralization appears preserved. No lytic or sclerotic bony lesion is seen. Plantar and Achilles calcaneal spurs. The joint spaces appear maintained. XR/XR tibia fibula RT 2V IMPRESSION: Minimally displaced avulsion fracture involving the distal end of the right lateral malleolus, with associated soft tissue swelling. Electronically signed by: Jose Miguel Ventura MD 05/15/2024 02:18 PM [facility]
--- NOTE | ~2024-05-15 | XR_ITS ---
EXAMINATION: XR TIBIA/FIBULA RIGHT XR ANKLE, RIGHT XR FOOT, RIGHT CLINICAL INDICATION: Fall. TECHNIQUE: 3 views of the right foot 2 views of the ankle 2 views of the tibia/fibula. COMPARISON: None. FINDINGS: The patient demonstrates a minimally displaced avulsion fracture involving the distal end of the lateral malleolus, with associated soft tissue swelling. No other fracture or dislocation is appreciated. Bony mineralization appears preserved. No lytic or sclerotic bony lesion is seen. Plantar and Achilles calcaneal spurs. The joint spaces appear maintained. XR/XR foot RT 2V IMPRESSION: Minimally displaced avulsion fracture involving the distal end of the right lateral malleolus, with associated soft tissue swelling. Electronically signed by: Jose Miguel eVntura MD 05/15/2024 02:18 PM [facility]
[2024-05-15 10:11] VITALS: BP 150/99; PULSE 91; RESP 19; TEMP 36.6; O2SAT 98; BMI 40.2
--- NOTE | 2024-05-15 10:22 | PC.NURSE ---
pt a&ox3, states she has 10/10 rle pain, pt states she took 200 ibuprofen a little after the fall. + csm/pulses to RLE, notable rt ankle swelling. pt awaiting radiology
--- NOTE | 2024-05-15 11:40 | ED.LOWEXIN ---
HPI - Extremity Injury (Lower) General Chief Complaint: Extremity Injury, Lower Stated Complaint: fall r ankle inj Time Seen by Provider: 05/15/24 10:45 Source: patient Mode of arrival: ambulatory Limitations: no limitations History of Present Illness ED Provider: CELESTINO MARTELL PA-C HPI Narrative: 59 year old female with pmhx significant for fibromyalgia, anxiety, HDL, recurrent UTIs, arthritis presents to the ED today for evaluation of right ankle pain s/p fall injury occurring [employer] in ED. Patient reports that while descending the stairs while leaving her house today, her right ankle rolled inward. Admits to hearing a crack before falling to the ground. Denies head strike or LOC. Not on anticoagulation. Reports immediate pain to the outer aspect of her right ankle. Has been unable to bear weight on the right lower extremity. She did not take any pain medication [employer] in ED. Denies numbness/tingling/weakness of the RLE. Related Data Previous Rx's ?Medication ?Instructions ?Recorded rosuvastatin 10 mg tablet 10 mg PO DAILY #90 tabs 10/16/22 linaclotide 72 mcg capsule 72 mcg PO QAM #30 caps 09/24/23 (Linzess) budesonide-formoterol HFA 160 2 puff inhalation BID #10.2 grams 02/13/24 mcg-4.5 mcg/actuation aerosol inhaler (Symbicort) diphenhydramine HCl 25 mg tablet 25 mg PO .COMPLEX #3 tabs 02/16/24 (Allergy (diphenhydramine)) famotidine 20 mg tablet 20 mg PO .COMPLEX #3 tabs 02/16/24 bisacodyl 5 mg tablet,delayed 20 mg (4 x 5 mg) PO ONCE 1 day #4 03/11/24 release (Dulcolax (bisacodyl)) tabs peg 3350-electrolytes 236 240 ml PO Q10M #4,000 mL 03/11/24 gram-22.74 gram-6.74 gram-5.86 gram solution valacyclovir 500 mg tablet 500 mg PO DAILY 90 days #90 tabs 03/29/24 hydroxychloroquine 200 mg tablet 200 mg PO BID 90 days #180 tabs 03/30/24 alprazolam 0.5 mg tablet 0.5 mg PO BID 30 days #60 tabs 04/06/24 azithromycin 250 mg tablet 250 mg PO ONCE 5 days #6 tabs 04/06/24 pantoprazole 40 mg tablet,delayed 40 mg PO BID #180 tabs 04/19/24 release prednisone 5 mg tablet 5 mg PO DAILY #90 tabs 05/05/24 morphine 15 mg immediate release 15 mg PO Q8H PRN pain (scale score 05/15/24 tablet 1-3) #9 tabs ondansetron 4 mg disintegrating 4 mg PO DAILY PRN nausea and 05/15/24 tablet vomiting 5 days #10 tabs walker #1 ea 05/15/24 Allergies Allergy/AdvReac Type Severity Reaction Status Date / Time gabapentin [GABAPENTIN] Allergy Severe SEVERE GI Verified 05/15/24 10:13 ISSUES Iodinated Contrast Media Allergy Severe SWELLING Verified 05/15/24 10:13 [IV DYE, IODINE CONTAINING] Sulfa (Sulfonamide Allergy Severe ANAPHYLAXIS, Verified 05/15/24 10:13 Antibiotics) swelling [SULFA (SULFONAMIDE ANTIBIOTICS)] Milk Containing Products Allergy Intermediate Rash Verified 05/15/24 10:13 (Dairy) lidocaine Allergy Mild Welts Verified 05/15/24 10:13 nabumetone Allergy Unknown Abdominal Verified 05/15/24 10:13 Pain pregabalin Allergy Unknown unknown Verified 05/15/24 10:13 venlafaxine Allergy Unknown unknown Verified 05/15/24 10:13 semaglutide [From Ozempic] AdvReac Intermediate Rash Verified 05/15/24 10:13 meloxicam AdvReac Unknown abdominal Verified 05/15/24 10:13 pain all meat Allergy Unknown unknown Uncoded 05/15/24 10:13 Environmental Allergy Unknown unknown Uncoded 05/15/24 10:13 Review of Systems Review of Systems: Constitutional: No fever, chills, fatigue, night sweats, weight changes ENT/Mouth: No ear pain, hearing loss, nasal congestion, sinus pain, rhinorrhea, sore throat Eyes: No eye pain, swelling, redness, vision changes, discharge Cardio: No chest pain, palpitations, STEVENS, orthopnea, peripheral edema Pulm: No SOB, cough, sputum, wheezing, dyspnea, hemoptysis GI: No nausea, vomiting, hematemesis, abdominal pain, diarrhea, constipation, hematochezia, melena : No irregular bleeding, dysuria, frequency, urgency, hesitancy, hematuria, flank pain, urinary flow changes, urinary incontinence or retention MSK: No back pain, neck pain, joint pain, myalgias, +right ankle pain Skin: No lesions, rashes Neuro: No weakness, numbness, paresthesias, LOC, dizziness, headache Psych: No anxiety/panic, depression, SI/HI, AH/VH All other systems reviewed and are negative. [facility] Past Medical History Attestation statement: The following information was validated with the patient. Source: old records reviewed and nursing notes reviewed Medical History Polyarticular osteoarthritis Seronegative rheumatoid arthritis Long-term use of Plaquenil Obesity (BMI 30-39.9) Osteoarthritis of left knee Localized osteoarthritis of shoulder regions, bilateral Bilateral shoulder pain Pre-op evaluation Shortness of breath Encounter for routine gynecological examination Feeling sick UTI (urinary tract infection) Respiratory infection Hospital discharge follow-up Medicare annual wellness visit, initial Urinary tract infection Medicare annual wellness visit, subsequent Screening examination for infectious disease Large joint arthralgia of multiple sites Herpes Environmental allergies Anxiety, generalized Lipid disorder Umbilical hernia Fibromyalgia Acute arthritis Tendonitis Surgical History Hx of hernia repair History of esophagogastroduodenoscopy (EGD) Hx of colonoscopy History of meniscectomy of left knee (~01/12/14) History of cholecystectomy H/O hand surgery Family History Family History Mother Cervical cancer Bladder cancer Father Cancer Sister No problems noted. Other Mental health disorder Substance use disorder Social History Social History Household Members: Significant Other Housing: Apartment Unable to assess alcohol history related to: Unknown Alcohol intake: former Year quit: 22yo Patient Tobacco Use Status: Former Tobacco user e-Cigarette/Vaping Use: Never Used Use of substances other than those prescribed or required for medical reasons: Unknown Advance Directives: No Advance Directives Information Provided: No Do you have a plan to hurt others: No Plan service: No Current occupational status: unemployed and disabled Sexual orientation: Straight/Heterosexual Gender identity: Female Cognitive needs: No Hearing needs: No Vision needs: No Physical Exam Vital Signs: Vital Signs: Last Vital Signs Temp 98 F 05/15/24 10:11 Pulse 91 05/15/24 10:11 Resp 19 05/15/24 10:11 BP 150/99 H 05/15/24 10:11 Pulse Ox 98 05/15/24 10:11 O2 Del Method Room Air 05/15/24 10:11 BMI result Body Mass Index 40.2 Hypertensive, vitals otherwise wnl. General: Well appearing, in no acute distress. Skin: Warm, dry, intact. No rashes or lesions. Head: Normocephalic, atraumatic. EENT: Hearing is intact b/l. Conjunctiva clear. PERRLA. EOM intact. Moist mucous membranes.? Neck: no midinline c spine tenderness or step off Cardiac: Chest wall symmetric. RRR Lungs: Normal respiratory effort without accessory muscle use. CTA bilaterally Back: No midline spinous or paraspinal tenderness. No step off deformity. Ext: +right ankle with noted swelling over the lateral malleolus. no erythema no overlying abrasions or lacerations. or obvious deformity. ttp over lateral malleolus without crepitus or deformity. no warmth. 2+ DP/PT pulse intact. FROM right ankle limited d/t pain/ swelling. able to move all toes with moderate amount of pain. sensation intact. cap refill <2 seconds. Negative Dhaliwal test. Neuro: AOx3. Normal speech. Psych: Appropriate mood and affect. Responds appropriately to questions. Course Course Course Narrative: 151 -- xr right tib/fib, ankle, foot showing minimally displaced avulsion fracture of the distal end of the lateral malleolus with associated soft tissue swelling.. No other fracture or dislocation appreciated. Patient was placed in a posterior and stirrup splint. CMS intact post-splinting. Her pain has been controlled with both toradol and morphine. Patient is requesting a prescription for a seated walker so she can roll around her apartment. I reiterated that she is not to bear weight on her right lower extremity until ortho follow up and she verbalizes understanding. She has also been provided with crutches and has been ambulating around the ED assisted by crutches without difficulty. ortho referral provided. Patient has remained stable throughout ED visit today. Discussed worrisome signs and symptoms and when to return to the ED. All questions answered at this time. Patient is agreeable with disposition and stable for discharge. Medications Administered Discontinued Medications Generic Name Dose Route Start Last Admin Trade Name Freq PRN Reason Stop Dose Admin Ketorolac Tromethamine 30 mg 05/15/24 11:52 05/15/24 12:04 Ketorolac Tromethamine 30 Mg/Ml Vial IM 05/15/24 11:53 30 mg ONCE ONE Administration Medical Decision Making Medical Decision Making MDM Narrative: 59 year old female with pmhx significant for fibromyalgia, anxiety, HDL, recurrent UTIs, arthritis presents to the ED today for evaluation of right ankle pain s/p fall injury occurring [employer] in ED. patient is hypertensive likely secondary to pain, vitals otherwise WNL. Right ankle with noted swelling over the lateral malleolus. no erythema or obvious deformity. no overlying abrasions or laceration. ttp over lateral malleolus without crepitus or deformity. no warmth. 2+ DP/PT pulse intact. FROM right ankle limited d/t pain/ swelling. able to move all toes with moderate amount of pain. sensation intact. cap refill <2 seconds. Negative Dhaliwal test. Differential diagnosis includes MSK sprain/strain, fracture, dislocation, contusion, arthritis. Presentation not consistent with pseudogout, gout, Achilles tendon rupture, DVT, threat to limb, neurovascular compromise, compartment syndrome. Plan for x-rays, pain control, re-evaluation. Differential Diagnosis Differential Diagnoses: The differential diagnosis associated with the presentation includes as above. Admission/Observation Not indicated Independent Interpretation I performed an independent interpretation of an: Plain X-Ray Interpretation: XR right ankle/ tib-fib/ foot shows fracture to distal aspect of right lateral malleolus Radiology Impression Discussion of test interpretation with radiology: I have reviewed the radiologist's reading. Radiologist Impression: EXAMINATION: XR TIBIA/FIBULA RIGHT XR ANKLE, RIGHT XR FOOT, RIGHT CLINICAL INDICATION: Fall. TECHNIQUE: 3 views of the right foot 2 views of the ankle 2 views of the tibia/fibula. COMPARISON: None. FINDINGS: The patient demonstrates a minimally displaced avulsion fracture involving the distal end of the lateral malleolus, with associated soft tissue swelling. No other fracture or dislocation is appreciated. Bony mineralization appears preserved. No lytic or sclerotic bony lesion is seen. Plantar and Achilles calcaneal spurs. The joint spaces appear maintained. XR/XR tibia fibula RT 2V IMPRESSION: Minimally displaced avulsion fracture involving the distal end of the right lateral malleolus, with associated soft tissue swelling. Electronically signed by: Jose Miguel Ventura MD 05/15/2024 02:18 PM [facility] [place] Independent Historian Clinical information obtained from an independent historian. History obtained from or confirmed by: Spouse External Record Review External record reviewed: Inpatient record Prescription Management I considered prescription management with: Pain Medication (morphine) and Other (zofran) Social Determinants Patient?s care significantly limited by Social Determinants of Health including: Other Social Determinant of Health Procedures Orthopedic Splinting/Casting Injury #1: Side: right Lower Extremity Injury Location: ankle Lower Extremity Immobilizer: posterior splint and stirrup splint Other Orthopedic Equipment: crutches and walker Critical Care Time Critical Care Time Critical Care Time: No Discharge Plan Discharge Clinical Impression: Fracture of lateral malleolus Qualifiers: Encounter type: initial encounter Fracture type: closed Fracture alignment: displaced Laterality: right Qualified Code(s): S82.61XA - Displaced fracture of lateral malleolus of right fibula, initial encounter for closed fracture Patient Disposition: Home, Self-Care Instructions: Ankle Fracture (ED), Crutch Instructions (ED) Additional Instructions: You have been evaluated in the Emergency Department today for ankle pain. Your evaluation showed a fracture of your right ankle. I have placed your ankle in a splint today. Avoid getting the splint wet. We have provided crutches for you to use while your ankle heals. DO NOT BEAR WEIGHT ON YOUR RIGHT FOOT/ANKLE. Please rest, ice, and elevate your ankle. I recommend you take 600mg ibuprofen every 6 hours or tylenol 650mg every 6 hours as needed for pain. If needed, you can alternate these medications so that you take one medication every 3 hours. For example, at noon take ibuprofen, then at 3pm take tylenol, then at 6pm take ibuprofen.? Please take morphine as directed as necessary for breakthrough pain. Zofran has been sent to your pharmacy for nausea. Please follow-up with an orthopedic surgeon in 1 week. You have been provided with a referral. Call them to make an appointment, they will not call you. Return to the Emergency Department if you experience worsening pain, numbness, tingling, change of color in your toes, or any other concerning symptoms. Prescriptions: New ondansetron 4 mg tablet,disintegrating 4 mg PO DAILY PRN (Reason: nausea and vomiting) 5 Days Qty: 10 0RF morphine 15 mg tablet 15 mg PO Q8H PRN (Reason: pain (scale score 1-3)) Qty: 9 0RF Rx Instructions: Partial Fill upon patient request. (MICHEL) advid Srinivasan See Rx Instructions .Route Qty: 1 0RF Rx Instructions: As directed No Action rosuvastatin 10 mg tablet 10 mg PO DAILY Qty: 90 0RF diphenhydramine HCl [Allergy (diphenhydramine)] 25 mg tablet 25 mg PO .COMPLEX Qty: 3 0RF Rx Instructions: 25 mg orally Take the morning and evening of the day before procedure and then the morning of procedure.; famotidine 20 mg tablet 20 mg PO .COMPLEX Qty: 3 0RF Rx Instructions: 20 mg orally Take the morning and evening of the day before procedure and then the morning of procedure.; peg 3350-electrolytes 236-22.74-6.74 -5.86 gram recon soln 240 ml PO Q10M Qty: 4000 0RF Rx Instructions: Refer to prep instructions given/ mailed to you from GI OFFICE. until fecal effluent is clear bisacodyl [Dulcolax (bisacodyl)] 5 mg tablet,delayed release (DR/EC) 20 mg PO ONCE 1 Days Qty: 4 0RF Rx Instructions: the day before colonoscopy take 2 pills at 12pm and 2 pills at 5pm with water valacyclovir 500 mg tablet 500 mg PO DAILY 90 Days Qty: 90 0RF hydroxychloroquine 200 mg tablet 200 mg PO BID 90 Days Qty: 180 1RF pantoprazole 40 mg tablet,delayed release (DR/EC) 40 mg PO BID Qty: 180 1RF prednisone 5 mg tablet 5 mg PO DAILY Qty: 90 1RF Linzess 72 mcg capsule 72 mcg PO QAM Qty: 30 6RF budesonide-formoterol [Symbicort] 160-4.5 mcg/actuation HFA aerosol inhaler 2 puff inhalation BID Qty: 10.2 6RF azithromycin 250 mg tablet 250 mg PO ONCE 5 Days Qty: 6 0RF Rx Instructions: Take 2 tablets today then 1 daily alprazolam 0.5 mg tablet 0.5 mg PO BID 30 Days Qty: 60 2RF Referrals: [facility] [place] Orth[facility] Surgeons [Provider Group] - 3 days (RIGHT LATERAL MALLEOLUS FRACTURE) Lyndon Fagan MD [Primary Care Provider] - Print Language: Arabic
[2024-05-15] MEDS: Ketorolac Tromethamine 30 MG/ML VIAL IM (12:04)
[2024-05-15] MEDS: Morphine Sulfate Immed Release 15 MG TABLET PO (14:51)
[2024-05-15] MEDS: Ondansetron ODT 4 MG TAB.RAPDIS TRANSLINGU (14:52)
[2024-05-15 15:03] VITALS: BP 143/84; PULSE 81; RESP 20; TEMP 36.8; O2SAT 98
[2024-05-15 15:31] VITALS: BP 143/84; PULSE 81; RESP 20; TEMP 36.8; O2SAT 98
== END 2024-05-15 15:32 | disposition home or self-care (01) ==
PROVIDERS: Emergency Provider Emergency Medicine Emergency Medical Services; PCP Internal Medicine
DX: S82.61XA Displaced fracture of lateral malleolus of right fibula, initial encounter for closed fracture (principal); X50.1XXA Overexertion from prolonged static or awkward postures, initial encounter; Y93.89 Activity, other specified; Y92.018 Other place in single-family (private) house as the place of occurrence of the external cause; Y99.9 Unspecified external cause status
CPT/HCPCS: 29515; 73590; 73600; 73620; 96372; 99284; J1885

== ENCOUNTER 2024-05-21 11:13 | Outpatient (AMB) | payer MEDICARE, MEDICAID, SELFPAY ==
--- NOTE | 2024-05-21 11:16 | A.OFFVIS_ITS ---
Intake Visit Reasons: FC- ED f/u Fracture of RT lateral malleolus Intake Note: Pt presents to the office today for a ED follow up fratcure of RT lateral malleolus. Pt states she went to step off a stair on 05/15/24 and she heard 2 cracks in her leg. Pt states she is in severe pain and has been taking 800 ibuprofen with some relief. Pt was placed in a splint and given crutches and has been using then . Pt denies any previous injury or surgeries to her left leg. Allergies gabapentin [GABAPENTIN] Allergy (Severe, Verified 05/21/24 11:18) SEVERE GI ISSUES Iodinated Contrast Media [IV DYE, IODINE CONTAINING] Allergy (Severe, Verified 05/21/24 11:18) SWELLING Sulfa (Sulfonamide Antibiotics) [SULFA (SULFONAMIDE ANTIBIOTICS)] Allergy (Severe, Verified 05/21/24 11:18) ANAPHYLAXIS, swelling Milk Containing Products (Dairy) Allergy (Intermediate, Verified 05/21/24 11:18) Rash lidocaine Allergy (Mild, Verified 05/21/24 11:18) Welts nabumetone Allergy (Unknown, Verified 05/21/24 11:18) Abdominal Pain pregabalin Allergy (Unknown, Verified 05/21/24 11:18) unknown venlafaxine Allergy (Unknown, Verified 05/21/24 11:18) unknown semaglutide [From Ozempic] Adverse Reaction (Intermediate, Verified 05/21/24 11:18) Rash meloxicam Adverse Reaction (Unknown, Verified 05/21/24 11:18) abdominal pain all meat Allergy (Unknown, Uncoded 05/21/24 11:18) unknown Environmental Allergy (Unknown, Uncoded 05/21/24 11:18) unknown HPI HPI FC- ED f/u Fracture of RT lateral malleolus: Details: 59-year-old female who presents to the office today for an ED follow-up of right ankle injury, 05/15/24. She reports she was going down when she stepped off a stair and heard 2 cracks in her leg. She currently states she has severe pain in her ankle. She was seen at ED where she was placed in a splint and given crutches that she has been using. She takes ibuprofen 800 mg for her pain with mild relief. She denies any previous injury and has not had any surgeries to her left leg. [facility] Medical History Polyarticular osteoarthritis Seronegative rheumatoid arthritis Long-term use of Plaquenil Obesity (BMI 30-39.9) Osteoarthritis of left knee Localized osteoarthritis of shoulder regions, bilateral Bilateral shoulder pain Pre-op evaluation Shortness of breath Encounter for routine gynecological examination Feeling sick UTI (urinary tract infection) Respiratory infection Hospital discharge follow-up Medicare annual wellness visit, initial Urinary tract infection Medicare annual wellness visit, subsequent Screening examination for infectious disease Large joint arthralgia of multiple sites Herpes Environmental allergies Anxiety, generalized Lipid disorder Umbilical hernia Fibromyalgia Acute arthritis Tendonitis Surgical History Hx of hernia repair History of esophagogastroduodenoscopy (EGD) Hx of colonoscopy History of meniscectomy of left knee (~01/12/14) History of cholecystectomy H/O hand surgery Family History Mother Cervical cancer Bladder cancer Father Cancer Sister No problems noted. Other Mental health disorder Substance use disorder Social History Household Members: Significant Other Housing: Apartment Unable to assess alcohol history related to: Unknown Alcohol intake: former Year quit: 22yo Patient Tobacco Use Status: Former Tobacco user e-Cigarette/Vaping Use: Never Used service: No Current occupational status: unemployed and disabled Sexual orientation: Straight/Heterosexual Gender identity: Female Cognitive needs: No Hearing needs: No Vision needs: No Review of Systems Const All systems reviewed & are unremarkable except as noted in HPI and below Physical Exam Const General: cooperative, healthy appearing, comfortable, no acute distress, well developed and alert Orientation/consciousness: patient oriented x3 HEENT Head: Yes normal to inspection, Yes normocephalic and Yes atraumatic Eyes General: appearance normal, both eyes and all related structures Resp Effort & Inspection: normal respiratory effort and able to speak in complete sentences Cardio Rate: regular rate Peripheral pulses: Peripheral pulses 2+ throughout GI Palpation (GI): Soft to palpation Skin Lesions: no lesions Rashes: no rashes Neuro General: patient oriented x3 Extrem Other: Right ankle: Normal to inspection with diffuse swelling over the medial and lateral malleolus with tenderness along the soft tissues. Mild discomfort along the posterior aspect of the ankle, no deformity along the Achilles tendon, negative Dhaliwal?s. No pain along the syndesmosis or anterior tibia. No laxity, NVI. Office Procedures AMB Fracture Care Fracture Billing Code: Fracture Billing Code Results Reviewed Results Reviewed: XR ankle RT 2V IMPRESSION: Minimally displaced avulsion fracture involving the distal end of the right lateral malleolus, with associated soft tissue swelling. Assessment & Plan Assessment & Plan (1) Right ankle sprain: Code(s): S93.401A - Sprain of unspecified ligament of right ankle, initial encounter Category: Medical Qualifiers: Encounter type: initial encounter Involved ligament of ankle: anterior talofibular ligament Qualified Code(s): S93.491A - Sprain of other ligament of right ankle, initial encounter (2) Avulsion fracture of ankle: Code(s): S82.899A - Other fracture of unspecified lower leg, initial encounter for closed fracture Category: Medical Qualifiers: Encounter type: initial encounter Fracture type: closed Laterality: right Qualified Code(s): S82.891A - Other fracture of right lower leg, initial encounter for closed fracture Plan She was placed in a tall boot weight bearing as tolerated. She can come out of the boot for hygiene, icing and gentle ankle exercises. I did placed an order for Home PT as she is unable to drive with the boot on the right leg. I would like her to work on gentle ROM and heel cord stretching. She will see me back in 4 weeks for a follow-up, sooner if needed. Patient Instructions: Scribed for Dipti Snowden PA-C, by Maycol Dee medical transcription supervisor, on 05/21/2024 at 11:30 AM EST.? I, Dipti Snowden PA-C, have personally reviewed and agree with the information entered by the scribe. Coding Level of Care Code New Pt Level 3 (29869) Complex EM visit Add On G2211 Diagnoses Sprain of anterior talofibular ligament of right ankle, initial encounter S93.491A Encounter type: initial encounter Involved ligament of ankle: anterior talofibular ligament Closed avulsion fracture of right ankle, initial encounter S82.891A Encounter type: initial encounter Fracture type: closed Laterality: right CPT Codes Fracture Care - Fracture Billing Code: Fracture Billing Code ([id number])
== END 2024-05-21 12:04 | disposition home or self-care (01) ==
PROVIDERS: PCP Internal Medicine; Visit Provider Physician Assistant
DX: S93.491A Sprain of other ligament of right ankle, initial encounter (principal); S82.891A Other fracture of right lower leg, initial encounter for closed fracture
CPT/HCPCS: 99203; G2211

== ENCOUNTER → 2024-05-21 11:13 | Outpatient (BNVA) | payer MEDICARE, MEDICAID, SELFPAY | PROVIDERS: PCP Internal Medicine; Visit Provider Physician Assistant | DX: S93.491A Sprain of other ligament of right ankle, initial encounter (principal); S82.891A Other fracture of right lower leg, initial encounter for closed fracture; X58.XXXA Exposure to other specified factors, initial encounter; Y93.9 Activity, unspecified; Y92.9 Unspecified place or not applicable; Y99.9 Unspecified external cause status | CPT/HCPCS: 99202 ==

== ENCOUNTER 2024-06-17 10:44 | Outpatient (AMB) | payer MEDICARE, MEDICAID, SELFPAY ==
--- NOTE | 2024-06-17 10:48 | A.OFFVIS_ITS ---
Vital Signs 06/17/24 10:49 Height 5 ft 1 in Weight 213 lb BMI 40.2 Intake Visit Reasons: OV- Fracture of RT lateral malleolus, DOI 05/15/24 Intake Note: Evelina is a 59 year old female who presents today for a follow up of RT ankle fracture, DOI 05/15/24. Patient reports she is doing well, she has d/c use of walking boot. Her pain comes with swelling which is usually in the morning however icing provides relief. She hears and feels cracking however denies pain. She feels this is on the lateral side of ankle and foot however this does not cause pain. She continues to do at home exercises and would really like to get back in the gym to do water exercises. Allergies gabapentin [GABAPENTIN] Allergy (Severe, Verified 06/17/24 11:06) SEVERE GI ISSUES Iodinated Contrast Media [IV DYE, IODINE CONTAINING] Allergy (Severe, Verified 06/17/24 11:06) SWELLING Sulfa (Sulfonamide Antibiotics) [SULFA (SULFONAMIDE ANTIBIOTICS)] Allergy ( Severe, Verified 06/17/24 11:06) ANAPHYLAXIS, swelling Milk Containing Products (Dairy) Allergy (Intermediate, Verified 06/17/24 11:06) Rash lidocaine Allergy (Mild, Verified 06/17/24 11:06) Welts nabumetone Allergy (Unknown, Verified 06/17/24 11:06) Abdominal Pain pregabalin Allergy (Unknown, Verified 06/17/24 11:06) unknown venlafaxine Allergy (Unknown, Verified 06/17/24 11:06) unknown semaglutide [From Ozempic] Adverse Reaction (Intermediate, Verified 06/17/24 11:06) Rash meloxicam Adverse Reaction (Unknown, Verified 06/17/24 11:06) abdominal pain all meat Allergy (Unknown, Uncoded 06/17/24 11:06) unknown Environmental Allergy (Unknown, Uncoded 06/17/24 11:06) unknown HPI HPI OV- Fracture of RT lateral malleolus, DOI 05/15/24: Details: 59-year-old female returns to the office today for a follow-up right ankle avulsion fracture. She states she is doing significantly well. She is able to ambulate without the boot. She has some minor discomfort with certain motions but overall is doing well and able to perform most activities. [facility] Medical History Polyarticular osteoarthritis Seronegative rheumatoid arthritis Long-term use of Plaquenil Obesity (BMI 30-39.9) Osteoarthritis of left knee Localized osteoarthritis of shoulder regions, bilateral Bilateral shoulder pain Pre-op evaluation Shortness of breath Encounter for routine gynecological examination Feeling sick UTI (urinary tract infection) Respiratory infection Hospital discharge follow-up Medicare annual wellness visit, initial Urinary tract infection Medicare annual wellness visit, subsequent Screening examination for infectious disease Large joint arthralgia of multiple sites Herpes Environmental allergies Anxiety, generalized Lipid disorder Umbilical hernia Fibromyalgia Acute arthritis Tendonitis Surgical History Hx of hernia repair History of esophagogastroduodenoscopy (EGD) Hx of colonoscopy History of meniscectomy of left knee (~01/12/14) History of cholecystectomy H/O hand surgery Family History Mother Cervical cancer Bladder cancer Father Cancer Sister No problems noted. Other Mental health disorder Substance use disorder Social History Household Members: Significant Other Housing: Apartment Unable to assess alcohol history related to: Unknown Alcohol intake: former Year quit: 22yo Patient Tobacco Use Status: Former Tobacco user e-Cigarette/Vaping Use: Never Used service: No Current occupational status: unemployed and disabled Sexual orientation: Straight/Heterosexual Gender identity: Female Cognitive needs: No Hearing needs: No Vision needs: No Review of Systems Const All systems reviewed & are unremarkable except as noted in HPI and below Physical Exam Vital Signs: BMI result Body Mass Index 40.2 Const General: cooperative, healthy appearing, comfortable, no acute distress, well developed and alert Orientation/consciousness: patient oriented x3 HEENT Head: Yes normal to inspection, Yes normocephalic and Yes atraumatic Eyes General: appearance normal, both eyes and all related structures Resp Effort & Inspection: normal respiratory effort and able to speak in complete sentences Cardio Rate: regular rate Peripheral pulses: Peripheral pulses 2+ throughout GI Palpation (GI): Soft to palpation Skin Lesions: no lesions Rashes: no rashes Neuro General: patient oriented x3 Extrem Other: Right ankle: Normal to inspection with out swelling over the medial and lateral malleolus with out tenderness along the soft tissues. No discomfort along the posterior aspect of the ankle, no deformity along the Achilles tendon, negative Dhaliwal?s. No pain along the syndesmosis or anterior tibia. No laxity, NVI. Results Reviewed Results Reviewed: XR ankle RT 2V IMPRESSION: Minimally displaced avulsion fracture involving the distal end of the right lateral malleolus, stable fragment Assessment & Plan Assessment & Plan (1) Right ankle sprain: Code(s): S93.401A - Sprain of unspecified ligament of right ankle, initial encounter Category: Medical Qualifiers: Encounter type: subsequent encounter Involved ligament of ankle: anterior talofibular ligament Qualified Code(s): S93.491D - Sprain of other ligament of right ankle, subsequent encounter (2) Avulsion fracture of ankle: Code(s): S82.899A - Other fracture of unspecified lower leg, initial encounter for closed fracture Category: Medical Qualifiers: Encounter type: subsequent encounter Fracture type: closed Laterality: right Fracture healing: with routine healing Qualified Code(s): S82.891D - Other fracture of right lower leg, subsequent encounter for closed fracture with routine healing Plan She was transitioned to a lace-up ankle brace today which she will use when she is out of the house or performing any type of activity with impact or walking long distances. She states she did receive a phone call from physical therapy I encouraged her to make an appointment to work on strengthening and balance type exercises. She will increase activities as tolerated and if symptoms persist or worsen she will contact our office otherwise follow up as needed. Orders: Orders XR ankle RT min 3V Today M25.571 - Pain in right ankle and joints of right foot Coding Level of Care Code Global (62305) Diagnoses Sprain of anterior talofibular ligament of right ankle, subsequent encounter S93.491D Encounter type: subsequent encounter Involved ligament of ankle: anterior talofibular ligament Closed avulsion fracture of right ankle with routine healing, subsequent encounter S82.891D Encounter type: subsequent encounter Fracture type: closed Laterality: right Fracture healing: with routine healing
[2024-06-17 10:49] VITALS: BMI 40.2
== END 2024-06-17 11:21 | disposition home or self-care (01) ==
PROVIDERS: PCP Internal Medicine; Visit Provider Physician Assistant
DX: S93.491D Sprain of other ligament of right ankle, subsequent encounter (principal); S82.891D Other fracture of right lower leg, subsequent encounter for closed fracture with routine healing
CPT/HCPCS: 99213

== ENCOUNTER → 2024-06-17 10:50 | Outpatient (BNV) | payer MEDICARE, MEDICAID, SELFPAY | PROVIDERS: Visit Provider Radiology Diagnostic Radiology | DX: M25.571 Pain in right ankle and joints of right foot (principal) | CPT/HCPCS: 73610 ==

== ENCOUNTER 2024-06-17 11:07 | Outpatient (REF) | payer MEDICARE, MEDICAID, SELFPAY ==
--- NOTE | ~2024-06-17 | XR_ITS ---
EXAMINATION: XR ANKLE 3 OR MORE VIEWS RIGHT HISTORY: M25.571 - Pain in right ankle and joints of right foot COMPARISON: Comparison is made with the prior examination dated 05/15/2024. FINDINGS: Three views of the right ankle are submitted. Osseous mineralization is normal. Again seen is a minimally displaced fracture of the tip of the distal fibula. The fracture line remains visible. No new fracture is seen. The joint spaces are preserved. There is a plantar calcaneal spur. The soft tissues are unremarkable. XR/XR ankle RT min 3V IMPRESSION: Minimally displaced fracture of the tip of the distal fibula without change. Electronically signed by: Kenneth Valderrama MD 06/21/2024 10:46 AM ANNA[facility]EL
== END 2024-06-17 11:08 | disposition home or self-care (01) ==
LOC: HO.HOSX 11:07
PROVIDERS: Visit Provider Physician Assistant
DX: M25.571 Pain in right ankle and joints of right foot (principal); S82.891D Other fracture of right lower leg, subsequent encounter for closed fracture with routine healing; S93.491D Sprain of other ligament of right ankle, subsequent encounter
CPT/HCPCS: 73610; 99212

== ENCOUNTER 2024-06-29 11:09 | Outpatient (AMB) | payer MEDICARE, MEDICAID, SELFPAY ==
[2024-06-29 11:12] VITALS: BP 126/82; PULSE 102; O2SAT 97; BMI 42.6
--- NOTE | 2024-06-29 11:12 | AM.OFFWIN_ITS ---
Intake Vital Signs 06/29/24 11:12 Height 5 ft 1 in Weight 225 lb 6 oz BMI 42.6 BP 126/82 Blood Pressure Location Rt brachial Position Sitting Pulse 102 H Pulse Source Pulse Oximeter Pulse Oximetry (%) 97 Oxygen Delivery Method Room Air Intake Visit Reasons: EP ? UTI Patient Tobacco Use Status: Former Tobacco user Allergies gabapentin [GABAPENTIN] Allergy (Severe, Verified 06/29/24 11:21) SEVERE GI ISSUES Iodinated Contrast Media [IV DYE, IODINE CONTAINING] Allergy (Severe, Verified 06/29/24 11:21) SWELLING Sulfa (Sulfonamide Antibiotics) [SULFA (SULFONAMIDE ANTIBIOTICS)] Allergy (Severe, Verified 06/29/24 11:21) ANAPHYLAXIS, swelling Milk Containing Products (Dairy) Allergy (Intermediate, Verified 06/29/24 11:21) Rash lidocaine Allergy (Mild, Verified 06/29/24 11:21) Welts nabumetone Allergy (Unknown, Verified 06/29/24 11:21) Abdominal Pain pregabalin Allergy (Unknown, Verified 06/29/24 11:21) unknown venlafaxine Allergy (Unknown, Verified 06/29/24 11:21) unknown semaglutide [From Ozempic] Adverse Reaction (Intermediate, Verified 06/29/24 11:21) Rash meloxicam Adverse Reaction (Unknown, Verified 06/29/24 11:21) abdominal pain all meat Allergy (Unknown, Uncoded 06/17/24 11:06) unknown Environmental Allergy (Unknown, Uncoded 06/17/24 11:06) unknown Medication List - Last Reconciled 06/29/24 by Lyndon Fagan MD alprazolam 0.5 mg PO BID 30 days bisacodyl (Dulcolax (bisacodyl)) 20 mg (4 x 5 mg) PO ONCE 1 day budesonide-formoterol 160-4.5 mcg/actuation (Symbicort) 2 puffs inhalation BID diphenhydramine HCl (Allergy (diphenhydramine)) 25 mg orally Take the morning and evening of the day before procedure and then the morning of procedure.; famotidine 20 mg orally Take the morning and evening of the day before procedure and then the morning of procedure.; ibuprofen 800 mg PO Q8H PRN 30 days linaclotide (Linzess) 72 mcg PO QAM ondansetron 4 mg PO DAILY PRN 5 days pantoprazole 40 mg PO BID peg 3350-electrolytes 236-22.74-6.74 -5.86 gram 240 mL PO Q10M prednisone 5 mg PO DAILY rosuvastatin 10 mg PO DAILY valacyclovir 500 mg PO DAILY 90 days walker As directed Do you need a note to return to daycare/school/sports/work: No HPI EP ? UTI HPI Details Chief Complaint Persistent urinary tract infection symptoms with associated leg achiness. History of Present Illness - The patient is a 59-year-old female pr esenting with symptoms indicative of a urinary tract infection. - Reports experiencing a strong urinary odor and discomfort during urination, with variable urine flow. - Notices aching in her legs that typica lly accompanies severe urinary tract infections. - Mild pain in the back noted, which the patient associates with recurrent urinary tract infections. - Symptom present for past 2 days Plan The patient presents with symptoms suggestive of a urinary tract infection, including dysuria, urinary odor, and leg ache. A urinalysis will be performed to determine the causative organism before initiating antibiotic therapy. An empi rical antibiotic prescription will be pre-arranged, with the plan to commence treatment if urinalysis results are delayed. The patient has been advised regarding the urine collection process at the laboratory to ensure proper specimen analysis for an accurate diagnosis. unable to give urine at this time Review of Systems - Genitourinary: Reports dysuria and enzo iable urine output; urinary odor n oticed. - Musculoskeletal: Reports leg aching as sociated with urinary tract infections. Constitutional: No fever no chills Respiratory: no Cough, no shortness a breath Cardiovascular: no palpitations, no chest pains gastrointestinal: No nausea no vomiting no diarrhea MOUNTER SOUSAPHONES: No headache no blurring of vision skin: No rash extremities: As per history [facility] Medical History Polyarticular osteoarthritis Seronegative rheumatoid arthritis Long-term use of Plaquenil Obesity (BMI 30-39.9) Osteoarthritis of left knee Localized osteoarthritis of shoulder regions, bilateral Bilateral shoulder pain Pre-op evaluation Shortness of breath Encounter for routine gynecological examination Feeling sick UTI (urinary tract infection) Respiratory infection Hospital discharge follow-up Medicare annual wellness visit, initial Urinary tract infection Medicare annual wellness visit, subsequent Screening examination for infectious disease Large joint arthralgia of multiple sites Herpes Environmental allergies Anxiety, generalized Lipid disorder Umbilical hernia Fibromyalgia Acute arthritis Tendonitis Surgical History Hx of hernia repair History of esophagogastroduodenoscopy (EGD) Hx of colonoscopy History of meniscectomy of left knee (~01/12/14) History of cholecystectomy H/O hand surgery Family History Mother Cervical cancer Bladder cancer Father Cancer Sister No problems noted. Other Mental health disorder Substance use disorder Social History Household Members: Significant Other Housing: Apartment Unable to assess alcohol history related to: Unknown Alcohol intake: former Year quit: 22yo Patient Tobacco Use Status: Former Tobacco user e-Cigarette/Vaping Use: Never Used service: No Current occupational status: unemployed and disabled Sexual orientation: Straight/Heterosexual Gender identity: Female Cognitive needs: No Hearing needs: No Vision needs: No Physical Exam Vital Signs: Last Vital Signs Pulse 102 H 06/29/24 11:12 BP 126/82 06/29/24 11:12 Pulse Ox 97 06/29/24 11:12 Oxygen Delivery Method Room Air 06/29/24 11:12 BMI result Body Mass Index 42.6 Const General: no acute distress Orientation/consciousness: patient oriented x3 Eyes General: appearance normal, both eyes and all related structures Resp Effort & Inspection: normal respiratory effort and able to speak in complete sentences General: Yes no CVA tenderness Back/Spine/Pelvis Back: no CVA tenderness Neuro General: patient oriented x3 Psych Mental Status: mental status grossly normal Assessment & Plan Assessment & Plan (1) Dysuria: Code(s): R30.0 - Dysuria Plan Chief Complaint Persistent urinary tract infection symptoms with associated leg achiness. History of Present Illness - The patient is a 59-year-old female presenting with symptoms indicative of a urinary tract infection. - Reports experiencing a strong urinary odor and discomfort during urination, with variable urine flow. - Notices aching in her legs that typically accompanies severe urinary tract infections. - Mild pain in the back noted, which the patient associates with recurrent urina ry tract infections. - Symptom present for past 2 days Plan The patient presents with symptoms suggestive of a urinary tract infection, including dysuria, urinary odor, and leg ache. A urinalysis will be performed to determine the causative organism before initiating antibiotic therapy. An empirical antibiotic prescription will be pre-arranged, with the plan to commence treatment if urinalysis results are delayed. The patient has been advised regarding the urine collection process at the laboratory to ensure proper specimen analysis for an accurate diagnosis. unable to give urine at this time Orders: Orders UA CC w/rflx Micro + Cult Today R30.0 - Dysuria Medications: New nitrofurantoin monohyd/m-cryst 100 mg (Macrobid) must administer with a meal/food 100 mg PO Q12H 5 days 10 caps 0RF Coding Level of Care Code Est Pt Level 3 (95715) Diagnoses Dysuria R30.0
--- OUTSIDE RECORDS SUMMARY | 2024-06-29 12:52 | XMS_ITS | Data Portability ---
Author Organization [facility] d/b/a: [employer] Address [address] [place] [address] Assessment No assessment recorded. Plan of Treatment Reminders Order Date Submit Date Provider Last Modified By Organization Details Last Modified Time Details Appointments None recorded. Lab SARS CoV 2 RNA (COVID-19), QL, cook taco-PCR, respiratory specimen 2020 021 [facility], [address] [place], [address], 14:13:23 Referral None recorded. Procedures None recorded. Surgeries None recorded. Imaging None recorded. Medication Orders None recorded. Patient TargetsNo targets recorded. Patient Instructions Encounter Date Encounter Id Patient Instructions Last Modified By Organization Details Last Modified Time 07/07/2020 [id number] things to do i f you've been exposed to covid-19 [id number] Not available 07/10/2020 14:13:23 Reason for Referral None Reported. Results Created Date Observation Date Name Description Value Unit Range Abnormal Flag Note LastModifiedBy Organization Detail LastModifiedTime 07/07/19 21 07/08/2020 SARS CoV 2 RNA (COVI D-19) , QL, cook taco-P CR, respi rator y speci men sars cov 2 RNA DETECT ED not detect ed abnormal A Detec airam resul t is consi dered a posit jacque test resul t for COVID -19. This indic ates that RNA from SARS- CoV-2 (form erly 2019- nCoV) was detec airam, and the patie nt is infec airam with the virus and presu med to be conta gious . If reque sted by publi c healt h autho rity, speci men will be sent for addit ional testi ng. Pletemi e jelena w the Fact Sheet s and FDA autho rized label ing avail able for healt h care provi ders and patie nts using the follo wing websi robert: https ://ww w.que stdia gnost ics.c om/ho me/Co vid-1 9/HCP /Ques tIVD/ fact- sheet .html https ://ww w.que stdia gnost ics.c om/ho me/Co vid-1 9/Pat ients / [facility] IVD/f act-s heet. html This test has been autho rized by the FDA under an Emerg ency Use Autho rizat ion (EUA) for use by autho rized labor atori es. Due to the curre nt publi c healt h emerg ency, [facility] is recei ving a high volum e of sampl es from a wide varie ty of swabs and media for COVID -19 testi ng. In order to serve patie nts ashleyin g this publi c healt h crisi s, sampl es from appro priat e clini juni sourc es are being teste d. Negat jacque test resul ts deriv ed from speci mens recei rah in non-c ommer ciall y manuf actur ed viral colle ction and trans port media , or in media and sampl e colle ction kits not yet autho rized by FDA for COVID -19 testi ng shoul d be cauti ously evalu ated and the patie nt poten tiall y subje cted to extra preca ution s such as addit ional clini juni monit oring , inclu ding colle ction of an addit ional speci men. Metho dolog y: Nucle ic Acid Ampli ficat ion Test (NAAT ) inclu kemar RT-PC R or TMA Addit ional infor matio n about COVID -19 can be found at the [facility] websi te: www.Q uestD iagno stics .com/ Covid 19. Not Available [facility] [address] [place], [address], 07/08/2020 23:20:14 Result Notes None recorded. Problems Name Problem SNOMED Code Status Onset Date Resolution Date Notes Provider Name and Address Organization Details Recorded Time Exposure to SARS-CoV-2 Active [address] Jerome Mercedes [place], [place] - [employer] d/b/a: [employer] 07/07/2020 16:10:50 Problem Notes None recorded. Medical Equipment None Reported. Vitals None Recorded Social History None recorded. Functional Status None recorded. Mental Status None recorded. Family History Nothing Reported. Medical History No medical history recorded. Gynecological HistoryNo gynecological history recorded. Obstetrics History GPAL:G 0 P 0 0 0 0 Past Encounters Encounter ID Performer Location Encounter Start Date Encounter Closed Date Diagnosis/Indication Diagnosis SNOMED-CT Code Diagnosis ICD10 Code Diagnosis Note [id number] Jerome Mercedes [place] MD [address] [place] [address] 07/07/2020 14:47:29 07/10/2020 08:21:39 Exposure to SARS-CoV-2 181613736 Z20.822 Health Concerns Section Related Observation LastModified by Organization Detai ls LastModified Time None Recorded Concern Status LastModified by Organization Details LastModified Time None Recorded Advance Directives Directive None Recorded Payers Encounter Date Sequence Insurance Name Policy Number Policy Padilla Covered Member ID Padilla Member ID Guarantor Name 07/07/2020 1 *SELF PAY* Be tty Walker OBGyn Episode No OBEpisode recorded.
== END 2024-06-29 11:32 | disposition home or self-care (01) ==
PROVIDERS: Visit Provider Internal Medicine
DX: R30.0 Dysuria (principal)

== ENCOUNTER 2024-06-29 12:00 | Outpatient (REF) | payer MEDICARE, MEDICAID, SELFPAY ==
[2024-06-29 13:30] LABS: Appearance Urine Clear; Color Urine Dark Yellow; Glucose Urine UA Negative (Negative); Leukocyte Esterase Urine Negative (Negative); Nitrite Urine Negative (Negative); PH 5.5 (5.0-9.0); Specific Gravity - Urine 1.025 (1.005-1.025); Urine Blood Negative (Negative); Urine Ketones Trace mg/dL (Negative); Urine Protein Negative (Neg-Trace)
== END 2024-06-29 12:01 | disposition home or self-care (01) ==
LOC: HO.HMGCLNP 12:00
PROVIDERS: Visit Provider Internal Medicine
DX: R30.0 Dysuria (principal)
CPT/HCPCS: 81003; 99212

== ENCOUNTER 2024-07-14 10:04 | Outpatient (AMB) | payer MEDICARE, MEDICAID, SELFPAY ==
[2024-07-14 10:05] VITALS: BP 142/74; PULSE 67; O2SAT 96; BMI 43.1
--- NOTE | 2024-07-14 10:05 | A.OFFPC_ITS ---
Vital Signs 07/14/24 10:05 Height 5 ft 1 in Weight 228 lb 6 oz BMI 43.1 BP 142/74 H Blood Pressure Location Rt brachial Position Sitting Pulse 67 Pulse Source Pulse Oximeter Pulse Oximetry (%) 96 Oxygen Delivery Method Room Air Intake Visit Reasons: Annual PE Allergies gabapentin [GABAPENTIN] Allergy (Severe, Verified 07/14/24 10:05) SEVERE GI ISSUES Iodinated Contrast Media [IV DYE, IODINE CONTAINING] Allergy (Severe, Verified 07/14/24 10:05) SWELLING Sulfa (Sulfonamide Antibiotics) [SULFA (SULFONAMIDE ANTIBIOTICS)] Allergy (Severe, Verified 07/14/24 10:05) ANAPHYLAXIS, swelling Milk Containing Products (Dairy) Allergy (Intermediate, Verified 07/14/24 10:05) Rash lidocaine Allergy (Mild, Verified 07/14/24 10:05) Welts nabumetone Allergy (Unknown, Verified 07/14/24 10:05) Abdominal Pain pregabalin Allergy (Unknown, Verified 07/14/24 10:05) unknown venlafaxine Allergy (Unknown, Verified 07/14/24 10:05) unknown semaglutide [From Ozempic] Adverse Reaction (Intermediate, Verified 07/14/24 10:05) Rash meloxicam Adverse Reaction (Unknown, Verified 07/14/24 10:05) abdominal pain all meat Allergy (Unknown, Uncoded 06/17/24 11:06) unknown Environmental Allergy (Unknown, Uncoded 06/17/24 11:06) unknown Medication List - Last Reconciled 07/14/24 by Lyndon Fagan MD alprazolam 0.5 mg PO BID 30 days bisacodyl (Dulcolax (bisacodyl)) 20 mg (4 x 5 mg) PO ONCE 1 day budesonide-formoterol 160-4.5 mcg/actuation (Symbicort) 2 puffs inhalation BID ibuprofen 800 mg PO Q8H PRN 30 days linaclotide (Linzess) 72 mcg PO QAM pantoprazole 40 mg PO BID valacyclovir 500 mg PO DAILY 90 days walker As directed Tobacco use date assessed: 07/14/24 Dental Screening Dental Screen Date: 07/14/24 Did you have a dental visit in the last 12 months?: Yes Did you have a dental problem in the last 6 months where you did not have access to dental care?: No Was dental information given to patient?: Patient has dentist HPI Annual PE HPI Details Physical exam appointment - The patient is a 59-year-old female pr esenting with persistent fatigue and red eyes. Patient has appointment coming up with Ophthalmology end of this week - Redness in eyes with associated burnin g sensation previously noted; currently under ophthalmology review. - Takes Linzess and Pantoprazole as need ed for chronic constipation. Through Gastroenterology [facility] - Dropped bladder diagnosed previously; opted against surgical intervention after discussing potential complications. - Previously diagnosed with interstitial cystitis exhibiting microscopic hematuria, identified a concerning spot in earlier assessments, seeking further evaluation. Patient would like to get a 2nd opinion at [facility], referral placed - Eczema history, primarily affecting sk in, accompanied by typical seasonal exacerbations. - Diagnosed with osteoarthritis, particu larly affecting joints, suggesting possible underlying degenerative changes. - Blood pressure was found to be elevate d at 142/74 at today's appointment. We will continue to keep an eye - patient is diet controlled diabetic an d is in need of Labs - colonoscopy declined - do not want to see OBGYN - do not want to do mammogram Health Maintenance - Discussed importance of regular mammog missy; patient expressed concern about potential adverse effects but was advised on the benefits of early detection. - Recommended routine colonoscopy, patie nt hesitant due to past concerns about contrast dye allergies. - Encouraged to maintain an active lifes tyle, has returned to swimming post- ankle fracture. - Advised on importance of maintaining a health diary for better management of her medical history and future care. - Discussed family history of bladder is sues and critical nature of monitoring due to mother's health history. [place] of Care: Dr. Kati Salgado Gastroenterology [facility] Urology referral placed today [facility] Medications - Alprazolam 0.5 mg twice daily for anxi ety. - Symbicort inhaler as needed for respir atory issues, prescribed by another provider. - Linzess as needed for constipation. - Pantoprazole for gastric issues. - Valacyclovir as needed for cold sores. Diagnostic results - CBC performed in January was normal. - Metabolic profile in January was normal with satisfactory kidney functions. - Fasting blood sugar was 122 mg/dL, ind icating need for further evaluation of glycemic control. Patient Instructions - Follow up with the radiator specialist as camryn torres regarding redness and burning in the eyes. - Follow instructions regarding fasting blood tests, and complete the lab work today. - Discuss second opinion referral with domingo stephens regarding bladder concerns, considering family history. - Maintain regular checks on blood press ure; consider lifestyle modifications for management. - Recommending mammogram and colonoscopy as part of health maintenance pending patient decision. Review of Systems - Eyes: Reports redness and burning sens ation. - Fatigue: Persistent tiredness affectin g daily life. - Skin: Reports eczema. - General: No fever no chills - Neurological: No headaches no dizzin ess - Ear nose throat: No sore throat no hearing difficulty no ear pain - Cardiovascular: No syncope, no chest pain, no palpitations - Gastrointestinal: No nausea vomiting or diarrhea - Endocrine: No polyuria polydipsia no heat intolerance - Genitourinary: No dysuria Physical Exam General: Cooperative, healthy appearing, comfortable, no acute distress Orientation: Patient oriented x3 Limitations: None Head: Normal to inspection Ears: Within normal limit visually Nose: Normal external nose present Face and sinus: Normal facial exam Eyes: Redness noted, extraocular movement intact pupils reactive Neck: Normal visual inspection and supple Respiratory: Normal respiratory effort and able to speak in complete sentences. Clear to auscultation, no stridor Breast exam declined with the patient Cardiovascular: S1 and S2 GI: Normal to inspection. Soft to palpation and nontender Skin: Turgor normal, Neuro: Patient oriented x3, motor sensory intact, balance intact, tandem pass Extremities: Normal to inspection, history of broken right ankle, osteoarthritis present [facility] Medical History Polyarticular osteoarthritis Seronegative rheumatoid arthritis Long-term use of Plaquenil Obesity (BMI 30-39.9) Osteoarthritis of left knee Localized osteoarthritis of shoulder regions, bilateral Bilateral shoulder pain Pre-op evaluation Shortness of breath Encounter for routine gynecological examination Feeling sick UTI (urinary tract infection) Respiratory infection Hospital discharge follow-up Medicare annual wellness visit, initial Urinary tract infection Medicare annual wellness visit, subsequent Screening examination for infectious disease Large joint arthralgia of multiple sites Herpes Environmental allergies Anxiety, generalized Lipid disorder Umbilical hernia Fibromyalgia Acute arthritis Tendonitis Surgical History Hx of hernia repair History of esophagogastroduodenoscopy (EGD) Hx of colonoscopy History of meniscectomy of left knee (~01/12/14) History of cholecystectomy H/O hand surgery Family History Mother Cervical cancer Bladder cancer Father Cancer Sister No problems noted. Other Mental health disorder Substance use disorder Social History Household Members: Significant Other Housing: Apartment Unable to assess alcohol history related to: Unknown Alcohol intake: former Year quit: 22yo Patient Tobacco Use Status: Former Tobacco user e-Cigarette/Vaping Use: Never Used service: No Current occupational status: unemployed and disabled Sexual orientation: Straight/Heterosexual Gender identity: Female Cognitive needs: No Hearing needs: No Vision needs: No Questionnaire PHQ-9 Over the last 2 weeks, how often have you been bothered by any of the following problems? 1. Little interest or pleasure in doing things: more than half the days 2. Feeling down, depressed, or hopeless: not at all 3. Trouble falling or staying asleep, or sleeping too much: not at all 4. Feeling tired or having little energy: nearly every day 5. Poor appetite or overeating: nearly every day 6. Feeling bad about yourself - or that you are a failure or have let yourself or your family down: not at all 7. Trouble concentrating on things, such as reading the newspaper or watching television: not at all 8. Moving or speaking so slowly that other people could have noticed. Or the opposite - being so fidgety or restless that you have been moving around a lot more than usual: not at all 9. Thoughts that you would be better off or of hurting yourself in some way: not at all Total score: 8 Depression Screening Interpretation: Negative Depression Screening Done: Yes 24833 - PHQ-9 Billing: Yes Source: Developed by Drs. Kenneth Preston, Aruna Alcantar, Babak Rebolledo and colleagues, with an educational morris from [employer]. Thrive Questionnaire Date Thrive assessed: 07/14/24 I am a: Patient What is your living situation today?: I have a steady place to live Within the past 12 months, did the food you bought not last and you didn't have the money to get more?: Never true Within the past 12 months, did you worry whether your food would run out before you got money to buy more?: Never true Do you have trouble paying for medicines?: No Do you have trouble getting transportation to medical appointments?: No Do you have trouble paying your heating and electricity bill?: Yes Do you have trouble taking care of your child, family member or friend?: No Do you have trouble with day-to-day activities such as bathing, preparing meals, shopping, managing finances, etc.?: Yes Are you currently unemployed and looking for a job?: No Are you interested in more education?: No Please select the resources that you would like help with: Utilities Currently or been in a relationship where the following occur: I choose not to answer THRIVE Score: 1 AUDIT C Alcohol Use Questionnaire (AUDIT-C) 1. How often do you have a drink containing alcohol?: Never 3. How often do you have six or more drinks on one occasion?: Never Total Score: 0 Score Reviewed/Action Taken: Yes ARIANNA-7 AMB Questionnaire ARIANNA-7 Date ARIANNA - 7 assessed: 07/14/24 Feeling nervous, anxious, or on edge: 2 = More than half the days Not being able to stop or control worryin = More than half the days Worrying too much about different things: 2 = More than half the days Trouble relaxin = Not at all Being so restless that it is hard to sit still: 0 = Not at all Becoming easily annoyed or irritable: 2 = More than half the days Feeling afraid as if something awful might happen: 0 = Not at all Total ARIANNA-7 score (0-4 normal; 5-9 mild; 10-14 moderate; 15-21 severe): 8 Source: Developed by Drs. Kenneth Preston, Aruna Alcantar, Babak Rebolledo and colleagues, with an educational morris from [employer]. ARIANNA-7 Assessment Billing ARIANNA-7 Assessment Tool: ARIANNA-7 Assessment 80035 Physical exam (Primary Care) Vital Signs: Last Vital Signs Pulse 67 07/14/24 10:05 BP 142/74 H 07/14/24 10:05 Pulse Ox 96 07/14/24 10:05 Oxygen Delivery Method Room Air 07/14/24 10:05 BMI result Body Mass Index 43.1 Tobacco/Smoking Status: Tobacco use Status Tobacco use date assessed 07/14/24 07/14/24 10:14 Patient Tobacco Use Status Former Tobacco user 07/14/24 10:14 e-Cigarette/Vaping Use Never Used 07/14/24 10:14 PHQ-9: PHQ-9 Score PHQ-9: Total score 8 07/14/24 10:14 Depression Screening Interpretation: Negative Thrive Assessment: Date of Thrive Assessment Date Thrive assessed 07/14/24 07/14/24 10:14 Currently or been in a relationship where the following occur: I choose not to answer Coding Level of Care Code Est Pt Level 4 (25400) Est Pt Prev Care 40-64y(70338) Diagnoses Encounter for general adult medical examination with abnormal findings Z00.01 Diet-controlled diabetes mellitus E11.9 Hypertension, essential I10 B12 deficiency E53.8 Morbid obesity due to excess calories E66.01 Chronic idiopathic constipation K59.04 Gastroesophageal reflux disease without esophagitis K21.9 Esophagitis presence: without esophagitis Environmental allergies Z91.09 Anxiety, generalized F41.1 Lipid disorder E78.9 Fibromyalgia M79.7 Interstitial cystitis N30.10 Microscopic hematuria R31.29 Additional Codes ARIANNA-7 Assessment Billing - ARIANNA-7 Assessment Tool: ARIANNA-7 Assessment 07518 ([id number]) PHQ-9 - 16769 - PHQ-9 Billing: Yes ([id number]) Assessment & Plan Assessment & Plan (1) Encounter for general adult medical examination with abnormal findings: Code(s): Z00.01 - Encounter for general adult medical examination with abnormal findings Category: Medical (2) Diet-controlled diabetes mellitus: Code(s): E11.9 - Type 2 diabetes mellitus without complications Category: Medical (3) Hypertension, essential: Code(s): I10 - Essential (primary) hypertension Category: Medical (4) B12 deficiency: Code(s): E53.8 - Deficiency of other specified B group vitamins Category: Medical (5) Morbid obesity due to excess calories: Code(s): E66.01 - Morbid (severe) obesity due to excess calories Category: Medical (6) Chronic idiopathic constipation: Code(s): K59.04 - Chronic idiopathic constipation Category: Medical (7) GERD (gastroesophageal reflux disease): Code(s): K21.9 - Gastro-esophageal reflux disease without esophagitis Category: Medical Qualifiers: Esophagitis presence: without esophagitis Qualified Code(s): K21.9 - Gastro-esophageal reflux disease without esophagitis (8) Environmental allergies: Code(s): Z91.09 - Other allergy status, other than to drugs and biological substances Category: Medical (9) Anxiety, generalized: Code(s): F41.1 - Generalized anxiety disorder Category: Medical (10) Lipid disorder: Code(s): E78.9 - Disorder of lipoprotein metabolism, unspecified Category: Medical (11) Fibromyalgia: Code(s): M79.7 - Fibromyalgia Category: Medical (12) Interstitial cystitis: Code(s): N30.10 - Interstitial cystitis (chronic) without hematuria Category: Medical (13) Microscopic hematuria: Code(s): R31.29 - Other microscopic hematuria Category: Medical Plan Physical exam appointment - The patient is a 59-year-old female presenting with persistent fatigue and red eyes. Patient has appointment coming up with Ophthalmology end of this week - Redness in eyes with associated burning sensation previously noted; currently under ophthalmology review. - Takes Linzess and Pantoprazole as needed for chronic constipation. Through Gastroenterology [facility] - Dropped bladder diagnosed previously; opted against surgical intervention after discussing potential complications. - Previously diagnosed with interstitial cystitis exhibiting microscopic hematuria, identified a concerning spot in earlier assessments, seeking further evaluation. Patient would like to get a 2nd opinion at [facility], referral pl aced - Eczema history, primarily affecting skin, accompanied by typical seasonal exacerbations. - Diagnosed with osteoarthritis, particularly affecting joints, suggesting possible underlying degenerative changes. - Blood pressure was found to be elevated at 142/74 at today's appointment. We will continue to keep an eye - patient is diet controlled diabetic and is in need of Labs - colonoscopy declined - do not want to see OBGYN - do not want to do mammogram Health Maintenance - Discussed importance of regular mammograms; patient expressed concern about potential adverse effects but was advised on the benefits of early detection. - Recommended routine colonoscopy, patient hesitant due to past concerns about contrast dye allergies. - Encouraged to maintain an active lifestyle, has returned to swimming post- ankle fracture. - Advised on importance of maintaining a health diary for better management of her medical history and future care. - Discussed family history of bladder issues and critical nature of monitoring due to mother's health history. [place] [facility] Care: Dr. Kati Salgado Gastroenterology [facility] Urology referral placed today [facility] Medications - Alprazolam 0.5 mg twice daily for anxiety. - Symbicort inhaler as needed for respiratory issues, prescribed by another provider. - Linzess as needed for constipation. - Pantoprazole for gastric issues. - Valacyclovir as needed for cold sores. Diagnostic results - CBC performed in January was normal. - Metabolic profile in January was normal with satisfactory kidney functions. - Fasting blood sugar was 122 mg/dL, indicating need for further evaluation of glycemic control. Patient Instructions - Follow up with the radiator specialist as planned regarding redness and burning in the eyes. - Follow instructions regarding fasting blood tests, and complete the lab work today. - Discuss second opinion referral with urology regarding bladder concerns, considering family history. - Maintain regular checks on blood pressure; consider lifestyle modifications for management. - Recommending mammogram and colonoscopy as part of health maintenance pending patient decision. Orders: Orders MM tomosynthesis screening BI Today Z12.31 - Encounter for screening mammogram for malignant neoplasm of breast Comprehensive [place]. Panel Fast Today E11.9 - Type 2 diabetes mellitus without complications, E53.8 - Deficiency of other specified B group vitamins, E66.01 - Morbid (severe) obesity due to excess calories, E78.9 - Disorder of lipoprotein metabolism, unspecified, F41.1 - Generalized anxiety disorder, I10 - Essential (primary) hypertension, K21.9 - Gastro-esophageal reflux disease without esophagitis, K59.04 - Chronic idiopathic constipation, M79.7 - Fibromyalgia, N30.10 - Interstitial cystitis (chronic) without hematuria, R31.29 - Other noel roscopic hematuria, Z00.01 - Encounter for general adult medical examination with abnormal findings, Z91.09 - Other allergy status, other than to drugs and biological substances TSH reflex Free T4 Today E11.9 - Type 2 diabetes mellitus without complications, E53.8 - Deficiency of other specified B group vitamins, E66.01 - Morbid (severe) obesity due to excess calories, E78.9 - Disorder of lipoprotein metabolism, unspecified, F41.1 - Generalized anxiety disorder, I10 - Essential (primary) hypertension, K21.9 - Gastro-esophageal reflux disease without esophagitis, K59.04 - Chronic idiopathic constipation, M79.7 - Fibromyalgia, N30.10 - Interstitial cystitis (chronic) without hematuria, R31.29 - Other microscopic hematuria, Z00.01 - Encounter for general adult medical examination with abnormal findings, Z91.09 - Other allergy status, other than to drugs and biological substances Complete Blood Count Auto Diff Today E11.9 - Type 2 diabetes mellitus without complications, E53.8 - Deficiency of other specified B group vitamins, E66.01 - Morbid (severe) obesity due to excess calories, E78.9 - Disorder of lipoprotein metabolism, unspecified, F41.1 - Generalized anxiety disorder, I10 - Essential (primary) hypertension, K21.9 - Gastro-esophageal reflux disease without esophagitis, K59.04 - Chronic idiopathic constipation, M79.7 - Fibromyalgia, N30.10 - Interstitial cystitis (chronic) without hematuria, R31.29 - Other microscopic hematuria, Z00.01 - Encounter for general adult medical examination with abnormal findings, Z91.09 - Other allergy status, other than to drugs and biological substances Lipid Panel Today E11.9 - Type 2 diabetes mellitus without complications, E53.8 - Deficiency of other specified B group vitamins, E66.01 - Morbid (severe) obesity due to excess calories, E78.9 - Disorder of lipoprotein metabolism, unspecified, F41.1 - Generalized anxiety disorder, I10 - Essential (primary) hypertension, K21.9 - Gastro-esophageal reflux disease without esophagitis, K59.04 - Chronic idiopathic constipation, M79.7 - Fibromyalgia, N30.10 - Interstitial cystitis (chronic) without hematuria, R31.29 - Other microscopic hematuria, Z00.01 - Encounter for general adult medical examination with abnormal findings, Z91.09 - Other allergy status, other than to drugs and biological substances Vitamin D 25-OH (D2 and D3) Today E11.9 - Type 2 diabetes mellitus without complications, E53.8 - Deficiency of other specified B group vitamins, E66.01 - Morbid (severe) obesity due to excess calories, E78.9 - Disorder of lipoprotein metabolism, unspecified, F41.1 - Generalized anxiety disorder, I10 - Essential (primary) hypertension, K21.9 - Gastro-esophageal reflux disease without esophagitis, K59.04 - Chronic idiopathic constipation, M79.7 - Fibromyalgia, N30.10 - Interstitial cystitis (chronic) without hematuria, R31.29 - Other microscopic hematuria, Z00.01 - Encounter for general adult medical examination with abnormal findings, Z91.09 - Other allergy status, other than to drugs and biological substances Vitamin B12 Today E11.9 - Type 2 diabetes mellitus without complications, E53.8 - Deficiency of other specified B group vitamins, E66.01 - Morbid (severe) obesity due to excess calories, E78.9 - Disorder of lipoprotein metabolism, unspecified, F41.1 - Generalized anxiety disorder, I10 - Essential (primary) hypertension, K21.9 - Gastro-esophageal reflux disease without esophagitis, K59.04 - Chronic idiopathic constipation, M79.7 - Fibromyalgia, N30.10 - Interstitial cystitis (chronic) without hematuria, R31.29 - Other microscopic hematuria, Z00.01 - Encounter for general adult medical examination with abnormal findings, Z91.09 - Other allergy status, other than to drugs and biological substances UA CC w/rflx Micro + Cult Today E11.9 - Type 2 diabetes mellitus without complications, E53.8 - Deficiency of other specified B group vitamins, E66.01 - Morbid (severe) obesity due to excess calories, E78.9 - Disorder of lipoprotein metabolism, unspecified, F41.1 - Generalized anxiety disorder, I10 - Essential (primary) hypertension, K21.9 - Gastro-esophageal reflux disease without esophagitis, K59.04 - Chronic idiopathic constipation, M79.7 - Fibromyalgia, N30.10 - Interstitial cystitis (chronic) without hematuria, R31.29 - Other microscopic hematuria, Z00.01 - Encounter for general adult medical examination with abnormal findings, Z91.09 - Other allergy status, other than to drugs and biological substances Hemoglobin A1c Today E11.9 - Type 2 diabetes mellitus without complications, E53.8 - Deficiency of other specified B group vitamins, E66.01 - Morbid (severe) obesity due to excess calories, E78.9 - Disorder of lipoprotein metabolism, unspecified, F41.1 - Generalized anxiety disorder, I10 - Essential (primary) hypertension, K21.9 - Gastro-esophageal reflux disease without esophagitis, K59.04 - Chronic idiopathic constipation, M79.7 - Fibromyalgia, N30.10 - Interstitial cystitis (chronic) without hematuria, R31.29 - Other microscopic hematuria, Z00.01 - Encounter for general adult medical examination with abnormal findings, Z91.09 - Other allergy status, other than to drugs and biological substances Referrals Urology Referral N30.10 - Interstitial cystitis (chronic) without hematuria, R31.29 - Other microscopic hematuria Medications: Refilled alprazolam 0.5 mg PO BID 30 days 60 tabs 2RF
--- OUTSIDE RECORDS SUMMARY | 2024-07-14 10:56 | XMS_ITS | Data Portability ---
Author Organization [facility] d/b/a: [employer] Address [address] [place] [address] Assessment No assessment recorded. Plan of Treatment Reminders Order Date Submit Date Provider Last Modified By Organization Details Last Modified Time Details Appointments None recorded. 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 Procedures None recorded. Surgeries None recorded. Imaging None recorded. Medication Orders None recorded. Patient TargetsNo targets recorded. Patient Instructions Encounter Date Encounter Id Patient Instructions Last Modified By Organization Details Last Modified Time 07/07/2020 [id number] 9 things to do i f you've been exposed to covid-19 [email or web address] Not available 07/10/2020 14:13:23 Reason for Referral None Reported. Results Created Date Observation Date Name Description Value Unit Range Abnormal Flag Note LastModifiedBy Organization Detail LastModifiedTime 07/07/19 21 07/08/2020 SARS CoV 2 RNA (COVI D-19) , QL, injection wax molder-P CR, respi rator y speci men sars [...] iagno stics .com/ Covid 19. Not Available [facility] [address] [place], [address], 07/08/2020 23:20:14 Result Notes None recorded. Problems Name Problem SNOMED Code Status Onset Date Resolution Date Notes Provider Name and Address Organization Details Recorded Time Exposure to SARS-CoV-2 Active 021 Jerome Mercdees [place], [place] - [place] d/b/a: [employer] 07/07/2020 16:10:50 Problem Notes None [...] SNOMED-CT Code Diagnosis ICD10 Code Diagnosis Note [id number] Jerome Mercedes Abrams MD [address] [place] [address] 07/07/2020 14:47:29 07/10/2020 08:21:39 Exposure to SARS-CoV-2 030974820 Z20.822 Health Concerns Section Related Observation LastModified [...]
== END 2024-07-14 13:16 | disposition home or self-care (01) ==
PROVIDERS: PCP Internal Medicine; Visit Provider Internal Medicine
DX: Z00.00 Encounter for general adult medical examination without abnormal findings (principal); E11.9 Type 2 diabetes mellitus without complications; E66.01 Morbid (severe) obesity due to excess calories; Z68.41 Body mass index [BMI] 40.0-44.9, adult; I10 Essential (primary) hypertension; E53.8 Deficiency of other specified B group vitamins; K59.04 Chronic idiopathic constipation; K21.9 Gastro-esophageal reflux disease without esophagitis; Z91.09 Other allergy status, other than to drugs and biological substances; F41.1 Generalized anxiety disorder; E78.9 Disorder of lipoprotein metabolism, unspecified; M79.7 Fibromyalgia

== ENCOUNTER 2024-07-14 10:04 | Outpatient (REF) | payer MEDICARE, MEDICAID, SELFPAY ==
[2024-07-14 13:06] LABS: MANUAL DIFF FLAG NO
[2024-07-14 13:14] LABS: Basophils Absolute Auto 0.1 X10*3/uL (0.0-0.2); Basophils Percent Auto 0.6 % (0-2); Eosinophils Absolute Auto 0.1 X10*3/uL (0.0-0.4); Eosinophils Percent Auto 1.4 % (0-4); Hematocrit 39.5 % (37.0-47.0); Imm Gran Abs Auto 0.07 X10*3/uL (0.00-0.03); Imm Gran Pct Auto 0.8 % (0.0-0.4); Lymphocytes Absolute Auto 3.1 X10*3/uL (1.2-4.9); Lymphocytes Percent Auto 36.6 % (20-40); Mean Corpuscular HGB Conc 32.9 g/dl (31.0-35.0); Mean Corpuscular Hemoglobin 29.1 pg (27.0-33.0); Mean Corpuscular Volume 88.6 fL (80.0-98.0); Mean Platelet Volume 10.5 fL (9.4-12.3); Monocytes Absolute Auto 0.8 X10*3/uL (0.1-1.2); Monocytes Percent Auto 9.1 % (2-11); Neutrophils Absolute Auto 4.4 x10*3/uL (2.0-8.3); Neutrophils Percent Auto 51.5 % (45-73); Platelet Count 319 X10*3/uL (160-400); Red Blood Count 4.46 X10*6/uL (4.20-5.50); Red Cell Distribution Width 13.8 % (11.0-16.0); White Blood Count 8.5 X10*3/uL (4.8-10.8)
[2024-07-14 13:17] LABS: Appearance Urine Clear; Color Urine Dark Yellow; Glucose Urine UA Negative (Negative); Leukocyte Esterase Urine Negative (Negative); Nitrite Urine Negative (Negative); PH 6.5 (5.0-9.0); Specific Gravity - Urine 1.025 (1.005-1.025); Urine Blood Negative (Negative); Urine Ketones Trace mg/dL (Negative); Urine Protein Negative (Neg-Trace)
[2024-07-14 13:29] LABS: Estimated Average Glucose 123 mg/dL; Hemoglobin A1C 143.0955 umol/L; Hemoglobin A1c % 5.9 % (<6.0); Total Hemoglobin (HGBA1C) 3446.8676 umol/L
[2024-07-14 13:33] LABS: Alanine Aminotransferase 33 U/L (0-31); Albumin Level 4.2 g/dL (3.5-5.0); Alkaline Phosphatase 85 U/L (39-117); Anion Gap 12 (12-20); Aspartate Amino Transferase 34 U/L (5-31); Bilirubin Total 0.4 mg/dL (0.0-1.0); Blood Urea Nitrogen 7 mg/dL (9-16); Calcium 9.4 mg/dL (8.4-10.2); Carbon Dioxide 25 mmol/L (22-29); Chloride 107 mmol/L (96-108); Cholesterol 220 mg/dL (<200); Estimated Glomerular Filt Rate > 60; Glucose Fasting 87 mg/dL (60-99); HDL Cholesterol 39 mg/dL (>40); LDL Cholesterol Calculated 127 mg/dL (<100); Potassium 4.2 mmol/L (3.3-5.1); Sodium 140 mmol/L (135-145); Total Protein 7.6 g/dL (6.5-8.0); Triglycerides 273 mg/dL (<150)
[2024-07-14 13:54] LABS: TSH reflex Free T4 1.48 uIU/mL (0.32-4.0)
[2024-07-14 14:04] LABS: Vitamin B12 < 148 pg/mL (200-900)
[2024-07-20 14:19] LABS: Vitamin D 25-OH, D2 <4 ng/mL; Vitamin D 25-OH, D3 51 ng/mL; Vitamin D 25-OH, Total 51 ng/mL (30-100)
== END 2024-07-14 10:05 | disposition home or self-care (01) ==
LOC: HO.HMGCLDS 10:04
PROVIDERS: PCP Internal Medicine; Visit Provider Internal Medicine
DX: Z00.01 Encounter for general adult medical examination with abnormal findings (principal); E11.9 Type 2 diabetes mellitus without complications; I10 Essential (primary) hypertension; E53.8 Deficiency of other specified B group vitamins; E66.01 Morbid (severe) obesity due to excess calories; K59.04 Chronic idiopathic constipation; K21.9 Gastro-esophageal reflux disease without esophagitis; F41.1 Generalized anxiety disorder; E78.9 Disorder of lipoprotein metabolism, unspecified; M79.7 Fibromyalgia; N30.11 Interstitial cystitis (chronic) with hematuria; Z91.09 Other allergy status, other than to drugs and biological substances
CPT/HCPCS: 36415; 80053; 80061; 81003; 82306; 82607; 83036; 84443; 85025; 96127; 99396

== ENCOUNTER 2024-08-04 09:46 | Outpatient (AMB) | payer MEDICARE, MEDICAID, SELFPAY ==
--- NOTE | 2024-08-04 10:18 | MHC.OFFVIS ---
Vital Signs 08/04/24 10:23 Height 5 ft 1 in Weight 228 lb BMI 43.1 Intake Visit Reasons: OV- Fracture of RT lateral malleolus, DOI 05/15/24 Intake Note: Evelina is a 59 year old female who presents today for a follow up of RT ankle fracture, DOI 05/15/24. Patient reports she is doing well, states last week she had pain at the lateral aspect of however this has subsided. Allergies gabapentin [GABAPENTIN] Allergy (Severe, Verified 08/04/24 10:23) SEVERE GI ISSUES Iodinated Contrast Media [IV DYE, IODINE CONTAINING] Allergy (Severe, Verified 08/04/24 10:23) SWELLING Sulfa (Sulfonamide Antibiotics) [SULFA (SULFONAMIDE ANTIBIOTICS)] Allergy (Severe, Verified 08/04/24 10:23) ANAPHYLAXIS, swelling Milk Containing Products (Dairy) Allergy (Intermediate, Verified 08/04/24 10:23) Rash lidocaine Allergy (Mild, Verified 08/04/24 10:23) Welts nabumetone Allergy (Unknown, Verified 08/04/24 10:23) Abdominal Pain pregabalin Allergy (Unknown, Verified 08/04/24 10:23) unknown venlafaxine Allergy (Unknown, Verified 08/04/24 10:23) unknown semaglutide [From Ozempic] Adverse Reaction (Intermediate, Verified 08/04/24 10:23) Rash meloxicam Adverse Reaction (Unknown, Verified 08/04/24 10:23) abdominal pain all meat Allergy (Unknown, Uncoded 08/04/24 10:23) unknown Environmental Allergy (Unknown, Uncoded 08/04/24 10:23) unknown Medication List - Last Reconciled 08/04/24 by Dipti Snowden PA-C alprazolam 0.5 mg PO BID 30 days budesonide-formoterol 160-4.5 mcg/actuation (Symbicort) 2 puffs inhalation BID cyanocobalamin (vitamin B-12) 1,000 mcg PO DAILY 90 days ibuprofen 800 mg PO Q8H PRN 30 days linaclotide (Linzess) 72 mcg PO QAM pantoprazole 40 mg PO BID valacyclovir 500 mg PO DAILY 90 days walker As directed HPI HPI OV- Fracture of RT lateral malleolus, DOI 05/15/24: Details: 59-year-old female returns to the office today for a follow-up right ankle fracture on 05/15/2024. She states she has been doing well overall she did have some discomfort along the lateral side of her tibia without us since resolved. She does notice some discomfort with going up and downstairs but that is also due to her chronic knee pain. [facility] Medical History Polyarticular osteoarthritis Seronegative rheumatoid arthritis Long-term use of Plaquenil Obesity (BMI 30-39.9) Osteoarthritis of left knee Localized osteoarthritis of shoulder regions, bilateral Bilateral shoulder pain Pre-op evaluation Shortness of breath Encounter for routine gynecological examination Feeling sick UTI (urinary tract infection) Respiratory infection Hospital discharge follow-up Medicare annual wellness visit, initial Urinary tract infection Medicare annual wellness visit, subsequent Screening examination for infectious disease Large joint arthralgia of multiple sites Herpes Environmental allergies Anxiety, generalized Lipid disorder Umbilical hernia Fibromyalgia Acute arthritis Tendonitis Surgical History Hx of hernia repair History of esophagogastroduodenoscopy (EGD) Hx of colonoscopy History of meniscectomy of left knee (~01/12/14) History of cholecystectomy H/O hand surgery Family History Mother Cervical cancer Bladder cancer Father Cancer Sister No problems noted. Other Mental health disorder Substance use disorder Social History Household Members: Significant Other Housing: Apartment Unable to assess alcohol history related to: Unknown Alcohol intake: former Year quit: 22yo Patient Tobacco Use Status: Former Tobacco user e-Cigarette/Vaping Use: Never Used service: No Current occupational status: unemployed and disabled Sexual orientation: Straight/Heterosexual Gender identity: Female Cognitive needs: No Hearing needs: No Vision needs: No Review of Systems Const All systems reviewed & are unremarkable except as noted in HPI and below Physical Exam Vital Signs: BMI result Body Mass Index 43.1 Const General: cooperative, healthy appearing, comfortable, no acute distress, well developed and alert Orientation/consciousness: patient oriented x3 HEENT Head: Yes normal to inspection, Yes normocephalic and Yes atraumatic Eyes General: appearance normal, both eyes and all related structures Resp Effort & Inspection: normal respiratory effort and able to speak in complete sentences Cardio Rate: regular rate Peripheral pulses: Peripheral pulses 2+ throughout GI Palpation (GI): Soft to palpation Skin Lesions: no lesions Rashes: no rashes Neuro General: patient oriented x3 Extrem Other: Right ankle: Normal to inspection with out swelling over the medial and lateral malleolus with out tenderness along the soft tissues. No discomfort along the posterior aspect of the ankle, no deformity along the Achilles tendon, negative Dhaliwal?s. No pain along the syndesmosis or anterior tibia. No laxity, NVI. Results Reviewed Results Reviewed: XR ankle RT 2V IMPRESSION: Minimally displaced avulsion fracture involving the distal end of the right lateral malleolus, stable fragment Assessment & Plan Assessment & Plan (1) Avulsion fracture of ankle: Code(s): S82.899A - Other fracture of unspecified lower leg, initial encounter for closed fracture Category: Medical Qualifiers: Encounter type: subsequent encounter Fracture type: closed Laterality: right Fracture healing: with routine healing Qualified Code(s): S82.891D - Other fracture of right lower leg, subsequent encounter for closed fracture with routine healing Plan: She will continue with activities as tolerated. I did reiterate the importance of physical therapy however she expresses her interest in returning to the gym once the weather is nice her outside. If symptoms arise or there is any concern she will contact our office otherwise follow up as needed. Orders: Orders XR ankle RT min 3V Today M25.571 - Pain in right ankle and joints of right foot Coding Level of Care Code Est Pt Level 3 (83944) Complex EM visit Add On G2211 Diagnoses Closed avulsion fracture of right ankle with routine healing, subsequent encounter S82.891D Encounter type: subsequent encounter Fracture type: closed Laterality: right Fracture healing: with routine healing
[2024-08-04 10:23] VITALS: BMI 43.1
--- OUTSIDE RECORDS SUMMARY | 2024-08-04 11:24 | XMS_ITS | Data Portability ---
Author Organization [facility] d/b/a: [employer] Address [address] [place] [address] Assessment No assessment recorded. Plan of Treatment Reminders Order Date Submit Date Provider Last Modified By Organization Details Last Modified Time Details Appointments None recorded. 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, [address] [place], [address], 14:13:23 Referral None recorded. Procedures None recorded. Surgeries None recorded. Imaging None recorded. Medication Orders None recorded. Patient TargetsNo targets recorded. Patient Instructions Encounter Date Encounter Id Patient Instructions Last Modified By Organization Details Last Modified Time 07/07/2020 [id number] things to do i f you've been exposed to covid-19 [email or web address] Not available 07/10/2020 14:13:23 Reason for Referral None Reported. Results Created Date Observation Date Name Description Value Unit Range Abnormal Flag Note LastModifiedBy Organization Detail LastModifiedTime 07/07/19 21 07/08/2020 SARS CoV 2 RNA (COVI D-19) , QL, project technician-P CR, respi rator y speci men sars [...] iagno stics .com/ Covid 19. Not Available [facility] [address] [place], [address], 07/08/2020 23:20:14 Result Notes None recorded. Problems Name Problem SNOMED Code Status Onset Date Resolution Date Notes Provider Name and Address Organization Details Recorded Time Exposure to SARS-CoV-2 Active 021 Jerome Mercedes [place], [place] - [place] d/b/a: [employer] 07/07/2020 16:10:50 Problem Notes None [...] SNOMED-CT Code Diagnosis ICD10 Code Diagnosis Note [id number] Jerome Mercedes Abrams MD [address] [place] [address] 07/07/2020 14:47:29 07/10/2020 08:21:39 Exposure to SARS-CoV-2 [id number] Z20.822 Health Concerns Section Related Observation LastModified [...]
== END 2024-08-04 10:58 | disposition home or self-care (01) ==
PROVIDERS: Visit Provider Physician Assistant
DX: S82.891D Other fracture of right lower leg, subsequent encounter for closed fracture with routine healing (principal); M25.571 Pain in right ankle and joints of right foot
CPT/HCPCS: 99213; G2211

== ENCOUNTER → 2024-08-04 10:02 | Outpatient (BNV) | payer MEDICARE, MEDICAID, SELFPAY | PROVIDERS: Visit Provider Radiology Diagnostic Radiology | DX: M25.571 Pain in right ankle and joints of right foot (principal) | CPT/HCPCS: 73610 ==

== ENCOUNTER 2024-08-04 10:10 | Outpatient (REF) | payer MEDICARE, MEDICAID, SELFPAY ==
--- NOTE | ~2024-08-04 | XR_ITS ---
EXAMINATION: XR ANKLE 3 OR MORE VIEWS RIGHT HISTORY: M25.571 - Pain in right ankle and joints of right foot COMPARISON: Comparison is made with the prior examination dated 06/17/2024. FINDINGS: Three views of the right ankle are submitted. Osseous mineralization is normal. Again seen is a minimally displaced fracture of the tip of the distal fibula. The fracture line remains visible. The joint spaces are preserved. Again seen is a plantar calcaneal spur. The soft tissues are unremarkable. XR/XR ankle RT min 3V IMPRESSION: Minimally displaced fracture of the tip of the distal fibula without change. Electronically signed by: Kenenth Valderrama MD 08/04/2024 01:40 PM EST
--- OUTSIDE RECORDS SUMMARY | 2024-08-06 11:24 | XMS_ITS | Data Portability ---
Author Organization [facility] d/b/a: [employer] Address [address] [place] [address] Assessment No assessment recorded. Plan of Treatment Reminders Order Date Submit Date Provider Last Modified By Organization Details Last Modified Time Details Appointments None recorded. 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 Procedures None recorded. Surgeries None recorded. Imaging None recorded. Medication Orders None recorded. Patient TargetsNo targets recorded. Patient Instructions Encounter Date Encounter Id Patient Instructions Last Modified By Organization Details Last Modified Time 07/07/2020 [id number] things to do i f you've been exposed to covid-19 [email or web address] Not available 07/10/2020 14:13:23 Reason for Referral None Reported. Results Created Date Observation Date Name Description Value Unit Range Abnormal Flag Note LastModifiedBy Organization Detail LastModifiedTime 07/07/19 21 07/08/2020 SARS CoV 2 RNA (COVI D-19) , QL, meat manager-P CR, respi rator y speci men sars [...] iagno stics .com/ Covid 19. Not Available [facility] [address] [place], [address], 07/08/2020 23:20:14 Result Notes None recorded. Problems Name Problem SNOMED Code Status Onset Date Resolution Date Notes Provider Name and Address Organization Details Recorded Time Exposure to SARS-CoV-2 Active 021 Jerome Mercedes [place], [place] - [employer] d/b/a: [employer] 07/07/2020 16:10:50 Problem Notes None [...] SNOMED-CT Code Diagnosis ICD10 Code Diagnosis Note [id number] Jerome Mercedes Abrams MD [address] [place] [address] 07/07/2020 14:47:29 07/10/2020 08:21:39 Exposure to SARS-CoV-2 [id number] Z20.822 Health Concerns Section Related Observation LastModified [...]
== END 2024-08-04 10:11 | disposition home or self-care (01) ==
LOC: HO.HOSX 10:10
PROVIDERS: Visit Provider Physician Assistant
DX: M25.571 Pain in right ankle and joints of right foot (principal); S82.891D Other fracture of right lower leg, subsequent encounter for closed fracture with routine healing
CPT/HCPCS: 73610; 99212

== ENCOUNTER 2024-08-25 12:28 | Outpatient (AMB) | payer MEDICARE, MEDICAID, SELFPAY ==
--- NOTE | 2024-08-25 13:04 | A.OFFVIS_ITS ---
Intake Visit Reasons: IC/microscopic hematuria Intake Note: New patient presents today for initial visit for microscopic hematuria Urology Medication:Vitamin B12 Blood Thinner:none Antibiotic Allergies:none PVR:0ml Allergies gabapentin [GABAPENTIN] Allergy (Severe, Verified 08/25/24 13:44) SEVERE GI ISSUES Iodinated Contrast Media [IV DYE, IODINE CONTAINING] Allergy (Severe, Verified 08/25/24 13:44) SWELLING Sulfa (Sulfonamide Antibiotics) [SULFA (SULFONAMIDE ANTIBIOTICS)] Allergy (Severe, Verified 08/25/24 13:44) ANAPHYLAXIS, swelling Milk Containing Products (Dairy) Allergy (Intermediate, Verified 08/25/24 13:44) Rash lidocaine Allergy (Mild, Verified 08/25/24 13:44) Welts nabumetone Allergy (Unknown, Verified 08/25/24 13:44) Abdominal Pain pregabalin Allergy (Unknown, Verified 08/25/24 13:44) unknown venlafaxine Allergy (Unknown, Verified 08/25/24 13:44) unknown semaglutide [From Ozempic] Adverse Reaction (Intermediate, Verified 08/25/24 13:44) Rash meloxicam Adverse Reaction (Unknown, Verified 08/25/24 13:44) abdominal pain all meat Allergy (Unknown, Uncoded 08/25/24 13:44) unknown Environmental Allergy (Unknown, Uncoded 08/25/24 13:44) unknown Medication List - Last Reconciled 08/25/24 by ANGELIA Pineda alprazolam 0.5 mg PO BID 30 days budesonide-formoterol 160-4.5 mcg/actuation (Symbicort) 2 puffs inhalation BID cyanocobalamin (vitamin B-12) 1,000 mcg PO DAILY 90 days ibuprofen 800 mg PO Q8H PRN 30 days linaclotide (Linzess) 72 mcg PO QAM pantoprazole 40 mg PO BID valacyclovir 500 mg PO DAILY 90 days walker As directed HPI Comments Details: Evelina is a 59-year-old female patient of Dr. Fagan. She has a past medical history of polyarticular osteoarthritis, rheumatoid arthritis, obesity, environmental allergies, anxiety, lipid disorder, and fibromyalgia. She presents to the office today as a new patient for microscopic hematuria as well as ongoing lower urinary tract symptoms she has been experiencing. In discussion with the patient today she discusses having followed up with a provider in the past however does not recall name and or specialty and being told she has a prolapsed bladder however was not given further treatment options. She also reports having had a cystoscopy in the past and being told to follow-up for surveillance monitoring however never did. In office urinalysis results reviewed with the patient today 1+ microscopic hematuria otherwise within normal limits. She discusses her ongoing symptoms of urinary urgency, urinary frequency, and mixed urinary incontinence. She reports utilizing multiple panty liners per day. She does report a previous history of nicotine dependence that started around the age of 7 however quit officially at the age of 22. We discussed at length potential causes of lower urinary tract symptoms patient was experiencing as well as microscopic hematuria. We discussed further treatment options and risks and benefits of these treatment options. PVR 0 mL. She denies gross/visible hematuria, changes to urinary stream, flank pain, fever, and or chills. She discusses her family history of bladder cancer as her mother had bladder cancer. She discusses her upcoming trip to [place] to visit her grandchildren. She otherwise offers no other issues or concerns at this time. Plan A CT scan is planned to further assess. Follow-up cystoscopy will be arranged to investigate any significant findings, especially considering the unclear spot observed previously due to the patient's family history of bladder cancer. We discussed and reviewed potential management strategies, including surgical and non-surgical options such as pessaries, which will be based on findings and the patient's preferences. It is important to increase hydration as tolerated to help manage the urinary symptoms. We will reconvene to discuss results and treatment options, considering the patient's travel plans to avoid delay. Patient was informed and verbally consented to the use of an ambient scribe for clinic note documentation during this visit. Discussion Notes During the visit, we discussed the likely diagnosis of bladder prolapse contrib uting to recurrent UTI-like symptoms and microscopic hematuria. Management will include diagnostic imaging and cystoscopy to clarify the condition and evaluate further treatment options. This approach carries the potential risk of discovering significant pathology but aims to provide clarity on appropriate management avenues. I will ensure that the patient receives a comprehensive overview from Dr. Clarke regarding surgical and conservative options tailored to her condition during her available time frame. The patient deferred scheduling any actions for the month of October due to travel, stressing the need to plan around her availabilities accordingly. [facility], [facility] Medical History Polyarticular osteoarthritis Seronegative rheumatoid arthritis Long-term use of Plaquenil Obesity (BMI 30-39.9) Osteoarthritis of left knee Localized osteoarthritis of shoulder regions, bilateral Bilateral shoulder pain Pre-op evaluation Shortness of breath Encounter for routine gynecological examination Feeling sick UTI (urinary tract infection) Respiratory infection Hospital discharge follow-up Medicare annual wellness visit, initial Urinary tract infection Medicare annual wellness visit, subsequent Screening examination for infectious disease Large joint arthralgia of multiple sites Herpes Environmental allergies Anxiety, generalized Lipid disorder Umbilical hernia Fibromyalgia Acute arthritis Tendonitis Surgical History Hx of hernia repair History of esophagogastroduodenoscopy (EGD) Hx of colonoscopy History of meniscectomy of left knee (~01/12/14) History of cholecystectomy H/O hand surgery Family History Mother Cervical cancer Bladder cancer Father Cancer Sister No problems noted. Other Mental health disorder Substance use disorder Social History Household Members: Significant Other Housing: Apartment Unable to assess alcohol history related to: Unknown Alcohol intake: former Year quit: 22yo Patient Tobacco Use Status: Former Tobacco user e-Cigarette/Vaping Use: Never Used service: No Current occupational status: unemployed and disabled Sexual orientation: Straight/Heterosexual Gender identity: Female Cognitive needs: No Hearing needs: No Vision needs: No Review of Systems Const All systems reviewed & are unremarkable except as noted in HPI and below Physical Exam Const General: cooperative, healthy appearing, comfortable, no acute distress, well developed, alert and awake Nutritional Appearance: overweight Orientation/consciousness: patient oriented x3 Limitations: no limitations HEENT Head: Yes normal to inspection, Yes normocephalic and Yes atraumatic Ears: hearing grossly normal bilaterally Eyes General: appearance normal, both eyes and all related structures Neck Neck: Yes normal visual inspection and Yes trachea midline Chest Chest palpation & inspection: normal inspection of the chest Resp Effort & Inspection: normal respiratory effort and able to speak in complete sentences Cardio Rate: regular rate GI Inspection: Yes normal to inspection General: Yes no CVA tenderness Back/Spine/Pelvis Back: no CVA tenderness Skin General skin exam: no rashes or lesions noted Neuro General: patient oriented x3 Extrem General: Yes normal to inspection Psych Appearance: grossly normal and well kempt Mental Status: mental status grossly normal Speech and movement: Normal speech and movement present and Clear speech present Affect: normal affect Attitude: cooperative Thought process: Normal thought process present Thought content: Normal thought content present Insight: Fair insight present (Psych) Judgement: Fair judgement present (Psych) Assessment & Plan Assessment & Plan (1) Microscopic hematuria: Code(s): R31.29 - Other microscopic hematuria Category: Medical (2) History of nicotine dependence: Code(s): Z87.891 - Personal history of nicotine dependence Category: Medical Plan In office urinalysis results reviewed with the patient today; as noted above; will send for urine cytology. PVR 0 mL. We discussed at length potential causes of lower urinary tract symptoms patient was experiencing as well as further treatment options and risks and benefits of these treatment options. We discussed potential causes of microscopic hematuria as well as further workup in risks and benefits of this workup. Will obtain CT urogram for further assessment evaluation. BUN and creatinine ordered for imaging. Follow-up in office cystoscopy with imaging and labs to be completed prior; or sooner with any issues, concerns, and or questions. Orders: Orders AMB Urinalysis Automated Today Z13.9 - Encounter for screening, unspecified Creatinine Today R31.29 - Other microscopic hematuria Urine Cytology Today R31.29 - Other microscopic hematuria, Z87.891 - Personal history of nicotine dependence CT urogram Today R31.0 - Gross hematuria Blood Urea Nitrogen Today R31.29 - Other microscopic hematuria Patient Instructions: The patient had an opportunity to ask questions regarding the treatment plan. All questions were answered. Physical exam, labs, and imaging were discussed and reviewed in detail. As well as risks, benefits, and discussion of treatment choices. No major barriers to understanding were identified. The patient expressed understanding and agreement with the above treatment plan. The patient was made aware they should contact our office by phone for worsening of their current condition, the appearance of new symptoms, or with any questions or concerns. Compliance is encouraged with any medications and follow up testing that is ordered. It is a privilege to be allowed the opportunity to participate in? your urological care.? Again, if you have any questions or concerns If you have any questions or concerns please do not hesitate to contact me. The office is [phone]. This note is constructed using voice recognition software. While every effort has been made to ensure accuracy exceptional student education teacher errors may have been included. Yours sincerely, KYLEIGH Pineda-SARY Coding Level of Care Code New Pt Level 3 (90174) Diagnoses Microscopic hematuria R31.29 History of nicotine dependence Z87.891
--- OUTSIDE RECORDS SUMMARY | 2024-08-25 14:50 | XMS_ITS | Data Portability ---
Author Organization [facility] d/b/a: [employer] Address [address] [place] [address] Assessment No assessment recorded. Plan of Treatment Reminders Order Date Submit Date Provider Last Modified By Organization Details Last Modified Time Details Appointments None recorded. 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 Procedures None recorded. Surgeries None recorded. Imaging None recorded. Medication Orders None recorded. Patient TargetsNo targets recorded. Patient Instructions Encounter Date Encounter Id Patient Instructions Last Modified By Organization Details Last Modified Time 07/07/2020 [id number] things to do i f you've been exposed to covid-19 [email or web address] Not available 07/10/2020 14:13:23 Reason for Referral None Reported. 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 Not Available [facility] [address] [place], [address], 07/08/2020 23:20:14 Result Notes None recorded. Problems Name Problem SNOMED Code Status Onset Date Resolution Date Notes Provider Name and Address Organization Details Recorded Time Exposure to SARS-CoV-2 Active 021 Jerome Mercedes [place], [place] - [facility] d/b/a: [facility] 07/07/2020 16:10:50 Problem Notes None [...] SNOMED-CT Code Diagnosis ICD10 Code Diagnosis Note [id number] Jerome Mercedes [place] MD [address] [place] [address] 07/07/2020 14:47:29 07/10/2020 08:21:39 Exposure to SARS-CoV-2 [id number] Z20.822 Health Concerns Section Related Observation LastModified [...]
== END 2024-08-25 13:47 | disposition home or self-care (01) ==
LOC: HO.HUSH 12:28
PROVIDERS: PCP Internal Medicine; Visit Provider Nurse Practitioner Family
DX: R31.29 Other microscopic hematuria (principal); Z87.891 Personal history of nicotine dependence
CPT/HCPCS: 99203

== ENCOUNTER → 2024-08-25 12:28 | Outpatient (BNVA) | payer MEDICARE, MEDICAID, SELFPAY | PROVIDERS: PCP Internal Medicine; Visit Provider Nurse Practitioner Family | DX: R31.29 Other microscopic hematuria (principal); Z87.891 Personal history of nicotine dependence | CPT/HCPCS: 99202 ==

== ENCOUNTER 2024-08-30 08:50 | Outpatient (AMB) | payer MEDICARE, MEDICAID, SELFPAY ==
--- NOTE | 2024-08-30 09:21 | MHC.OFFWIV ---
Intake Vital Signs 08/30/24 09:23 Weight 227 lb BP 120/82 Blood Pressure Location Rt brachial Position Sitting Pulse 81 Pulse Source Pulse Oximeter Temp 98.2 F Temp Source Oral Pulse Oximetry (%) 96 Oxygen Delivery Method Room Air Intake Visit Reasons: EP cough, congestion, mucus Intake Note: Patient here for sinus congestion,SOB, cough, green mucus that hast been present for about 3-4 days. Patient Tobacco Use Status: Former Tobacco user Allergies gabapentin [GABAPENTIN] Allergy (Severe, Verified 08/30/24 09:23) SEVERE GI ISSUES Iodinated Contrast Media [IV DYE, IODINE CONTAINING] Allergy (Severe, Verified 08/30/24 09:23) SWELLING Sulfa (Sulfonamide Antibiotics) [SULFA (SULFONAMIDE ANTIBIOTICS)] Allergy (Severe, Verified 08/30/24 09:23) ANAPHYLAXIS, swelling Milk Containing Products (Dairy) Allergy (Intermediate, Verified 08/30/24 09:23) Rash lidocaine Allergy (Mild, Verified 08/30/24 09:23) Welts nabumetone Allergy (Unknown, Verified 08/30/24 09:23) Abdominal Pain pregabalin Allergy (Unknown, Verified 08/30/24 09:23) unknown venlafaxine Allergy (Unknown, Verified 08/30/24 09:23) unknown semaglutide [From Ozempic] Adverse Reaction (Intermediate, Verified 08/30/24 09:23) Rash meloxicam Adverse Reaction (Unknown, Verified 08/30/24 09:23) abdominal pain all meat Allergy (Unknown, Uncoded 08/30/24 09:23) unknown Environmental Allergy (Unknown, Uncoded 08/30/24 09:23) unknown Do you need a note to return to daycare/school/sports/work: No HPI HPI Comments History of Present Illness Details History - The patient is a 59-year-old female presenting with respiratory and sinus issues with difficulty breathing. - Their condition began with sinus issues 2 weeks ago and progressed into a sore throat 2 days ago, deteriorating into significant breathing distress and productive cough with green phlegm. - Concurrent symptomatology includes fever and exacerbated shortness of breath particularly impacting activities such as walking. - The patient has asthma but is not currently using their prescribed inhaler, Symbicort; cannot use albuterol due to sulfur sensitivity. - Despite self-treatment with saline gargles and owcs-tqj-eteqcma allergy medications like Zyrtec, they continue experiencing nasal symptoms. - Usage of CPAP and struggles with persistent congestion, leading to sleep disruptions, are reported. - Home remedies such as pool, honey, and natural tea have been used but provide insufficient symptom relief. Physical Exam General: Cooperative, healthy appearing, comfortable and no acute distress Orientation/consciousness: Patient oriented x3 Limitations: No limitations Head: Normal to inspection Ears: Hearing grossly normal bilaterally, external ears normal and TM's normal bilaterally Nose: Normal external nose present, Normal nares present and No nasal discharge present Face and sinus: Normal facial exam and Sinuses tender maxillary Mouth: Normal oral and palatal mucosa present and moist mucous membranes Throat: Yes tonsils normal, Yes uvula midline. Posterior oropharynx erythema Eyes: Appearance normal, both eyes and all related structures Neck: Normal visual inspection Respiratory: Clear to auscultation bilaterally. Normal respiratory effort, able to speak in complete sentences, Actively coughing, no respiratory distress, not tachypneic, no tripod positioning and no use of accessory muscles Cardiovascular: Regular rate and rhythm. Normal S1 and S2 Skin: No rashes or lesions noted Neuro: Patient oriented x3 Extremities: Normal to inspection and Yes no clubbing, cyanosis or edema [facility] Medical History (Updated 08/30/24 @ 09:52 by Sun Chris PA-C) History of nicotine dependence Polyarticular osteoarthritis Seronegative rheumatoid arthritis Long-term use of Plaquenil Obesity (BMI 30-39.9) Osteoarthritis of left knee Localized osteoarthritis of shoulder regions, bilateral Bilateral shoulder pain Pre-op evaluation Shortness of breath Encounter for routine gynecological examination Feeling sick UTI (urinary tract infection) Respiratory infection Hospital discharge follow-up Medicare annual wellness visit, initial Urinary tract infection Medicare annual wellness visit, subsequent Screening examination for infectious disease Large joint arthralgia of multiple sites Herpes Environmental allergies Anxiety, generalized Lipid disorder Umbilical hernia Fibromyalgia Acute arthritis Tendonitis Surgical History Hx of hernia repair History of esophagogastroduodenoscopy (EGD) Hx of colonoscopy History of meniscectomy of left knee (~01/12/14) History of cholecystectomy H/O hand surgery Family History Mother Cervical cancer Bladder cancer Father Cancer Sister No problems noted. Other Mental health disorder Substance use disorder Social History Household Members: Significant Other Housing: Apartment Unable to assess alcohol history related to: Unknown Alcohol intake: former Year quit: 22yo Patient Tobacco Use Status: Former Tobacco user e-Cigarette/Vaping Use: Never Used service: No Current occupational status: unemployed and disabled Sexual orientation: Straight/Heterosexual Gender identity: Female Cognitive needs: No Hearing needs: No Vision needs: No Review of Systems Const All systems reviewed & are unremarkable except as noted in HPI and below Physical Exam Vital Signs: Last Vital Signs Temp 98.2 F 08/30/24 09:23 Pulse 81 08/30/24 09:23 BP 120/82 08/30/24 09:23 Pulse Ox 96 08/30/24 09:23 Oxygen Delivery Method Room Air 08/30/24 09:23 Assessment & Plan Assessment & Plan (1) Acute bacterial sinusitis: Code(s): J01.90 - Acute sinusitis, unspecified; B96.89 - Other specified bacterial agents as the cause of diseases classified elsewhere Plan: VSS, pt well appearing and PE unremarkable. The patient has been prescribed Azithromycin Z-Jason to address likely bacterial sinusitis. Continued symptomatic support is recommended. Notably, the patient is advised about the critical use of Symbicort in her asthma management. Prednisone was prescribed for immediate bronchial inflammation relief and shortness of breath. For sinus relief, advised continued twice-daily use of Flonase and Benadryl at bedtime to assist with secretion drying. Awaiting COVID-19 testing results and observing potential viral contributions to her respiratory symptoms remains crucial. Patient was informed and verbally consented to the use of an ambient scribe for clinic note documentation during this visit Orders: Orders SARS-CoV2/FLU/RSV Today R09.89 - Other specified symptoms and signs involving the circulatory and respiratory systems Medications: New azithromycin For 250 mg dose pack: take 500 mg today (day 1), then 250 mg for 4 days (days 2-5) orally; 6 tabs 0RF prednisone 40 mg (2 x 20 mg) PO DAILY 10 tabs 0RF Coding Level of Care Code Est Pt Level 3 (58239) Diagnoses Acute bacterial sinusitis J01.90; B96.89
[2024-08-30 09:23] VITALS: BP 120/82; PULSE 81; TEMP 36.8; O2SAT 96
== END 2024-08-30 09:58 | disposition home or self-care (01) ==
PROVIDERS: PCP Internal Medicine; Visit Provider Physician Assistant
DX: J01.90 Acute sinusitis, unspecified (principal); B96.89 Other specified bacterial agents as the cause of diseases classified elsewhere

== ENCOUNTER 2024-08-30 08:50 | Outpatient (REF) | payer MEDICARE, MEDICAID, SELFPAY ==
[2024-08-30 14:51] LABS: Influenza A PCR NEGATIVE (Negative); Influenza B PCR NEGATIVE (Negative); Resp Syncy Virus RNA Qual PCR NEGATIVE (Negative); SARS COV2 PCR INHOUSE NEGATIVE (Negative)
== END 2024-08-30 08:51 | disposition home or self-care (01) ==
LOC: HO.LAB 08:50
PROVIDERS: PCP Internal Medicine; Visit Provider Physician Assistant
DX: R05.8 Other specified cough (principal); R09.89 Other specified symptoms and signs involving the circulatory and respiratory systems; J01.90 Acute sinusitis, unspecified; B96.89 Other specified bacterial agents as the cause of diseases classified elsewhere
CPT/HCPCS: 0241U; 99212

== ENCOUNTER 2024-09-01 08:09 | Outpatient (REF) | payer MEDICARE, MEDICAID, SELFPAY | END 2024-09-01 08:10 | disposition home or self-care (01) | LOC: HO.HOSX 08:09 | PROVIDERS: Visit Provider Physician Assistant | DX: Z13.89 Encounter for screening for other disorder (principal) ==

== ENCOUNTER 2024-09-03 08:30 | Outpatient (REF) | payer MEDICARE, MEDICAID, SELFPAY ==
--- NOTE | ~2024-09-03 | XR_ITS ---
EXAMINATION: XR KNEE 3 VIEWS LEFT, XR KNEE 3 VIEWS RIGHT HISTORY: M25.562 - Pain in left knee COMPARISON: Comparison is made with the prior examination of the left knee dated 03/22/2020. FINDINGS: Standing AP views of both knees and additional lateral and sunrise patellar views of the bilateral knees are submitted. Osseous mineralization is normal. There is no fracture or dislocation. On the right, there is mild to moderate narrowing of the medial compartment. On the left, there is severe osteoarthritis of the medial compartment with joint space narrowing and osteophyte formation. More moderate osteoarthritic changes are noted involving the lateral and patellofemoral compartments. There is a 1.5 cm calcified probable loose body in the popliteal fossa. There is no joint effusion. XR/XR knee LT 3V IMPRESSION: Osteoarthritis of the bilateral knees as described. Electronically signed by: Kenneth Valderrama MD 09/03/2024 12:01 PM EDT
--- NOTE | ~2024-09-03 | XR_ITS ---
EXAMINATION: XR KNEE 3 VIEWS LEFT, XR KNEE 3 VIEWS RIGHT HISTORY: M25.562 - Pain in left knee COMPARISON: Comparison is made with the prior examination of the left knee dated 03/22/2020. FINDINGS: Standing AP views of both knees and additional lateral and sunrise patellar views of the bilateral knees are submitted. Osseous mineralization is normal. There is no fracture or dislocation. On the right, there is mild to moderate narrowing of the medial compartment. On the left, there is severe osteoarthritis of the medial compartment with joint space narrowing and osteophyte formation. More moderate osteoarthritic changes are noted involving the lateral and patellofemoral compartments. There is a 1.5 cm calcified probable loose body in the popliteal fossa. There is no joint effusion. XR/XR knee RT 3V IMPRESSION: Osteoarthritis of the bilateral knees as described. Electronically signed by: Kenneth Valderrama MD 09/03/2024 12:01 PM EDT
== END 2024-09-03 08:31 | disposition home or self-care (01) ==
LOC: HO.HOSX 08:30
PROVIDERS: Visit Provider Physician Assistant
DX: M17.0 Bilateral primary osteoarthritis of knee (principal); M25.562 Pain in left knee
CPT/HCPCS: 20610; 73562; 99212; J1010; J2003

== ENCOUNTER 2024-09-03 10:34 | Outpatient (AMB) | payer MEDICARE, MEDICAID, SELFPAY ==
[2024-09-03 10:53] VITALS: BMI 42.9
--- NOTE | 2024-09-03 10:53 | MHC.OFFVIS ---
Vital Signs 09/03/24 10:53 Height 5 ft 1 in Weight 227 lb BMI 42.9 Intake Visit Reasons: Newprob-B/L knee pain-interested in cortisone inj. Intake Note: Evelina is a 59 year old female who presents today for a new problem visit with complaints of bilateral knee pain. She is interested in having both of her knees injected today. Patient reports that her pain has been present for about 8 years with her left knee being the worse. She has a hx of both cortisone and gel injections. States cortisone injection provided with the most relief however she would like to try the gel injections again. States cortisone injection provided her with a short period of relief. Her previous injection was done with Dr. Kothari who is located in [place] on [facility]. States her pain in her right knee is located at the anterior/medial side and her left is located around her whole knee. Allergies gabapentin [GABAPENTIN] Allergy (Severe, Verified 09/03/24 11:08) SEVERE GI ISSUES Iodinated Contrast Media [IV DYE, IODINE CONTAINING] Allergy (Severe, Verified 09/03/24 11:08) SWELLING Sulfa (Sulfonamide Antibiotics) [SULFA (SULFONAMIDE ANTIBIOTICS)] Allergy (Severe, Verified 09/03/24 11:08) ANAPHYLAXIS, swelling Milk Containing Products (Dairy) Allergy (Intermediate, Verified 09/03/24 11:08) Rash lidocaine Allergy (Mild, Verified 09/03/24 11:08) Welts nabumetone Allergy (Unknown, Verified 09/03/24 11:08) Abdominal Pain pregabalin Allergy (Unknown, Verified 09/03/24 11:08) unknown venlafaxine Allergy (Unknown, Verified 09/03/24 11:08) unknown semaglutide [From Ozempic] Adverse Reaction (Intermediate, Verified 09/03/24 11:08) Rash meloxicam Adverse Reaction (Unknown, Verified 09/03/24 11:08) abdominal pain all meat Allergy (Unknown, Uncoded 09/03/24 11:08) unknown Environmental Allergy (Unknown, Uncoded 09/03/24 11:08) unknown HPI HPI Newprob-B/L knee pain-interested in cortisone inj.: Details: 59-year-old female presenting with bilat knee pain secondary to osteoarthritis. She reports experiencing this pain consistently for eight years, with a marked increase in severity in the left knee, described as generalized pain, while the right knee pain is medial. The discomfort significantly impacts her ability to walk long distances and climb stairs. In addition, she requires assistive support when conducting everyday activities, such as holding onto a shopping cart for stability due to constant knee pain. She has previously received injections, including gel shots, without much relief. Despite these challenges, her medical history also includes asthma, for which she is currently on prednisone offering partial symptomatic relief. [facility] Medical History (Updated 08/30/24 @ 09:52 by Sun Chris PA-C) History of nicotine dependence Polyarticular osteoarthritis Seronegative rheumatoid arthritis Long-term use of Plaquenil Obesity (BMI 30-39.9) Osteoarthritis of left knee Localized osteoarthritis of shoulder regions, bilateral Bilateral shoulder pain Pre-op evaluation Shortness of breath Encounter for routine gynecological examination Feeling sick UTI (urinary tract infection) Respiratory infection Hospital discharge follow-up Medicare annual wellness visit, initial Urinary tract infection Medicare annual wellness visit, subsequent Screening examination for infectious disease Large joint arthralgia of multiple sites Herpes Environmental allergies Anxiety, generalized Lipid disorder Umbilical hernia Fibromyalgia Acute arthritis Tendonitis Surgical History Hx of hernia repair History of esophagogastroduodenoscopy (EGD) Hx of colonoscopy History of meniscectomy of left knee (~01/12/14) History of cholecystectomy H/O hand surgery Family History Mother Cervical cancer Bladder cancer Father Cancer Sister No problems noted. Other Mental health disorder Substance use disorder Social History Household Members: Significant Other Housing: Apartment Unable to assess alcohol history related to: Unknown Alcohol intake: former Year quit: 22yo Patient Tobacco Use Status: Former Tobacco user e-Cigarette/Vaping Use: Never Used service: No Current occupational status: unemployed and disabled Sexual orientation: Straight/Heterosexual Gender identity: Female Cognitive needs: No Hearing needs: No Vision needs: No Review of Systems Const All systems reviewed & are unremarkable except as noted in HPI and below Physical Exam Vital Signs: BMI result Body Mass Index 42.9 Const General: cooperative and no acute distress Orientation/consciousness: patient oriented x3 Resp Effort & Inspection: normal respiratory effort and able to speak in complete sentences Cardio Peripheral pulses: Peripheral pulses 2+ throughout Neuro General: patient oriented x3 Extrem Other: Bilat knee skin intact, no erythema or joint effusion. Tenderness along the medial joint line. ROM full with crepitus. Negative steinmans. No ligamentous laxity. NVI. Office Procedures AMB Joint Injection/Aspiration Joint Injection/Aspiration Primary Site: right knee Secondary Site: left knee Prep: site was prepped using aseptic technique, ethochloride spray was applied and injection warnings given Injected: 80 mg of, DepoMedrol, with 8 mL of, 1% plain lidocaine and in the joint Approach Used: anterolateral Procedure: The patient tolerated the procedure well and there was some relief with the local anesthesia Coding 59949 - Glenohumeral/Tronchanteric Bursa/Intraarticular Procedure code (CPT) selection complete Results Reviewed Results Reviewed: X-rays of both knees obtained in the office today and reviewed by me show osteoarthritis left greater than right Assessment & Plan Assessment & Plan (1) Osteoarthritis of knees, bilateral: Code(s): M17.0 - Bilateral primary osteoarthritis of knee Category: Medical Qualifiers: Osteoarthritis type: primary Qualified Code(s): M17.0 - Bilateral primary osteoarthritis of knee Plan: We had a lengthy discussion about the extent of her arthritis and options available which include continued conservative management with steroid injections and physical therapy versus surgical intervention which would include a total knee arthroplasty. We did discuss at length what a total knee arthroplasty entails along with the recovery process. She is interested in pursuing intervention when the time is right. She would like to work on weight loss in the meantime and she also has an upcoming trip to [place] in October. We went ahead with bilateral knee steroid injections today which she tolerated well. I will see her back when she returns from [place] to discuss the next step in her treatment plan whether it be continued conservative versus surgical intervention. Orders: Orders XR knee RT 3V Today M17.11 - Unilateral primary osteoarthritis, right knee XR knee LT 3V Today M25.562 - Pain in left knee Coding Level of Care Code Est Pt Level 3 (09220) Complex EM visit Add On G2211 Diagnoses Primary osteoarthritis of both knees M17.0 Osteoarthritis type: primary CPT Codes Coding - Joint 7: 82015 - Glenohumeral/Tronchanteric Bursa/Intraarticular ([id number])
== END 2024-09-03 11:46 | disposition home or self-care (01) ==
LOC: HO.HOS 10:35
PROVIDERS: PCP Internal Medicine; Visit Provider Physician Assistant
DX: M17.0 Bilateral primary osteoarthritis of knee (principal)
CPT/HCPCS: 20610; 99213

== ENCOUNTER → 2024-09-03 10:42 | Outpatient (BNV) | payer MEDICARE, MEDICAID, SELFPAY | PROVIDERS: Visit Provider Radiology Diagnostic Radiology | DX: M25.561 Pain in right knee (principal); M25.562 Pain in left knee | CPT/HCPCS: 73562 ==

== ENCOUNTER 2024-09-07 09:52 | Outpatient (AMB) | payer MEDICARE, MEDICAID, SELFPAY ==
--- NOTE | 2024-09-07 09:56 | A.OFFPC_ITS ---
Vital Signs 09/07/24 10:08 Height 5 ft 1 in Weight 225 lb BMI 42.5 BP 112/80 Blood Pressure Location Lt brachial Position Sitting Pulse 88 Pulse Source Pulse Oximeter Pulse Oximetry (%) 98 Oxygen Delivery Method Room Air Intake Visit Reasons: asthma, diff breathing/sob Allergies gabapentin [GABAPENTIN] Allergy (Severe, Verified 09/07/24 09:56) SEVERE GI ISSUES Iodinated Contrast Media [IV DYE, IODINE CONTAINING] Allergy (Severe, Verified 09/07/24 09:56) SWELLING Sulfa (Sulfonamide Antibiotics) [SULFA (SULFONAMIDE ANTIBIOTICS)] Allergy (Severe, Verified 09/07/24 09:56) ANAPHYLAXIS, swelling Milk Containing Products (Dairy) Allergy (Intermediate, Verified 09/07/24 09:56) Rash lidocaine Allergy (Mild, Verified 09/07/24 09:56) Welts nabumetone Allergy (Unknown, Verified 09/07/24 09:56) Abdominal Pain pregabalin Allergy (Unknown, Verified 09/07/24 09:56) unknown venlafaxine Allergy (Unknown, Verified 09/07/24 09:56) unknown semaglutide [From Ozempic] Adverse Reaction (Intermediate, Verified 09/07/24 09:56) Rash meloxicam Adverse Reaction (Unknown, Verified 09/07/24 09:56) abdominal pain all meat Allergy (Unknown, Uncoded 09/03/24 11:08) unknown Environmental Allergy (Unknown, Uncoded 09/03/24 11:08) unknown Medication List - Last Reconciled 09/07/24 by Lyndon Fagan MD alprazolam 0.5 mg PO BID 30 days budesonide-formoterol 160-4.5 mcg/actuation (Symbicort) 2 puffs inhalation BID cyanocobalamin (vitamin B-12) 1,000 mcg PO DAILY 90 days ibuprofen 800 mg PO Q8H PRN 30 days linaclotide (Linzess) 72 mcg PO QAM [Nebulizer with all supplies Use every 6 hrs as need for shortness of breath/difficulty breathing/Asthma ] pantoprazole 40 mg PO BID valacyclovir 500 mg PO DAILY 90 days walker As directed Tobacco use date assessed: 09/07/24 Dental Screening Dental Screen Date: 09/07/24 Did you have a dental visit in the last 12 months?: Yes Did you have a dental problem in the last 6 months where you did not have access to dental care?: No Was dental information given to patient?: Patient has dentist HPI asthma, diff breathing/sob HPI Details History The patient is a 59 year old female presenting with shortness of breath. - She reports initial onset of shortness of breath that worsens with activity and has been persistent for over a week, despite rest. - She noted additional symptoms includin g a sore throat, and mucus accumulation shortly after the onset of breathlessness. - The patient modified her prednisone tr eatment due to adverse effects, using it at a reduced dose. thru Rhumatology - She continues to experience wheezing a nd coughing, necessitating the use of her grandson?s albuterol machine temporarily. - Past pulmonary management was through Dr. Parikh account management specialist last visit was February of last year After that patient has stopped going, Symbicort inhaler was prescribed which she did not take I have sent the refill, encouraged patient to book appointment with the account management specialist and have a follow-up meanwhile I have sent updraft machine and albuterol vials for the patient - she also suffers from urine incontine nce which is getting worse because of coughing, patient is established with a urologist She wanted to do a UA today which shows only slight blood no signs of infection Problem List - Asthma uncontrolled - Obstructive Sleep Apnea - Chronic Allergic Rhinitis - Obesity - Prednisone Side Effects - urine stress incontinence - obesity Patient Instructions - Use the prescribed inhaler (Symbicort) twice daily as directed. - Schedule a follow-up appointment with Dr. Joiner for ongoing pulmonary care. - Monitor symptoms of shortness of breat h and contact the clinic if conditions worsen or do not improve. - Drink plenty of water and follow up at the lab for urine culture to investigate possible urinary issues. - Stimulate weight loss and manage asthm a through lifestyle modifications once respiratory issues are stabilized. Review of Systems General: No fever no chills neurological: No headaches no dizziness ear nose throat: No sore throat no hearing difficulty no ear pain cardiovascular: No syncope, no chest pain, no palpitations gastrointestinal: No nausea vomiting or diarrhea endocrine: No polyuria polydipsia no heat intolerance genitourinary: No dysuria skin: No new complaints Physical Exam general: No acute distress HEENT: Sore throat neck: Supple respiratory system: Wheezing present, comfortable and able to speak in full sentences cardiovascular: S1-S2 gastrointestinal: No pain extremities: No new findings BLUING OVEN TENDER: Alert awake oriented x3 motor sensory intact skin: Normal turgor PFSH Medical History History of nicotine dependence Polyarticular osteoarthritis Seronegative rheumatoid arthritis Long-term use of Plaquenil Obesity (BMI 30-39.9) Osteoarthritis of left knee Localized osteoarthritis of shoulder regions, bilateral Bilateral shoulder pain Pre-op evaluation Shortness of breath Encounter for routine gynecological examination Feeling sick UTI (urinary tract infection) Respiratory infection Hospital discharge follow-up Medicare annual wellness visit, initial Urinary tract infection Medicare annual wellness visit, subsequent Screening examination for infectious disease Large joint arthralgia of multiple sites Herpes Environmental allergies Anxiety, generalized Lipid disorder Umbilical hernia Fibromyalgia Acute arthritis Tendonitis Surgical History Hx of hernia repair History of esophagogastroduodenoscopy (EGD) Hx of colonoscopy History of meniscectomy of left knee (~01/12/14) History of cholecystectomy H/O hand surgery Family History Mother Cervical cancer Bladder cancer Father Cancer Sister No problems noted. Other Mental health disorder Substance use disorder Social History Household Members: Significant Other Housing: Apartment Unable to assess alcohol history related to: Unknown Alcohol intake: former Year quit: 22yo Patient Tobacco Use Status: Former Tobacco user e-Cigarette/Vaping Use: Never Used service: No Current occupational status: unemployed and disabled Sexual orientation: Straight/Heterosexual Gender identity: Female Cognitive needs: No Hearing needs: No Vision needs: No Questionnaire Thrive Questionnaire Date Thrive assessed: 09/07/24 I am a: Patient What is your living situation today?: I have a steady place to live Within the past 12 months, did the food you bought not last and you didn't have the money to get more?: Never true Within the past 12 months, did you worry whether your food would run out before you got money to buy more?: Never true Do you have trouble paying for medicines?: No Do you have trouble getting transportation to medical appointments?: No Do you have trouble paying your heating and electricity bill?: Yes Do you have trouble taking care of your child, family member or friend?: No Do you have trouble with day-to-day activities such as bathing, preparing meals, shopping, managing finances, etc.?: Yes Are you currently unemployed and looking for a job?: No Are you interested in more education?: No Please select the resources that you would like help with: Utilities Currently or been in a relationship where the following occur: I choose not to answer THRIVE Score: 1 AUDIT C Alcohol Use Questionnaire (AUDIT-C) 1. How often do you have a drink containing alcohol?: Never 3. How often do you have six or more drinks on one occasion?: Never Total Score: 0 Score Reviewed/Action Taken: Yes ARIANNA-7 AMB Questionnaire ARIANNA-7 Date ARIANNA - 7 assessed: 07/14/24 Source: Developed by Drs. Kenneth Preston, Aruna Alcantar, Babak Rebolledo and colleagues, with an educational morris from [employer]. Physical exam (Primary Care) Vital Signs: Last Vital Signs Pulse 88 09/07/24 10:08 BP 112/80 09/07/24 10:08 Pulse Ox 98 09/07/24 10:08 Oxygen Delivery Method Room Air 09/07/24 10:08 BMI result Body Mass Index 42.5 Tobacco/Smoking Status: Tobacco use Status Tobacco use date assessed 09/07/24 09/07/24 10:00 Patient Tobacco Use Status Former Tobacco user 09/07/24 10:00 e-Cigarette/Vaping Use Never Used 09/07/24 10:00 Thrive Assessment: Date of Thrive Assessment Date Thrive assessed 09/07/24 09/07/24 10:00 Currently or been in a relationship where the following occur: I choose not to answer Coding Level of Care Code Est Pt Level 5 (67042) Complex EM visit Add On G2211 Diagnoses Shortness of breath R06.02 Wheezing R06.2 Uncontrolled asthma J45.909 Urine, incontinence, stress female N39.3 Morbid obesity due to excess calories E66.01 Benign essential microscopic hematuria R31.1 Hematuria type: benign essential microscopic Seronegative rheumatoid arthritis M06.00 Time Spent (min) 40 Comment reviewing chart/rcma-[id number]-bxkf /coordination of care Assessment & Plan Assessment & Plan (1) Shortness of breath: Code(s): R06.02 - Shortness of breath Category: Medical (2) Wheezing: Code(s): R06.2 - Wheezing Category: Medical (3) Uncontrolled asthma: Code(s): J45.909 - Unspecified asthma, uncomplicated Category: Medical (4) Urine, incontinence, stress female: Code(s): N39.3 - Stress incontinence (female) (male) Category: Medical (5) Morbid obesity due to excess calories: Code(s): E66.01 - Morbid (severe) obesity due to excess calories Category: Medical (6) Hematuria: Code(s): R31.9 - Hematuria, unspecified Category: Medical Qualifiers: Hematuria type: benign essential microscopic Qualified Code(s): R31.1 - Benign essential microscopic hematuria (7) Seronegative rheumatoid arthritis: Code(s): M06.00 - Rheumatoid arthritis without rheumatoid factor, unspecified site Category: Medical Plan History The patient is a 59 year old female presenting with shortness of breath. - She reports initial onset of shortness of breath that worsens with activity and has been persistent for over a week, despite rest. - She noted additional symptoms including a sore throat, and mucus accumulation shortly after the onset of breathlessness. - The patient modified her prednisone treatment due to adverse effects, using it at a reduced dose. thru Rhumatology - She continues to experience wheezing and coughing, necessitating the use of her grandson?s albuterol machine temporarily. - Past pulmonary management was through Dr. Parikh account management specialist last visit was February of last year After that patient has stopped going, Symbicort inhaler was prescribed which she did not take I have sent the refill, encouraged patient to book appointment with the account management specialist and have a follow-up meanwhile I have sent updraft machine and albuterol vials for the patient - she also suffers from urine incontinence which is getting worse because of coughing, patient is established with a urologist She wanted to do a UA today which shows only slight blood no signs of infection Problem List - Asthma uncontrolled - Obstructive Sleep Apnea - Chronic Allergic Rhinitis - Obesity - Prednisone Side Effects - urine stress incontinence - obesity Patient Instructions - Use the prescribed inhaler (Symbicort) twice daily as directed. - Schedule a follow-up appointment with Dr. Joiner for ongoing pulmonary care. - Monitor symptoms of shortness of breath and contact the clinic if conditions worsen or do not improve. - Drink plenty of water and follow up at the lab for urine culture to investigate possible urinary issues. - Stimulate weight loss and manage asthma through lifestyle modifications once respiratory issues are stabilized. Orders: Orders UA CC w/rflx Micro + Cult Today R31.9 - Hematuria, unspecified Medications: New albuterol sulfate 0.63 mg (3 mL) inhalation QID PRN 75 mL 0RF shortness of breath or wheezing Refilled budesonide-formoterol 160-4.5 mcg/actuation (Symbicort) 2 puffs inhalation BID 10.2 grams 0RF [Nebulizer with all supplies] Use every 6 hrs as need for shortness of breath/difficulty breathing/Asthma 1 ea 0RF asthma J45.909 - Unspecified asthma, uncomplicated, R06.02 - Shortness of breath, R06.09 - Other forms of dyspnea
[2024-09-07 10:08] VITALS: BP 112/80; PULSE 88; O2SAT 98; BMI 42.5
--- OUTSIDE RECORDS SUMMARY | 2024-09-07 11:33 | XMS_ITS | Data Portability ---
Author Organization [facility] d/b/a: [employer] Address [address] [place] [address] Assessment No assessment recorded. Plan of Treatment Reminders Order Date Submit Date Provider Last Modified By Organization Details Last Modified Time Details Appointments None recorded. Lab SARS CoV 2 RNA (COVID-19), QL, bell maker-PCR, respiratory specimen 2020 021 [email or web address] [facility], [address] [place], [address], 14:13:23 Referral None recorded. Procedures None recorded. Surgeries None recorded. Imaging None recorded. Medication Orders None recorded. Patient TargetsNo targets recorded. Patient Instructions Encounter Date Encounter Id Patient Instructions Last Modified By Organization Details Last Modified Time 07/07/2020 [id number] things to do i f you've been exposed to covid-19 [email or web address] Not available 07/10/2020 14:13:23 Reason for Referral None Reported. Results Created Date Observation Date Name Description Value Unit Range Abnormal Flag Note LastModifiedBy Organization Detail LastModifiedTime 07/07/19 21 07/08/2020 SARS CoV 2 RNA (COVI D-19) , QL, bell maker-P CR, respi rator y speci men sars [...] [email or web address]/ Covid [email or web address]. Not Available [facility] [address] [place], [address], 07/08/2020 23:20:14 Result Notes None recorded. Problems Name Problem SNOMED Code Status Onset Date Resolution Date Notes Provider Name and Address Organization Details Recorded Time Exposure to SARS-CoV-2 Active [address] [place], [place] - [email or web address] d/b/a: [email or web address] 07/07/2020 16:10:50 Problem Notes None [...] SNOMED-CT Code Diagnosis ICD10 Code Diagnosis Note [id number] Jerome Mercedes [place] MD [address] [place] [address] 07/07/2020 14:47:29 07/10/2020 08:21:39 Exposure to SARS-CoV-2 [id number] Z20.822 Health Concerns Section Related Observation LastModified [...]
== END 2024-09-07 10:37 | disposition home or self-care (01) ==
LOC: HO.HMCC 09:53
PROVIDERS: Visit Provider Internal Medicine
DX: R06.02 Shortness of breath (principal); E66.01 Morbid (severe) obesity due to excess calories; M06.00 Rheumatoid arthritis without rheumatoid factor, unspecified site; Z68.41 Body mass index [BMI] 40.0-44.9, adult; R06.2 Wheezing; J45.909 Unspecified asthma, uncomplicated; N39.3 Stress incontinence (female) (male); R31.1 Benign essential microscopic hematuria

== ENCOUNTER → 2024-09-07 09:52 | Outpatient (BNVA) | payer MEDICARE, MEDICAID, SELFPAY | PROVIDERS: Visit Provider Internal Medicine | DX: R06.02 Shortness of breath (principal); J45.909 Unspecified asthma, uncomplicated; N39.3 Stress incontinence (female) (male); E66.01 Morbid (severe) obesity due to excess calories; R31.1 Benign essential microscopic hematuria; M06.00 Rheumatoid arthritis without rheumatoid factor, unspecified site | CPT/HCPCS: 99212 ==

== ENCOUNTER 2024-09-20 07:51 | Emergency (ER) | payer MEDICARE, MEDICAID, SELFPAY ==
--- NOTE | ~2024-09-20 | XR_ITS ---
EXAMINATION: XR CHEST CLINICAL INFORMATION: cough/sob COMPARISON: 03/26/2024, 08/18/2023, 10/25/2020. TECHNIQUE: 2 views of the chest were obtained. FINDINGS: The cardiac, hilar, and mediastinal contours are normal. The lungs are clear bilaterally. There is no pneumothorax or pleural effusion. Calcific tendinopathy of both rotator cuff's. Mild degenerative changes of the spine. Cholecystectomy clips noted. XR/XR chest 2V IMPRESSION: No active pulmonary disease. Electronically signed by: Syed Chilel MD 09/20/2024 09:21 AM EDT
--- NOTE | ~2024-09-20 | NM_ITS ---
EXAMINATION: NM LUNG PERFUSION HISTORY: elevated d dimer, SOB, chest pain, allergic to dye. TECHNIQUE: A pulmonary perfusion scan was performed following the intravenous administration of 4.0 mCi technetium 99m-MAA. Images were obtained in multiple projections. COMPARISON: Correlation is made with PA and lateral views of the chest performed earlier in the day. FINDINGS: There is a normal distribution of activity throughout both lungs. No segmental or subsegmental perfusion defects are identified. NM/NM pul perfusion IMPRESSION: Normal pulmonary perfusion scan. Electronically signed by: Kenneth Valderrama MD 09/20/2024 01:06 PM EDT
[2024-09-20 08:14] VITALS: BP 148/96; PULSE 82; RESP 18; TEMP 36; O2SAT 97; BMI 41.9
--- NOTE | 2024-09-20 08:20 | ECG_ITS ---
Test Reason : back pain Blood Pressure : */* mmHG Vent. Rate : 72 BPM Atrial Rate : 72 BPM P-R Int : 170 ms QRS Dur : 68 ms QT Int : 366 ms P-R-T Axes : 32 14 26 degrees QTcB Int : 400 ms Normal sinus rhythm Cannot rule out Anterior infarct , age undetermined Abnormal ECG When compared with ECG of 05-Jan-2014 13:07, No significant change was found Referred By: Generic ED Physician Electronically Signed By: ELIDIA BARROS MD
[2024-09-20 08:47] LABS: MANUAL DIFF FLAG NO
[2024-09-20 08:48] LABS: Basophils Absolute Auto 0.1 X10*3/uL (0.0-0.2); Eosinophils Absolute Auto 0.1 X10*3/uL (0.0-0.4); Eosinophils Percent Auto 1.3 % (0-4); Hematocrit 41.6 % (37.0-47.0); Hemoglobin 13.5 g/dl (12.0-16.0); Imm Gran Abs Auto 0.02 X10*3/uL (0.00-0.03); Imm Gran Pct Auto 0.3 % (0.0-0.4); Lymphocytes Absolute Auto 2.7 X10*3/uL (1.2-4.9); Mean Corpuscular HGB Conc 32.5 g/dl (31.0-35.0); Mean Corpuscular Hemoglobin 29.9 pg (27.0-33.0); Mean Platelet Volume 9.2 fL (9.4-12.3); Monocytes Absolute Auto 0.6 X10*3/uL (0.1-1.2); Monocytes Percent Auto 7.3 % (2-11); Neutrophils Absolute Auto 4.5 x10*3/uL (2.0-8.3); Neutrophils Percent Auto 56.1 % (45-73); Platelet Count 293 X10*3/uL (160-400); Red Blood Count 4.52 X10*6/uL (4.20-5.50); Red Cell Distribution Width 13.3 % (11.0-16.0); White Blood Count 7.9 X10*3/uL (4.8-10.8)
[2024-09-20 08:52] LABS: Prothrombin Time 11.2 SEC (10.9-12.4)
--- NOTE | 2024-09-20 08:55 | ED_ITS ---
HPI - General Adult General Chief complaint: Back Pain/Injury Stated complaint: Back Pain No Injury Time Seen by Provider: 09/20/24 08:53 Source: patient Mode of arrival: ambulatory Limitations: no limitations History of Present Illness ED Provider: Lucy Chand PA-C HPI narrative: Patient is a 59 year old assigned female at with a history of HTN and GERD presenting to the emergency department today with middle back and epigastric pain. Patient states that over the last few months she has had intermittent mid back pain that radiates into the front and is accompanied with shortness of breath and dizziness. Patient denies any recent travel or tobacco use. Patient denies any lightheadedness, nausea, vomiting, fever, chills, blurry vision, double vision, loss of vision, night sweats, pain with urination, increased urinary frequency, increased urinary urgency, blood in her urine or stool, syncope or a near syncopal episode, recent trauma or falls, bowel incontinence, bladder incontinence, or any other complaints at this time. Onset (ago): month(s) (6 months - intermittently) Relieving factors: none Exacerbating factors: none Associated symptoms: chest pain (intermittent) and shortness of breath (intermittent) Treatments prior to arrival: none Related Data Previous Rx's ?Medication ?Instructions ?Recorded linaclotide 72 mcg capsule 72 mcg PO QAM #30 caps 09/24/23 (Robbi) david #1 ea 05/15/24 ibuprofen 800 mg tablet 800 mg PO Q8H PRN pain 30 days #90 05/21/24 tabs valacyclovir 500 mg tablet 500 mg PO DAILY 90 days #90 tabs 06/24/24 alprazolam 0.5 mg tablet 0.5 mg PO BID 30 days #60 tabs 07/14/24 cyanocobalamin (vitamin B-12) 1,000 mcg PO DAILY 90 days #90 tabs 07/14/24 1,000 mcg tablet pantoprazole 40 mg tablet,delayed 40 mg PO BID #180 tabs 08/30/24 release Nebulizer with all supplies #1 ea 09/07/24 albuterol sulfate 0.63 mg/3 mL 0.63 mg (3 mL) inhalation QID PRN 09/07/24 solution for nebulization shortness of breath or wheezing #75 mL beclomethasone dipropionate 80 1 inh inhalation BID #10.6 grams 09/09/24 mcg/actuation HFA breath activated aerosol (Qvar RediHaler) Allergies Allergy/AdvReac Type Severity Reaction Status Date / Time gabapentin [GABAPENTIN] Allergy Severe SEVERE GI Verified 09/20/24 08:19 ISSUES Iodinated Contrast Media Allergy Severe SWELLING Verified 09/20/24 08:19 [IV DYE, IODINE CONTAINING] Sulfa (Sulfonamide Allergy Severe ANAPHYLAXIS, Verified 09/20/24 08:19 Antibiotics) swelling [SULFA (SULFONAMIDE ANTIBIOTICS)] Milk Containing Products Allergy Intermediate Rash Verified 09/20/24 08:19 (Dairy) lidocaine Allergy Mild Welts Verified 09/20/24 08:19 nabumetone Allergy Unknown Abdominal Verified 09/20/24 08:19 Pain pregabalin Allergy Unknown unknown Verified 09/20/24 08:19 venlafaxine Allergy Unknown unknown Verified 09/20/24 08:19 semaglutide [From Ozempic] AdvReac Intermediate Rash Verified 09/20/24 08:19 meloxicam AdvReac Unknown abdominal Verified 09/20/24 08:19 pain all meat Allergy Unknown unknown Uncoded 09/03/24 11:08 Environmental Allergy Unknown unknown Uncoded 09/03/24 11:08 Review of Systems 2 Constitutional: Constitutional: Reports no additional constitutional complaints, Denies chills, Denies fever(s) and Denies night sweats Eyes: Eyes: Reports no additional eye complaints, Denies blurry vision, Denies change in vision, Denies diplopia, Denies eye discharge, Denies loss of vision and Denies eye pain ENT: Reports dizziness (intermittent) Cardiovascular: Cardiovascular: Reports no additional cardiovascular complaints, Reports chest pain (intermittent), Denies lightheadedness, Denies Loss of Consciousness and Denies dyspnea Respiratory: Respiratory: Reports no additional respiratory complaints and Denies dyspnea Gastrointestinal: Gastrointestinal: Reports no additional gastrointestinal complaints, Reports abdominal pain (intermittent), Denies melena, Denies hematochezia, Denies change in bowel habits and Denies change in stool character Genitourinary: Genitourinary: Denies hematuria, Denies urinary frequency, Denies dysuria, Denies urinary incontinence, Denies urinary hesitancy and Denies urinary urgency Musculoskeletal: Musculoskeletal: Reports no additional musculoskeletal complaints, Reports back pain (intermittent), Denies numbness and Denies tingling Neurologic: Reports dizziness (intermittent), Denies loss of vision, Denies numbness and Denies tingling Psychiatric: Psychiatric: Reports no additional psychiatric complaints Endocrine: Endocrine: Reports no additional endocrine complaints Hematologic/Lymphatic: Hematologic/Lymphatic: Reports no additional hematologic/lymphatic complaints Allergic/Immunologic: Allergic/Immunologic: Reports no additional allergic/immunologic complaints [facility] Past Medical History Attestation statement: The following information was validated with the patient. Source: old records reviewed and nursing notes reviewed Medical History History of nicotine dependence Polyarticular osteoarthritis Seronegative rheumatoid arthritis Long-term use of Plaquenil Obesity (BMI 30-39.9) Osteoarthritis of left knee Localized osteoarthritis of shoulder regions, bilateral Bilateral shoulder pain Pre-op evaluation Shortness of breath Encounter for routine gynecological examination Feeling sick UTI (urinary tract infection) Respiratory infection Hospital discharge follow-up Medicare annual wellness visit, initial Urinary tract infection Medicare annual wellness visit, subsequent Screening examination for infectious disease Large joint arthralgia of multiple sites Herpes Environmental allergies Anxiety, generalized Lipid disorder Umbilical hernia Fibromyalgia Acute arthritis Tendonitis Surgical History Hx of hernia repair History of esophagogastroduodenoscopy (EGD) Hx of colonoscopy History of meniscectomy of left knee (~01/12/14) History of cholecystectomy H/O hand surgery Family History Family History Mother Cervical cancer Bladder cancer Father Cancer Sister No problems noted. Other Mental health disorder Substance use disorder Social History Social History Household Members: Significant Other Housing: Apartment Unable to assess alcohol history related to: Unknown Alcohol intake: former Year quit: 22yo Patient Tobacco Use Status: Former Tobacco user Smoked in Last 30 Days: No e-Cigarette/Vaping Use: Never Used Advance Directives: No Advance Directives Information Provided: Yes Patient : No service: No Current occupational status: unemployed and disabled Sexual orientation: Straight/Heterosexual Gender identity: Female Cognitive needs: No Hearing needs: No Vision needs: No Physical Exam ED Vital Signs: Vital Signs - 24 hr 09/20/24 08:14 09/20/24 13:02 09/20/24 13:41 Temperature 96.8 F 97.5 F 97.5 F Pulse Rate 82 67 67 Respiratory Rate 18 15 15 Blood Pressure 148/96 H 134/78 134/78 Pulse Oximetry 97 99 99 Oxygen Delivery Method Room Air Room Air Room Air BMI result Body Mass Index 41.9 Const General: cooperative, no acute distress, alert and awake Nutritional Appearance: well nourished Orientation/consciousness: patient oriented x3 Limitations: no limitations HENMT Head: Yes normal to inspection and Yes atraumatic Ears: hearing grossly normal bilaterally and external ears normal General nose exam: Normal external nose present, no nasal discharge noted and no epistaxis Face and sinus: Yes normal facial exam, No abrasion and No laceration Mouth: Normal oral and palatal mucosa present, no drooling and no muffled voice Eyes General: appearance normal, both eyes and all related structures Periorbital: periorbital findings normal Eyelids: Yes eyelids normal Conjunctivae: conjunctivae normal Pupils: Equal, round and reactive pupils present EOM: EOMs intact bilaterally Neck Neck: Yes normal visual inspection, Yes full ROM and Yes no lymphadenopathy Chest Chest palpation & inspection: normal inspection of the chest Resp Effort & Inspection: normal respiratory effort and able to speak in complete sentences GI Inspection: Yes normal to inspection Neuro General: patient oriented x3, moves all extremities and CN's II-XI intact bilaterally Cranial nerves: Yes Equal, round and reactive pupils present Cognition (Neuro): normal cognition Extrem General: Yes normal to inspection, Yes full ROM and Yes capillary refill normal Psych Appearance: grossly normal Mental Status: mental status grossly normal Affect: normal affect Attitude: cooperative Thought process: Normal thought process present Thought content: Normal thought content present Insight: Good insight present (Psych) Medications Administered Discontinued Medications Generic Name Dose Route Start Last Admin Trade Name Freq PRN Reason Stop Dose Admin Acetaminophen 1,000 mg in 100 mls @ 400 mls/hr 09/20/24 13:04 09/20/24 13:17 Ofirmev IV 09/20/24 13:18 400 mls/hr ONCE ONE Administration Ketorolac Tromethamine 15 mg 09/20/24 09:47 09/20/24 09:56 Ketorolac Tromethamine 15 Mg/Ml Vial IM 09/20/24 09:48 15 mg ONCE ONE Administration Medical Decision Making Medical Decision Making MDM Narrative: Patient is a 59 year old assigned female at with a history of HTN and GERD presenting to the emergency department today with middle back and epigastric pain. Patient's physical exam was unremarkable. Patient's blood work showed an elevated D dimer of 376 but otherwise unremarkable. Patient's EKG was unremarkable. Patient's chest x-ray showed no acute process. Given patient's elevated d dimer + contrast allergy, I obtained a VQ scan which showed no evidence of a pulmonary embolism. I explained my physical exam findings as well as all test results to the patient. I answered all questions asked by the patient. I stressed the importance of the patient taking her medication as directed (either prescribed or as the over the counter packaging recommends). I stressed the importance of the patient following up with her primary care provider. I stressed the importance of the patient returning to the emergency department immediately if her symptoms were to worsen or if she were to develop any dizziness, shortness of breath, difficulty breathing, chest pain, blurry vision, loss of vision, nausea, vomiting, abdominal pain, fever, chills, back pain, or any other complaints. Patient verbalized agreement and understanding with this treatment plan and discharge. Differential Diagnosis Differential Diagnoses: The differential diagnosis associated with the presentation includes Epigastric pain GERD MSK pain Mid back pain PE Admission/Observation Consideration of admission/observation: Escalation of care including admission/observation considered Patient would have been admitted to the hospital had her work up had any findings where hospital admission was appropriate and her clinical presentation warranted hospital admission. Lab Data [facility] Lab Attestation statement: I reviewed the patient's lab results. My interpretation of these results are in the [facility] Rationale portion of this note. 09/20/24 08:40 09/20/24 08:40 Labs: Lab Results 09/20/24 09/20/24 Range/Units 08:40 09:50 WBC 7.9 (4.8-10.8) X10*3/uL RBC 4.52 (4.20-5.50) X10*6/uL Hgb 13.5 (12.0-16.0) g/dl Hct 41.6 (37.0-47.0) % MCV 92.0 (80.0-98.0) fL MCH 29.9 (27.0-33.0) pg MCHC 32.5 (31.0-35.0) g/dl RDW 13.3 (11.0-16.0) % Plt Count 293 (160-400) X10*3/uL MPV 9.2 L (9.4-12.3) fL Immature Gran % (Auto) 0.3 (0.0-0.4) % Neut % (Auto) 56.1 (45-73) % Lymph % (Auto) 34.0 (20-40) % [place] % (Auto) 7.3 (2-11) % Eos % (Auto) 1.3 (0-4) % Baso % (Auto) 1.0 (0-2) % Lymph # (Auto) 2.7 (1.2-4.9) X10*3/uL [place] # (Auto) 0.6 (0.1-1.2) X10*3/uL Eos # (Auto) 0.1 (0.0-0.4) X10*3/uL Baso # (Auto) 0.1 (0.0-0.2) X10*3/uL Abs Immat Gran (auto) 0.02 (0.00-0.03) X10*3/uL Absolute Neuts (auto) 4.5 (2.0-8.3) x10*3/uL Absolute Nucleated RBC 0.000 (0.0-0.012) X10*3/uL Nucleated RBC % (auto) 0.0 (0.0-0.2) /100WBC PT 11.2 (10.9-12.4) SEC INR 1.0 (0.9-1.1) D-Dimer High Sensitivty 376 NG/ML Sodium 141 (135-145) mmol/L Potassium 4.2 (3.3-5.1) mmol/L Chloride 108 (96-108) mmol/L Carbon Dioxide 27 (22-29) mmol/L Anion Gap 10 L (12-20) BUN 10 (9-16) mg/dL Creatinine 0.76 (0.5-1.4) mg/dL Estim Creat Clear Calc 84.6 Estimated GFR > 60 Random Glucose 100 (60-115) mg/dL Calcium 9.6 (8.4-10.2) mg/dL Total Bilirubin 0.7 (0.0-1.0) mg/dL Direct Bilirubin 0.2 (0.0-0.5) mg/dL AST 25 (5-31) U/L ALT 22 (0-31) U/L Alkaline Phosphatase 85 (39-117) U/L Troponin I High Sens < 2.7 (<3.5-17.0) ng/L Total Protein 7.0 (6.5-8.0) g/dL Albumin 4.1 (3.5-5.0) g/dL Lipase 32 (8-78) U/L Independent Interpretation I performed an independent interpretation of an: EKG Interpretation: My interpretation is in agreement with the radiologist's impression of this imaging study. L EXAMINATION: NM LUNG PERFUSION HISTORY: elevated d dimer, SOB, chest pain, allergic to dye. TECHNIQUE: A pulmonary perfusion scan was performed following the intravenous administration of 4.0 mCi technetium 99m-MAA. Images were obtained in multiple projections. COMPARISON: Correlation is made with PA and lateral views of the chest performed earlier in the day. FINDINGS: There is a normal distribution of activity throughout both lungs. No segmental or subsegmental perfusion defects are identified. NM/NM pul perfusion IMPRESSION: Normal pulmonary perfusion scan. Electronically signed by: Kenneth Valderrama MD 09/20/2024 01:06 PM EDT Dictated By: Kenneth Valderrama MD Signed By: Electronically signed by Kenneth Valderrama MD 09/20/24 1306 I independently interpreted this EKG and am in agreement with the below findings: Vent. Rate: 72 BPM Atrial Rate: 72 BPM P-R Int: 170 ms QRS Dur: 68 ms QT Int: 366 ms P-R-T Axes: 32 14 26 degrees QTcB Int: 400 ms Normal sinus rhythm When compared with ECG of 05-Jan-2014 13:07, No significant change was found Electronically Signed By: KOFFI BARROS MD Dictated By: Koffi Barros MD Signed By: Electronically signed by Koffi Barros MD 09/20/24 1316 Radiology Impression Discussion of test interpretation with radiology: I have reviewed the radiologist's reading. Critical Care Time Critical Care Time Critical Care Time: Yes Total Critical Care Time: 33 Attestation: I spent 33 minutes of Critical Care Time with this patient. This does not include time spent on separately reported billable procedures. Discharge Plan Discharge Clinical Impression: Chest pain, Back pain Patient Disposition: Home, Self-Care Instructions: Chest Pain (DC), Back Pain (ED) Additional Instructions: Your work up today was reassuring there is no emergent cause of your symptoms. Follow up with your primary care provider. Return to the emergency department immediately if your symptoms worsen or if you develop any numbness, tingling, dizziness, shortness of breath, difficulty breathing, chest pain, blurry vision, loss of vision, nausea, vomiting, abdominal pain, fever, chills, back pain, or any other complaints. Please see the information below about our Patient Portal. If you are not yet enrolled in the [facility] Patient Portal, you will receive an enrollment email invitation following your visit to any [facility] ED setting. You may also self-enroll in the Patient Portal by visiting our website: [email or web address] The following information is required to access the Patient Portal: - Your [facility] Medical Record Number - Your personal home email address (must match what is in your electronic medical record, Registration staff can assist with this) - Name - Date of Capabilities of the Patient Portal: - Message some providers - View upcoming appointments - Access your health summary, medical history, and visit history - View current conditions and allergies - View procedure and lab results - View your medications, including guidelines, side effects, and precautions - Complete pre-appointment questionnaires requested by your provider - Ready summary reports of your office visits and procedures To access the Patient Portal Mobile [employer], follow these directions: - Search [employer] in the [employer] Store or Google Play Store - Download the [employer] - Search for [facility] - Enter your login/password Prescriptions: No Action valacyclovir 500 mg tablet 500 mg PO DAILY 90 Days Qty: 90 0RF cyanocobalamin (vitamin B-12) 1,000 mcg tablet 1,000 mcg PO DAILY 90 Days Qty: 90 0RF pantoprazole 40 mg tablet,delayed release (DR/EC) 40 mg PO BID Qty: 180 1RF (DME) Nebulizer with all supplies See Rx Instructions .Route .MEDSUPPLY Qty: 1 0RF Rx Instructions: Use every 6 hrs as need for shortness of breath/difficulty breathing/Asthma Qvar RediHaler 80 mcg/actuation HFA aerosol breath activated 1 inh inhalation BID Qty: 10.6 0RF Rx Instructions: administer with spacer (DME) walker Misc See Rx Instructions .Route Qty: 1 0RF Rx Instructions: As directed Linzess 72 mcg capsule 72 mcg PO QAM Qty: 30 6RF alprazolam 0.5 mg tablet 0.5 mg PO BID 30 Days Qty: 60 2RF ibuprofen 800 mg tablet 800 mg PO Q8H PRN (Reason: pain) 30 Days Qty: 90 3RF albuterol sulfate 0.63 mg/3 mL solution for nebulization 0.63 mg inhalation QID PRN (Reason: shortness of breath or wheezing) Qty: 75 0RF Referrals: Lyndon Fagan MD [Primary Care Provider] - Interventions: ED Discharge Assessment Last Done: 09/20/24 13:41 Discharge Date/Time: 09/20/24 13:41 Print Language: Kazakh
[2024-09-20 09:04] LABS: Alanine Aminotransferase 22 U/L (0-31); Albumin Level 4.1 g/dL (3.5-5.0); Alkaline Phosphatase 85 U/L (39-117); Anion Gap 10 (12-20); Aspartate Amino Transferase 25 U/L (5-31); Bilirubin Direct 0.2 mg/dL (0.0-0.5); Bilirubin Total 0.7 mg/dL (0.0-1.0); Blood Urea Nitrogen 10 mg/dL (9-16); Calcium 9.6 mg/dL (8.4-10.2); Carbon Dioxide 27 mmol/L (22-29); Chloride 108 mmol/L (96-108); Creatinine Clr Calc Pharmacy 84.6; Estimated Glomerular Filt Rate > 60; Glucose Random 100 mg/dL (60-115); Lipase 32 U/L (8-78); Potassium 4.2 mmol/L (3.3-5.1); Sodium 141 mmol/L (135-145)
[2024-09-20 09:12] LABS: Troponin-I High Sensitivity < 2.7 ng/L (<3.5-17.0)
--- OUTSIDE RECORDS SUMMARY | 2024-09-20 09:18 | XMS_ITS | Data Portability ---
Author Organization [facility] d/b/a: [employer] Address [address] [place] [address] Assessment No assessment recorded. Plan of Treatment Reminders Order Date Submit Date Provider Last Modified By Organization Details Last Modified Time Details Appointments None recorded. 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 Procedures None recorded. Surgeries None recorded. Imaging None recorded. Medication Orders None recorded. Patient TargetsNo targets recorded. Patient Instructions Encounter Date Encounter Id Patient Instructions Last Modified By Organization Details Last Modified Time 07/07/2020 [id number] things to do i f you've been exposed to covid-19 [email or web address] Not available 07/10/2020 14:13:23 Reason for Referral None Reported. Results Created Date Observation Date Name Description Value Unit Range Abnormal Flag Note LastModifiedBy Organization Detail LastModifiedTime 07/07/19 21 07/08/2020 SARS CoV 2 RNA (COVI D-19) , QL, crime lab analyst-P CR, respi rator y speci men sars [...] iagno stics .com/ Covid 19. Not Available [facility] [address] [place], [address], 07/08/2020 23:20:14 Result Notes None recorded. Problems Name Problem SNOMED Code Status Onset Date Resolution Date Notes Provider Name and Address Organization Details Recorded Time Exposure to SARS-CoV-2 Active [address] Mercedes [place], [place] - [employer] d/b/a: [employer] 07/07/2020 16:10:50 Problem Notes None [...] SNOMED-CT Code Diagnosis ICD10 Code Diagnosis Note [id number] Jerome Mercedes [place] MD [address] [place] [address] 07/07/2020 14:47:29 07/10/2020 08:21:39 Exposure to SARS-CoV-2 [id number] Z20.822 Health Concerns Section Related Observation LastModified [...]
[2024-09-20] MEDS: Ketorolac Tromethamine 15 MG/ML VIAL IM (09:56)
[2024-09-20 10:06] LABS: D Dimer High Sensitivity 376 NG/ML
--- NOTE | 2024-09-20 11:33 | PC.NURSE ---
20g IV access established,additional pillow and warm blanket provided for comfort, assisted with repostioning. T/W spoke with nuclear medicine, advised of IV access. Nuc Med staff states that they are slammed with outpatients and they will get to her as soon as we can . call fitzpatrick within reach.
--- NOTE | 2024-09-20 12:12 | PC.NURSE ---
pt taken to nuclear medicine
--- NOTE | 2024-09-20 12:54 | PC.NURSE ---
pt returned from CT
[2024-09-20 13:02] VITALS: BP 134/78; PULSE 67; RESP 15; TEMP 36.4; O2SAT 99
[2024-09-20] MEDS: Acetaminophen 1,000 MG/100 ML PIGGYBACK 400 MG IV (13:17)
[2024-09-20 13:41] VITALS: BP 134/78; PULSE 67; RESP 15; TEMP 36.4; O2SAT 99
== END 2024-09-20 13:41 | disposition home or self-care (01) ==
PROVIDERS: Physician Assistant Medical; Emergency Provider Emergency Medicine; PCP Internal Medicine
DX: R10.9 Unspecified abdominal pain (principal); M54.50 Low back pain, unspecified; R94.31 Abnormal electrocardiogram [ECG] [EKG]; R06.02 Shortness of breath; R07.89 Other chest pain; R05.9 Cough, unspecified; Z79.899 Other long term (current) drug therapy
CPT/HCPCS: 36415; 71046; 78580; 80053; 82248; 83690; 84484; 85025; 85379; 85610; 93005; 96372; 96374; 99285; A9540; J0131; J1885

== ENCOUNTER → 2024-09-20 08:20 | Outpatient (BNV) | payer MEDICARE, MEDICAID, SELFPAY | PROVIDERS: Emergency Provider Emergency Medicine; PCP Internal Medicine; Visit Provider Radiology Diagnostic Radiology | DX: R06.02 Shortness of breath (principal); R07.9 Chest pain, unspecified; R05.9 Cough, unspecified | CPT/HCPCS: 71046; 78580 ==

== ENCOUNTER → 2024-09-20 08:20 | Outpatient (BNV) | payer MEDICARE, MEDICAID, SELFPAY | PROVIDERS: Emergency Provider Emergency Medicine; PCP Internal Medicine; Visit Provider Internal Medicine Cardiovascular Disease | DX: R94.31 Abnormal electrocardiogram [ECG] [EKG] (principal); M54.9 Dorsalgia, unspecified | CPT/HCPCS: 93010 ==

== ENCOUNTER 2024-09-24 08:43 | Outpatient (AMB) | payer MEDICARE, MEDICAID, SELFPAY ==
[2024-09-24 08:47] VITALS: BP 126/80; PULSE 87; O2SAT 99; BMI 42.7
--- NOTE | 2024-09-24 08:47 | A.OFFPC_ITS ---
Vital Signs 09/24/24 08:47 Height 5 ft 1 in Weight 226 lb BMI 42.7 BP 126/80 Blood Pressure Location Rt brachial Position Sitting Pulse 87 Pulse Source Pulse Oximeter Pulse Oximetry (%) 99 Oxygen Delivery Method Room Air Intake Visit Reasons: F/U ED , back pain Allergies gabapentin [GABAPENTIN] Allergy (Severe, Verified 09/24/24 08:49) SEVERE GI ISSUES Iodinated Contrast Media [IV DYE, IODINE CONTAINING] Allergy (Severe, Verified 09/24/24 08:49) SWELLING Sulfa (Sulfonamide Antibiotics) [SULFA (SULFONAMIDE ANTIBIOTICS)] Allergy (Severe, Verified 09/24/24 08:49) ANAPHYLAXIS, swelling Milk Containing Products (Dairy) Allergy (Intermediate, Verified 09/24/24 08:49) Rash lidocaine Allergy (Mild, Verified 09/24/24 08:49) Welts nabumetone Allergy (Unknown, Verified 09/24/24 08:49) Abdominal Pain pregabalin Allergy (Unknown, Verified 09/24/24 08:49) unknown venlafaxine Allergy (Unknown, Verified 09/24/24 08:49) unknown semaglutide [From Ozempic] Adverse Reaction (Intermediate, Verified 09/24/24 08:49) Rash meloxicam Adverse Reaction (Unknown, Verified 09/24/24 08:49) abdominal pain all meat Allergy (Unknown, Uncoded 09/24/24 08:49) unknown Environmental Allergy (Unknown, Uncoded 09/24/24 08:49) unknown Medication List - Last Reconciled 09/24/24 by Lyndon Fagan MD albuterol sulfate 0.63 mg (3 mL) inhalation QID PRN alprazolam 0.5 mg PO BID 30 days beclomethasone dipropionate 80 mcg/actuation (Qvar RediHaler) 1 inh inhalation BID cyanocobalamin (vitamin B-12) 1,000 mcg PO DAILY 90 days ibuprofen 800 mg PO Q8H PRN 30 days linaclotide (Linzess) 72 mcg PO QAM [Nebulizer with all supplies Use every 6 hrs as need for shortness of breath/difficulty breathing/Asthma ] pantoprazole 40 mg PO BID valacyclovir 500 mg PO DAILY 90 days walker As directed Tobacco use date assessed: 09/24/24 Dental Screening Dental Screen Date: 09/24/24 Did you have a dental visit in the last 12 months?: Yes Did you have a dental problem in the last 6 months where you did not have access to dental care?: No Was dental information given to patient?: Patient has dentist HPI F/U ED , back pain HPI Details Patient is 59-year-old female with a history of hypertension GERD presented to emergency room on of this month with a chief complaint of mid back and epigastric pain of few days' duration. Patient also complained of feeling shortness a breath and feeling dizzy There was no history of nausea vomiting fever chills blurring of vision double vision loss of vision night sweats or pain with urination Her physical exam was unremarkable Her labs showed elevated D-dimer of 376 EKG was unremarkable Chest x-ray showed no acute process V/Q scan showed no evidence of pulmonary embolism After evaluation patient was discharged home - The patient reports persistent musculo skeletal back pain, primarily located in the middle right side of the back. The pain radiates around to the side and has been present intermittently for almost a year. Recently, the pain has become constant and more severe. - The patient describes the triggering o f pain with certain movements such as walking, and identifies the intensity sometimes causes her to stop moving abruptly. - Associated with back pain, the patient experiences muscle spasms described as severe enough to disturb sleep, especially in her thighs. These spasms began approximately a month ago. - The patient did not attempt using any muscle relaxers prior to the visit and reports increased muscle cramps since engaging in swimming. - Swimming activity, attempted for weigh t loss, is suspected of exacerbating the condition. The patient describes breathlessness and exacerbations of pain during swimming sessions. Medications - Prednisone, 5 mg, recently self-discon tinued due to side effects Problem List - Musculoskeletal Back Pain - Muscle Spasms - morbid obesity Patient Instructions - Take the prescribed muscle relaxant as directed: start with half a tablet every eight hours and adjust to a full tablet if necessary. - Stop swimming for a few days and avoid activities that exacerbate the symptoms. - Seek further medical attention if symp toms persist or worsen. Review of Systems General: No fever no chills neurological: No headaches no dizziness ear nose throat: No sore throat no hearing difficulty no ear pain cardiovascular: No syncope, no chest pain, no palpitations gastrointestinal: No nausea vomiting or diarrhea endocrine: No polyuria polydipsia no heat intolerance genitourinary: No dysuria skin: No new complaints Physical Exam general: No acute distress HEENT: No acute findings neck: Supple respiratory system: Able to talk in full sentences, no audible wheeze no stridor cardiovascular: S1-S2 RRR Back: No pain with percussion, pain located middle back on both side left more than right gastrointestinal: No pain extremities: Muscle spasms noted behind the thigh at night 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 motor sensory intact skin: Normal turgor [facility] Medical History History of nicotine dependence Polyarticular osteoarthritis Seronegative rheumatoid arthritis Long-term use of Plaquenil Obesity (BMI 30-39.9) Osteoarthritis of left knee Localized osteoarthritis of shoulder regions, bilateral Bilateral shoulder pain Pre-op evaluation Shortness of breath Encounter for routine gynecological examination Feeling sick UTI (urinary tract infection) Respiratory infection Hospital discharge follow-up Medicare annual wellness visit, initial Urinary tract infection Medicare annual wellness visit, subsequent Screening examination for infectious disease Large joint arthralgia of multiple sites Herpes Environmental allergies Anxiety, generalized Lipid disorder Umbilical hernia Fibromyalgia Acute arthritis Tendonitis Surgical History Hx of hernia repair History of esophagogastroduodenoscopy (EGD) Hx of colonoscopy History of meniscectomy of left knee (~01/12/14) History of cholecystectomy H/O hand surgery Family History Mother Cervical cancer Bladder cancer Father Cancer Sister No problems noted. Other Mental health disorder Substance use disorder Social History Household Members: Significant Other Housing: Apartment Unable to assess alcohol history related to: Unknown Alcohol intake: former Year quit: 22yo Patient Tobacco Use Status: Former Tobacco user e-Cigarette/Vaping Use: Never Used service: No Current occupational status: unemployed and disabled Sexual orientation: Straight/Heterosexual Gender identity: Female Cognitive needs: No Hearing needs: No Vision needs: No Questionnaire Thrive Questionnaire Date Thrive assessed: 07/14/24 I am a: Patient What is your living situation today?: I have a steady place to live Within the past 12 months, did the food you bought not last and you didn't have the money to get more?: Never true Within the past 12 months, did you worry whether your food would run out before you got money to buy more?: Never true Do you have trouble paying for medicines?: No Do you have trouble getting transportation to medical appointments?: No Do you have trouble paying your heating and electricity bill?: Yes Do you have trouble taking care of your child, family member or friend?: No Do you have trouble with day-to-day activities such as bathing, preparing meals, shopping, managing finances, etc.?: Yes Are you currently unemployed and looking for a job?: No Are you interested in more education?: No Please select the resources that you would like help with: Utilities Currently or been in a relationship where the following occur: I choose not to answer THRIVE Score: 1 ARIANNA-7 AMB Questionnaire ARIANNA-7 Date ARIANNA - 7 assessed: 07/14/24 Source: Developed by Drs. Kenneth Preston, Aruna Alcantar, Babak Rebolledo and colleagues, with an educational morris from [employer]. Physical exam (Primary Care) Vital Signs: Last Vital Signs Pulse 87 09/24/24 08:47 BP 126/80 09/24/24 08:47 Pulse Ox 99 09/24/24 08:47 Oxygen Delivery Method Room Air 09/24/24 08:47 BMI result Body Mass Index 42.7 Tobacco/Smoking Status: Tobacco use Status Tobacco use date assessed 09/24/24 09/24/24 08:50 Patient Tobacco Use Status Former Tobacco user 09/24/24 08:50 e-Cigarette/Vaping Use Never Used 09/24/24 08:50 Thrive Assessment: Date of Thrive Assessment Date Thrive assessed 07/14/24 09/24/24 08:50 Currently or been in a relationship where the following occur: I choose not to answer Coding Level of Care Code Est Pt Level 4 (10028) Diagnoses Seen in emergency room Z76.89 Mid back pain M54.9 Spasm of thoracic back muscle M62.830 Morbid obesity due to excess calories E66.01 Assessment & Plan Assessment & Plan (1) Seen in emergency room: Code(s): Z76.89 - Persons encountering health services in other specified circumstances Category: Medical (2) Mid back pain: Code(s): M54.9 - Dorsalgia, unspecified Category: Medical (3) Spasm of thoracic back muscle: Code(s): M62.830 - Muscle spasm of back Category: Medical (4) Morbid obesity due to excess calories: Code(s): E66.01 - Morbid (severe) obesity due to excess calories Category: Medical Plan Patient is 59-year-old female with a history of hypertension GERD presented to emergency room on of this month with a chief complaint of mid back and epigastric pain of few days' duration. Patient also complained of feeling shortness a breath and feeling dizzy There was no history of nausea vomiting fever chills blurring of vision double vision loss of vision night sweats or pain with urination Her physical exam was unremarkable Her labs showed elevated D-dimer of 376 EKG was unremarkable Chest x-ray showed no acute process V/Q scan showed no evidence of pulmonary embolism After evaluation patient was discharged home - The patient reports persistent musculoskeletal back pain, primarily located in the middle right side of the back. The pain radiates around to the side and has been present intermittently for almost a year. Recently, the pain has become constant and more severe. - The patient describes the triggering of pain with certain movements such as walking, and identifies the intensity sometimes causes her to stop moving abruptly. - Associated with back pain, the patient experiences muscle spasms described as severe enough to disturb sleep, especially in her thighs. These spasms began approximately a month ago. - The patient did not attempt using any muscle relaxers prior to the visit and reports increased muscle cramps since engaging in swimming. - Swimming activity, attempted for weight loss, is suspected of exacerbating the condition. The patient describes breathlessness and exacerbations of pain during swimming sessions. Medications - Prednisone, 5 mg, recently self-discontinued due to side effects Problem List - Musculoskeletal Back Pain - Muscle Spasms - morbid obesity Patient Instructions - Take the prescribed muscle relaxant as directed: start with half a tablet every eight hours and adjust to a full tablet if necessary. - Stop swimming for a few days and avoid activities that exacerbate the symptoms. - Seek further medical attention if symptoms persist or worsen. Medications: New cyclobenzaprine 10 mg PO TID 10 days PRN 30 tabs 0RF muscle spasm albuterol sulfate 0.63 mg (3 mL) inhalation QID PRN 90 mL 0RF shortness of breath or wheezing Refilled cyanocobalamin (vitamin B-12) 1,000 mcg PO DAILY 90 days 90 tabs 0RF alprazolam 0.5 mg PO BID 30 days 60 tabs 2RF
--- OUTSIDE RECORDS SUMMARY | 2024-09-24 09:08 | XMS_ITS | Data Portability ---
Author Organization [facility] d/b/a: [employer] Address [address] [place] [address] Assessment No assessment recorded. Plan of Treatment Reminders Order Date Submit Date Provider Last Modified By Organization Details Last Modified Time Details Appointments None recorded. 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 Procedures None recorded. Surgeries None recorded. Imaging None recorded. Medication Orders None recorded. Patient TargetsNo targets recorded. Patient Instructions Encounter Date Encounter Id Patient Instructions Last Modified By Organization Details Last Modified Time 07/07/2020 [id number] things to do i f you've been exposed to covid-19 [email or web address] Not available 07/10/2020 14:13:23 Reason for Referral None Reported. 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 Not Available [facility] [address] [place], [address], 07/08/2020 23:20:14 Result Notes None recorded. Problems Name Problem SNOMED Code Status Onset Date Resolution Date Notes Provider Name and Address Organization Details Recorded Time Exposure to SARS-CoV-2 Active 021 Jerome Mercedes [place], [place] - [facility] [employer] d/b/a: [employer] 07/07/2020 16:10:50 Problem Notes None [...] SNOMED-CT Code Diagnosis ICD10 Code Diagnosis Note [id number] Jerome Mercedes Abrams MD [address] [place] [address] 07/07/2020 14:47:29 07/10/2020 08:21:39 Exposure to SARS-CoV-2 [id number] Z20.822 Health Concerns Section Related Observation LastModified [...]
== END 2024-09-24 09:13 | disposition home or self-care (01) ==
PROVIDERS: PCP Internal Medicine; Visit Provider Internal Medicine
DX: M54.9 Dorsalgia, unspecified (principal); M62.830 Muscle spasm of back; E66.01 Morbid (severe) obesity due to excess calories; Z68.41 Body mass index [BMI] 40.0-44.9, adult; Z76.89 Persons encountering health services in other specified circumstances

== ENCOUNTER → 2024-09-24 08:43 | Outpatient (BNVA) | payer MEDICARE, MEDICAID, SELFPAY | PROVIDERS: PCP Internal Medicine; Visit Provider Internal Medicine | DX: M54.9 Dorsalgia, unspecified (principal); M62.830 Muscle spasm of back; E66.01 Morbid (severe) obesity due to excess calories; Z68.41 Body mass index [BMI] 40.0-44.9, adult; Z71.3 Dietary counseling and surveillance; Z76.89 Persons encountering health services in other specified circumstances | CPT/HCPCS: 99212 ==

== ENCOUNTER 2024-10-04 08:06 | Outpatient (AMB) | payer MEDICARE, MEDICAID, SELFPAY ==
--- OUTSIDE RECORDS SUMMARY | 2024-10-04 08:17 | XMS_ITS | Data Portability ---
Author Organization [facility] d/b/a: [employer] Address [address] [place] [address] Assessment No assessment recorded. Plan of Treatment Reminders Order Date Submit Date Provider Last Modified By Organization Details Last Modified Time Details Appointments None recorded. 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 Procedures None recorded. Surgeries None recorded. Imaging None recorded. Medication Orders None recorded. Patient TargetsNo targets recorded. Patient Instructions Encounter Date Encounter Id Patient Instructions Last Modified By Organization Details Last Modified Time 07/07/2020 [id number] things to do i f you've been exposed to covid-19 [email or web address] Not available 07/10/2020 14:13:23 Reason for Referral None Reported. 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 Not Available [facility] [address] [place], [address], 07/08/2020 23:20:14 Result Notes None recorded. Problems Name Problem SNOMED Code Status Onset Date Resolution Date Notes Provider Name and Address Organization Details Recorded Time Exposure to SARS-CoV-2 Active 021 Jerome Mercedes [place], [place] - [employer] d/b/a: [employer] 07/07/2020 16:10:50 Problem Notes None [...] SNOMED-CT Code Diagnosis ICD10 Code Diagnosis Note [id number] Jerome Mercedes [place] MD [address] [place] [address] 07/07/2020 14:47:29 07/10/2020 08:21:39 Exposure to SARS-CoV-2 [id number] Z20.822 Health Concerns Section Related Observation LastModified [...]
--- NOTE | 2024-10-04 09:05 | AM.OFFWIN_ITS ---
Intake Vital Signs 10/04/24 09:07 Height 5 ft 1 in Weight 222 lb BMI 41.9 BP 122/80 Blood Pressure Location Lt brachial Position Sitting Pulse 83 Pulse Source Pulse Oximeter Temp 98 F Temp Source Oral Pulse Oximetry (%) 98 Oxygen Delivery Method Room Air Intake Visit Reasons: EP back pain, acid reflux Intake Note: Patient here for diarrhea, severe heart burn that has been bad since last week and back pain that has not improved. Patient Tobacco Use Status: Former Tobacco user Allergies gabapentin [GABAPENTIN] Allergy (Severe, Verified 10/04/24 09:09) SEVERE GI ISSUES Iodinated Contrast Media [IV DYE, IODINE CONTAINING] Allergy (Severe, Verified 10/04/24 09:09) SWELLING Sulfa (Sulfonamide Antibiotics) [SULFA (SULFONAMIDE ANTIBIOTICS)] Allergy (Severe, Verified 10/04/24 09:09) ANAPHYLAXIS, swelling Milk Containing Products (Dairy) Allergy (Intermediate, Verified 10/04/24 09:09) Rash lidocaine Allergy (Mild, Verified 10/04/24 09:09) Welts nabumetone Allergy (Unknown, Verified 10/04/24 09:09) Abdominal Pain pregabalin Allergy (Unknown, Verified 10/04/24 09:09) unknown venlafaxine Allergy (Unknown, Verified 10/04/24 09:09) unknown semaglutide [From Ozempic] Adverse Reaction (Intermediate, Verified 10/04/24 09: 09) Rash meloxicam Adverse Reaction (Unknown, Verified 10/04/24 09:09) abdominal pain all meat Allergy (Unknown, Uncoded 10/04/24 09:09) unknown Environmental Allergy (Unknown, Uncoded 10/04/24 09:09) unknown Do you need a note to return to daycare/school/sports/work: No HPI HPI Comments History of Present Illness Details 59 y/o Female patient who presents to [facility] walk in clinic with c/o diarrhea, severe heart burn since last week associated with Epigastric region pain radiating to the thoracic back region. Pt was seen at ED 09/20 for similar concerns and all the work-up was negative. She was seen again by PCP 09/24 for similar concerns plus Back pain. She was prescribed Muscle relaxants with minimal relief. Pt does have GI doctor and advised her to call them for evaluation of GERD symptoms. [facility] Medical History History of nicotine dependence Polyarticular osteoarthritis Seronegative rheumatoid arthritis Long-term use of Plaquenil Obesity (BMI 30-39.9) Osteoarthritis of left knee Localized osteoarthritis of shoulder regions, bilateral Bilateral shoulder pain Pre-op evaluation Shortness of breath Encounter for routine gynecological examination Feeling sick UTI (urinary tract infection) Respiratory infection Hospital discharge follow-up Medicare annual wellness visit, initial Urinary tract infection Medicare annual wellness visit, subsequent Screening examination for infectious disease Large joint arthralgia of multiple sites Herpes Environmental allergies Anxiety, generalized Lipid disorder Umbilical hernia Fibromyalgia Acute arthritis Tendonitis Surgical History Hx of hernia repair History of esophagogastroduodenoscopy (EGD) Hx of colonoscopy History of meniscectomy of left knee (~01/12/14) History of cholecystectomy H/O hand surgery Family History Mother Cervical cancer Bladder cancer Father Cancer Sister No problems noted. Other Mental health disorder Substance use disorder Social History Household Members: Significant Other Housing: Apartment Unable to assess alcohol history related to: Unknown Alcohol intake: former Year quit: 22yo Patient Tobacco Use Status: Former Tobacco user e-Cigarette/Vaping Use: Never Used service: No Current occupational status: unemployed and disabled Sexual orientation: Straight/Heterosexual Gender identity: Female Cognitive needs: No Hearing needs: No Vision needs: No Review of Systems Const All systems reviewed & are unremarkable except as noted in HPI and below Physical Exam Vital Signs: Last Vital Signs Temp 98 F 10/04/24 09:07 Pulse 83 10/04/24 09:07 BP 122/80 10/04/24 09:07 Pulse Ox 98 10/04/24 09:07 Oxygen Delivery Method Room Air 10/04/24 09:07 BMI result Body Mass Index 41.9 Const General: no acute distress Nutritional Appearance: obese morbidly obese Orientation/consciousness: patient oriented x3 Resp Effort & Inspection: normal respiratory effort and able to speak in complete sentences Auscultation: clear to auscultation bilaterally, no crackles, no rales, no rhonchi and no wheezes Cardio Heart sounds: S1 normal heart sound present and S2 normal heart sound present GI Inspection: Yes Abdominal panniculus present and Yes obesity Palpation (GI): Soft to palpation, not firm, Tenderness to palpation present (GI) in the epigastrum, no guarding, not rigid and No hepatosplenomegaly present Auscultation: normal bowel sounds Back/Spine/Pelvis Thoracic/Lumbar Spine: thoracic spinal tenderness Neuro General: patient oriented x3 Assessment & Plan Assessment & Plan (1) Epigastric pain: Code(s): R10.13 - Epigastric pain Plan: Ordered Imodium Advised BLAND diet Ordered Famotidine. Advised to call GI Medications: New famotidine (Acid Electrical Tech (famotidine)) 20 mg PO BEDTIME 30 tabs 0RF 30 days R10 .13 - Epigastric pain loperamide-simethicone 2-125 mg (Imodium Multi-Symptom Relief) do not exceed 4 tabs in 24 hrs 1 tab PO Q3H PRN 20 tabs 0RF loose stool R19.7 - Diarrhea, unspecified Coding Level of Care Code Est Pt Level 4 (93996) Diagnoses Epigastric pain R10.13 Time Spent (min) 20
[2024-10-04 09:07] VITALS: BP 122/80; PULSE 83; TEMP 36.6; O2SAT 98; BMI 41.9
== END 2024-10-04 09:47 | disposition home or self-care (01) ==
PROVIDERS: PCP Internal Medicine; Visit Provider Nurse Practitioner Family
DX: R10.13 Epigastric pain (principal)

== ENCOUNTER → 2024-10-04 08:06 | Outpatient (BNVA) | payer MEDICARE, MEDICAID, SELFPAY | PROVIDERS: PCP Internal Medicine; Visit Provider Nurse Practitioner Family | DX: R10.13 Epigastric pain (principal) | CPT/HCPCS: 99212 ==

== ENCOUNTER 2024-10-05 11:27 | Outpatient (AMB) | payer MEDICARE, MEDICAID, SELFPAY ==
--- NOTE | 2024-10-05 11:45 | MHC.OFFVIS ---
Vital Signs 10/05/24 11:47 Height 5 ft 1 in Weight 222 lb BMI 41.9 BP 130/88 Blood Pressure Location Lt brachial Position Sitting Pulse 90 Pulse Oximetry (%) 98 Oxygen Delivery Method Room Air Intake Visit Reasons: follow up from ER Intake Note: Patient follow up from ER visit/back pain & GERD. Patient cc: back pain radiating to her right front stomach, painful heartburn with choking sensation, difficulty eating or drink with the abdominal bloating and nauseas, also daily diarrhea. 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: No Accompanied by: Self / Same As Patient Allergies gabapentin [GABAPENTIN] Allergy (Severe, Verified 10/05/24 11:44) SEVERE GI ISSUES Iodinated Contrast Media [IV DYE, IODINE CONTAINING] Allergy (Severe, Verified 10/05/24 11:44) SWELLING Sulfa (Sulfonamide Antibiotics) [SULFA (SULFONAMIDE ANTIBIOTICS)] Allergy (Severe, Verified 10/05/24 11:44) ANAPHYLAXIS, swelling Milk Containing Products (Dairy) Allergy (Intermediate, Verified 10/05/24 11:44) Rash lidocaine Allergy (Mild, Verified 10/05/24 11:44) Welts nabumetone Allergy (Unknown, Verified 10/05/24 11:44) Abdominal Pain pregabalin Allergy (Unknown, Verified 10/05/24 11:44) unknown venlafaxine Allergy (Unknown, Verified 10/05/24 11:44) unknown semaglutide [From Ozempic] Adverse Reaction (Intermediate, Verified 10/05/24 11:44) Rash meloxicam Adverse Reaction (Unknown, Verified 10/05/24 11:44) abdominal pain all meat Allergy (Unknown, Uncoded 10/04/24 09:09) unknown Environmental Allergy (Unknown, Uncoded 10/04/24 09:09) unknown HPI HPI follow up from ER: Details: Assessment & Plan (1) Chronic idiopathic constipation: Code(s): K59.04 - Chronic idiopathic constipation (2) Epigastric pain: Code(s): R10.13 - Epigastric pain (3) GERD (gastroesophageal reflux disease): Code(s): K21.9 - Gastro-esophageal reflux disease without esophagitis Qualifiers: Esophagitis presence: without esophagitis Qualified Code(s): K21.9 - Gastro-esophageal reflux disease without esophagitis (4) Gastroparesis: Comment: GASTRIC EMPTYING STUDY Exam Date: 05/18/2013 IMPRESSION: Abnormal study. Mild retention of solid food is present in the stomach at 4 hours. Exam Date: 05/18/2013 Code(s): K31.84 - Gastroparesis (5) Left flank mass: Comment: ? painful lipoma Code(s): R19.00 - Intra-abdominal and pelvic swelling, mass and lump, unspecified site (6) Abdominal bloating: Code(s): R14.0 - Abdominal distension (gaseous) Plan Patient has been lost to follow-up since 01/2022 Apparently she tried the Reglan but it made her head shaky. She stopped the medication. In the past she was on pantoprazole 40 mg once a day and Linzess 72 micro g. She is using OTC chewable with only moderate success, but mobilization is still an issue. When she was using the metoclopramide she found it worked wonderfully for mobilizing her gas! She was quite disappointed that she had to stop it. She is willing to try the Creon and we also discussed using IBD guard since she has had some success with peppermint in terms of mobilizing her gas. She also is complaining of painful lumps in her left flank. I feel that it feels like it is in the adipose tissues in may be painful lipomas so will get ultrasound and consider referring her to surgery depending on these results. She is also having trouble with chronic sinusitis that has been worse and we discuss utilizing Judi and an inhaled nasal steroid such as Flonase. Return office visit in 6 weeks to evaluate her response. Orders: Orders US abdomen limited Today R19.00 - Intra-abdominal and pelvic swelling, mass and lump, unspecified site Medications: New [id number] 36,000-114,000- 180,000 unit (Creon) administer with meals and/or snacks 1 cap PO QID 120 caps 6RF R14.0 - Abdominal distension (gaseous) simethicone (Gas Relief (simethicone)) 125 mg PO TID-QID 120 tabs 6RF abdominal distention R14.0 - Abdominal distension (gaseous) Refilled pantoprazole 40 mg PO DAILY 90 tabs 1RF linaclotide (Linzess) 72 mcg PO QAM 30 caps 6RF K59.04 - Chronic idiopathic constipation ULTRASOUND OF THE ABDOMEN 09/02/23 FINDINGS: Multiple nodules in the superficial soft tissues of the left flank corresponding to the palpable abnormalities demonstrating similar echogenicity compared to the adjacent fat and no discrete vascularity. Largest measures 2.2 x 0.7 x 3.4 cm. US/US abdomen limited IMPRESSION: Multiple soft tissue masses suggestive of lipomatous lesions, likely lipomas; although other lipomatous soft tissue tumors cannot be entirely excluded. Recommend continued follow-up according to clinical criteria with special attention if there is growth or persistent/increasing pain. CORRESPONDENCE On 09/24/23 @ 11:32 Tanesha Puente Wrote To ShadeKala no PA required On 09/24/23 @ 11:14 Kala Laguerre Wrote To Tanesha Puente Please do PA fro bid protonix as she is having severe HB later in the day and needs a second dose for breakthrough. TODAY'S VISIT (Apparently she tried the Reglan but it made her head shaky. She stopped the medication. In the past she was on pantoprazole 40 mg once a day and Linzess 72 micro g. She is using OTC chewable with only moderate success, but mobilization is still an issue.) She started having a very sudden on set of severe acid in my throat, 4 days ago tamarli woke her up in the middle of the night. Now it is continuous and she feels burnign in her throat. She has not had acid this bad since I was . She presented to the ER for pain in her back that was off and on, but now it is continuous. It is in the T spine and slightly to the right and radiates around to the right flank. It is a stabbing pain not dissimilar to when she had cholecystitis. She is status post cholecystectomy. She has been taking mylanta. She states that her diarrhea precedes her starting with the Mylanta. Fatigue, sweats and chills, SOB even with shower, diarrhea sudden onset. Blood cx had neg trop (endocariditis???), UTI, back prob, muscle spasms Overall she has multiple vague complaints which may all be connected or she may have several separate problems. I will try to do a wide workup to see what I can until angle to make sure were not missing any severe underlying etiology. However, I explained to her that her symptoms can point towards many different pathologies and are not specific to anyone without having a great deal of further testing. She is understanding of this. ROV 2 weeks. [facility] Medical History (Updated 10/05/24 @ 13:13 by HARVINDER Fry) Epigastric pain Localized osteoarthritis of shoulder regions, bilateral Osteoarthritis of left knee Fatigue Microscopic hematuria Mid back pain Wheezing Knee pain, left Effusion of bursa of knee Tired Shortness of breath Sinus pressure Vaginal odor Throat irritation Ill feeling Pyelonephritis Rash Joint pain Elevated blood pressure reading Impaired fasting blood sugar Arthrosis Respiratory tract congestion with cough Frequent UTI Cramps of left lower extremity Dyspnea on exertion Cough Postnasal drip Herpes Difficulty walking up hill Dysuria Encounter for general adult medical examination with abnormal findings Left flank mass Large joint arthralgia of multiple sites Screening examination for infectious disease Pre-op evaluation Bilateral shoulder pain History of nicotine dependence Right ankle sprain Avulsion fracture of ankle Acute bacterial sinusitis Acute viral syndrome Seen in emergency room Polyarticular osteoarthritis Seronegative rheumatoid arthritis Long-term use of Plaquenil Obesity (BMI 30-39.9) Shortness of breath Encounter for routine gynecological examination Feeling sick UTI (urinary tract infection) Respiratory infection Hospital discharge follow-up Medicare annual wellness visit, initial Urinary tract infection Medicare annual wellness visit, subsequent Environmental allergies Anxiety, generalized Lipid disorder Umbilical hernia Fibromyalgia Acute arthritis Tendonitis Surgical History Hx of hernia repair History of esophagogastroduodenoscopy (EGD) Hx of colonoscopy History of meniscectomy of left knee (~01/12/14) History of cholecystectomy H/O hand surgery Family History Mother Cervical cancer Bladder cancer Father Cancer Sister No problems noted. Other Mental health disorder Substance use disorder Social History Household Members: Significant Other Housing: Apartment Unable to assess alcohol history related to: Unknown Alcohol intake: former Year quit: 22yo Patient Tobacco Use Status: Former Tobacco user e-Cigarette/Vaping Use: Never Used service: No Current occupational status: unemployed and disabled Sexual orientation: Straight/Heterosexual Gender identity: Female Cognitive needs: No Hearing needs: No Vision needs: No Review of Systems Const Reports body aches, Reports excessive sweating, Reports fatigue, Reports fever(s), Reports malaise, Denies night sweats, Reports poor appetite and Reports weight loss Eyes Reports requires corrective lenses ENT Reports Normal hearing present, Denies dental pain, Denies dysphagia, Reports dizziness, Denies hearing loss, Reports hoarseness, Denies mouth pain, Denies odynophagia, Reports sore throat, Denies throat swelling, Denies tongue swelling and Reports other (Dentition adequate) Card Reports chest pain and Reports dyspnea on exertion Resp Reports cough, Reports dyspnea on exertion and Reports wheezing GI Details: Denies abdominal pain, Denies melena, Reports bloating, Denies hematochezia, Denies constipation, Denies GI cramping, Denies dysphagia, Denies excessive flatus, Denies early satiety, Reports heartburn, Reports diarrhea, Denies nausea, Denies odynophagia, Denies vomiting and Denies hematemesis Reports flank pain Musc Reports back pain, Reports myalgias, Reports muscle cramps and Reports muscle weakness Skin/Breast Denies pruritus, Denies lesions, Denies rash and Denies jaundice Neuro Reports Normal hearing present, Denies Abnormal speech present and Reports dizziness Endo Reports excessive sweating and Reports fatigue Aller/Immun Denies throat swelling, Denies tongue swelling and Reports wheezing Physical Exam Vital Signs: Last Vital Signs Pulse 90 10/05/24 11:47 BP 130/88 10/05/24 11:47 Pulse Ox 98 10/05/24 11:47 Oxygen Delivery Method Room Air 10/05/24 11:47 BMI result Body Mass Index 41.9 Const General: cooperative, no acute distress, well developed and well groomed Nutritional Appearance: well nourished and obese Orientation/consciousness: oriented to person, oriented to place and oriented to time Limitations: No language barrier HEENT Head: Yes normocephalic and Yes atraumatic Eyes General: appearance normal, both eyes and all related structures Pupils: Equal, round and reactive pupils present Neck Neck: Yes normal visual inspection and Yes no lymphadenopathy Thyroid: Thyroid normal Chest Chest palpation & inspection: localized rib tenderness with anteroposterior compression and tenderness rib (mid at bra line) Resp Effort & Inspection: normal respiratory effort and able to speak in complete sentences Auscultation: clear to auscultation bilaterally Cardio Rate: regular rate Rhythm: regular rhythm Heart sounds: Normal, physiologic split S2 sound present Peripheral pulses: radial pulses present and posterior tibial pulses present GI Inspection: No distended, Yes Abdominal panniculus present and Yes obesity Palpation (GI): Soft to palpation, nontender, no guarding, not rigid and No hepatosplenomegaly present Percussion: Yes normal to percussion Auscultation: normal bowel sounds Rectal Exam - Female: deferred General: Yes no CVA tenderness Back/Spine/Pelvis Back: no CVA tenderness Thoracic/Lumbar Spine: paraspinal muscle tenderness bilaterally in the mid thoracic and thoracic spinal tenderness at T8 Skin General skin exam: no rashes or lesions noted, turgor normal, skin not dry, no jaundice, No spider nevi and no striae Rashes: no rashes Nails: normal Neuro General: oriented to person, oriented to place and oriented to time Cranial nerves: Yes Equal, round and reactive pupils present and Yes Normal hearing present Speech: No Abnormal speech present Extrem General: Yes normal to inspection, No clubbing, No cyanosis and No edema Psych Appearance: grossly normal and well kempt Mental Status: mental status grossly normal Speech and movement: Normal speech and movement present Affect: normal affect Attitude: cooperative Thought process: Normal thought process present and not confabulating Thought content: Normal thought content present Insight: Fair insight present (Psych) Judgement: Fair judgement present (Psych) Assessment & Plan Assessment & Plan (1) Chronic idiopathic constipation: Code(s): K59.04 - Chronic idiopathic constipation Category: Medical (2) Abdominal bloating: Code(s): R14.0 - Abdominal distension (gaseous) Category: Medical (3) GERD (gastroesophageal reflux disease): Code(s): K21.9 - Gastro-esophageal reflux disease without esophagitis Category: Medical Qualifiers: Esophagitis presence: without esophagitis Qualified Code(s): K21.9 - Gastro-esophageal reflux disease without esophagitis (4) Gastroparesis: Comment: GASTRIC EMPTYING STUDY Exam Date: 05/18/2013 IMPRESSION: Abnormal study. Mild retention of solid food is present in the stomach at 4 hours. Exam Date: 05/18/2013 Code(s): K31.84 - Gastroparesis Category: Medical (5) Fever and chills: Code(s): R50.9 - Fever, unspecified Category: Medical (6) GERD with esophagitis: Code(s): K21.00 - Gastro-esophageal reflux disease with esophagitis, without bleeding Category: Medical (7) Epigastric pain: Code(s): R10.13 - Epigastric pain Category: Medical (8) Diarrhea: Code(s): R19.7 - Diarrhea, unspecified Category: Medical Plan (Apparently she tried the Reglan but it made her head shaky. She stopped the medication. In the past she was on pantoprazole 40 mg once a day and Linzess 72 micro g. She is using OTC chewable with only moderate success, but mobilization is still an issue.) She started having a very sudden on set of severe acid in my throat, 4 days ago taht woke her up in the middle of the night. Now it is continuous and she feels burnign in her throat. She has not had acid this bad since I was . She presented to the ER for pain in her back that was off and on, but now it is continuous. It is in the T spine and slightly to the right and radiates around to the right flank. It is a stabbing pain not dissimilar to when she had cholecystitis. She is status post cholecystectomy. She has been taking mylanta. She states that her diarrhea precedes her starting with the Mylanta. Fatigue, sweats and chills, SOB even with shower, diarrhea sudden onset. Blood cx had neg trop (endocariditis???), UTI, back prob, muscle spasms Overall she has multiple vague complaints which may all be connected or she may have several separate problems. I will try to do a wide workup to see what I can until angle to make sure were not missing any severe underlying etiology. However, I explained to her that her symptoms can point towards many different pathologies and are not specific to anyone without having a great deal of further testing. She is understanding of this. ROV 2 weeks. Orders: Orders GI Panel Today K59.04 - Chronic idiopathic constipation, R50.9 - Fever, unspecified XR thoracic spine 2V Today K59.04 - Chronic idiopathic constipation, R50.9 - Fever, unspecified XR lumbar spine 2-3V Today K59.04 - Chronic idiopathic constipation, R50.9 - Fever, unspecified Amylase Today K59.04 - Chronic idiopathic constipation, R50.9 - Fever, unspecified Lipase Today K59.04 - Chronic idiopathic constipation, R50.9 - Fever, unspecified H pylori Ag Stool Today K59.04 - Chronic idiopathic constipation, R50.9 - Fever, unspecified Blood Urea Nitrogen Today K59.04 - Chronic idiopathic constipation, R50.9 - Fever, unspecified Creatinine Today K59.04 - Chronic idiopathic constipation, R50.9 - Fever, unspecified Blood Culture X2 Today K59.04 - Chronic idiopathic constipation, R50.9 - Fever, unspecified EGD - GI Use Only Today R10.13 - Epigastric pain CT abdomen pelvis w IV con Today K59.04 - Chronic idiopathic constipation, R50.9 - Fever, unspecified UA CC w/rflx Micro + Cult Today K59.04 - Chronic idiopathic constipation, R50.9 - Fever, unspecified C Reactive Protein Today R19.7 - Diarrhea, unspecified Medications: New rabeprazole (AcipHex) 20 mg PO BID 60 tabs 12RF K21.9 - Gastro-esophageal reflux disease without esophagitis famotidine (Pepcid) 40 mg PO BEDTIME 30 tabs 6RF K21.00 - Gastro-esophageal reflux disease with esophagitis, without bleeding Discontinued pantoprazole Discontinued Reason: Doctor's Order 40 mg PO BID 180 tabs 1RF famotidine (Acid Internal Corrosion Specialist (famotidine)) Discontinued Reason: Change Referral Type 20 mg PO BEDTIME 30 days 30 tabs 0RF R10.13 - Epigastric pain Coding Level of Care Code Est Pt Level 4 (00648) Diagnoses Chronic idiopathic constipation K59.04 Abdominal bloating R14.0 Gastroesophageal reflux disease without esophagitis K21.9 Esophagitis presence: without esophagitis Gastroparesis K31.84 Fever and chills R50.9 GERD with esophagitis K21.00 Epigastric pain R10.13 Diarrhea R19.7 Time Spent (min) 41
[2024-10-05 11:47] VITALS: BP 130/88; PULSE 90; O2SAT 98; BMI 41.9
--- OUTSIDE RECORDS SUMMARY | 2024-10-05 13:36 | XMS_ITS | Data Portability ---
Author Organization [facility] d/b/a: [employer] Address [address] [place] [address] Assessment No assessment recorded. Plan of Treatment Reminders Order Date Submit Date Provider Last Modified By Organization Details Last Modified Time Details Appointments None recorded. Lab SARS CoV 2 RNA (COVID-19), QL, buyer-PCR, respiratory specimen 2020 021 [email or web address] [facility], [address] [place], [address], 14:13:23 Referral None recorded. Procedures None recorded. Surgeries None recorded. Imaging None recorded. Medication Orders None recorded. Patient TargetsNo targets recorded. Patient Instructions Encounter Date Encounter Id Patient Instructions Last Modified By Organization Details Last Modified Time 07/07/2020 [id number] things to do i f you've been exposed to covid-19 [email or web address] Not available 07/10/2020 14:13:23 Reason for Referral None Reported. Results Created Date Observation Date Name Description Value Unit Range Abnormal Flag Note LastModifiedBy Organization Detail LastModifiedTime 07/07/19 21 07/08/2020 SARS CoV 2 RNA (COVI D-19) , QL, buyer-P CR, respi rator y speci men sars [...] iagno stics .com/ Covid 19. Not Available [facility] [address] [place], [address], 07/08/2020 23:20:14 Result Notes None recorded. Problems Name Problem SNOMED Code Status Onset Date Resolution Date Notes Provider Name and Address Organization Details Recorded Time Exposure to SARS-CoV-2 Active 021 Jerome Mercedes [place], [place] - [email or web address] d/b/a: [email or web address] 07/07/2020 16:10:50 Problem Notes None [...] SNOMED-CT Code Diagnosis ICD10 Code Diagnosis Note [id number] Jerome Mercedes [place] MD [address] [place] [address] 07/07/2020 14:47:29 07/10/2020 08:21:39 Exposure to SARS-CoV-2 [id number] Z20.822 Health Concerns Section Related Observation LastModified [...]
== END 2024-10-05 13:20 | disposition home or self-care (01) ==
LOC: HO.HGI 11:28
PROVIDERS: PCP Internal Medicine; Visit Provider Nurse Practitioner
DX: K59.04 Chronic idiopathic constipation (principal); R14.0 Abdominal distension (gaseous); K21.9 Gastro-esophageal reflux disease without esophagitis; K31.84 Gastroparesis; R50.9 Fever, unspecified; K21.00 Gastro-esophageal reflux disease with esophagitis, without bleeding; R10.13 Epigastric pain; R19.7 Diarrhea, unspecified
CPT/HCPCS: 99214

== ENCOUNTER → 2024-10-05 11:27 | Outpatient (BNVA) | payer MEDICARE, MEDICAID, SELFPAY | PROVIDERS: PCP Internal Medicine; Visit Provider Nurse Practitioner | DX: K59.04 Chronic idiopathic constipation (principal); K21.9 Gastro-esophageal reflux disease without esophagitis; K31.84 Gastroparesis; K21.00 Gastro-esophageal reflux disease with esophagitis, without bleeding; R14.0 Abdominal distension (gaseous); R50.9 Fever, unspecified; R10.13 Epigastric pain; R19.7 Diarrhea, unspecified | CPT/HCPCS: 99212 ==

== ENCOUNTER 2024-10-06 10:45 | Outpatient (REF) | payer MEDICARE, MEDICAID, SELFPAY ==
--- NOTE | ~2024-10-06 | XR_ITS ---
EXAMINATION: XR LUMBOSACRAL SPINE CLINICAL INFORMATION: R50.9 - Fever, unspecified COMPARISON: August 28, 2016. TECHNIQUE: Three views of the lumbosacral spine. FINDINGS: Multilevel endplate sclerosis. Facet joint hypertrophy at L4-5 and L5-S1. No acute cortical disruption. No gross malalignment. No lytic or blastic lesions. No osteolysis. Vascular clips right upper quadrant abdomen. Vascular calcifications, aorta. XR/XR lumbar spine 2-3V IMPRESSION: Multilevel lumbar spondylosis without acute fracture or gross listhesis. No gross change. Electronically signed by: Twan Pascal MD 10/08/2024 08:46 AM EDT
--- NOTE | ~2024-10-06 | XR_ITS ---
EXAMINATION: XR THORACIC SPINE CLINICAL INFORMATION: R50.9 - Fever, unspecified .BACK PAIN COMPARISON: August 26, 2016. TECHNIQUE: 3 views of the thoracic spine were obtained. FINDINGS: Multilevel marginal osteophyte formation. Mild S-shaped curvature of the lower thoracic spine thoracolumbar junction. Multilevel endplate sclerosis and decreased intervertebral disc height. No gross malalignment. No lytic or blastic lesions. No acute cortical disruption. Vascular clips right upper quadrant abdomen. XR/XR thoracic spine 2V IMPRESSION: Multilevel thoracolumbar spondylosis and mild scoliosis. Status post cholecystectomy. Electronically signed by: Twan Pascal MD 10/08/2024 08:45 AM EDT
[2024-10-06 13:44] LABS: Appearance Urine Cloudy; Color Urine Dark Yellow; Glucose Urine UA Negative (Negative); Leukocyte Esterase Urine Trace (Negative); Nitrite Urine Negative (Negative); Specific Gravity - Urine >= 1.030 (1.005-1.025); UMIC TRIGGER UACC YES; Urine Blood Small (1+) (Negative); Urine Ketones 15 mg/dL (Negative); Urine Protein 30 (1+) mg/dL (Neg-Trace)
[2024-10-06 13:54] LABS: Bacteria Urine 3+ (None Seen); WBC Urine 0-5 /HPF (0-5)
[2024-10-06 14:10] LABS: Blood Urea Nitrogen 15 mg/dL (9-16); C Reactive Protein 1.16 mg/dL (< or = 0.50); Estimated Glomerular Filt Rate > 60; Lipase 38 U/L (8-78)
[2024-10-06 14:14] LABS: Amylase 41 U/L (28-100)
== END 2024-10-06 10:46 | disposition home or self-care (01) ==
LOC: HO.HMGCX 10:45
PROVIDERS: PCP Internal Medicine; Visit Provider Nurse Practitioner
DX: R50.9 Fever, unspecified (principal); K59.04 Chronic idiopathic constipation; R19.7 Diarrhea, unspecified
CPT/HCPCS: 36415; 72070; 72100; 81001; 82150; 82565; 83690; 84520; 86140; 87040

== ENCOUNTER → 2024-10-06 11:34 | Outpatient (BNV) | payer MEDICARE, MEDICAID, SELFPAY | PROVIDERS: PCP Internal Medicine; Visit Provider Radiology Diagnostic Radiology | DX: M47.817 Spondylosis without myelopathy or radiculopathy, lumbosacral region (principal); M47.815 Spondylosis without myelopathy or radiculopathy, thoracolumbar region | CPT/HCPCS: 72070; 72100 ==

== ENCOUNTER 2024-10-07 07:30 | Outpatient (REF) | payer MEDICARE, MEDICAID, SELFPAY ==
--- OUTSIDE RECORDS SUMMARY | 2024-10-07 08:27 | XMS_ITS | Data Portability ---
Author Organization [facility] d/b/a: [employer] Address [address] [place] [address] Assessment No assessment recorded. Plan of Treatment Reminders Order Date Submit Date Provider Last Modified By Organization Details Last Modified Time Details Appointments None recorded. 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 [facility], [address] [place], [address], 14:13:23 Referral None recorded. Procedures None recorded. Surgeries None recorded. Imaging None recorded. Medication Orders None recorded. Patient TargetsNo targets recorded. Patient Instructions Encounter Date Encounter Id Patient Instructions Last Modified By Organization Details Last Modified Time 07/07/2020 [id number] things to do i f you've been exposed to covid-19 [email or web address] Not available 07/10/2020 14:13:23 Reason for Referral None Reported. 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 Not Available [employer] [facility] [address], [place], [address], 07/08/2020 23:20:14 Result Notes None recorded. Problems Name Problem SNOMED Code Status Onset Date Resolution Date Notes Provider Name and Address Organization Details Recorded Time Exposure to SARS-CoV-2 Active 021 Jerome Long [place], [place] - [employer] d/b/a: [employer] 07/07/2020 16:10:50 Problem Notes None [...] SNOMED-CT Code Diagnosis ICD10 Code Diagnosis Note [id number] MD Meseret Sadler MD [address] [place] [address] 07/07/2020 14:47:29 07/10/2020 08:21:39 Exposure to SARS-CoV-2 [id number] Z20.822 Health Concerns Section Related Observation LastModified [...]
[2024-10-07 14:46] LABS: Adenovirus F 40/41 Not Detected (Not Detect.); Astrovirus Not Detected (Not Detect.); Campylobacter Not Detected (Not Detect.); Cryptosporidium Not Detected (Not Detect.); Cyclospora cayetanensis Not Detected (Not Detect.); E. coli EAEC Not Detected (Not Detect.); E. coli EPEC Not Detected (Not Detect.); E. coli ETEC Not Detected (Not Detect.); E. coli STEC Not Detected (Not Detect.); Entamoeba histolytica Not Detected (Not Detect.); Giardia lamblia Not Detected (Not Detect.); Norovirus GI/GII Not Detected (Not Detect.); Plesiomonas shigelloides Not Detected (Not Detect.); Rotavirus A Not Detected (Not Detect.); Salmonella Not Detected (Not Detect.); Sapovirus Not Detected (Not Detect.); Shigella sp./EIEC Not Detected (Not Detect.); Vibrio Not Detected (Not Detect.); Vibrio Cholerae Not Detected (Not Detect.); Yersinia enterocolitica Not Detected (Not Detect.)
== END 2024-10-07 07:31 | disposition home or self-care (01) ==
LOC: HO.HMGCLNP 07:30
PROVIDERS: PCP Internal Medicine; Visit Provider Nurse Practitioner
DX: R50.9 Fever, unspecified (principal); K59.04 Chronic idiopathic constipation
CPT/HCPCS: 87338; 87507

== ENCOUNTER 2024-10-20 14:28 | Outpatient (REF) | payer MEDICARE, MEDICAID, SELFPAY ==
--- OUTSIDE RECORDS SUMMARY | 2024-10-20 14:32 | XMS_ITS | Data Portability ---
Author Organization [facility] d/b/a: [employer] Address [address] [place] [address] Assessment No assessment recorded. Plan of Treatment Reminders Order Date Submit Date Provider Last Modified By Organization Details Last Modified Time Details Appointments None recorded. Lab SARS CoV 2 RNA (COVID-19), QL, equipment monitor phototypesetting-PCR, respiratory specimen 2020 021 [email or web address] [employer] [facility], [address] [place], [address], 14:13:23 Referral None recorded. Procedures None recorded. Surgeries None recorded. Imaging None recorded. Medication Orders None recorded. Patient TargetsNo targets recorded. Patient Instructions Encounter Date Encounter Id Patient Instructions Last Modified By Organization Details Last Modified Time 07/07/2020 [id number] things to do i f you've been exposed to covid-19 [email or web address] Not available 07/10/2020 14:13:23 Reason for Referral None Reported. Results Created Date Observation Date Name Description Value Unit Range Abnormal Flag Note LastModifiedBy Organization Detail LastModifiedTime 07/07/19 21 07/08/2020 SARS CoV 2 RNA (COVI D-19) , QL, equipment monitor phototypesetting-P CR, respi rator y speci men sars [...] iagno stics .com/ Covid 19. Not Available [facility] [address], [place], [address], 07/08/2020 23:20:14 Result Notes None recorded. Problems Name Problem SNOMED Code Status Onset Date Resolution Date Notes Provider Name and Address Organization Details Recorded Time Exposure to SARS-CoV-2 Active [address] [place], [place] - [employer] d/b/a: [employer] 07/07/2020 16:10:50 Problem Notes None [...] SNOMED-CT Code Diagnosis ICD10 Code Diagnosis Note [id number] MD Meseret Sadler MD [address] [place] [address] 07/07/2020 14:47:29 07/10/2020 08:21:39 Exposure to SARS-CoV-2 [id number] Z20.822 Health Concerns Section Related Observation LastModified by Organization Detai ls LastModified Time None Recorded Concern Status LastModified by Organization Details LastModified Time None Recorded Advance Directives Directive None Recorded Payers Insurance Date Sequence Insurance Name Policy Number Policy Padilla Covered Member ID Padilla Member ID Guarantor Name 07/07/2020 1 *SELF PAY* Be tty Walker OBGyn Episode No OBEpisode recorded.
== END 2024-10-20 14:29 | disposition home or self-care (01) ==
LOC: HO.CT 14:28
PROVIDERS: PCP Internal Medicine; Visit Provider Nurse Practitioner
DX: Z13.89 Encounter for screening for other disorder (principal)

== ENCOUNTER 2025-01-21 09:13 | Outpatient (REF) | payer MEDICARE, MEDICAID, SELFPAY ==
--- NOTE | ~2025-01-21 | CT_ITS ---
CLINICAL HISTORY: R10.9 - Unspecified abdominal pain CT abdomen and pelvis without IV contrast. COMPARISON: None provided. FINDINGS: Partially visualized lung bases are unremarkable. Cholecystectomy. Liver is mildly enlarged with right lobe measuring 18.3 cm. Hepatic steatosis. Noncontrast appearance of the spleen, pancreas and adrenal glands are unremarkable. No right-sided hydronephrosis. Nonobstructing right renal calculi measuring up to 2 mm. No right ureteral calculus. Left renal cystic lesion measuring 2.8 cm. Nonobstructing 2 mm left renal calculus. Mild left hydronephrosis versus prominent parapelvic cysts. No left hydroureter. No left ureteral calculus identified. Appendix is not definitively identified. Oral contrast has progressed into the descending colon. Mild distal colonic diverticulosis without evidence of diverticulitis. No mesenteric or retroperitoneal lymphadenopathy. Mild aortoiliac atherosclerotic vascular calcifications. Normal appearance of the urinary bladder. No adnexal mass. Small fat containing umbilical hernia. Moderate spondylosis. No acute fracture or suspicious bone lesion IMPRESSION: 1. Mild left hydronephrosis versus prominent parapelvic cysts. No obstructing calculus identified. There is no left hydroureter. 2. Nonobstructing bilateral renal calculi measuring up to 2 mm. 3. Appendix is not definitively identified. No secondary evidence of appendicitis. No bowel obstruction. No evidence of diverticulitis This document has been electronically signed by: Miguel Hyatt MD on 01/21/2025 15:39:10
== END 2025-01-21 09:14 | disposition home or self-care (01) ==
LOC: HO.CT 09:13
PROVIDERS: PCP Internal Medicine; Visit Provider Nurse Practitioner
DX: R10.9 Unspecified abdominal pain (principal)
CPT/HCPCS: 74176

== ENCOUNTER → 2025-01-21 09:14 | Outpatient (BNV) | payer MEDICARE, MEDICAID, SELFPAY | PROVIDERS: PCP Internal Medicine; Visit Provider Radiology Diagnostic Radiology | DX: N20.0 Calculus of kidney (principal) | CPT/HCPCS: 74176 ==

== ENCOUNTER 2025-02-02 10:49 | Outpatient (AMB) | payer MEDICARE, MEDICAID, SELFPAY ==
--- NOTE | 2025-02-02 11:20 | A.OFFPC_ITS ---
Vital Signs 02/02/25 11:22 Weight 223 lb BP 140/90 H Blood Pressure Location Lt brachial Position Sitting Respiration 16 Pulse 78 Pulse Source Pulse Oximeter Pulse Oximetry (%) 96 Oxygen Delivery Method Room Air Intake Visit Reasons: 3 months FU RE Oil Developer Required: No Accompanied by: Self / Same As Patient Allergies gabapentin (GABAPENTIN) Allergy (Severe, Verified 10/05/24 11:44) SEVERE GI ISSUES Iodinated Contrast Media (IV DYE, IODINE CONTAINING) Allergy (Severe, Verified 10/05/24 11:44) SWELLING Sulfa (Sulfonamide Antibiotics) (SULFA (SULFONAMIDE ANTIBIOTICS)) Allergy (Severe, Verified 10/05/24 11:44) ANAPHYLAXIS, swelling Milk Containing Products (Dairy) Allergy (Intermediate, Verified 10/05/24 11:44) Rash lidocaine Allergy (Mild, Verified 10/05/24 11:44) Welts nabumetone Allergy (Unknown, Verified 10/05/24 11:44) Abdominal Pain pregabalin Allergy (Unknown, Verified 10/05/24 11:44) unknown venlafaxine Allergy (Unknown, Verified 10/05/24 11:44) unknown semaglutide (From Ozempic) Adverse Reaction (Intermediate, Verified 10/05/24 11:44) Rash meloxicam Adverse Reaction (Unknown, Verified 10/05/24 11:44) abdominal pain all meat Allergy (Unknown, Uncoded 10/04/24 09:09) unknown Environmental Allergy (Unknown, Uncoded 10/04/24 09:09) unknown Medication List - Last Reconciled 02/02/25 by Lyndon Fagan MD albuterol sulfate 0.63 mg (3 mL) inhalation QID PRN albuterol sulfate 0.63 mg (3 mL) inhalation QID PRN alprazolam 0.5 mg PO BID 30 days beclomethasone dipropionate 80 mcg/actuation (Qvar RediHaler) 1 inh inhalation BID cyanocobalamin (vitamin B-12) 1,000 mcg PO DAILY 90 days cyclobenzaprine 10 mg PO TID PRN 10 days famotidine (Pepcid) 40 mg PO BEDTIME ibuprofen 800 mg PO Q8H PRN 30 days linaclotide (Linzess) 72 mcg PO QAM loperamide-simethicone 2-125 mg (Imodium Multi-Symptom Relief) 1 tab PO Q3H PRN [Nebulizer with all supplies Use every 6 hrs as need for shortness of breath/difficulty breathing/Asthma ] rabeprazole (AcipHex) 20 mg PO BID valacyclovir 500 mg PO DAILY 90 days walker As directed Tobacco use date assessed: 09/24/24 Dental Screening Dental Screen Date: 09/24/24 HPI 3 months FU RE HPI Details History The patient is a 59-year-old female presenting with persistent pain. Fibromyalgia and arthritis: - The patient reports chronic pain in he r back, legs, hands, wrist, and lower back. - Pain severity is significant as it aff ects her daily activities and is associated with a high blood pressure reading of 140/90, noted during this visit. - The patient attributes the heightened pain to fibromyalgia and arthritis. - Pain persists despite her regular swim fernando routine, which she continues because it alleviates her symptoms. Kidney stones: - The patient reports a CAT scan showing a mild left hydronephrosis versus a prominent parapelvic cyst, with no obstructive calculus and a 2 mm non- obstructing stone on both sides. - Symptoms or any history of urinary com plications were not explicitly reported. - A past urology visit took place in Aug, and the current status includes her scheduled urologist appointment on Friday. Elevated blood pressure: - Current blood pressure recorded as 140 /90, attributed by the patient to pain on this visit. - Patient reports usual levels around 13 0 mmHg when self-monitored at home. - There is no use of antihypertensive me dication currently, and self-monitoring is ongoing with her understanding of normal levels. Medical History: - Fibromyalgia - Osteoarthritis - Tendinitis - History of kidney stones - High blood pressure on this visit, pre viously well-controlled - Anxiety - Asthma Medications: - Alprazolam 0.5 mg BID for anxiety - Qvar inhaler for asthma - Cyclobenzaprine 10 mg, TID PRN for mus yumiko spasm - Famotidine for GERD - Linsus for constipation (gastroenterol ogy) - Acefax for GERD - Valacyclovir for breakthrough cold sor es Social History: - Engages in regular swimming, which is the only exercise she feels she can do comfortably - Feels she needs to lose weight; percei ves muscle gain from swimming - Daughter works for the [employer] in [place] Problem List - Fibromyalgia - Osteoarthritis - Tendinitis - Non-obstructing renal calculi - Elevated blood pressure today - Anxiety - Asthma Diagnostic results - CAT scan: Mild left hydronephrosis eid cayetano prominent parapelvic cyst, no obstructive calculus, bilateral renal calculi up to 2 mm. - CBC and electrolytes in September: Normal - Kidney function: Normal [place] - Urologist appointment scheduled for Fr lora - Project Management Intern, Dr. Kala Laguerre Patient Instructions - Continue swimming as exercise - Monitor blood pressure regularly - Consult urologist for kidney stone man agement - Use prednisone as discussed for pain m anagement, mindful of side effects - Complete and renew handicap rosa perea perwork annually Follow-up 3 months on medication refill Review of Systems General: No fever no chills neurological: No headaches ear nose throat: No sore throat no hearing difficulty no ear pain cardiovascular: No syncope, no chest pain, no palpitations gastrointestinal: No nausea vomiting or diarrhea skin: No new complaints Physical Exam general: No acute distress HEENT: No acute findings neck: Supple respiratory system: Able to talk in full sentences, no audible wheeze no stridor cardiovascular: S1-S2 RRR gastrointestinal: No pain extremities: No new findings 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 oriented x3 motor intact skin: Normal turgor [facility] Medical History Epigastric pain Localized osteoarthritis of shoulder regions, bilateral Osteoarthritis of left knee Fatigue Microscopic hematuria Mid back pain Wheezing Knee pain, left Effusion of bursa of knee Tired Shortness of breath Sinus pressure Vaginal odor Throat irritation Ill feeling Pyelonephritis Rash Joint pain Elevated blood pressure reading Impaired fasting blood sugar Arthrosis Respiratory tract congestion with cough Frequent UTI Cramps of left lower extremity Dyspnea on exertion Cough Postnasal drip Herpes Difficulty walking up hill Dysuria Encounter for general adult medical examination with abnormal findings Left flank mass Large joint arthralgia of multiple sites Screening examination for infectious disease Pre-op evaluation Bilateral shoulder pain History of nicotine dependence Right ankle sprain Avulsion fracture of ankle Acute bacterial sinusitis Acute viral syndrome Seen in emergency room Polyarticular osteoarthritis Seronegative rheumatoid arthritis Long-term use of Plaquenil Obesity (BMI 30-39.9) Shortness of breath Encounter for routine gynecological examination Feeling sick UTI (urinary tract infection) Respiratory infection Hospital discharge follow-up Medicare annual wellness visit, initial Urinary tract infection Medicare annual wellness visit, subsequent Environmental allergies Anxiety, generalized Lipid disorder Umbilical hernia Fibromyalgia Acute arthritis Tendonitis Surgical History Hx of hernia repair History of esophagogastroduodenoscopy (EGD) Hx of colonoscopy History of meniscectomy of left knee (~01/12/14) History of cholecystectomy H/O hand surgery Family History Mother Cervical cancer Bladder cancer Father Cancer Sister No problems noted. Other Mental health disorder Substance use disorder Social History Household Members: Significant Other Housing: Apartment Unable to assess alcohol history related to: Unknown Alcohol intake: former Year quit: 22yo Patient Tobacco Use Status: Former Tobacco user e-Cigarette/Vaping Use: Never Used service: No Current occupational status: unemployed and disabled Sexual orientation: Straight/Heterosexual Gender identity: Female Cognitive needs: No Hearing needs: No Vision needs: No Questionnaire PHQ-9 Over the last 2 weeks, how often have you been bothered by any of the following problems? 1. Little interest or pleasure in doing things: several days 2. Feeling down, depressed, or hopeless: not at all 3. Trouble falling or staying asleep, or sleeping too much: not at all 4. Feeling tired or having little energy: nearly every day 5. Poor appetite or overeating: more than half the days 6. Feeling bad about yourself - or that you are a failure or have let yourself or your family down: not at all 7. Trouble concentrating on things, such as reading the newspaper or watching television: not at all 8. Moving or speaking so slowly that other people could have noticed. Or the opposite - being so fidgety or restless that you have been moving around a lot more than usual: not at all 9. Thoughts that you would be better off or of hurting yourself in some way: not at all Total score: 6 Depression Screening Interpretation: Negative Depression Screening Done: Yes 31531 - PHQ-9 Billing: Yes Source: Developed by Drs. Kenneth Preston, Aruna Alcantar, Babak Rebolledo and colleagues, with an educational morris from [employer]. Thrive Questionnaire Date Thrive assessed: 07/14/24 I am a: Patient What is your living situation today?: I have a steady place to live Within the past 12 months, did the food you bought not last and you didn't have the money to get more?: Never true Within the past 12 months, did you worry whether your food would run out before you got money to buy more?: Never true Do you have trouble paying for medicines?: No Do you have trouble getting transportation to medical appointments?: No Do you have trouble paying your heating and electricity bill?: Yes Do you have trouble taking care of your child, family member or friend?: No Do you have trouble with day-to-day activities such as bathing, preparing meals, shopping, managing finances, etc.?: Yes Are you currently unemployed and looking for a job?: No Are you interested in more education?: No Please select the resources that you would like help with: Utilities Currently or been in a relationship where the following occur: I choose not to answer THRIVE Score: 1 ARIANNA-7 AMB Questionnaire ARIANNA-7 Date ARIANNA - 7 assessed: 07/14/24 Feeling nervous, anxious, or on edge: 0 = Not at all Not being able to stop or control worryin = Not at all Worrying too much about different things: 0 = Not at all Trouble relaxin = Not at all Being so restless that it is hard to sit still: 0 = Not at all Becoming easily annoyed or irritable: 0 = Not at all Feeling afraid as if something awful might happen: 0 = Not at all Total ARIANNA-7 score (0-4 normal; 5-9 mild; 10-14 moderate; 15-21 severe): 0 Source: Developed by Drs. Kenneth Preston, Aruna Alcantar, Babak Rebolledo and colleagues, with an educational morris from [employer]. ARIANNA-7 Assessment Billing ARIANNA-7 Assessment Tool: ARIANNA-7 Assessment 78846 Physical exam (Primary Care) Vital Signs: Last Vital Signs Pulse 78 02/02/25 11:22 Resp 16 02/02/25 11:22 BP 140/90 H 02/02/25 11:22 Pulse Ox 96 02/02/25 11:22 Oxygen Delivery Method Room Air 02/02/25 11:22 Tobacco/Smoking Status: Tobacco use Status Tobacco use date assessed 09/24/24 02/02/25 11:26 Patient Tobacco Use Status Former Tobacco user 02/02/25 11:26 e-Cigarette/Vaping Use Never Used 02/02/25 11:26 PHQ-9: PHQ-9 Score PHQ-9: Total score 6 02/02/25 13:07 Depression Screening Interpretation: Negative Thrive Assessment: Date of Thrive Assessment Date Thrive assessed 07/14/24 02/02/25 11:26 Currently or been in a relationship where the following occur: I choose not to answer Coding Level of Care Code Est Pt Level 5 (25799) Diagnoses Urine, incontinence, stress female N39.3 Morbid obesity due to excess calories E66.01 Seronegative rheumatoid arthritis M06.00 Diet-controlled diabetes mellitus E11.9 Hypertension, essential I10 B12 deficiency E53.8 Chronic idiopathic constipation K59.04 Gastroesophageal reflux disease without esophagitis K21.9 Esophagitis presence: without esophagitis Environmental allergies Z91.09 Anxiety, generalized F41.1 Lipid disorder E78.9 Fibromyalgia M79.7 Interstitial cystitis N30.10 Microscopic hematuria R31.29 Bilateral renal stones N20.0 Additional Codes ARIANNA-7 Assessment Billing - ARIANNA-7 Assessment Tool: ARIANNA-7 Assessment [id number] ([id number]) PHQ-9 - 70246 - PHQ-9 Billing: Yes ([id number]) Time Spent (min) 40 Comment Complex patient with multiple medical problems, reviewing chart/labs/yjzq-wa-tjhr Assessment & Plan Assessment & Plan (1) Urine, incontinence, stress female: Code(s): N39.3 - Stress incontinence (female) (male) Category: Medical (2) Morbid obesity due to excess calories: Code(s): E66.01 - Morbid (severe) obesity due to excess calories Category: Medical (3) Seronegative rheumatoid arthritis: Code(s): M06.00 - Rheumatoid arthritis without rheumatoid factor, unspecified site Category: Medical (4) Diet-controlled diabetes mellitus: Code(s): E11.9 - Type 2 diabetes mellitus without complications Category: Medical (5) Hypertension, essential: Code(s): I10 - Essential (primary) hypertension Category: Medical (6) B12 deficiency: Code(s): E53.8 - Deficiency of other specified B group vitamins Category: Medical (7) Chronic idiopathic constipation: Code(s): K59.04 - Chronic idiopathic constipation Category: Medical (8) GERD (gastroesophageal reflux disease): Code(s): K21.9 - Gastro-esophageal reflux disease without esophagitis Category: Medical Qualifiers: Esophagitis presence: without esophagitis Qualified Code(s): K21.9 - Gastro-esophageal reflux disease without esophagitis (9) Environmental allergies: Code(s): Z91.09 - Other allergy status, other than to drugs and biological substances Category: Medical (10) Anxiety, generalized: Code(s): F41.1 - Generalized anxiety disorder Category: Medical (11) Lipid disorder: Code(s): E78.9 - Disorder of lipoprotein metabolism, unspecified Category: Medical (12) Fibromyalgia: Code(s): M79.7 - Fibromyalgia Category: Medical (13) Interstitial cystitis: Code(s): N30.10 - Interstitial cystitis (chronic) without hematuria Category: Medical (14) Microscopic hematuria: Code(s): R31.29 - Other microscopic hematuria Category: Medical (15) Bilateral renal stones: Code(s): N20.0 - Calculus of kidney Category: Medical Plan History The patient is a 59-year-old female presenting with persistent pain. Fibromyalgia and arthritis: - The patient reports chronic pain in her back, legs, hands, wrist, and lower back. - Pain severity is significant as it affects her daily activities and is associated with a high blood pressure reading of 140/90, noted during this v isit. - The patient attributes the heightened pain to fibromyalgia and arthritis. - Pain persists despite her regular swimming routine, which she continues because it alleviates her symptoms. Kidney stones: - The patient reports a CAT scan showing a mild left hydronephrosis versus a prominent parapelvic cyst, with no obstructive calculus and a 2 mm non- obstructing stone on both sides. - Symptoms or any history of urinary complications were not explicitly reported. - A past urology visit took place in August, and the current status includes her scheduled urologist appointment on Friday. Elevated blood pressure: - Current blood pressure recorded as 140/90, attributed by the patient to pain on this visit. - Patient reports usual levels around 130 mmHg when self-monitored at home. - There is no use of antihypertensive medication currently, and self-monitoring is ongoing with her understanding of normal levels. Medical History: - Fibromyalgia - Osteoarthritis - Tendinitis - History of kidney stones - High blood pressure on this visit, previously well-controlled - Anxiety - Asthma Medications: - Alprazolam 0.5 mg BID for anxiety - Qvar inhaler for asthma - Cyclobenzaprine 10 mg, TID PRN for muscle spasm - Famotidine for GERD - Linsus for constipation (gastroenterology) - Acefax for GERD - Valacyclovir for breakthrough cold sores Social History: - Engages in regular swimming, which is the only exercise she feels she can do comfortably - Feels she needs to lose weight; perceives muscle gain from swimming - Daughter works for the registry in [place] Problem List - Fibromyalgia - Osteoarthritis - Tendinitis - Non-obstructing renal calculi - Elevated blood pressure today - Anxiety - Asthma Diagnostic results - CAT scan: Mild left hydronephrosis versus prominent parapelvic cyst, no obstructive calculus, bilateral renal calculi up to 2 mm. - CBC and electrolytes in September: Normal - Kidney function: Normal [place] - Urologist appointment scheduled for Friday - Project Management Intern, Dr. Kala Laguerre Patient Instructions - Continue swimming as exercise - Monitor blood pressure regularly - Consult urologist for kidney stone management - Use prednisone as discussed for pain management, mindful of side effects - Complete and renew handicap placard paperwork annually Follow-up 3 months on medication refill Medications: New prednisone 5 mg PO DAILY 30 tabs 0RF 30 days Refilled alprazolam 0.5 mg PO BID 60 tabs 2RF 30 days
[2025-02-02 11:22] VITALS: BP 140/90; PULSE 78; RESP 16; O2SAT 96
== END 2025-02-02 11:39 | disposition home or self-care (01) ==
LOC: HO.HMCC 10:50
PROVIDERS: PCP Internal Medicine; Visit Provider Internal Medicine
DX: M06.00 Rheumatoid arthritis without rheumatoid factor, unspecified site (principal); E66.01 Morbid (severe) obesity due to excess calories; E11.9 Type 2 diabetes mellitus without complications; N39.3 Stress incontinence (female) (male); I10 Essential (primary) hypertension; E53.8 Deficiency of other specified B group vitamins; K59.04 Chronic idiopathic constipation; K21.9 Gastro-esophageal reflux disease without esophagitis; Z91.09 Other allergy status, other than to drugs and biological substances; F41.1 Generalized anxiety disorder; E78.9 Disorder of lipoprotein metabolism, unspecified; M79.7 Fibromyalgia

== ENCOUNTER → 2025-02-02 10:49 | Outpatient (BNVA) | payer MEDICARE, MEDICAID, SELFPAY | PROVIDERS: PCP Internal Medicine; Visit Provider Internal Medicine | DX: N39.3 Stress incontinence (female) (male) (principal); E66.01 Morbid (severe) obesity due to excess calories; M06.00 Rheumatoid arthritis without rheumatoid factor, unspecified site; E11.9 Type 2 diabetes mellitus without complications; E53.8 Deficiency of other specified B group vitamins; I10 Essential (primary) hypertension; K59.04 Chronic idiopathic constipation; K21.9 Gastro-esophageal reflux disease without esophagitis; F41.1 Generalized anxiety disorder; E78.9 Disorder of lipoprotein metabolism, unspecified; M79.7 Fibromyalgia; N30.10 Interstitial cystitis (chronic) without hematuria; N20.0 Calculus of kidney; R31.29 Other microscopic hematuria; Z91.09 Other allergy status, other than to drugs and biological substances; Z87.891 Personal history of nicotine dependence; Z71.3 Dietary counseling and surveillance | CPT/HCPCS: 96127; 99212 ==

== ENCOUNTER 2025-02-04 10:16 | Outpatient (AMB) | payer MEDICARE, MEDICAID, SELFPAY ==
--- NOTE | 2025-02-04 10:46 | A.OFFVIS_ITS ---
Intake Visit Reasons: Cysto/ BUN&CREAT Intake Note: patient presents today for: cystoscopy Urology Medication:Vitamin B12 Blood Thinner:none labs done 10/06/24: bun 15, creat 0.81 Manufacturer Required: No Accompanied by: Self / Same As Patient Allergies gabapentin (GABAPENTIN) Allergy (Severe, Verified 03/02/25 14:50) SEVERE GI ISSUES Iodinated Contrast Media (IV DYE, IODINE CONTAINING) Allergy (Severe, Verified 03/02/25 14:50) SWELLING Sulfa (Sulfonamide Antibiotics) (SULFA (SULFONAMIDE ANTIBIOTICS)) Allergy (Severe, Verified 03/02/25 14:50) ANAPHYLAXIS, swelling Milk Containing Products (Dairy) Allergy (Intermediate, Verified 03/02/25 14:50) Rash lidocaine Allergy (Mild, Verified 03/02/25 14:50) Welts nabumetone Allergy (Unknown, Verified 03/02/25 14:50) Abdominal Pain pregabalin Allergy (Unknown, Verified 03/02/25 14:50) unknown venlafaxine Allergy (Unknown, Verified 03/02/25 14:50) unknown semaglutide (From Ozempic) Adverse Reaction (Intermediate, Verified 03/02/25 14:50) Rash meloxicam Adverse Reaction (Unknown, Verified 03/02/25 14:50) abdominal pain all meat Allergy (Unknown, Uncoded 02/04/25 10:47) unknown Environmental Allergy (Unknown, Uncoded 02/04/25 10:47) unknown Medication List - Last Reconciled 02/04/25 by Teri Parsons MD albuterol sulfate 0.63 mg (3 mL) inhalation QID PRN albuterol sulfate 0.63 mg (3 mL) inhalation QID PRN alprazolam 0.5 mg PO BID 30 days cyanocobalamin (vitamin B-12) 1,000 mcg PO DAILY 90 days ibuprofen 800 mg PO Q8H PRN 30 days [Nebulizer with all supplies Use every 6 hrs as need for shortness of breath/ difficulty breathing/Asthma ] prednisone 5 mg PO DAILY 30 days trospium ER 60 mg PO DAILY valacyclovir 500 mg PO DAILY 90 days walker As directed HPI Comments Details: 02/04/25--Here for cystoscopy. Reviewed CTAP--1. Mild left hydronephrosis versus prominent parapelvic cysts. No obstructing calculus identified. There is no left hydroureter. 2. Nonobstructing bilateral renal calculi measuring up to 2 mm. Cystoscopy findings: WNL. No suspicious bladder lesions visualized. Bilateral nonobstructing stones. Plan 24 hr urine. 08/25/24--Evelina is a 59-year-old female patient of Dr. Fagan. She has a past medical history of polyarticular osteoarthritis, rheumatoid arthritis, obesity, environmental allergies, anxiety, lipid disorder, and fibromyalgia. She presents to the office today as a new patient for microscopic hematuria as well as ongoing lower urinary tract symptoms she has been experiencing. In discussion with the patient today she discusses having followed up with a provider in the past however does not recall name and or specialty and being told she has a prolapsed bladder however was not given further treatment options. She also reports having had a cystoscopy in the past and being told to follow-up for surveillance monitoring however never did. In office urinalysis results reviewed with the patient today 1+ microscopic hematuria otherwise within normal limits. She discusses her ongoing symptoms of urinary urgency, urinary frequency, and mixed urinary incontinence. She reports utilizing multiple panty liners per day. She does report a previous history of nicotine dependence that started around the age of 7 however quit officially at the age of 22. We discussed at length potential causes of lower urinary tract symptoms patient was experiencing as well as microscopic hematuria. We discussed further treatment options and risks and benefits of these treatment options. PVR 0 mL. She denies gross/visible hematuria, changes to urinary stream, flank pain, fever, and or chills. She discusses her family history of bladder cancer as her mother had bladder cancer. She discusses her upcoming trip to [place] to visit her grandchildren. She otherwise offers no other issues or concerns at this time. [facility] Medical History Shortness of breath Epigastric pain Localized osteoarthritis of shoulder regions, bilateral Osteoarthritis of left knee Fatigue Microscopic hematuria Mid back pain Wheezing Knee pain, left Effusion of bursa of knee Tired Sinus pressure Vaginal odor Throat irritation Ill feeling Pyelonephritis Rash Joint pain Elevated blood pressure reading Impaired fasting blood sugar Arthrosis Respiratory tract congestion with cough Frequent UTI Cramps of left lower extremity Dyspnea on exertion Cough Postnasal drip Herpes Difficulty walking up hill Dysuria Encounter for general adult medical examination with abnormal findings Left flank mass Large joint arthralgia of multiple sites Screening examination for infectious disease Pre-op evaluation Bilateral shoulder pain History of nicotine dependence Right ankle sprain Avulsion fracture of ankle Acute bacterial sinusitis Acute viral syndrome Seen in emergency room Polyarticular osteoarthritis Seronegative rheumatoid arthritis Long-term use of Plaquenil Obesity (BMI 30-39.9) Shortness of breath Encounter for routine gynecological examination Feeling sick UTI (urinary tract infection) Respiratory infection Hospital discharge follow-up Medicare annual wellness visit, initial Urinary tract infection Medicare annual wellness visit, subsequent Environmental allergies Anxiety, generalized Lipid disorder Umbilical hernia Fibromyalgia Acute arthritis Tendonitis Surgical History Hx of hernia repair History of esophagogastroduodenoscopy (EGD) Hx of colonoscopy History of meniscectomy of left knee (~01/12/14) History of cholecystectomy H/O hand surgery Family History Mother Cervical cancer Bladder cancer Father Cancer Sister No problems noted. Other Mental health disorder Substance use disorder Social History Household Members: Significant Other Housing: Apartment Alcohol intake: former Year quit: 22yo Patient Tobacco Use Status: Former Tobacco user e-Cigarette/Vaping Use: Never Used service: No Current occupational status: unemployed and disabled Sexual orientation: Straight/Heterosexual Gender identity: Female Cognitive needs: No Hearing needs: No Vision needs: No Review of Systems Const All systems reviewed & are unremarkable except as noted in HPI and below Reports no additional complaints Eyes Reports no additional complaints ENT Reports no additional complaints Card Reports no additional complaints Resp Reports no additional complaints GI Reports no additional complaints Reports as per HPI Musc Reports no additional complaints Skin/Breast Reports system reviewed and no additional complaints, except as documented Neuro Reports no additional complaints Psych Reports no additional complaints Endo Reports no additional complaints Jass/Lymph Reports no additional complaints Aller/Immun Reports no additional complaints Office Procedures Cystoscopy Consent Discussed risk and benefit or proposed procedure with the patient. Information consent for procedure given to the patient. Discussed technical aspects, risks, benefits and alternatives in full. Addressed all of the patient's questions and concerns regarding the procedure. The patient demonstrated knowledge and understanding. They wish to proceed with this procedure. Preparation The patient was prepped in the usual manner. A regulatory coordinator was present and in the room. Genitalia was prepped with betadine solution in a sterile manner. Lidocaine Jelly 2% was placed into the urethra and 16Fr flexible Olympus cystoscope was inserted into the meatus after adequate lubrication. Due to patient allergy to lidocaine, Dr. Parsons requested no lidocaine be used. So no lidocaine prep done [id number] DISPOSABLE SCOPE URO-G FLEXIBLE SCOPE Procedure code (CPT) selection complete Office Meds nitrofurantoin monohydrate/macrocrystals 100 mg capsule Performing Provider: Teri Parsons MD Performing Location: [facility] [place] [facility] Administered by: Marina Hernandez RN on 02/04/25 11:39 Dose Route Admin Location Dispensed Lot Number Expiration Date [facility] [employer] 100 mg PO 1 cap Comments: discussed with Dr. Parsons patient dairy allergy. Dr Parsons requested to give 100mg Macrobid instead of Cipro phenazopyridine 200 mg tablet Performing Provider: Teri Parsons MD Performing Location: [facility] [place] Urology [facility] Administered by: Marina Hernandez RN on 02/04/25 11:39 Dose Route Admin Location Dispensed Lot Number Expiration Date [facility] [employer] 200 mg PO 1 tab Results AMB Urinalysis, Automated UA Leukoctes 70 Zac/uL Last Edit by PAULINA Hammond on 02/04/25 10:49 UA Nitrite Negative Last Edit by PAULINA Hammond on 02/04/25 10:49 UA Urobilinogen 3.5 mg/dL Last Edit by PAULINA Hammond on 02/04/25 10:4 9 UA Protein 0 mg/dL Last Edit by PAULINA Hammond on 02/04/25 10:49 UA pH 6.5 Last Edit by PAULINA Hammond on 02/04/25 10:49 UA Blood 10 Nikunj/uL Last Edit by PAULINA Hammond on 02/04/25 10:49 UA Specific [place] 1.015 Last Edit by PAULINA Hammond on 02/04/25 10: 49 UA Ketone Negative Last Edit by PAULINA Hammond on 02/04/25 10:49 UA Bilirubin 0 mg/dL Last Edit by PAULINA Hammond on 02/04/25 10:49 UA Glucose 0 mg/dL Last Edit by PAULINA Hammond on 02/04/25 10:49 Results Reviewed Results Reviewed: Laboratory Last Values Urine pH (Auto) 6.5 02/04/25 10:48 Specific [place] (Auto) 1.015 02/04/25 10:48 Urine Protein (Auto) 0 mg/dL 02/04/25 10:48 Glucose (UA)(Auto) 0 mg/dL 02/04/25 10:48 Urine Ketones (Auto) Negative 02/04/25 10:48 Urine Blood (Auto) 10 Nikunj/uL 02/04/25 10:48 Urine Nitrite (Auto) Negative 02/04/25 10:48 Urine Bilirubin (Auto) 0 mg/dL 02/04/25 10:48 Urine Urobilinogen (Auto) 3.5 mg/dL 02/04/25 10:48 Leukocyte Esterase (Auto) 70 Zac/uL 02/04/25 10:48 Date of Service: 01/21/25 CLINICAL HISTORY: R10.9 - Unspecified abdominal pain CT abdomen and pelvis without IV contrast. COMPARISON: None provided. FINDINGS: Partially visualized lung bases are unremarkable. Cholecystectomy. Liver is mildly enlarged with right lobe measuring 18.3 cm. Hepatic steatosis. Noncontrast appearance of the spleen, pancreas and adrenal glands are unremarkable. No right-sided hydronephrosis. Nonobstructing right renal calculi measuring up to 2 mm. No right ureteral calculus. Left renal cystic lesion measuring 2.8 cm. Nonobstructing 2 mm left renal calculus. Mild left hydronephrosis versus prominent parapelvic cysts. No left hydroureter. No left ureteral calculus identified. Appendix is not definitively identified. Oral contrast has progressed into the descending colon. Mild distal colonic diverticulosis without evidence of diverticulitis. No mesenteric or retroperitoneal lymphadenopathy. Mild aortoiliac atherosclerotic vascular calcifications. Normal appearance of the urinary bladder. No adnexal mass. Small fat containing umbilical hernia. Moderate spondylosis. No acute fracture or suspicious bone lesion IMPRESSION: 1. Mild left hydronephrosis versus prominent parapelvic cysts. No obstructing calculus identified. There is no left hydroureter. 2. Nonobstructing bilateral renal calculi measuring up to 2 mm. 3. Appendix is not definitively identified. No secondary evidence of appendicitis. No bowel obstruction. No evidence of diverticulitis Assessment & Plan Assessment & Plan (1) Microscopic hematuria: Code(s): R31.29 - Other microscopic hematuria Category: Medical (2) History of nicotine dependence: Code(s): Z87.891 - Personal history of nicotine dependence Category: Medical (3) Bilateral renal stones: Code(s): N20.0 - Calculus of kidney Category: Medical (4) OAB (overactive bladder): Code(s): N32.81 - Overactive bladder Category: Medical Plan Cystoscopy findings: WNL. No suspicious bladder lesions visualized. Bilateral nonobstructing stones. Plan 24 hr urine. OAB - trospium 60 mg daily. FU with Ashley HERNANDEZ Orders: Orders AMB Urinalysis Automated 02/04/25 Z13.9 - Encounter for screening, unspecified AMB Cystoscopy 02/04/25 R31.1 - Benign essential microscopic hematuria, N30.10 - Interstitial cystitis (chronic) without hematuria, N39.3 - Stress incontinence (female) (male) Medications: New trospium ER must be taken on empty stomach at least 1 hour before a meal/food with water only 60 mg PO DAILY 30 caps 5RF Patient Instructions: The patient had an opportunity to ask questions regarding treatment plan. The patient expressed understanding and agreement with the above treatment plan. The patient is aware they should contact our office by phone for worsening of their current condition or the appearance of new symptoms. Compliance is encouraged with any medications and followup testing that is ordered. It is a privilege to be allowed the opportunity to participate in the urologic care of your patient. If you have any questions or concerns regarding treatment for the above conditions please do not hesitate to contact me. The office telephone contact is [phone]. This note is constructed in part using voice recognition software. While every effort has been made to ensure accuracy creping machine operator helper errors may have been included. Yours sincerely, Teri Parsons MD Coding Level of Care Code Est Pt Level 4 (42644) Diagnoses Microscopic hematuria R31.29 History of nicotine dependence Z87.891 Bilateral renal stones N20.0 OAB (overactive bladder) N32.81 CPT Codes Cystoscopy - CPT: 47234-[id number] ([id number])
== END 2025-02-04 11:56 | disposition home or self-care (01) ==
LOC: HO.HUSH 10:16
PROVIDERS: PCP Internal Medicine; Visit Provider Urology
DX: R31.1 Benign essential microscopic hematuria (principal); N30.10 Interstitial cystitis (chronic) without hematuria; N39.3 Stress incontinence (female) (male); Z13.9 Encounter for screening, unspecified
CPT/HCPCS: 52000

== ENCOUNTER → 2025-02-04 10:16 | Outpatient (BNVA) | payer MEDICARE, MEDICAID, SELFPAY | PROVIDERS: PCP Internal Medicine; Visit Provider Urology | DX: R31.1 Benign essential microscopic hematuria (principal); N30.10 Interstitial cystitis (chronic) without hematuria; N39.3 Stress incontinence (female) (male); Z13.9 Encounter for screening, unspecified; N20.0 Calculus of kidney; Z87.891 Personal history of nicotine dependence | CPT/HCPCS: 52000; 81003 ==

== ENCOUNTER 2025-02-18 09:52 | Outpatient (AMB) | payer MEDICARE, MEDICAID, SELFPAY ==
--- NOTE | 2025-02-18 09:57 | MHC.OFFVIS ---
Vital Signs 02/18/25 10:26 Height 5 ft 1 in Weight 223 lb 15.834 oz BMI 42.3 BP 136/77 Blood Pressure Location Rt brachial Position Sitting Pulse 83 Intake Visit Reasons: F/U labs, Xray, and CT scan results for ABD pain Intake Note: Evelina presents to office in follow up of lab, xray, and CT scan results. CC: Patient states that she discontinued the Rabeprazole due to side effects. She continues having abd pain and diarrhea. Patient Support Assistant Required: No Accompanied by: Self / Same As Patient Allergies gabapentin (GABAPENTIN) Allergy (Severe, Verified 02/18/25 10:36) SEVERE GI ISSUES Iodinated Contrast Media (IV DYE, IODINE CONTAINING) Allergy (Severe, Verified 02/18/25 10:36) SWELLING Sulfa (Sulfonamide Antibiotics) (SULFA (SULFONAMIDE ANTIBIOTICS)) Allergy (Severe, Verified 02/18/25 10:36) ANAPHYLAXIS, swelling Milk Containing Products (Dairy) Allergy (Intermediate, Verified 02/18/25 10:36) Rash lidocaine Allergy (Mild, Verified 02/18/25 10:36) Welts nabumetone Allergy (Unknown, Verified 02/18/25 10:36) Abdominal Pain pregabalin Allergy (Unknown, Verified 02/18/25 10:36) unknown venlafaxine Allergy (Unknown, Verified 02/18/25 10:36) unknown semaglutide (From Ozempic) Adverse Reaction (Intermediate, Verified 02/18/25 10:36) Rash meloxicam Adverse Reaction (Unknown, Verified 02/18/25 10:36) abdominal pain all meat Allergy (Unknown, Uncoded 02/04/25 10:47) unknown Environmental Allergy (Unknown, Uncoded 02/04/25 10:47) unknown Medication List - Last Reconciled 02/18/25 by HARVINDER Fry albuterol sulfate 0.63 mg (3 mL) inhalation QID PRN albuterol sulfate 0.63 mg (3 mL) inhalation QID PRN alprazolam 0.5 mg PO BID 30 days cyanocobalamin (vitamin B-12) 1,000 mcg PO DAILY 90 days famotidine 20 mg PO BEDTIME ibuprofen 800 mg PO Q8H PRN 30 days [Nebulizer with all supplies Use every 6 hrs as need for shortness of breath/difficulty breathing/Asthma ] prednisone 5 mg PO DAILY 30 days rabeprazole 20 mg PO DAILY trospium ER 60 mg PO DAILY valacyclovir 500 mg PO DAILY 90 days walker As directed HPI HPI F/U labs, Xray, and CT scan results for ABD pain: Details: Assessment & Plan (1) Chronic idiopathic constipation: Code(s): K59.04 - Chronic idiopathic constipation Category: Medical (2) Abdominal bloating: Code(s): R14.0 - Abdominal distension (gaseous) Category: Medical (3) GERD (gastroesophageal reflux disease): Code(s): K21.9 - Gastro-esophageal reflux disease without esophagitis Category: Medical Qualifiers: Esophagitis presence: without esophagitis Qualified Code(s): K21.9 - Gastro-esophageal reflux disease without esophagitis (4) Gastroparesis: Comment: GASTRIC EMPTYING STUDY Exam Date: 05/18/2013 IMPRESSION: Abnormal study. Mild retention of solid food is present in the stomach at 4 hours. Exam Date: 05/18/2013 Code(s): K31.84 - Gastroparesis Category: Medical (5) Fever and chills: Code(s): R50.9 - Fever, unspecified Category: Medical (6) GERD with esophagitis: Code(s): K21.00 - Gastro-esophageal reflux disease with esophagitis, without bleeding Category: Medical (7) Epigastric pain: Code(s): R10.13 - Epigastric pain Category: Medical (8) Diarrhea: Code(s): R19.7 - Diarrhea, unspecified Category: Medical Plan (Apparently she tried the Reglan but it made her head shaky. She stopped the medication. In the past she was on pantoprazole 40 mg once a day and Linzess 72 micro g. She is using OTC chewable with only moderate success, but mobilization is still an issue.) She started having a very sudden on set of severe acid in my throat, 4 days ago that woke her up in the middle of the night. Now it is continuous and she feels burning in her throat. She has not had acid this bad since I was . She presented to the ER for pain in her back that was off and on, but now it is continuous. It is in the T spine and slightly to the right and radiates around to the right flank. It is a stabbing pain not dissimilar to when she had cholecystitis. She is status post cholecystectomy. She has been taking mylanta. She states that her diarrhea precedes her starting with the Mylanta. Fatigue, sweats and chills, SOB even with shower, diarrhea sudden onset. Blood cx had neg trop (endocariditis???), UTI, back prob, muscle spasms Overall she has multiple vague complaints which may all be connected or she may have several separate problems. I will try to do a wide workup to see what I can until angle to make sure were not missing any severe underlying etiology. However, I explained to her that her symptoms can point towards many different pathologies and are not specific to anyone without having a great deal of further testing. She is understanding of this. ROV 2 weeks. Orders: Orders GI Panel Today K59.04 - Chronic idiopathic constipation, R50.9 - Fever, unspecified XR thoracic spine 2V Today K59.04 - Chronic idiopathic constipation, R50.9 - Fever, unspecified XR lumbar spine 2-3V Today K59.04 - Chronic idiopathic constipation, R50.9 - Fever, unspecified Amylase Today K59.04 - Chronic idiopathic constipation, R50.9 - Fever, unspecified Lipase Today K59.04 - Chronic idiopathic constipation, R50.9 - Fever, unspecified H pylori Ag Stool Today K59.04 - Chronic idiopathic constipation, R50.9 - Fever, unspecified Blood Urea Nitrogen Today K59.04 - Chronic idiopathic constipation, R50.9 - Fever, unspecified Creatinine Today K59.04 - Chronic idiopathic constipation, R50.9 - Fever, unspecified Blood Culture X2 Today K59.04 - Chronic idiopathic constipation, R50.9 - Fever, unspecified EGD - GI Use Only Today R10.13 - Epigastric pain CT abdomen pelvis w IV con Today K59.04 - Chronic idiopathic constipation, R50.9 - Fever, unspecified UA CC w/rflx Micro + Cult Today K59.04 - Chronic idiopathic constipation, R50.9 - Fever, unspecified C Reactive Protein Today R19.7 - Diarrhea, unspecified Medications: New rabeprazole (AcipHex) 20 mg PO BID 60 tabs 12RF K21.9 - Gastro-esophageal reflux disease without esophagitis famotidine (Pepcid) 40 mg PO BEDTIME 30 tabs 6RF K21.00 - Gastro-esophageal reflux disease with esophagitis, without bleeding Discontinued pantoprazole Discontinued Reason: Doctor's Order 40 mg PO BID 180 tabs 1RF famotidine (Acid Livestock Inspector (famotidine)) Discontinued Reason: Change Referral Type 20 mg PO BEDTIME 30 days 30 tabs 0RF R10.13 - Epigastric pain Labs: Laboratory Tests 10/06/24 11:10 C-Reactive Protein 1.16 H Amylase 41 Lipase 38 10/06/24-1311 Source: Blood Sp Desc: Venous Subm Dr: Shade,September- Ordered: Blood Cult(2nd) Procedure Result Verified Blood Culture (Second) Final 10/11/24 No growth after 5 days. ENTERED: 10/07/[address]: Lyndon Fagan MD ORDERED: GI Panel Test Result Flag Reference Campylobacter Not Detected Not Detect. P. shigelloides Not Detected Not Detect. Salmonella Not Detected Not Detect. Vibrio Not Detected Not Detect. Vibrio Cholerae Not Detected Not Detect. Y. enterocolit. Not Detected Not Detect. E. coli EAEC Not Detected Not Detect. E. coli EPEC Not Detected Not Detect. E. coli ETEC Not Detected Not Detect. E. coli STEC Not Detected Not Detect. E. coli O157 Not applicable Not Detect. E. coli containing the O157 antigen are a subset of Shiga-like toxin-producing E. coli (STEC). Shigella/EIEC Not Detected Not Detect. Cryptosporidium Not Detected Not Detect. Cyclospora Not Detected Not Detect. E. histolytica Not Detected Not Detect. Giardia lamblia Not Detected Not Detect. Adenovirus Not Detected Not Detect. Astrovirus Not Detected Not Detect. Norovirus Not Detected Not Detect. Rotavirus A Not Detected Not Detect. Sapovirus Not Detected Not Detect. X-RAY LUMBAR AND THORACIC SPINES 10/06/2024 FINDINGS: Multilevel endplate sclerosis. Facet joint hypertrophy at L4-5 and L5-S1. No acute cortical disruption. No gross malalignment. No lytic or blastic lesions. No osteolysis. Vascular clips right upper quadrant abdomen. Vascular calcifications, aorta. XR/XR lumbar spine 2-3V IMPRESSION: Multilevel lumbar spondylosis without acute fracture or gross listhesis. No gross change. FINDINGS: Multilevel marginal osteophyte formation. Mild S-shaped curvature of the lower thoracic spine thoracolumbar junction. Multilevel endplate sclerosis and decreased intervertebral disc height. No gross malalignment. No lytic or blastic lesions. No acute cortical disruption. Vascular clips right upper quadrant abdomen. XR/XR thoracic spine 2V IMPRESSION: Multilevel thoracolumbar spondylosis and mild scoliosis. Status post cholecystectomy. CT ABDOMEN AND PELVIS 01/21/2025 FINDINGS: Partially visualized lung bases are unremarkable. Cholecystectomy. Liver is mildly enlarged with right lobe measuring 18.3 cm. Hepatic steatosis. Noncontrast appearance of the spleen, pancreas and adrenal glands are unremarkable. No right-sided hydronephrosis. Nonobstructing right renal calculi measuring up to 2 mm. No right ureteral calculus. Left renal cystic lesion measuring 2.8 cm. Nonobstructing 2 mm left renal calculus. Mild left hydronephrosis versus prominent parapelvic cysts. No left hydroureter. No left ureteral calculus identified. Appendix is not definitively identified. Oral contrast has progressed into the descending colon. Mild distal colonic diverticulosis without evidence of diverticulitis. No mesenteric or retroperitoneal lymphadenopathy. Mild aortoiliac atherosclerotic vascular calcifications. Normal appearance of the urinary bladder. No adnexal mass. Small fat containing umbilical hernia. Moderate spondylosis. No acute fracture or suspicious bone lesion IMPRESSION: 1. Mild left hydronephrosis versus prominent parapelvic cysts. No obstructing calculus identified. There is no left hydroureter. 2. Nonobstructing bilateral renal calculi measuring up to 2 mm. 3. Appendix is not definitively identified. No secondary evidence of appendicitis. No bowel obstruction. No evidence of diverticulitis This document has been electronically signed by: Miguel Hyatt MD on 01/21/2025 15:39:10 EGD BIOPSY TODAY'S VISIT [facility] Medical History Epigastric pain Localized osteoarthritis of shoulder regions, bilateral Osteoarthritis of left knee Fatigue Microscopic hematuria Mid back pain Wheezing Knee pain, left Effusion of bursa of knee Tired Shortness of breath Sinus pressure Vaginal odor Throat irritation Ill feeling Pyelonephritis Rash Joint pain Elevated blood pressure reading Impaired fasting blood sugar Arthrosis Respiratory tract congestion with cough Frequent UTI Cramps of left lower extremity Dyspnea on exertion Cough Postnasal drip Herpes Difficulty walking up hill Dysuria Encounter for general adult medical examination with abnormal findings Left flank mass Large joint arthralgia of multiple sites Screening examination for infectious disease Pre-op evaluation Bilateral shoulder pain History of nicotine dependence Right ankle sprain Avulsion fracture of ankle Acute bacterial sinusitis Acute viral syndrome Seen in emergency room Polyarticular osteoarthritis Seronegative rheumatoid arthritis Long-term use of Plaquenil Obesity (BMI 30-39.9) Shortness of breath Encounter for routine gynecological examination Feeling sick UTI (urinary tract infection) Respiratory infection Hospital discharge follow-up Medicare annual wellness visit, initial Urinary tract infection Medicare annual wellness visit, subsequent Environmental allergies Anxiety, generalized Lipid disorder Umbilical hernia Fibromyalgia Acute arthritis Tendonitis Surgical History Hx of hernia repair History of esophagogastroduodenoscopy (EGD) Hx of colonoscopy History of meniscectomy of left knee (~01/12/14) History of cholecystectomy H/O hand surgery Family History Mother Cervical cancer Bladder cancer Father Cancer Sister No problems noted. Other Mental health disorder Substance use disorder Social History Household Members: Significant Other Housing: Apartment Unable to assess alcohol history related to: Unknown Alcohol intake: former Year quit: 22yo Patient Tobacco Use Status: Former Tobacco user e-Cigarette/Vaping Use: Never Used service: No Current occupational status: unemployed and disabled Sexual orientation: Straight/Heterosexual Gender identity: Female Cognitive needs: No Hearing needs: No Vision needs: No Review of Systems Const Denies fatigue, Denies fever(s), Denies night sweats, Denies poor appetite, Reports weight gain and Denies weight loss ENT Reports Normal hearing present, Denies dental pain, Denies dysphagia, Denies hearing loss, Denies mouth pain, Reports neck pain, Denies odynophagia, Denies throat swelling, Denies tongue swelling and Reports other (Dentition adequate) Card Reports no additional complaints Resp Reports no additional complaints GI Details: Reports abdominal pain, Denies melena, Denies bloating, Denies hematochezia, Reports constipation, Denies GI cramping, Denies dysphagia, Denies excessive flatus, Denies early satiety, Reports heartburn, Denies diarrhea, Denies nausea, Denies odynophagia, Denies vomiting and Denies hematemesis Reports hematuria and Reports pelvic pain Musc Reports back pain, Reports myalgias, Reports neck pain and Reports stiffness Skin/Breast Denies pruritus, Denies lesions, Denies rash and Denies jaundice Neuro Reports Normal hearing present and Denies Abnormal speech present Endo Denies fatigue Aller/Immun Denies throat swelling and Denies tongue swelling Physical Exam Vital Signs: Last Vital Signs Pulse 83 02/18/25 10:26 BP 136/77 02/18/25 10:26 BMI result Body Mass Index 42.3 Const General: cooperative, no acute distress, well developed and well groomed Nutritional Appearance: well nourished and obese Orientation/consciousness: oriented to person, oriented to place and oriented to time Limitations: No language barrier HEENT Head: Yes normocephalic and Yes atraumatic Eyes General: appearance normal, both eyes and all related structures Pupils: Equal, round and reactive pupils present Neck Neck: Yes normal visual inspection and Yes no lymphadenopathy Thyroid: Thyroid normal Resp Effort & Inspection: normal respiratory effort and able to speak in complete sentences Auscultation: clear to auscultation bilaterally Cardio Rate: regular rate Rhythm: regular rhythm Heart sounds: Normal, physiologic split S2 sound present Peripheral pulses: radial pulses present and posterior tibial pulses present GI Inspection: No distended, Yes Abdominal panniculus present and Yes obesity Palpation (GI): Soft to palpation, nontender, no guarding, not rigid and No hepatosplenomegaly present Percussion: Yes normal to percussion Auscultation: normal bowel sounds Rectal Exam - Female: deferred Skin General skin exam: no rashes or lesions noted, turgor normal, skin not dry, no jaundice, No spider nevi and no striae Rashes: no rashes Nails: normal Neuro General: oriented to person, oriented to place and oriented to time Cranial nerves: Yes Equal, round and reactive pupils present and Yes Normal hearing present Speech: No Abnormal speech present Extrem General: Yes normal to inspection, No clubbing, No cyanosis and No edema Psych Appearance: grossly normal and well kempt Mental Status: mental status grossly normal Speech and movement: Normal speech and movement present Affect: normal affect Attitude: cooperative Thought process: Normal thought process present and not confabulating Thought content: Normal thought content present Insight: Good insight present (Psych) Judgement: Good judgement present (Psych) Results Reviewed Results Reviewed: Laboratory Tests 10/06/24 11:10 C-Reactive Protein 1.16 H Amylase 41 Lipase 38 10/06/24-1311 Source: Blood Sp Desc: Venous Subm Dr: ShadeSeptember- Ordered: Blood Cult(2nd) Procedure Result Verified Blood Culture (Second) Final 10/11/24151 No growth after 5 days. ENTERED: 10/07/[address]: Lyndon Fagan MD ORDERED: GI Panel Test Result Flag Reference Campylobacter Not Detected Not Detect. P. shigelloides Not Detected Not Detect. Salmonella Not Detected Not Detect. Vibrio Not Detected Not Detect. Vibrio Cholerae Not Detected Not Detect. Y. enterocolit. Not Detected Not Detect. E. coli EAEC Not Detected Not Detect. E. coli EPEC Not Detected Not Detect. E. coli ETEC Not Detected Not Detect. E. coli STEC Not Detected Not Detect. E. coli O157 Not applicable Not Detect. E. coli containing the O157 antigen are a subset of Shiga-like toxin-producing E. coli (STEC). Shigella/EIEC Not Detected Not Detect. Cryptosporidium Not Detected Not Detect. Cyclospora Not Detected Not Detect. E. histolytica Not Detected Not Detect. Giardia lamblia Not Detected Not Detect. Adenovirus Not Detected Not Detect. Astrovirus Not Detected Not Detect. Norovirus Not Detected Not Detect. Rotavirus A Not Detected Not Detect. Sapovirus Not Detected Not Detect. X-RAY LUMBAR AND THORACIC SPINES 10/06/2024 FINDINGS: Multilevel endplate sclerosis. Facet joint hypertrophy at L4-5 and L5-S1. No acute cortical disruption. No gross malalignment. No lytic or blastic lesions. No osteolysis. Vascular clips right upper quadrant abdomen. Vascular calcifications, aorta. XR/XR lumbar spine 2-3V IMPRESSION: Multilevel lumbar spondylosis without acute fracture or gross listhesis. No gross change. FINDINGS: Multilevel marginal osteophyte formation. Mild S-shaped curvature of the lower thoracic spine thoracolumbar junction. Multilevel endplate sclerosis and decreased intervertebral disc height. No gross malalignment. No lytic or blastic lesions. No acute cortical disruption. Vascular clips right upper quadrant abdomen. XR/XR thoracic spine 2V IMPRESSION: Multilevel thoracolumbar spondylosis and mild scoliosis. Status post cholecystectomy. CT ABDOMEN AND PELVIS 01/21/2025 FINDINGS: Partially visualized lung bases are unremarkable. Cholecystectomy. Liver is mildly enlarged with right lobe measuring 18.3 cm. Hepatic steatosis. Noncontrast appearance of the spleen, pancreas and adrenal glands are unremarkable. No right-sided hydronephrosis. Nonobstructing right renal calculi measuring up to 2 mm. No right ureteral calculus. Left renal cystic lesion measuring 2.8 cm. Nonobstructing 2 mm left renal calculus. Mild left hydronephrosis versus prominent parapelvic cysts. No left hydroureter. No left ureteral calculus identified. Appendix is not definitively identified. Oral contrast has progressed into the descending colon. Mild distal colonic diverticulosis without evidence of diverticulitis. No mesenteric or retroperitoneal lymphadenopathy. Mild aortoiliac atherosclerotic vascular calcifications. Normal appearance of the urinary bladder. No adnexal mass. Small fat containing umbilical hernia. Moderate spondylosis. No acute fracture or suspicious bone lesion IMPRESSION: 1. Mild left hydronephrosis versus prominent parapelvic cysts. No obstructing calculus identified. There is no left hydroureter. 2. Nonobstructing bilateral renal calculi measuring up to 2 mm. 3. Appendix is not definitively identified. No secondary evidence of appendicitis. No bowel obstruction. No evidence of diverticulitis This document has been electronically signed by: Miguel Hyatt MD on 01/21/2025 15:39:10 Assessment & Plan Assessment & Plan (1) Gastroparesis: Comment: GASTRIC EMPTYING STUDY Exam Date: 05/18/2013 IMPRESSION: Abnormal study. Mild retention of solid food is present in the stomach at 4 hours. Exam Date: 05/18/2013 Code(s): K31.84 - Gastroparesis Category: Medical (2) GERD (gastroesophageal reflux disease): Code(s): K21.9 - Gastro-esophageal reflux disease without esophagitis Category: Medical Qualifiers: Esophagitis presence: without esophagitis Qualified Code(s): K21.9 - Gastro-esophageal reflux disease without esophagitis (3) Chronic idiopathic constipation: Code(s): K59.04 - Chronic idiopathic constipation Category: Medical (4) Epigastric pain: Code(s): R10.13 - Epigastric pain Category: Medical (5) Abdominal bloating: Code(s): R14.0 - Abdominal distension (gaseous) Category: Medical (6) Lipid disorder: Code(s): E78.9 - Disorder of lipoprotein metabolism, unspecified Category: Medical (7) Morbid obesity due to excess calories: Code(s): E66.01 - Morbid (severe) obesity due to excess calories Category: Medical (8) Hypertension, essential: Code(s): I10 - Essential (primary) hypertension Category: Medical (9) Diet-controlled diabetes mellitus: Code(s): E11.9 - Type 2 diabetes mellitus without complications Category: Medical (10) Seronegative rheumatoid arthritis: Code(s): M06.00 - Rheumatoid arthritis without rheumatoid factor, unspecified site Category: Medical Plan Her current medical regimen consists of rabeprazole (which she takes intermittently because taking it daily caused her bone pain), famotidine at bedtime, Linzess 72 micro g. With this she is satisfied with her current GI regimen. We review her results and she is already seeing a urologist for the question of kidney stones and she was told she has simply had a renal cyst. She is aware that she has fairly extensive arthritis in her back in his working with her primary care provider about this. She requests a referral to weight management for consideration of bariatric surgery and I provide this to her. Return office visit in 6 months EGD BIOPSY Orders: Referrals Medical Weight Management Referral E11.9 - Type 2 diabetes mellitus without complications, E66.01 - Morbid (severe) obesity due to excess calories, E78.9 - Disorder of lipoprotein metabolism, unspecified, I10 - Essential (primary) hypertension, M06.00 - Rheumatoid arthritis without rheumatoid factor, unspecified site Medications: New famotidine 20 mg PO BEDTIME 30 tabs 6RF linaclotide (Linzess) 72 mcg PO QAM 30 caps 6RF K59.04 - Chronic idiopathic constipation Coding Level of Care Code Est Pt Level 4 (94902) Diagnoses Gastroparesis K31.84 Gastroesophageal reflux disease without esophagitis K21.9 Esophagitis presence: without esophagitis Chronic idiopathic constipation K59.04 Epigastric pain R10.13 Abdominal bloating R14.0 Lipid disorder E78.9 Morbid obesity due to excess calories E66.01 Hypertension, essential I10 Diet-controlled diabetes mellitus E11.9 Seronegative rheumatoid arthritis M06.00 Time Spent (min) 35
[2025-02-18 10:26] VITALS: BP 136/77; PULSE 83; BMI 42.3
== END 2025-02-18 11:23 | disposition home or self-care (01) ==
LOC: HO.HGI 09:53
PROVIDERS: PCP Internal Medicine; Visit Provider Nurse Practitioner
DX: K31.84 Gastroparesis (principal); K21.9 Gastro-esophageal reflux disease without esophagitis; K59.04 Chronic idiopathic constipation; R10.13 Epigastric pain; R14.0 Abdominal distension (gaseous); E78.9 Disorder of lipoprotein metabolism, unspecified; E66.01 Morbid (severe) obesity due to excess calories; I10 Essential (primary) hypertension; E11.9 Type 2 diabetes mellitus without complications; M06.00 Rheumatoid arthritis without rheumatoid factor, unspecified site
CPT/HCPCS: 99214

== ENCOUNTER → 2025-02-18 09:52 | Outpatient (BNVA) | payer MEDICARE, MEDICAID, SELFPAY | PROVIDERS: PCP Internal Medicine; Visit Provider Nurse Practitioner | DX: Z71.2 Person consulting for explanation of examination or test findings (principal); K31.84 Gastroparesis; K21.9 Gastro-esophageal reflux disease without esophagitis; K59.04 Chronic idiopathic constipation; R10.13 Epigastric pain; R14.0 Abdominal distension (gaseous); E78.9 Disorder of lipoprotein metabolism, unspecified; E66.01 Morbid (severe) obesity due to excess calories; I10 Essential (primary) hypertension; E11.9 Type 2 diabetes mellitus without complications; M06.09 Rheumatoid arthritis without rheumatoid factor, multiple sites | CPT/HCPCS: 99212 ==

== ENCOUNTER 2025-03-02 14:24 | Outpatient (AMB) | payer MEDICARE, MEDICAID, SELFPAY ==
[2025-03-02 14:45] VITALS: BP 120/80; BMI 42.0
--- NOTE | 2025-03-02 14:45 | MHC.OFFVIS ---
Vital Signs 03/02/25 14:45 Height 5 ft 1 in Weight 222 lb 3.615 oz BMI 42.0 BP 120/80 Blood Pressure Location Lt brachial Position Sitting Pulse Source Monitor Intake Visit Reasons: sob chest pain dr coleman pt Accompanied by: Self / Same As Patient Allergies gabapentin (GABAPENTIN) Allergy (Severe, Verified 03/02/25 14:50) SEVERE GI ISSUES Iodinated Contrast Media (IV DYE, IODINE CONTAINING) Allergy (Severe, Verified 03/02/25 14:50) SWELLING Sulfa (Sulfonamide Antibiotics) (SULFA (SULFONAMIDE ANTIBIOTICS)) Allergy (Severe, Verified 03/02/25 14:50) ANAPHYLAXIS, swelling Milk Containing Products (Dairy) Allergy (Intermediate, Verified 03/02/25 14:50) Rash lidocaine Allergy (Mild, Verified 03/02/25 14:50) Welts nabumetone Allergy (Unknown, Verified 03/02/25 14:50) Abdominal Pain pregabalin Allergy (Unknown, Verified 03/02/25 14:50) unknown venlafaxine Allergy (Unknown, Verified 03/02/25 14:50) unknown semaglutide (From Ozempic) Adverse Reaction (Intermediate, Verified 03/02/25 14:50) Rash meloxicam Adverse Reaction (Unknown, Verified 03/02/25 14:50) abdominal pain all meat Allergy (Unknown, Uncoded 02/04/25 10:47) unknown Environmental Allergy (Unknown, Uncoded 02/04/25 10:47) unknown Medication List - Last Reconciled 03/02/25 by Darrel Tomlinson NP albuterol sulfate 0.63 mg (3 mL) inhalation QID PRN albuterol sulfate 0.63 mg (3 mL) inhalation QID PRN alprazolam 0.5 mg PO BID 30 days cyanocobalamin (vitamin B-12) 1,000 mcg PO DAILY 90 days famotidine 20 mg PO BEDTIME ibuprofen 800 mg PO Q8H PRN 30 days linaclotide (Linzess) 72 mcg PO QAM [Nebulizer with all supplies Use every 6 hrs as need for shortness of breath/difficulty breathing/Asthma ] valacyclovir 500 mg PO DAILY 90 days walker As directed HPI Comments Details: This is a 59-year-old female patient coming in for a follow-up visit. Patient was previously seen in the office for shortness of breath and chest discomfort for which patient was recommended for a coronary CTA as patient was refusing stress testing due to knee discomfort. Patient states that she never completed her coronary CTA because her primary care doctor has asked her not to given her severe allergic reaction to contrast dye. Today, patient is reporting ongoing symptoms of shortness of breath with exertion such as going up a flight of stairs. Patient is also reporting left-sided chest discomfort mostly at rest none with exertion. Patient is otherwise denying any palpitations, orthopnea, PND, leg edema, presyncope, or syncope. Patient states that she is trying to lose weight but has hard time due to severe arthritis in her knees. Patient is not too keen of knee replacements and is trying to manage this by weight loss. Patient states that she is trying to stay active by going swimming regularly. FORMERLY [facility] Medical History Shortness of breath Epigastric pain Localized osteoarthritis of shoulder regions, bilateral Osteoarthritis of left knee Fatigue Microscopic hematuria Mid back pain Wheezing Knee pain, left Effusion of bursa of knee Tired Sinus pressure Vaginal odor Throat irritation Ill feeling Pyelonephritis Rash Joint pain Elevated blood pressure reading Impaired fasting blood sugar Arthrosis Respiratory tract congestion with cough Frequent UTI Cramps of left lower extremity Dyspnea on exertion Cough Postnasal drip Herpes Difficulty walking up hill Dysuria Encounter for general adult medical examination with abnormal findings Left flank mass Large joint arthralgia of multiple sites Screening examination for infectious disease Pre-op evaluation Bilateral shoulder pain History of nicotine dependence Right ankle sprain Avulsion fracture of ankle Acute bacterial sinusitis Acute viral syndrome Seen in emergency room Polyarticular osteoarthritis Seronegative rheumatoid arthritis Long-term use of Plaquenil Obesity (BMI 30-39.9) Shortness of breath Encounter for routine gynecological examination Feeling sick UTI (urinary tract infection) Respiratory infection Hospital discharge follow-up Medicare annual wellness visit, initial Urinary tract infection Medicare annual wellness visit, subsequent Environmental allergies Anxiety, generalized Lipid disorder Umbilical hernia Fibromyalgia Acute arthritis Tendonitis Surgical History Hx of hernia repair History of esophagogastroduodenoscopy (EGD) Hx of colonoscopy History of meniscectomy of left knee (~01/12/14) History of cholecystectomy H/O hand surgery Family History Mother Cervical cancer Bladder cancer Father Cancer Sister No problems noted. Other Mental health disorder Substance use disorder Social History Household Members: Significant Other Housing: Apartment Alcohol intake: former Year quit: 22yo Patient Tobacco Use Status: Former Tobacco user e-Cigarette/Vaping Use: Never Used service: No Current occupational status: unemployed and disabled Sexual orientation: Straight/Heterosexual Gender identity: Female Cognitive needs: No Hearing needs: No Vision needs: No Review of Systems Const Denies daytime sleepiness, Denies difficulty sleeping, Denies snoring, Denies stops breathing during sleep and Denies weakness ENT Reports dizziness Card Denies chest pain, Denies rapid heart rate, Denies irregular heart rhythm, Denies claudication, Denies leg edema, Reports lightheadedness, Denies palpitations, Reports dyspnea, Reports dyspnea on exertion, Denies orthopnea, Denies paroxysmal nocturnal dyspnea and Denies slow heart rate Resp Denies cough, Reports dyspnea, Reports dyspnea on exertion and Denies snoring GI Reports no additional complaints, Denies hematochezia, Denies change in stool character and Denies dyspepsia Musc Denies abnormal gait, Denies muscle weakness and Denies numbness Neuro Denies abnormal gait, Reports dizziness, Denies numbness and Denies weakness Endo Denies palpitations Physical Exam Vital Signs: Last Vital Signs BP 120/80 03/02/25 14:45 BMI result Body Mass Index 42.0 Const General: cooperative, healthy appearing, comfortable and no acute distress Orientation/consciousness: patient oriented x3 HEENT Head: Yes normal to inspection Neck Neck: Yes normal visual inspection, Yes trachea midline and Yes supple Chest Chest palpation & inspection: normal inspection of the chest Resp Effort & Inspection: normal respiratory effort Auscultation: clear to auscultation bilaterally, no crackles, no rales, no rhonchi and no wheezes Cardio Jugular venous distension: no JVD Palpation: normal PMI Rate: regular rate Rhythm: regular rhythm Heart sounds: S1 normal heart sound present, S2 normal heart sound present, no click, no gallops, no murmurs and no rubs Peripheral pulses: Peripheral pulses 2+ throughout GI Inspection: Yes normal to inspection Palpation (GI): Soft to palpation Auscultation: normal bowel sounds Skin General skin exam: no rashes or lesions noted Neuro General: patient oriented x3 Extrem General: Yes normal to inspection, No no pedal edema and No calf tenderness Psych Appearance: grossly normal Mental Status: mental status grossly normal Speech and movement: Normal speech and movement present Office Procedures EKG Details: EKG today shows normal sinus rhythm, rate 85 beats per minute, nonspecific T-wave abnormality, [place], [place]. [id number], Complete Assessment & Plan Assessment & Plan (1) Precordial chest pain: Code(s): R07.2 - Precordial pain Category: Medical (2) Shortness of breath: Code(s): R06.02 - Shortness of breath Category: Medical (3) Obesity (BMI 30-39.9): Code(s): E66.9 - Obesity, unspecified Category: Medical Plan 03/31/2023-echo study showed normal LV systolic function with the ejection fraction between 55-60% with grade 1 diastolic dysfunction. Patient is also following pulmonology for ongoing shortness of breath and wheeze being treated for asthma. However, patient notes that her symptoms have not gotten any better on the inhaler. Given her ongoing symptoms and risk factors, we will proceed with a a myocardial perfusion study with an vasodilating agent. Patient is not able to walk on a treadmill due to knee discomfort. Patient initially hesitant on this testing however after detailed discussion around the medications and side effects related to this, patient is willing to proceed with it. Further plans depending on findings. Patient has upcoming appointments to see weight loss management for assistance in weight loss regimen. Advised on heart healthy diet, regular exercise, losing weight, and management of vascular risk factors. Follow-up after completion of test. In the interim, patient will call the office with any concerns or change in symptoms. Advised to seek ER care in case of exertional chest pain not resolved with rest. This note was generated using voice recognition software. While every effort has been made to ensure accuracy and proper edge stripper, there may be occasional errors that could affect the content or meaning of the described symptoms. Orders: Orders CA lexiscan stress w marguerite Today R07.2 - Precordial pain AMB EKG-In Office Today R07.2 - Precordial pain Coding Level of Care Code Est Pt Level 4 (75138) Complex EM visit Add On G2211 Diagnoses Precordial chest pain R07.2 Shortness of breath R06.02 Obesity (BMI 30-39.9) E66.9 CPT Codes EKG - CPT: 73437-[id number], Complete ([id number]) Time Spent (min) 32 Comment Time spent in reviewing the chart, test results, assessment, counseling and documentation.
== END 2025-03-02 15:18 | disposition home or self-care (01) ==
LOC: HO.HCS 14:25
PROVIDERS: PCP Internal Medicine
DX: R07.2 Precordial pain (principal); R06.02 Shortness of breath; E66.9 Obesity, unspecified
CPT/HCPCS: 93010; 99214; G2211

== ENCOUNTER → 2025-03-02 14:24 | Outpatient (BNVA) | payer MEDICARE, MEDICAID, SELFPAY | PROVIDERS: PCP Internal Medicine | DX: R07.2 Precordial pain (principal); R06.02 Shortness of breath; E66.9 Obesity, unspecified; Z68.41 Body mass index [BMI] 40.0-44.9, adult; M25.562 Pain in left knee; M25.561 Pain in right knee | CPT/HCPCS: 93005; 99212 ==

== ENCOUNTER 2025-04-04 10:25 | Outpatient (AMB) | payer MEDICARE, MEDICAID, SELFPAY ==
--- NOTE | 2025-04-04 10:41 | MHC.OFFVISWM ---
VS Expanded 04/04/25 10:51 BP 146/81 H Blood Pressure Location Rt brachial Blood Pressure Position Sitting Pulse 91 Pulse Source Pulse Oximeter Temp 96.4 F L Temperature Source Temporal Artery Scan Pulse Oximetry 99 Oxygen Delivery Method Room Air Height 5 ft 1.5 in Weight 218 lb 12.8 oz BMI 40.7 Body Fat % 47.2 Body Fat Mass 103.2 Fat Free Mass 115.6 Visceral Fat Rating 16.0 Body Water % 37.4 Body Water Mass 81.8 Muscle Mass/Score 109.6 Basal Metabolic Rate/Score 1,626 Intake Visit Reasons: [employer] MWL/SWL BMI 40.1 Allergies gabapentin (GABAPENTIN) Allergy (Severe, Verified 04/04/25 11:19) SEVERE GI ISSUES Iodinated Contrast Media (IV DYE, IODINE CONTAINING) Allergy (Severe, Verified 04/04/25 11:19) SWELLING Sulfa (Sulfonamide Antibiotics) (SULFA (SULFONAMIDE ANTIBIOTICS)) Allergy (Severe, Verified 04/04/25 11:19) ANAPHYLAXIS, swelling Milk Containing Products (Dairy) Allergy (Intermediate, Verified 04/04/25 11:19) Rash lidocaine Allergy (Mild, Verified 04/04/25 11:19) Welts nabumetone Allergy (Unknown, Verified 04/04/25 11:19) Abdominal Pain pregabalin Allergy (Unknown, Verified 04/04/25 11:19) unknown venlafaxine Allergy (Unknown, Verified 04/04/25 11:19) unknown semaglutide (From Ozempic) Adverse Reaction (Intermediate, Verified 04/04/25 11:19) Rash meloxicam Adverse Reaction (Unknown, Verified 04/04/25 11:19) abdominal pain all meat Allergy (Unknown, Uncoded 04/04/25 11:19) unknown Environmental Allergy (Unknown, Uncoded 04/04/25 11:19) unknown Medication List - Last Reconciled 04/04/25 by Johann Torrez MD albuterol sulfate 0.63 mg (3 mL) inhalation QID PRN albuterol sulfate 0.63 mg (3 mL) inhalation QID PRN alprazolam 0.5 mg PO BID 30 days cyanocobalamin (vitamin B-12) 1,000 mcg PO DAILY 90 days linaclotide (Linzess) 72 mcg PO QAM [Nebulizer with all supplies Use every 6 hrs as need for shortness of breath/difficulty breathing/Asthma ] walker As directed HPI Comments Details: Previous weight loss efforts: [facility] program, 8 yrs ago, Ozempic (1 month: developed rash) Wakes up: 6am, Sleeps: 6pm Breakfast: none Lunch: 1-3pm (eggs, Pure protein powder with almond milk) Dinner: skips Snacks: 3 snacks before lunch (chips, cookies, popcorn) Exercise: none Beverages: Coffee (1-2 cups/d with creamer), Tea: none, Soda: none, Juice: none, ETOH: none PFSH Medical History (Updated 04/04/25 @ 11:22 by Johann Torrez MD) Obstructive sleep apnea on CPAP Shortness of breath Epigastric pain Localized osteoarthritis of shoulder regions, bilateral Osteoarthritis of left knee Fatigue Microscopic hematuria Mid back pain Wheezing Knee pain, left Effusion of bursa of knee Tired Sinus pressure Vaginal odor Throat irritation Ill feeling Pyelonephritis Rash Joint pain Elevated blood pressure reading Impaired fasting blood sugar Arthrosis Respiratory tract congestion with cough Frequent UTI Cramps of left lower extremity Dyspnea on exertion Cough Postnasal drip Herpes Difficulty walking up hill Dysuria Encounter for general adult medical examination with abnormal findings Left flank mass Large joint arthralgia of multiple sites Screening examination for infectious disease Pre-op evaluation Bilateral shoulder pain History of nicotine dependence Right ankle sprain Avulsion fracture of ankle Acute bacterial sinusitis Acute viral syndrome Seen in emergency room Polyarticular osteoarthritis Seronegative rheumatoid arthritis Long-term use of Plaquenil Obesity (BMI 30-39.9) Shortness of breath Encounter for routine gynecological examination Feeling sick UTI (urinary tract infection) Respiratory infection Hospital discharge follow-up Medicare annual wellness visit, initial Urinary tract infection Medicare annual wellness visit, subsequent Environmental allergies Anxiety, generalized Lipid disorder Umbilical hernia Fibromyalgia Acute arthritis Tendonitis Surgical History Hx of appendectomy Hx of hernia repair History of esophagogastroduodenoscopy (EGD) Hx of colonoscopy History of meniscectomy of left knee (~01/12/14) History of cholecystectomy H/O hand surgery Family History Mother Cervical cancer Bladder cancer Father Cancer Sister No problems noted. Other Mental health disorder Substance use disorder Social History (Reviewed 04/04/25 @ 10:47 by JONATHAN Clement Household Members: Significant Other Housing: Apartment Alcohol intake: former Year quit: 22yo Patient Tobacco Use Status: Former Tobacco user e-Cigarette/Vaping Use: Never Used service: No Current occupational status: unemployed and disabled Sexual orientation: Straight/Heterosexual Gender identity: Female Cognitive needs: No Hearing needs: No Vision needs: No Physical Exam Vital Signs: Last Vital Signs Temp 96.4 F L 04/04/25 10:51 Pulse 91 04/04/25 10:51 BP 146/81 H 04/04/25 10:51 Pulse Ox 99 04/04/25 10:51 Oxygen Delivery Method Room Air 04/04/25 10:51 BMI result Body Mass Index 40.7 GI Inspection: Yes incision (well healed) Extrem Right lower extremity: normal to inspection Left lower extremity: normal to inspection Assessment & Plan Assessment & Plan (1) Morbid obesity due to excess calories: Code(s): E66.01 - Morbid (severe) obesity due to excess calories Category: Medical Plan: 1.? Plan for lap sleeve gastrectomy. If diaphragmatic or ventral hernias are present at time of surgery, these will be repaired laparoscopically as well. I emphasized the importance of close follow-up, adherence to instructions and good communication. The surgery does not replace the need to change your lifestlyle which is the cause of the obesity problem. The surgery provides the motivation to try again to change your lifestyle, it reduces the appetite and make the transition to a better lifestyle easier and doubles the amount of weight you would lose compared to doing the lifestyle change without the surgery. You will need to be on a liquid diet with protein shakes for 2 weeks before surgery to maximize weight loss and boost your nutritional status to recover better from surgery and also for the first two weeks after surgery to let the stomach heal before we introduce other foods. After the first 2 weeks we will introduce protein bars and soft foods like scrambled eggs, cottage cheese and yogurt and after the 6th week will introduce meat, fish and cooked vegetables in small amounts. Over time you should be able to eat everything in small amounts. Side effects like nausea, vomiting, heartburn or abdominal pain are not common in the practice unless you are not following in the practice. This operation requires lifetime commitment to following in our practice and communication with me. You will much less weight and experience side effects if you don?t communicate or not following in the practice. Complications are rare and in our practice is about 1/10 of the national average. However, you can develop bleeding that may require transfusion (hasn?t happened for year in the practice), you may from complications (we did not have any deaths in the practice) and infections. Infections are usually a result of breakdown in communication or not understanding or following directions correctly. They are difficult to treat, they can happen during the first 6 weeks, they may require to be in the hospital for weeks or even months, not being able to eat by mouth and you may have drains and surgeries to try and correct the issue. Other risks and complications include possible conversion to an open procedure, leaks, small bowel obstruction, blood clots, cardiac, or pulmonary complications, as intermodal customer service complications such as ulcers, insufficient weight loss and vitamin deficiencies. 2.??Nutritional counseling. Start with one Pure protein shake (HALF scoop in 8oz low fat unsweetened almond milk) at 7am-9am, 1 Celebrate protein bar (buy online with the link I sent you) at 10am-12pm, another Pure protein shake (HALF scoop in 8oz low fat unsweetened almond milk) at 1pm-3pm, dinner at 4pm (8 forks of protein and 8 forks of salad/vegetables). If hungry you can have another HALF Celebrate protein bar after dinner at 5pm-6pm. So you do 2 protein shakes, 1-1.5 protein bars and one meal per day. Meal to include lean meat (beef, fish, pork, turkey, chicken), or [place] yogurt, or egg whites, or beans with a salad with olive oil and fruits (berries, pears, apples, kiwi). Avoid salt, breads, potatoes, rice, pasta, desserts. 3. Each shake would be drunk slowly, like coffee in a period of 2 hours. 4. Cut each bar in 4 pieces and eat each piece in 30min ?to make each bar last 2 hours. 5. I emphasized the importance of measuring accurately the food portion and measure it when serving the food in plate 6. The meal portions include 8 full-size forks of meat and 8 full-size forks of salad. You always eat the meat portion but you can replace up to 4 forks for salad/vegetables with rice, potatoes or pasta, or a fruit ?if you like. The less you do it the better weight loss will be. 7. One full-size fork is what it can be scooped on the fork without falling aside and not what can be bit with the fork. Use regular forks like those you find in a typical restaurant. 8.? Please buy the body composition scale we discussed and send me weight measurements as soon as possible and then once a week. Always include your diet and exercise plan. 9. Start stationary bike at a resistance level of 0.0 Increase level by 1.0 every 3 min to a max level of 6.0. Stay at this level for 3 min and then return to level 0.0 and repeat same steps until 300 calories are burned. Goal is to burn 2000 calories per week on exercise 10. Goal is to lose at least 1.5-2lbs per week 11. Goal to lose 10% of your weight before surgery, which is about 18lbs. Ultimate weight goal: 200lbs before surgery 12. Please follow the diet plan exactly without any change. If you don't like something about the plan or you feel hungry you need to communicate with me so I can help you revise the plan. You should not change the plan yourself 13. To be scheduled for EGD to assess the stomach's anatomy. The possibility of biopsies was discussed. Patient needs to avoid use of NSAIDs and aspirin for 1 week prior to EGD. You must be on liquids only the day before your endoscopy. Risks of perforation and bleeding was discussed with the patient. This will be an outpatient procedure with IV sedation. Orders: Orders Insulin Today E11.9 - Type 2 diabetes mellitus without complications, E66.01 - Morbid (severe) obesity due to excess calories, G47.33 - Obstructive sleep apnea (adult) (pediatric), I10 - Essential (primary) hypertension, K21.00 - Gastro-esophageal reflux disease with esophagitis, without bleeding, Z99.89 - Dependence on other enabling machines and devices Hemoglobin A1c Today E11.9 - Type 2 diabetes mellitus without complications, E66.01 - Morbid (severe) obesity due to excess calories, G47.33 - Obstructive sleep apnea (adult) (pediatric), I10 - Essential (primary) hypertension, K21.00 - Gastro-esophageal reflux disease with esophagitis, without bleeding, Z99.89 - Dependence on other enabling machines and devices Complete Blood Count Auto Diff Today E11.9 - Type 2 diabetes mellitus without complications, E66.01 - Morbid (severe) obesity due to excess calories, G47.33 - Obstructive sleep apnea (adult) (pediatric), I10 - Essential (primary) hypertension, K21.00 - Gastro-esophageal reflux disease with esophagitis, without bleeding, Z99.89 - Dependence on other enabling machines and devices Vitamin B12 and Folate Today E11.9 - Type 2 diabetes mellitus without complications, E66.01 - Morbid (severe) obesity due to excess calories, G47.33 - Obstructive sleep apnea (adult) (pediatric), I10 - Essential (primary) hypertension, K21.00 - Gastro-esophageal reflux disease with esophagitis, without bleeding, Z99.89 - Dependence on other enabling machines and devices Zinc Today E11.9 - Type 2 diabetes mellitus without complications, E66.01 - Morbid (severe) obesity due to excess calories, G47.33 - Obstructive sleep apnea (adult) (pediatric), I10 - Essential (primary) hypertension, K21.00 - Gastro-esophageal reflux disease with esophagitis, without bleeding, Z99.89 - Dependence on other enabling machines and devices C Reactive Protein Today E11.9 - Type 2 diabetes mellitus without complications, E66.01 - Morbid (severe) obesity due to excess calories, G47.33 - Obstructive sleep apnea (adult) (pediatric), I10 - Essential (primary) hypertension, K21.00 - Gastro-esophageal reflux disease with esophagitis, without bleeding, Z99.89 - Dependence on other enabling machines and devices Ferritin Today E11.9 - Type 2 diabetes mellitus without complications, E66.01 - Morbid (severe) obesity due to excess calories, G47.33 - Obstructive sleep apnea (adult) (pediatric), I10 - Essential (primary) hypertension, K21.00 - Gastro-esophageal reflux disease with esophagitis, without bleeding, Z99.89 - Dependence on other enabling machines and devices Vitamin D 25-OH Total Today E11.9 - Type 2 diabetes mellitus without complications, E66.01 - Morbid (severe) obesity due to excess calories, G47.33 - Obstructive sleep apnea (adult) (pediatric), I10 - Essential (primary) hypertension, K21.00 - Gastro-esophageal reflux disease with esophagitis, without bleeding, Z99.89 - Dependence on other enabling machines and devices FL upper GI w air Today E11.9 - Type 2 diabetes mellitus without complications, E66.01 - Morbid (severe) obesity due to excess calories, G47.33 - Obstructive sleep apnea (adult) (pediatric), I10 - Essential (primary) hypertension, K21.00 - Gastro-esophageal reflux disease with esophagitis, without bleeding, Z99.89 - Dependence on other enabling machines and devices H Pylori Breath Test Today E11.9 - Type 2 diabetes mellitus without complications, E66.01 - Morbid (severe) obesity due to excess calories, G47.33 - Obstructive sleep apnea (adult) (pediatric), I10 - Essential (primary) hypertension, K21.00 - Gastro-esophageal reflux disease with esophagitis, without bleeding, Z99.89 - Dependence on other enabling machines and devices Lipid Panel Today E11.9 - Type 2 diabetes mellitus without complications, E66.01 - Morbid (severe) obesity due to excess calories, G47.33 - Obstructive sleep apnea (adult) (pediatric), I10 - Essential (primary) hypertension, K21.00 - Gastro-esophageal reflux disease with esophagitis, without bleeding, Z99.89 - Dependence on other enabling machines and devices IRON PROFILE Today E11.9 - Type 2 diabetes mellitus without complications, E66.01 - Morbid (severe) obesity due to excess calories, G47.33 - Obstructive sleep apnea (adult) (pediatric), I10 - Essential (primary) hypertension, K21.00 - Gastro-esophageal reflux disease with esophagitis, without bleeding, Z99.89 - Dependence on other enabling machines and devices Comprehensive Met. Panel Today E11.9 - Type 2 diabetes mellitus without complications, E66.01 - Morbid (severe) obesity due to excess calories, G47.33 - Obstructive sleep apnea (adult) (pediatric), I10 - Essential (primary) hypertension, K21.00 - Gastro-esophageal reflux disease with esophagitis, without bleeding, Z99.89 - Dependence on other enabling machines and devices Vitamin B1 Today E11.9 - Type 2 diabetes mellitus without complications, E66.01 - Morbid (severe) obesity due to excess calories, G47.33 - Obstructive sleep apnea (adult) (pediatric), I10 - Essential (primary) hypertension, K21.00 - Gastro-esophageal reflux disease with esophagitis, without bleeding, Z99.89 - Dependence on other enabling machines and devices Vitamin A Today E11.9 - Type 2 diabetes mellitus without complications, E66.01 - Morbid (severe) obesity due to excess calories, G47.33 - Obstructive sleep apnea (adult) (pediatric), I10 - Essential (primary) hypertension, K21.00 - Gastro-esophageal reflux disease with esophagitis, without bleeding, Z99.89 - Dependence on other enabling machines and devices TSH reflex Free T4 Today E11.9 - Type 2 diabetes mellitus without complications, E66.01 - Morbid (severe) obesity due to excess calories, G47.33 - Obstructive sleep apnea (adult) (pediatric), I10 - Essential (primary) hypertension, K21.00 - Gastro-esophageal reflux disease with esophagitis, without bleeding, Z99.89 - Dependence on other enabling machines and devices US abdomen comp w elastography Today E11.9 - Type 2 diabetes mellitus without complications, E66.01 - Morbid (severe) obesity due to excess calories, G47.33 - Obstructive sleep apnea (adult) (pediatric), I10 - Essential (primary) hypertension, K21.00 - Gastro-esophageal reflux disease with esophagitis, without bleeding, Z99.89 - Dependence on other enabling machines and devices Referrals Behavioral Health Referral E11.9 - Type 2 diabetes mellitus without complications, E66.01 - Morbid (severe) obesity due to excess calories, G47.33 - Obstructive sleep apnea (adult) (pediatric), I10 - Essential (primary) hypertension, K21.00 - Gastro-esophageal reflux disease with esophagitis, without bleeding, Z99.89 - Dependence on other enabling machines and devices Nutrition/Dietitian Referral E11.9 - Type 2 diabetes mellitus without complications, E66.01 - Morbid (severe) obesity due to excess calories, G47.33 - Obstructive sleep apnea (adult) (pediatric), I10 - Essential (primary) hypertension, K21.00 - Gastro-esophageal reflux disease with esophagitis, without bleeding, Z99.89 - Dependence on other enabling machines and devices
[2025-04-04 10:51] VITALS: BP 146/81; PULSE 91; TEMP 35.8; O2SAT 99; BMI 40.7
== END 2025-04-04 12:08 | disposition home or self-care (01) ==
LOC: HO.HBS 10:26
PROVIDERS: PCP Internal Medicine; Visit Provider Surgery
DX: E66.01 Morbid (severe) obesity due to excess calories (principal); Z68.41 Body mass index [BMI] 40.0-44.9, adult
CPT/HCPCS: 99204

== ENCOUNTER → 2025-04-04 10:25 | Outpatient (BNVA) | payer MEDICARE, MEDICAID, SELFPAY | PROVIDERS: PCP Internal Medicine; Visit Provider Surgery | DX: E66.01 Morbid (severe) obesity due to excess calories (principal); Z68.41 Body mass index [BMI] 40.0-44.9, adult; I10 Essential (primary) hypertension; G47.33 Obstructive sleep apnea (adult) (pediatric); Z99.89 Dependence on other enabling machines and devices; K21.00 Gastro-esophageal reflux disease with esophagitis, without bleeding; Z87.891 Personal history of nicotine dependence | CPT/HCPCS: 99202 ==

== ENCOUNTER 2025-04-05 09:38 | Outpatient (AMB) | payer MEDICARE, MEDICAID, SELFPAY ==
[2025-04-05 09:48] VITALS: BP 150/96; PULSE 78; RESP 16; O2SAT 97; BMI 41.1
--- NOTE | 2025-04-05 09:48 | A.OFFPC_ITS ---
Vital Signs 04/05/25 09:48 Height 5 ft 1.5 in Weight 221 lb BMI 41.1 BP 150/96 H Blood Pressure Location Rt brachial Position Sitting Respiration 16 Pulse 78 Pulse Source Pulse Oximeter Pulse Oximetry (%) 97 Oxygen Delivery Method Room Air Intake Visit Reasons: 11 week follow up Allergies gabapentin (GABAPENTIN) Allergy (Severe, Verified 04/04/25 11:19) SEVERE GI ISSUES Iodinated Contrast Media (IV DYE, IODINE CONTAINING) Allergy (Severe, Verified 04/04/25 11:19) SWELLING Sulfa (Sulfonamide Antibiotics) (SULFA (SULFONAMIDE ANTIBIOTICS)) Allergy (Amber re, Verified 04/04/25 11:19) ANAPHYLAXIS, swelling Milk Containing Products (Dairy) Allergy (Intermediate, Verified 04/04/25 11:19) Rash lidocaine Allergy (Mild, Verified 04/04/25 11:19) Welts nabumetone Allergy (Unknown, Verified 04/04/25 11:19) Abdominal Pain pregabalin Allergy (Unknown, Verified 04/04/25 11:19) unknown venlafaxine Allergy (Unknown, Verified 04/04/25 11:19) unknown semaglutide (From Ozempic) Adverse Reaction (Intermediate, Verified 04/04/25 11:19) Rash meloxicam Adverse Reaction (Unknown, Verified 04/04/25 11:19) abdominal pain all meat Allergy (Unknown, Uncoded 04/04/25 11:19) unknown Environmental Allergy (Unknown, Uncoded 04/04/25 11:19) unknown Medication List - Last Reconciled 04/05/25 by Lyndon Fagan MD albuterol sulfate 0.63 mg (3 mL) inhalation QID PRN albuterol sulfate 0.63 mg (3 mL) inhalation QID PRN alprazolam 0.5 mg PO BID 30 days cyanocobalamin (vitamin B-12) 1,000 mcg PO DAILY 90 days linaclotide (Linzess) 72 mcg PO QAM [Nebulizer with all supplies Use every 6 hrs as need for shortness of breath/difficulty breathing/Asthma ] phentermine 37.5 mg PO DAILY walker As directed Tobacco use date assessed: 09/24/24 Dental Screening Dental Screen Date: 09/24/24 HPI 11 week follow up HPI Details History of Present Illness The patient is a 59-year-old female presenting with persistent symptoms including sinus congestion, dizziness, headache, fatigue, and feeling generally unwell following a suspected infection for over a month. Acute Sinusitis: - The patient reports symptoms of sinusi tis for over a month, including sinus drainage, feeling clogged in her head and face, dizziness, headache, and ear pain. - These symptoms are sequelae of a suspe cted infection that began a month ago with a low-grade fever and a mild cough, which have since resolved. - She reports her nasal discharge was in itially not clear, but is clear now. - She has self-treated with Claritin wit hout relief. Acute Bronchitis: - The patient complains of wheezing jessika nds at night when she is in bed. - She also reports experiencing shortnes s of breath with minimal exertion, such as walking from the bathroom to her living room. Anxiety: - The patient reports feeling very emoti onal during the visit. - She has a history of anxiety for which she takes alprazolam. Problem List - Acute Sinusitis - Acute Bronchitis - Anxiety - Elevated blood pressure Plan - A trial of an antibiotic and a taperin g course of prednisone will be prescribed to treat the sinus inflammation. - A prescription for alprazolam will be sent. - The patient was advised to rest, avoid exercise for one week, and drink plenty of water to facilitate healing. - An extra refill will be provided for h er alprazolam to cover her until her next appointment. - The patient will have fasting blood wo rk done a week before her next physical exam. - A follow-up appointment is scheduled or July. Review of Systems - General: No fever no chills - Ear nose throat: No sore throat no hearing difficulty no ear pain - Cardiovascular: No syncope, no chest pain, no palpitations - Gastrointestinal: No nausea vomiting or diarrhea Physical Exam General: No acute distress HEENT: Sinus discomfort max bilateral Neck: Supple Respiratory system: Wheezing at night, faint questionable crackles heart with deep breath at bases of both lungs Cardiovascular: S1-S2 regular in rate and rhythm Gastrointestinal: No pain Extremities: No new findings [employer]: Alert awake oriented x3 motor intact Skin: Normal turgor [facility] Medical History (Updated 04/05/25 @ 18:44 by Lyndon Fagan MD) Wheezing Obstructive sleep apnea on CPAP Shortness of breath Epigastric pain Localized osteoarthritis of shoulder regions, bilateral Osteoarthritis of left knee Fatigue Microscopic hematuria Mid back pain Knee pain, left Effusion of bursa of knee Tired Sinus pressure Vaginal odor Throat irritation Ill feeling Pyelonephritis Rash Joint pain Elevated blood pressure reading Impaired fasting blood sugar Arthrosis Respiratory tract congestion with cough Frequent UTI Cramps of left lower extremity Dyspnea on exertion Cough Postnasal drip Herpes Difficulty walking up hill Dysuria Encounter for general adult medical examination with abnormal findings Left flank mass Large joint arthralgia of multiple sites Screening examination for infectious disease Pre-op evaluation Bilateral shoulder pain History of nicotine dependence Right ankle sprain Avulsion fracture of ankle Acute bacterial sinusitis Acute viral syndrome Seen in emergency room Polyarticular osteoarthritis Seronegative rheumatoid arthritis Long-term use of Plaquenil Obesity (BMI 30-39.9) Shortness of breath Encounter for routine gynecological examination Feeling sick UTI (urinary tract infection) Respiratory infection Hospital discharge follow-up Medicare annual wellness visit, initial Urinary tract infection Medicare annual wellness visit, subsequent Environmental allergies Anxiety, generalized Lipid disorder Umbilical hernia Fibromyalgia Acute arthritis Tendonitis Surgical History Hx of appendectomy Hx of hernia repair History of esophagogastroduodenoscopy (EGD) Hx of colonoscopy History of meniscectomy of left knee (~01/12/14) History of cholecystectomy H/O hand surgery Family History Mother Cervical cancer Bladder cancer Father Cancer Sister No problems noted. Other Mental health disorder Substance use disorder Social History Household Members: Significant Other Housing: Apartment Unable to assess alcohol history related to: Unknown Alcohol intake: former Year quit: 22yo Patient Tobacco Use Status: Former Tobacco user e-Cigarette/Vaping Use: Never Used service: No Current occupational status: unemployed and disabled Sexual orientation: Straight/Heterosexual Gender identity: Female Cognitive needs: No Hearing needs: No Vision needs: No Questionnaire Thrive Questionnaire Date Thrive assessed: 07/14/24 I am a: Patient What is your living situation today?: I have a steady place to live Within the past 12 months, did the food you bought not last and you didn't have the money to get more?: Never true Within the past 12 months, did you worry whether your food would run out before you got money to buy more?: Never true Do you have trouble paying for medicines?: No Do you have trouble getting transportation to medical appointments?: No Do you have trouble paying your heating and electricity bill?: Yes Do you have trouble taking care of your child, family member or friend?: No Do you have trouble with day-to-day activities such as bathing, preparing meals, shopping, managing finances, etc.?: Yes Are you currently unemployed and looking for a job?: No Are you interested in more education?: No Please select the resources that you would like help with: Utilities Currently or been in a relationship where the following occur: I choose not to answer THRIVE Score: 1 ARIANNA-7 AMB Questionnaire ARIANNA-7 Date ARIANNA - 7 assessed: 07/14/24 Source: Developed by Drs. Kenneth Preston, Aruna Alcantar, Babak Rebolledo and colleagues, with an educational morris from [employer]. Physical exam (Primary Care) Vital Signs: Last Vital Signs Pulse 78 04/05/25 09:48 Resp 16 04/05/25 09:48 BP 150/96 H 04/05/25 09:48 Pulse Ox 97 04/05/25 09:48 Oxygen Delivery Method Room Air 04/05/25 09:48 BMI result Body Mass Index 41.1 Tobacco/Smoking Status: Tobacco use Status Tobacco use date assessed 09/24/24 04/05/25 09:52 Patient Tobacco Use Status Former Tobacco user 04/05/25 09:52 e-Cigarette/Vaping Use Never Used 04/05/25 09:52 Thrive Assessment: Date of Thrive Assessment Date Thrive assessed 07/14/24 04/05/25 09:52 Currently or been in a relationship where the following occur: I choose not to answer Coding Level of Care Code Est Pt Level 4 (88879) Diagnoses Wheezing R06.2 Feeling unwell R68.89 Acute non-recurrent maxillary sinusitis J01.00 Recurrence: non-recurrent Acute bronchitis, unspecified organism J20.9 Bronchitis organism: unspecified organism Anxiety, generalized F41.1 Assessment & Plan Assessment & Plan (1) Wheezing: Code(s): R06.2 - Wheezing Category: Medical (2) Feeling unwell: Code(s): R68.89 - Other general symptoms and signs Category: Medical (3) Acute maxillary sinusitis: Code(s): J01.00 - Acute maxillary sinusitis, unspecified Category: Medical Qualifiers: Recurrence: non-recurrent Qualified Code(s): J01.00 - Acute maxillary sinusitis, unspecified (4) Acute bronchitis: Code(s): J20.9 - Acute bronchitis, unspecified Category: Medical Qualifiers: Bronchitis organism: unspecified organism Qualified Code(s): J20.9 - Acute bronchitis, unspecified (5) Anxiety, generalized: Code(s): F41.1 - Generalized anxiety disorder Category: Medical Plan Acute Sinusitis: - The patient reports symptoms of sinusitis for over a month, including sinus drainage, feeling clogged in her head and face, dizziness, headache, and ear pain. - These symptoms are sequelae of a suspected infection that began a month ago with a low-grade fever and a mild cough, which have since resolved. - She reports her nasal discharge was initially not clear, but is clear now. - She has self-treated with Claritin without relief. Acute Bronchitis: - The patient complains of wheezing sounds at night when she is in bed. - She also reports experiencing shortness of breath with minimal exertion, such as walking from the bathroom to her living room. Anxiety: - The patient reports feeling very emotional during the visit. - She has a history of anxiety for which she takes alprazolam. Problem List - Acute Sinusitis - Acute Bronchitis - Anxiety - Elevated blood pressure Plan - A trial of an antibiotic and a tapering course of prednisone will be pr escribed to treat the sinus inflammation. - A prescription for alprazolam will be sent. - The patient was advised to rest, avoid exercise for one week, and drink plenty of water to facilitate healing. - An extra refill will be provided for her alprazolam to cover her until her next appointment. - The patient will have fasting blood work done a week before her next physical exam. - A follow-up appointment is scheduled for July. Medications: New azithromycin Take 2 tablets today then 1 daily 250 mg PO ONCE 6 tabs 0RF 5 days J06.9 - Acute upper respiratory infection, unspecified prednisone 20 mg PO DAILY 5 tabs 0RF 5 days Refilled alprazolam 0.5 mg PO BID 60 tabs 3RF 30 days
== END 2025-04-05 10:17 | disposition home or self-care (01) ==
LOC: HO.HMCC 09:40
PROVIDERS: PCP Internal Medicine; Visit Provider Internal Medicine
DX: R06.2 Wheezing (principal); R68.89 Other general symptoms and signs; J01.00 Acute maxillary sinusitis, unspecified; J20.9 Acute bronchitis, unspecified; F41.1 Generalized anxiety disorder

== ENCOUNTER → 2025-04-05 09:38 | Outpatient (BNVA) | payer MEDICARE, MEDICAID, SELFPAY | PROVIDERS: PCP Internal Medicine; Visit Provider Internal Medicine | DX: R06.2 Wheezing (principal); R68.89 Other general symptoms and signs; J01.00 Acute maxillary sinusitis, unspecified; J20.9 Acute bronchitis, unspecified; F41.1 Generalized anxiety disorder | CPT/HCPCS: 99212 ==

== ENCOUNTER 2025-04-18 08:26 | Outpatient (REF) | payer MEDICARE, MEDICAID, SELFPAY ==
[2025-04-18 08:44] LABS: MANUAL DIFF FLAG NO
[2025-04-18 09:02] LABS: Hematocrit 40.1 % (37.0-47.0); Hemoglobin 12.9 g/dl (12.0-16.0); Imm Gran Abs Auto 0.06 X10*3/uL (0.00-0.03); Imm Gran Pct Auto 0.9 % (0.0-0.4); Lymphocytes Absolute Auto 2.9 X10*3/uL (1.2-4.9); Mean Corpuscular HGB Conc 32.2 g/dl (31.0-35.0); Mean Corpuscular Hemoglobin 28.5 pg (27.0-33.0); Mean Corpuscular Volume 88.5 fL (80.0-98.0); NRBC Abs Auto 0.000 X10*3/uL (0.0-0.012); NRBC Pct Auto 0.0 /100WBC (0.0-0.2); Platelet Count 286 X10*3/uL (160-400); Red Blood Count 4.53 X10*6/uL (4.20-5.50); White Blood Count 7.0 X10*3/uL (4.8-10.8)
[2025-04-18 09:42] LABS: Alanine Aminotransferase 22 U/L (0-31); Albumin Level 4.3 g/dL (3.5-5.0); Alkaline Phosphatase 99 U/L (39-117); Anion Gap 13 (12-20); Aspartate Amino Transferase 30 U/L (5-31); Blood Urea Nitrogen 8 mg/dL (9-16); Calcium 9.6 mg/dL (8.4-10.2); Carbon Dioxide 22 mmol/L (22-29); Chloride 110 mmol/L (96-108); Cholesterol 231 mg/dL (<200); Estimated Glomerular Filt Rate > 60; HDL Cholesterol 33 mg/dL (>40); Iron 86 mcg/dL (30-160); Percent Iron Saturation 30 % (15-50); Potassium 4.2 mmol/L (3.3-5.1); Sodium 141 mmol/L (135-145); Total Iron Binding Capacity 286 mcg/dL (228-428); Total Protein 7.2 g/dL (6.5-8.0); Triglycerides 231 mg/dL (<150); Unsaturated Iron Binding 200 ug/dL
[2025-04-18 09:48] LABS: Ferritin 77 ng/mL (10-250)
[2025-04-18 10:06] LABS: Folate 7.3 ng/mL (> or = 4.0); Vitamin B12 296 pg/mL (200-900)
== END 2025-04-18 08:27 | disposition home or self-care (01) ==
LOC: HO.LAB 08:26
PROVIDERS: PCP Internal Medicine; Visit Provider Surgery
DX: I10 Essential (primary) hypertension (principal); E11.9 Type 2 diabetes mellitus without complications; K21.00 Gastro-esophageal reflux disease with esophagitis, without bleeding; E66.01 Morbid (severe) obesity due to excess calories; G47.33 Obstructive sleep apnea (adult) (pediatric); Z99.89 Dependence on other enabling machines and devices
CPT/HCPCS: 36415; 80053; 80061; 82306; 82607; 82728; 82746; 83036; 83525; 83540; 84425; 84443; 84590; 84630; 85025; 86140

== ENCOUNTER 2025-04-25 10:07 | Day surgery (SDC) | payer MEDICARE, MEDICAID, SELFPAY ==
--- NOTE | 2025-04-20 12:11 | HO.ANESPROP2 ---
Documented by User: Marianela Emanuel NP 04/25/25 10:06 HPI - Anesthesia Eval Consult details Narrative: 60 yr old female for upper EGD BMI 41 Seen by PCP 04/05/25 with sinus/respiratory symptoms, also reported anxiety: prescribed antibx, prednisone & benzodiazepine. Workload from 04/12/25 notes pt called in with recurrent symptoms. As of S/P to pt 04/22/25, she was at the gym, rides a recumbent bike to 300 calories, swims for 30 min - no CP or SOB with this activity. [place] [facility] [place], reported ongoing SOB on exertion, also reporting left-sided chest discomfort mostly at rest none with exertion. Per conversation with pt on 04/22- has not had SOB or CP since cardiology visit. Cardiology [facility] noted: 03/31/2023-echo study showed normal LV systolic function with the ejection fraction between 55-60% with grade 1 diastolic dysfunction. Patient is also following pulmonology for ongoing shortness of breath and wheeze being treated for asthma. However, patient notes that her symptoms have not gotten any better on the inhaler. Given her ongoing symptoms and risk factors, we will proceed with a a myocardial perfusion study with an vasodilating agent. Patient is not able to walk on a treadmill due to knee discomfort. TC to pt 04/22, she is declining nuclear stress test, asking for EST, she will follow up with cardiology. [facility] Active Problems Active Problems: All Active Problems (Updated 04/05/25 @ 18:44 by Lyndon Fagan MD) Wheezing (Acute) Feeling unwell (Acute) Acute bronchitis (Acute) Acute maxillary sinusitis (Acute) Obstructive sleep apnea on CPAP (Acute) OAB (overactive bladder) (Acute) Shortness of breath (Acute) Bilateral renal stones (Acute) Abdominal pain (Acute) Diarrhea (Acute) Epigastric pain (Acute) GERD with esophagitis (Acute) Fever and chills (Acute) Spasm of thoracic back muscle (Acute) Urine, incontinence, stress female (Acute) Uncontrolled asthma (Acute) Hematuria (Acute) Polyarticular osteoarthritis (Acute) Seronegative rheumatoid arthritis (Acute) Long-term use of Plaquenil (Acute) Precordial chest pain (Acute) Obesity (BMI 30-39.9) (Acute) Menopausal bleeding (Acute) Difficulty walking (Acute) Interstitial cystitis (Acute) Lipoma (Acute) Elevated C-reactive protein (CRP) (Acute) Fibromyalgia (Acute) Asthma (Acute) Diet-controlled diabetes mellitus (Acute) Cataract (Acute) Difficulty hearing (Acute) Osteoarthritis of knees, bilateral (Acute) Hypertension, essential (Acute) B12 deficiency (Acute) Morbid obesity due to excess calories (Acute) Pain syndrome, chronic (Acute) Chronic idiopathic constipation (Acute) Hx of colonoscopy (Acute) Abdominal bloating (Acute) Trigger finger, left (Acute) GERD (gastroesophageal reflux disease) (Acute) Gastroparesis (Acute) Environmental allergies (Acute) Anxiety, generalized (Acute) Lipid disorder (Acute) Cystocele (Acute) Past Medical History Medical History Asthma Wheezing Obstructive sleep apnea on CPAP Shortness of breath Epigastric pain Localized osteoarthritis of shoulder regions, bilateral Osteoarthritis of left knee Fatigue Microscopic hematuria Mid back pain Knee pain, left Effusion of bursa of knee Tired Sinus pressure Vaginal odor Throat irritation Ill feeling Pyelonephritis Rash Joint pain Elevated blood pressure reading Impaired fasting blood sugar Arthrosis Respiratory tract congestion with cough Frequent UTI Cramps of left lower extremity Dyspnea on exertion Cough Postnasal drip Herpes Difficulty walking up hill Dysuria Encounter for general adult medical examination with abnormal findings Left flank mass Large joint arthralgia of multiple sites Screening examination for infectious disease Pre-op evaluation Bilateral shoulder pain History of nicotine dependence Right ankle sprain Avulsion fracture of ankle Acute bacterial sinusitis Acute viral syndrome Seen in emergency room Polyarticular osteoarthritis Seronegative rheumatoid arthritis Long-term use of Plaquenil Obesity (BMI 30-39.9) Shortness of breath Encounter for routine gynecological examination Feeling sick UTI (urinary tract infection) Respiratory infection Hospital discharge follow-up Medicare annual wellness visit, initial Urinary tract infection Medicare annual wellness visit, subsequent Environmental allergies Anxiety, generalized Lipid disorder Umbilical hernia Fibromyalgia Acute arthritis Tendonitis Family History Family History Mother Cervical cancer Bladder cancer Father Cancer Sister No problems noted. Other Mental health disorder Substance use disorder Family history of problems with anesthesia: No Surgical History Surgical History Hx of appendectomy Hx of hernia repair History of esophagogastroduodenoscopy (EGD) Hx of colonoscopy History of meniscectomy of left knee (~01/12/14) History of cholecystectomy H/O hand surgery History of Problems with Anesthesia: No Social History Social History Household Members: Significant Other Housing: Apartment Alcohol intake: former Year quit: 22yo Patient Tobacco Use Status: Former Tobacco user e-Cigarette/Vaping Use: Never Used Use of substances other than those prescribed or required for medical reasons: No Are you DNR?: No Advance Directives: No Advance Directives Information Provided: Yes service: No Current occupational status: unemployed and disabled Sexual orientation: Straight/Heterosexual Gender identity: Female Cognitive needs: No Hearing needs: No Vision needs: No Meds Allergies Allergy/AdvReac Type Severity Reaction Status Date / Time gabapentin (GABAPENTIN) Allergy Severe SEVERE GI Verified 04/04/25 11:19 ISSUES Iodinated Contrast Media (IV Allergy Severe SWELLING Verified 04/04/25 11:19 DYE, IODINE CONTAINING) Sulfa (Sulfonamide Allergy Severe ANAPHYLAXIS, Verified 04/04/25 11:19 Antibiotics) (SULFA swelling (SULFONAMIDE ANTIBIOTICS)) Milk Containing Products Allergy Intermediate Rash Verified 04/04/25 11:19 (Dairy) lidocaine Allergy Mild Welts Verified 04/04/25 11:19 nabumetone Allergy Unknown Abdominal Verified 04/04/25 11:19 Pain pregabalin Allergy Unknown unknown Verified 04/04/25 11:19 venlafaxine Allergy Unknown unknown Verified 04/04/25 11:19 semaglutide (From Ozempic) AdvReac Intermediate Rash Verified 04/04/25 11:19 meloxicam AdvReac Unknown abdominal Verified 04/04/25 11:19 pain all meat Allergy Unknown unknown Uncoded 04/04/25 11:19 Environmental Allergy Unknown unknown Uncoded 04/04/25 11:19 Home Medications ?Medication ?Instructions ?Recorded ?Confirmed ?Last Taken ?Type famotidine 40 mg tablet 40 mg PO BEDTIME 04/25/25 04/25/25 Unknown History Exam Pertinent Lab Results Pertinent Lab Results: Laboratory Tests 04/18/25 08:42 WBC 7.0 RBC 4.53 Hgb 12.9 Hct 40.1 Plt Count 286 Sodium 141 Potassium 4.2 Chloride 110 H Carbon Dioxide 22 BUN 8 L Creatinine 0.67 Narrative Narrative: EKG NSR rate 85 Assessment and Plan Final Anesthetic Review Family History of Problems with Anesthesia: No History of Problems with Anesthesia: No Documented by User: Stephanie Harvey MD 04/25/25 11:27 [facility] Active Problems Active Problems: All Active Problems (Updated 04/05/25 @ 18:44 by Lyndon Fagan MD) Wheezing (Acute) Feeling unwell (Acute) Acute bronchitis (Acute) Acute maxillary sinusitis (Acute) Obstructive sleep apnea on CPAP (Acute) OAB (overactive bladder) (Acute) Shortness of breath (Acute) Bilateral renal stones (Acute)q Abdominal pain (Acute) Diarrhea (Acute) Epigastric pain (Acute) GERD with esophagitis (Acute) Fever and chills (Acute) Spasm of thoracic back muscle (Acute) Urine, incontinence, stress female (Acute) Uncontrolled asthma (Acute) Hematuria (Acute) Polyarticular osteoarthritis (Acute) Seronegative rheumatoid arthritis (Acute) Long-term use of Plaquenil (Acute) Precordial chest pain (Acute) Obesity (BMI 30-39.9) (Acute) Menopausal bleeding (Acute) Difficulty walking (Acute) Interstitial cystitis (Acute) Lipoma (Acute) Elevated C-reactive protein (CRP) (Acute) Fibromyalgia (Acute) Asthma (Acute) Diet-controlled diabetes mellitus (Acute) Cataract (Acute) Difficulty hearing (Acute) Osteoarthritis of knees, bilateral (Acute) Hypertension, essential (Acute) B12 deficiency (Acute) Morbid obesity due to excess calories (Acute) Pain syndrome, chronic (Acute) Chronic idiopathic constipation (Acute) Hx of colonoscopy (Acute) Abdominal bloating (Acute) Trigger finger, left (Acute) GERD (gastroesophageal reflux disease) (Acute) Gastroparesis (Acute) Environmental allergies (Acute) Anxiety, generalized (Acute) Lipid disorder (Acute) Cystocele (Acute) Past Medical History Medical History Asthma Wheezing Obstructive sleep apnea on CPAP Shortness of breath Epigastric pain Localized osteoarthritis of shoulder regions, bilateral Osteoarthritis of left knee Fatigue Microscopic hematuria Mid back pain Knee pain, left Effusion of bursa of knee Tired Sinus pressure Vaginal odor Throat irritation Ill feeling Pyelonephritis Rash Joint pain Elevated blood pressure reading Impaired fasting blood sugar Arthrosis Respiratory tract congestion with cough Frequent UTI Cramps of left lower extremity Dyspnea on exertion Cough Postnasal drip Herpes Difficulty walking up hill Dysuria Encounter for general adult medical examination with abnormal findings Left flank mass Large joint arthralgia of multiple sites Screening examination for infectious disease Pre-op evaluation Bilateral shoulder pain History of nicotine dependence Right ankle sprain Avulsion fracture of ankle Acute bacterial sinusitis Acute viral syndrome Seen in emergency room Polyarticular osteoarthritis Seronegative rheumatoid arthritis Long-term use of Plaquenil Obesity (BMI 30-39.9) Shortness of breath Encounter for routine gynecological examination Feeling sick UTI (urinary tract infection) Respiratory infection Hospital discharge follow-up Medicare annual wellness visit, initial Urinary tract infection Medicare annual wellness visit, subsequent Environmental allergies Anxiety, generalized Lipid disorder Umbilical hernia Fibromyalgia Acute arthritis Tendonitis Family History Family History Mother Cervical cancer Bladder cancer Father Cancer Sister No problems noted. Other Mental health disorder Substance use disorder Surgical History Surgical History Hx of appendectomy Hx of hernia repair History of esophagogastroduodenoscopy (EGD) Hx of colonoscopy History of meniscectomy of left knee (~01/12/14) History of cholecystectomy H/O hand surgery Social History Social History Household Members: Significant Other Housing: Apartment Alcohol intake: former Year quit: 22yo Patient Tobacco Use Status: Former Tobacco user e-Cigarette/Vaping Use: Never Used Use of substances other than those prescribed or required for medical reasons: No Are you DNR?: No Advance Directives: No Advance Directives Information Provided: Yes service: No Current occupational status: unemployed and disabled Sexual orientation: Straight/Heterosexual Gender identity: Female Cognitive needs: No Hearing needs: No Vision needs: No Meds Allergies Allergy/AdvReac Type Severity Reaction Status Date / Time gabapentin (GABAPENTIN) Allergy Severe SEVERE GI Verified 04/04/25 11:19 ISSUES Iodinated Contrast Media (IV Allergy Severe SWELLING Verified 04/04/25 11:19 DYE, IODINE CONTAINING) Sulfa (Sulfonamide Allergy Severe ANAPHYLAXIS, Verified 04/04/25 11:19 Antibiotics) (SULFA swelling (SULFONAMIDE ANTIBIOTICS)) Milk Containing Products Allergy Intermediate Rash Verified 04/04/25 11:19 (Dairy) lidocaine Allergy Mild Welts Verified 04/04/25 11:19 nabumetone Allergy Unknown Abdominal Verified 04/04/25 11:19 Pain pregabalin Allergy Unknown unknown Verified 04/04/25 11:19 venlafaxine Allergy Unknown unknown Verified 04/04/25 11:19 semaglutide (From Ozempic) AdvReac Intermediate Rash Verified 04/04/25 11:19 meloxicam AdvReac Unknown abdominal Verified 04/04/25 11:19 pain all meat Allergy Unknown unknown Uncoded 04/04/25 11:19 Environmental Allergy Unknown unknown Uncoded 04/04/25 11:19 Home Medications ?Medication ?Instructions ?Recorded ?Confirmed ?Last Taken ?Type famotidine 40 mg tablet 40 mg PO BEDTIME 04/25/25 04/25/25 Unknown History Exam Airway Mallampati Class: II (edentulous) TM Dist: >3cm Neck ROM: Full Denture: Upper and Lower Loose/Missing/Broken Teeth: Yes, Upper and Lower Heart: RRR Lungs: CTA Assessment and Plan Assessment Anesthesia Assessment: Anesthesia Plan Discussed and Chart Reviewed Final Anesthetic Review NPO: Yes ASA Class: III Final Preanesthetic Review: Meds/Allgs Chart Reviewed, Consent Obtained/Reviewed and Anes Risks/Benef Reviewed Patient Risk: Intermediate Procedure Risk: Intermediate Anesthetic Plan Anesthetic Plan: MAC: Disposition: Standard PACU
[2025-04-25 10:56] VITALS: BP 118/90; PULSE 91; RESP 15; TEMP 36.7; O2SAT 96; BMI 39.6
[2025-04-25] MEDS: Lactated Ringers 1,000 ML 80 ML IVCONT (10:59)
--- NOTE | 2025-04-25 11:23 | MHC.SHP ---
Pre-Procedural Eval Section A - 24 Hr Update-Section A only Date of Service: 04/25/25 The patient is an INPATIENT: No The patient has been examined within 24 hours of the surgical procedure. The History & Physical has been completed within 30 days and I have reviewed it.: Yes Section B - Complete if H&P > 30 days Chief Complaint: Morbid (severe) obesity due to excess calories Details of Present Illness: GERD Relevant Family History (Specify if Yes): No Relevant Social History: None Present Medications: None Medical History: No relevant PMH History of Previous Operations: No relevant previous surgery Allergies: Allergies Allergy/AdvReac Type Severity Reaction Status Date / Time gabapentin (GABAPENTIN) Allergy Severe SEVERE GI Verified 04/04/25 11:19 ISSUES Iodinated Contrast Media (IV Allergy Severe SWELLING Verified 04/04/25 11:19 DYE, IODINE CONTAINING) Sulfa (Sulfonamide Allergy Severe ANAPHYLAXIS, Verified 04/04/25 11:19 Antibiotics) (SULFA swelling (SULFONAMIDE ANTIBIOTICS)) Milk Containing Products Allergy Intermediate Rash Verified 04/04/25 11:19 (Dairy) lidocaine Allergy Mild Welts Verified 04/04/25 11:19 nabumetone Allergy Unknown Abdominal Verified 04/04/25 11:19 Pain pregabalin Allergy Unknown unknown Verified 04/04/25 11:19 venlafaxine Allergy Unknown unknown Verified 04/04/25 11:19 semaglutide (From Ozempic) AdvReac Intermediate Rash Verified 04/04/25 11:19 meloxicam AdvReac Unknown abdominal Verified 04/04/25 11:19 pain all meat Allergy Unknown unknown Uncoded 04/04/25 11:19 Environmental Allergy Unknown unknown Uncoded 04/04/25 11:19 Review of Systems Sugical H&P ROS: Negative: Constitution, Cardiovascular, Respiratory, Neurological, Psychiatric, Hem-Onc, Allergic/Immunologic, Gastrointestinal, Genitourinary, Musculoskeletal, Integumentary, Endocrine and Eyes/Ears/Nose/Throat Exam Surgical H&P Exam: Normal: HEENT, Normal: Heart, Normal: Lungs, Normal: Extremities, Normal: Abdomen, Normal: Skin and Normal: Neurological Plan Diagnosis/Plan: Unchanged (EGD to assess etiology of GERD. Risks of bleeding and perforation were discussed with the patient and she is in agreement with the plan.) I have reviewed the history and physical and performed a pertinent physical examination on my patient. No changes have occurred unless specified. Time Spent With Patient Time: Total time managing care of this patient today ____ minutes.
--- NOTE | 2025-04-25 11:26 | P.BOP_ITS ---
Brief Operative Note Date of Service: 04/25/25 Pre-op diagnosis: GERD Post-op diagnosis: same Procedure: PROCEDURE DATE: 04/25/2025 PREOPERATIVE DIAGNOSIS: GERD POSTOPERATIVE DIAGNOSIS: ?Same as above. Diaphragmatic hernia PROCEDURE: Clasarph-[id number]-yyfelnketbjd with biopsies Surgeon: Lance Torrez M.D.. Ph.D. Personnel Coordinator: None ? Anesthesia: IV sedation Estimated blood loss: ?Minimal FINDINGS AND PROCEDURE: ? OPERATIVE INDICATIONS: ?The patient is a 60 year old female known to me who is interested in bariatric surgery. The patient has GERD. Based on this information I recommended an upper endoscopy to evaluate the patient's symptoms. Risks and complications of the surgery were discussed with the patient in advance particularly the possibility of perforation or bleeding that may require surgi juni intervention. The patient understood the risks and was in agreement with the plan. ? PROCEDURE: After informed consent was obtained by the patient, the patient was ?transferred to the Operating Room and was placed in the supine position.? After successful induction of IV sedation, a mouth block was inserted and the patient was placed in the left lateral decubitus position. An upper endoscopy was performed next, the oropharynx and esophagus appeared within the normal limits. There was a 3cm reducible hiatal hernia. The z-line was smooth. Two biopsies were obtained from the distal esophagus 2-3 cm proximal to the GE junction and two additional biopsies from the GE junction. The stomach was entered and it appeared to be of normal size. There was no gastritis. There was no stricture or ulcer. A biopsy was obtained from the gastric fundus and the antrum. No significant bleeding was noted from any of the biopsy sites. Retroflexion of the scope confirmed the presence of a diaphragmatic hernia. The scope was then advanced into the duodenum which appeared to be normal as well. At that point the duodenum ?and the stomach were decompressed and the scope was withdrawn from the patient's mouth. The patient extubated and was transferred in stable condition to the Recovery Room for further care. I was present and performed all steps of the procedure. There were no residents to assist with this case. Samir Torrez M.D., Ph.D. Surgeon: Johann Torrez MD Anesthesia: MAC Was an Personnel Coordinator used for this Procedure?: No Estimated blood loss (mL): 0 IV fluids (mL): 400 Urine output (mL): 0 (No Mcnally to record output) Pathology: other (1) antrum x1, 2) fundus x1, 3) GE junction x2, 4) distal esophagus x2) Condition: stable Disposition: PACU
[2025-04-25 11:47] VITALS: BP 113/66; PULSE 89; RESP 18; TEMP 36.7; O2SAT 97
[2025-04-25 12:01] VITALS: BP 121/79; PULSE 90; RESP 14; O2SAT 97
[2025-04-25 12:04] VITALS: BP 122/78; PULSE 81; RESP 18; TEMP 36.3; O2SAT 95
== END 2025-04-25 13:02 | disposition home or self-care (01) ==
PROVIDERS: PCP Internal Medicine; Visit Provider Surgery
PROC: 0DJ08ZZ Inspection of Upper Intestinal Tract, Via Natural or Artificial Opening Endoscopic (ICD-10-PCS; CPT 43235; principal; 2025-04-25 12:10)
DX: K21.9 Gastro-esophageal reflux disease without esophagitis (principal); E66.01 Morbid (severe) obesity due to excess calories; Z68.41 Body mass index [BMI] 40.0-44.9, adult; R03.0 Elevated blood-pressure reading, without diagnosis of hypertension; R73.01 Impaired fasting glucose; R26.2 Difficulty in walking, not elsewhere classified; R06.02 Shortness of breath; G47.33 Obstructive sleep apnea (adult) (pediatric); M06.00 Rheumatoid arthritis without rheumatoid factor, unspecified site; M15.9 Polyosteoarthritis, unspecified; F41.1 Generalized anxiety disorder; Z79.899 Other long term (current) drug therapy; Z99.89 Dependence on other enabling machines and devices; Z88.2 Allergy status to sulfonamides; Z88.8 Allergy status to other drugs, medicaments and biological substances; Z91.041 Radiographic dye allergy status; Z91.0110 Allergy to milk products, unspecified; Z91.018 Allergy to other foods; Z90.49 Acquired absence of other specified parts of digestive tract; Z98.890 Other specified postprocedural states; Z87.891 Personal history of nicotine dependence
CPT/HCPCS: 43239; 88305; 88313; 88342; J2003; J2704

== ENCOUNTER → 2025-04-25 10:07 | Outpatient (BNV) | payer MEDICARE, MEDICAID, SELFPAY | PROVIDERS: PCP Internal Medicine; Visit Provider Surgery | DX: K21.9 Gastro-esophageal reflux disease without esophagitis (principal); K44.9 Diaphragmatic hernia without obstruction or gangrene | CPT/HCPCS: 43239 ==

== ENCOUNTER 2025-05-04 10:29 | Outpatient (AMB) | payer MEDICARE, MEDICAID, SELFPAY ==
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
== END 2025-05-04 13:21 | disposition home or self-care (01) ==
LOC: HO.HBST 10:30
PROVIDERS: PCP Internal Medicine; Visit Provider Counselor Mental Health
DX: F41.0 Panic disorder [episodic paroxysmal anxiety] (principal); Z71.89 Other specified counseling
CPT/HCPCS: 90791

== ENCOUNTER 2025-06-08 11:18 | Outpatient (AMB) | payer MEDICARE, MEDICAID, SELFPAY ==
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
== END 2025-06-08 14:14 | disposition home or self-care (01) ==
LOC: HO.HBST 11:18
PROVIDERS: PCP Internal Medicine; Visit Provider Counselor Mental Health
DX: F41.0 Panic disorder [episodic paroxysmal anxiety] (principal); Z71.89 Other specified counseling; F41.1 Generalized anxiety disorder
CPT/HCPCS: 90837